=== PATIENT | female | born 1990 | race Caucasian/White ===

== ENCOUNTER 2018-02-07 20:50 | Emergency (ER) | payer OTHER, SELFPAY ==
--- NOTE | 2018-02-07 12:18 | EKG12_ITS ---
Test Reason : CP Blood Pressure : / mmHG Vent. Rate : 099 BPM Atrial Rate : 099 BPM P-R Int : 146 ms QRS Dur : 072 ms QT Int : 346 ms P-R-T Axes : 065 064 052 degrees QTc Int : 444 ms Normal sinus rhythm Normal ECG Reconfirmed by JEN BRASHER, CARL ([id number]), copy editor FAHAD HORNER ([id number]) on 03/07/2018 2:42:48 PM Referred By: John Olivas Confirmed By:CARL LI MD
--- NOTE | 2018-02-07 20:50 | DT_ITS ---
This patient was seen during an EMR downtime February 04, 2018 - February 11, 2018. This patient may have a combination of paper and electronic documentation or all paper documentation. All documentation is viewable within the e-chart portion of [facility] for each patient visit.
--- NOTE | 2018-02-07 22:25 | RAD_ITS ---
STUDY: X-RAY CHEST REASON FOR EXAM: Female, 27 years old. Chest pain TECHNIQUE: Frontal and lateral views of the chest were obtained. COMPARISON: None. FINDINGS: The lungs are adequately aerated. There are no focal airspace opacities. There is no demonstrated pleural abnormality. The cardiac silhouette is normal in size. The mediastinum and hilar regions are unremarkable. Normal visualized pulmonary arteries. Normal visualized aortic arch and descending thoracic aorta. The thoracic spine is unremarkable. The visualized ribs, clavicles, and shoulders are unremarkable. There is no demonstrated abnormality of the visualized upper abdomen. RAD/Chest PA and Lateral IMPRESSION: No acute cardiopulmonary abnormalities. Electronically Signed: Kathy Conde MD at 23:18 EDT Tel Direct: [phone], Service support ,
== END 2018-02-08 00:17 | disposition home or self-care (01) ==
LOC: ED 02-08 08:42
PROVIDERS: Emergency Provider Emergency Medicine
DX: R07.89 Other chest pain (principal); R23.2 Flushing; R06.00 Dyspnea, unspecified; J45.909 Unspecified asthma, uncomplicated; Z87.891 Personal history of nicotine dependence
CPT/HCPCS: 36415; 71046; 84484; 93005; 99283

== ENCOUNTER 2018-09-30 00:19 | Emergency (ER) | payer OTHER, SELFPAY ==
[2018-09-30 00:20] VITALS: BP 143/91; PULSE 103; RESP 99; TEMP 35.7; O2SAT 99; BMI 29.6
--- NOTE | 2018-09-30 00:44 | ED.DCSUM_ITS ---
- ER Visit Summary Date of Service: 09/30/18 Chief Complaint: [] Abdominal cramping, nausea vomiting and diarrhea History of Present Illness: The patient is a 27 F with the above symptoms for the last 2 hours. She is been having episodes of emesis with 5 loose bowel movements. She has cramping and aching upper abdominal discomfort. She tried Tylenol, Pepto, Tums with minimal relief. She has had 4 liquor beverages earlier today over 4 hours and does not think that is the cause. No sick contacts. She drinks only occasionally. Physical Examination: [] Vital signs reviewed General: Well-nourished well-developed Head: Normocephalic atraumatic Eyes: Pupils equal round and reactive to light extraocular movements intact ENT: TMs clear no hemotympanum no trauma Neck: Nontender full range of motion Cardiovascular: Regular rate rhythm no murmurs normal S1-S2 Respiratory: No distress clear to auscultation bilaterally chest nontender Abdomen: Soft mild upper abdominal soreness diffuse nondistended normal bowel sounds no masses Back: Nontender no CVA tenderness Extremities: Nontender active range of motion ?4 extremities no trauma Skin: Normal color no trauma Neuro alert oriented cranial nerves II through XII intact normal strength sensation reflexes Test Results: [] Emergency Department Course and Treatment: [] Patient given IV fluids, Zofran, morphine, Imodium. Electrolytes unremarkable. Patient felt much better after treatment. No longer having any nausea. She did have a few episodes of diarrhea but none since Imodium. Patient will be discharged with Zofran and use Imodium [id number]. At this time I think she has viral diarrhea and vomiting Treatment Plan: [] Disposition: [] Impression: [] Nausea vomiting and diarrhea This note was generated with [employer] dictation software. It may contain incorrect words, spelling, and punctuation that were not noted in review of the chart prior to signing ED Disposition - Plan for ED Patient: Chief Complaint: Nausea/Vomiting/Diarrhea Referrals: [facility] Doctor,Out of [Primary Care Provider] -
[2018-09-30] MEDS: Ondansetron 4 MG/2 ML Vial IV (01:06)
[2018-09-30] MEDS: 0.9% Normal Saline 1,000 ML 1000 ML IV (01:06)
[2018-09-30] MEDS: Morphine 4 MG/ML Syringe IV (01:06)
[2018-09-30] MEDS: Loperamide 2 MG Capsule 4 MG PO (01:21)
[2018-09-30 01:23] VITALS: BP 133/69; PULSE 78; RESP 18; TEMP 36.7; O2SAT 100
[2018-09-30 01:47] LABS: Anion Gap 12 (5-15); BUN 6 mg/dL (7-18); BUN/Creat Ratio 7.4 RATIO (10-20); Calcium,Total 9.6 mg/dL (8.5-10.1); Chloride 104 mmol/L (98-107); Creatinine, Serum 0.81 mg/dL (0.55-1.02); EST Glomerular Filtration Rate 89 mL/min (>60); Est Glom Filt Rate - Afr Amer 107 mL/min (>60); Estimated Creatinine Clearance 88.49 ml/min; Glucose 108 mg/dL (74-106); Potassium 3.6 mmol/L (3.5-5.1); Sodium Level 139 mmol/L (136-145)
--- NOTE | 2018-09-30 02:00 | ED.DEP ---
ED Disposition - Plan for ED Patient: Disposition: Home or Assisted Living Chief Complaint: Nausea/Vomiting/Diarrhea Instructions: ED Food Poison Or Gastroenteritis Prescriptions: Ondansetron [Zofran Odt] 4 mg PO Q8H PRN PRN #10 tab PRN Reason: Nausea Referrals: [facility],Out of [Primary Care Provider] -
[2018-09-30 02:05] VITALS: BP 135/74; PULSE 89; RESP 15; O2SAT 99
[2018-09-30] MEDS: Ondansetron ODT 4 MG Tablet PO (02:21)
== END 2018-09-30 02:22 | disposition home or self-care (01) ==
PROVIDERS: Emergency Provider Emergency Medicine
DX: K52.9 Noninfective gastroenteritis and colitis, unspecified (principal); Z79.899 Other long term (current) drug therapy; Z87.11 Personal history of peptic ulcer disease
CPT/HCPCS: 80048; 96361; 96374; 96375; 99283; A4216; J2405

== ENCOUNTER → 2020-06-15 17:10 | Outpatient (CLI) | payer OTHER, SELFPAY | PROVIDERS: Referring Provider Nurse Practitioner Family; Visit Provider Nurse Practitioner Family | DX: Z20.828 Contact with and (suspected) exposure to other viral communicable diseases (principal) | CPT/HCPCS: 87635; C9803; U0003 ==

== ENCOUNTER → 2020-08-05 | Outpatient (CLI) | payer OTHER, SELFPAY ==
[2020-08-05 11:42] VITALS: BMI 29.5
[2020-08-11 21:36] LABS: HPV APTIMA, High Risk Negative (Negative)
== END | disposition home or self-care (01) ==
LOC: LABSPEC 16:14
PROVIDERS: Referring Provider Obstetrics & Gynecology; Visit Provider Obstetrics & Gynecology
DX: Z87.42 Personal history of other diseases of the female genital tract (principal)
CPT/HCPCS: 87624; 88175; G0145

== ENCOUNTER → 2020-08-09 16:03 | Outpatient (CLI) | payer OTHER, SELFPAY ==
[2020-08-05 11:42] VITALS: BMI 29.5
[2020-08-09 17:08] LABS: Thyroid Stim Hormone (TSH) 1.16 uIU/mL (0.358-3.74)
[2020-08-15 20:42] LABS: Anti-Mullerian Hormone,Serum 0.794 ng/mL (.)
== END ==
PROVIDERS: PCP Family Medicine; Referring Provider Obstetrics & Gynecology; Visit Provider Obstetrics & Gynecology
DX: R23.2 Flushing (principal)
CPT/HCPCS: 36415; 83516; 84443

== ENCOUNTER → 2020-08-13 12:26 | Outpatient (CLI) | payer OTHER, SELFPAY ==
[2020-08-05 11:42] VITALS: BMI 29.5
--- NOTE | 2020-08-13 12:30 | US_ITS ---
STUDY: ULTRASOUND OF THE FEMALE PELVIS - COMPLETE REASON FOR EXAM: Female, 29 years old. PELVIC PAIN LMP: 07/08/2020 TECHNIQUE: Transabdominal and Transvaginal TECHNICAL QUALITY: Adequate. COMPARISON: None. FINDINGS: The uterus is anteverted and is in a midline position. The uterus measures 7.7 x 4.7 x 3.4 cm. Normal uterine cervix. The endometrium measures 2.9 mm in thickness, and is hyperechoic. There is no demonstrated endometrial mass. Hypoechoic mass of the myometrium measures 3.2 x 2.2 x 2.4 cm compatible with a fibroid. I.U.D. - The patient does not have an I.U.D. The right ovary is visualized. The right ovary measures 2.4 x 2.2 x 1.0 cm. There is no right ovarian cyst or ovarian mass. There is no visualized right adnexal mass or complex lesion. There is normal arterial and normal venous vascularity. The left ovary is visualized. The left ovary measures 2.3 x 2.2 x 1.2 cm. There is no left ovarian cyst or ovarian mass. There is no visualized left adnexal mass or complex lesion. There is normal arterial and normal venous vascularity. There is no fluid in the cul-de-sac. Visualized urinary bladder is unremarkable. US/Pelvic (Non ) IMPRESSION: 3.2 cm uterine fibroid. Electronically Signed: Abel Castillo MD (Brooks) at 15:09 EST , Service support ,
--- NOTE | 2020-08-13 12:30 | US_ITS ---
STUDY: ULTRASOUND OF THE FEMALE PELVIS - COMPLETE REASON FOR EXAM: Female, 29 years old. PELVIC PAIN LMP: 07/08/2020 TECHNIQUE: Transabdominal and Transvaginal TECHNICAL QUALITY: Adequate. COMPARISON: None. FINDINGS: The uterus is anteverted and is in a midline position. The uterus measures 7.7 x 4.7 x 3.4 cm. Normal uterine cervix. The endometrium measures 2.9 mm in thickness, and is hyperechoic. There is no demonstrated endometrial mass. Hypoechoic mass of the myometrium measures 3.2 x 2.2 x 2.4 cm compatible with a fibroid. I.U.D. - The patient does not have an I.U.D. The right ovary is visualized. The right ovary measures 2.4 x 2.2 x 1.0 cm. There is no right ovarian cyst or ovarian mass. There is no visualized right adnexal mass or complex lesion. There is normal arterial and normal venous vascularity. The left ovary is visualized. The left ovary measures 2.3 x 2.2 x 1.2 cm. There is no left ovarian cyst or ovarian mass. There is no visualized left adnexal mass or complex lesion. There is normal arterial and normal venous vascularity. There is no fluid in the cul-de-sac. Visualized urinary bladder is unremarkable. US/Transvaginal Non- IMPRESSION: 3.2 cm uterine fibroid. Electronically Signed: Abel Castillo MD (Brooks) at 15:09 EST , Service support ,
== END ==
PROVIDERS: PCP Family Medicine; Referring Provider Obstetrics & Gynecology; Visit Provider Obstetrics & Gynecology
DX: R10.2 Pelvic and perineal pain (principal)
CPT/HCPCS: 76830; 76856

== ENCOUNTER 2020-09-28 09:57 | Observation (INO) | payer OTHER, SELFPAY ==
[2020-08-05 11:42] VITALS: BMI 29.5
[2020-09-28] VITALS (13 sets, daily range): BP systolic 114–161; BP diastolic 64–110; PULSE 110–127; RESP 16–20; TEMP 36.6–37; O2SAT 95–100; BMI 30.4; BMI 29.8
--- NOTE | 2020-09-28 10:08 | EKG12_ITS ---
Test Reason : CP Blood Pressure : / mmHG Vent. Rate : 130 BPM Atrial Rate : 130 BPM P-R Int : 132 ms QRS Dur : 074 ms QT Int : 318 ms P-R-T Axes : 065 081 038 degrees QTc Int : 467 ms Sinus tachycardia Otherwise normal ECG Confirmed by ZAFAR BRASHER, YOLANDE ([id number]), editor department TANYA MANDUJANO ([id number]) on 09/29/2020 11:16:46 AM Referred By: RAYAS/ALIE Confirmed By:YOLANDE STEPHEN MD
--- NOTE | 2020-09-28 10:09 | CT_ITS ---
STUDY: CTA CHEST REASON FOR EXAM: Female, 29 years old. SOB,COUGH,CHEST PAIN, ASTHMA, ELEV WBC, TOBACCO USE RADIATION DOSAGE (If Supplied By Facility): CTDIvol = ( 12.7 ) mGy, DLP = ( 413.24 ) mGycm TECHNIQUE: The examination was performed with the intravenous administration of IV 100mL Isovue-300. Post-processing of the angiographic images was performed, with multiplanar reformation and 3D reconstruction. Individualized dose optimization techniques were used for this CT. COMPARISON: None. FINDINGS: Small benign-appearing bilateral axillary lymph nodes. There are multiple nonocclusive intraluminal filling defects in branches of the upper lobe pulmonary arteries in keeping with the pulmonary emboli. There is also evidence of a multiple small bilateral pulmonary emboli in the lower lobe pulmonary arteries. Normal thoracic aorta and visualized great vessels. There is no demonstrated aortic dissection. Normal heart and pericardium. There are calcified mediastinal lymph nodes. There are calcified right hilar lymph nodes. Normal visualized trachea and bronchi. The lungs are well expanded. Calcified granuloma in the right lower lobe. Calcified right hilar lymph nodes and subcarinal lymph nodes. Normal pleura. Normal chest wall structures. Normal osseous structures. Normal visualized upper abdomen. CT/CTA Chest W/WO Contrast IMPRESSION: Bilateral pulmonary emboli. Electronically Signed: Tung Zhao MD at 11:26 EST , Service support ,
--- NOTE | 2020-09-28 10:15 | ED.DCSUM_ITS ---
- ER Visit Summary Date of Service: 09/28/20 Chief Complaint: Cough, chest pain History of Present Illness: The patient is a 29 F presenting with cough, chest pain with inspiration. She states 2 weeks ago she was having headache, chills, cough, fatigue. She was tested for Covid at that time and was negative. She has been improved for the past week. She states since yesterday she has now developed a cough again. She has pain with deep inspiration. She went to urgent care and was advised to come to the ED for further evaluation. Physical Examination: Vitals are stable. Patient is afebrile. Alert no acute distress. HEENT exam is unremarkable. Neck is supple. Lungs are clear and equal bilaterally. Heart is regular and tachycardic Abdomen is soft nontender nondistended. Extremities are unremarkable. Skin is warm and dry. No focal neurologic deficit. Remainder of exam is unremarkable. Emergency Department Course and Treatment: EKG is sinus tachycardia rate of 130. CBC shows white count 15.6. Chemistries unremarkable. Troponin is negative. hCG negative. Patient was given IV fluids. CTA chest shows bilateral PE. Her heart rate remains 120s to 130s. She was given Eliquis. Discussed with hospitalist for admission. Disposition: Admission Impression: Bilateral PE This note was generated with [employer] dictation software. It may contain incorrect words, spelling, and punctuation that were not noted in review of the chart prior to signing ED Disposition - Plan for ED Patient: Referrals: Lavell Killian MD [Primary Care Provider] -
[2020-09-28 10:25] LABS: Absolute Lymphocyte Count 2.24 X10^3/uL (0.83-4.51); Absolute Neutrophil Count 12.4 X10^3/uL (2.0-7.7); Basophil# 0.07 X10^3/uL; Basophil% 0.4 % (0-1); Eosinophil# 0.18 X10^3/uL; Eosinophils% 1.2 % (0-5); Hematocrit 41.3 % (37-47); Hemoglobin 13.6 g/dL (12.0-15.0); Lymphocyte # 2.24 X10^3/ul (4.0); Lymphocyte % 14.4 % (19-41); Mean Corp Hgb Conc 32.9 g/dL (32-36); Mean Corpuscular Hgb 28.3 pg (27.0-32.0); Mean Platelet Vol. 8.7 fl (6.2-12.0); Monocyte# 0.62 X10^3/uL; NRBC Flagged by Analyzer 0 % (0-5); Neutrophil # 12.38 X10^3/uL (2.7-7.7); Neutrophil % 79.6 % (47-70); Platelet Count 401 K/mm3 (150-450); RBC Distribution Width SD 37.5 fl (35.1-43.9); White Blood Count 15.6 K/mm3 (4.4-11.0)
[2020-09-28] MEDS: 0.9% Normal Saline 1,000 ML 1000 ML IV (10:28)
[2020-09-28 10:41] LABS: Internal QC Validated? YES +Cl - CLEAR BKGD; Pregnancy, Serum, hCG Quali. NEGATIVE Negative
[2020-09-28 10:43] LABS: Anion Gap 6 (5-15); BUN 10 mg/dL (7-18); BUN/Creat Ratio 12.8 RATIO (10-20); Calcium,Total 9.4 mg/dL (8.5-10.1); Chloride 105 mmol/L (98-107); Creatinine, Serum 0.78 mg/dL (0.55-1.02); EST Glomerular Filtration Rate 91 mL/min (>60); Est Glom Filt Rate - Afr Amer 110 mL/min (>60); Estimated Creatinine Clearance 90.24 ml/min; Glucose 95 mg/dL (74-106); Potassium 3.5 mmol/L (3.5-5.1); Sodium Level 139 mmol/L (136-145)
--- NOTE | 2020-09-28 11:43 | NURSING ---
DR TRAY TABARES
--- NOTE | 2020-09-28 11:45 | HP.PCM_ITS ---
History of Present Illness Date of Admission: 09/28/20 Chief Complaint: shortness of breath The patient is a 29 year old F with no significant past medical history who was admitted through the ED on 09/28/2020 with a complaint of cough and shortness of breath which started on the morning of admission. She also had associated chest pain which was mainly with breathing in deeply. Patient has never had such symptoms before so she went to an urgent care facility today. Whilst there, she was noted to be tachycardic, with HR up in the 130s, so she was told to come to the ED. 2 weeks prior to this admission, patient believes she had Covid as she had fever and chills and shortness of breath as well as generalized body pains. She denies any loss of taste or smell and her partner has similar symptoms and has been tested for Covid. She was never tested for Covid though. She has a history of using oral contraceptive pills which she says she stopped about 2 weeks ago after using it for about 16 years. She does not know of any family history of blood clots or spontaneous abortions or any per coagulable state in her mother and does not know much about the rest of her family. Review of systems otherwise negative. In the ED, vitals show temperature of 97.8 Fahrenheit with blood pressure of 161/110, pulse rate of 125 and respiratory rate of 20. She was saturating at 98% on room air. Chemistry was unremarkable initial troponin was negative. CBC showed WBC of 15.6 but was otherwise unremarkable. CT of the chest showed bilateral pulmonary emboli in the upper lobes and multiple small bilateral pulmonary emboli in the lower lobe pulmonary arteries. She has been admitted to be managed for bilateral PE. 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 Gastric ulcer K25.9 Vertigo R42 Allergies No Known Allergies Allergy (Verified 09/28/20 09:57) Home Medications: Ambulatory Orders Medication Instructions Recorded Pantoprazole Sodium [Protonix] 40 mg PO DAILY 09/30/18 albuterol sulfate 90 mcg/actuation 2 puff INHALATION Q6H PRN 08/05/20 aerosol inhaler multivitamin 1 tab PO DAILY 08/05/20 Loratadine/Pseudo 240/10 1 tab PO DAILY 09/28/20 [Claritin-D 24 Hr] Surgical History: Surgical History (Last Updated 08/05/20 @ 11:45 by Ria Mejía) S/P LEEP Z98.890 S/P endoscopy Z98.890 S/P wisdom tooth extraction Z98.818 Status post colposcopy Z98.890 Smoking Status: Former smoker Review of Systems Constitutional: Denies: Chills, Fever, Malaise, Weakness, Weight Change Eyes: Denies: Blurred vision HEENT: Denies: Head Aches, Sinus Congestion, Sinus Drainage Cardiovascular: Reports: Chest Pain, Palpitations. Denies: Chest Pressure, Chest Tightness, Edema, Heaviness, Light Headedness, Orthopnea, Paroxysmal Noc. Dyspnea, Syncope Respiratory: Reports: Pleuritic Pain, Shortness of Breath. Denies: Cough, Shortness of breath at rest, Sputum production Gastrointestinal: Denies: Abdominal Pain, Nausea, Vomiting Genitourinary: Denies: Dysuria Musculoskeletal: Denies: Joint Pain, Joint Tenderness Skin: Denies: Rash, Wounds Neurological: Denies: Numbness, Tingling, Focal weakness Psychiatric: Denies: Anxiety, Depression, Homicidal Ideations, Suicidal Ideations Hematologic/ Lymphatic: Denies: Easy Bruising, Easy Bleeding VTE Information - Inpt Only VTE Present on Admission: Yes VTE Pharm Prophylaxis ordered?: Yes - Physical Exam Vitals/I&O's: Vital Signs Temp Pulse Resp BP Pulse Ox 97.8 F 118 H 16 122/93 H 100 09/28/20 09:58 09/28/20 10:25 09/28/20 10:25 09/28/20 10:25 09/28/20 10:25 Oxygen Delivery Method Room Air Weight: 177 lb Body Mass Index (BMI) 30.4 General: Alert, Oriented x3, Cooperative, - - anxious HEENT: Atraumatic, PERRLA, EOMI, Normocephalic Oral: Dry Mucosa Neck: Supple, No JVD, Negative Carotid Bruits Lungs: Clear to auscultation, Normal air movement, No rhonchi, No wheeze Cardiovascular: Normal S1, Normal S2, No murmurs, Tachycardic Abdomen: Bowel Sounds Present, Soft, Non Tender Extremities: No clubbing, No cyanosis, No edema, Capillary Refill Less than 3 Seconds Skin: No rashes, No breakdown Musculoskeletal: No Tenderness to Palpation of Joints or Extremities Lymphatic: No Cervical, Supraclavicular, or Inguinal Adenopathy Neurological: Cranial nerves II-XII grossly intact, Neuro grossly intact, Motor Exam 5/5 strength throughout Psych/Mental Status: Normal Affect, Appropriate, Alert and oriented to time, place, person, mood and affect Microbiology Past 72 Hours 09/28/20 10:12 Mucosa - Nose SARS-CoV-2 Antigen (Rapid) - Final Laboratory Results 09/28/20 10:13: WBC 15.6 H, RBC 4.80, Hgb 13.6, Hct 41.3, MCV 86.0, MCH 28.3, MCHC 32.9, RDW Std Deviation 37.5, RDW Coeff of Elizabeth 12.0, Plt Count 401, MPV 8.7, Immature Gran % (Auto) 0.400, Neut % (Auto) 79.6 H, Lymph % (Auto) 14.4 L, [place] % (Auto) 4.0, Eos % (Auto) 1.2, Baso % (Auto) 0.4, Absolute Neuts (auto) 12.4 H, Absolute Lymphs (auto) 2.24, Nucleated RBC % 0 09/28/20 10:13: Sodium 139, Potassium 3.5, Chloride 105, Carbon Dioxide 28.0, Anion Gap 6, BUN 10, Creatinine 0.78, Estim Creat Clear Calc 90.24, Est GFR (MDRD) Af Amer 110, Est GFR (MDRD) Non-Af 91, BUN/Creatinine Ratio 12.8, Glucose 95, Calcium 9.4, Troponin I < 0.015 09/28/20 10:13: Serum , Qual NEGATIVE Diagnostic Data Chest CTA 09/28/20 10:09 IMPRESSION: Bilateral pulmonary emboli. Electronically Signed: Tung Zhao MD at 11:26 EST , Service support , Assessment/Plan 29 y/o admitted with a complaint of shortness of breath, palpitations and pleuritic chest pain #Bilateral PE * only provoking factor seems to be use of OCPs * COVID rapid antigen test was negative, PCR test done was also negative. * CT of the chest showed bilateral pulmonary emboli * Admits to PCU with telemetry * Check 2D echo. Patient started on Eliquis in the ED. Will continue. * Patient will need hypercoagulable work-up as well. We will hold off on duplex of the lower extremities as it will not change the management. * Counseled that she should not resume use of OCPs ever again due to them provoking DVT PE. * Counseled that she would need to be anticoagulated for at least 6 months. * #Asthma * Controlled. On albuterol inhaler. * Breathing treatments with bronchodilators as needed. * VT prophylaxis: not indicated as she is being anticoagulated for PE OBSV E&M: [id number] Initial observation care L3
[2020-09-28] MEDS: APIXABAN 5 MG TABLET 10 MG PO ×2 (12:02→20:47)
[2020-09-28] MEDS: Acetaminophen 500 MG Tablet 1000 MG PO (15:15)
--- NOTE | 2020-09-28 15:30 | NURSING ---
124 KORAM BILATERAL PE
[2020-09-28 16:47] LABS: BNP,B-Type NATRIURETIC PEPTIDE 6.3 pg/mL (0-100)
[2020-09-28] MEDS: Acetaminophen 325 MG Tablet 650 MG PO (22:59)
[2020-09-29 02:40] VITALS: BP 112/64; PULSE 99; RESP 18; TEMP 37; O2SAT 97
[2020-09-29 03:02] VITALS: PULSE 92
--- NOTE | 2020-09-29 05:55 | ECHOD_ITS ---
Reason For Study: Bilateral PE Procedure This was a 2D Doppler, Color Flow transthoracic echocardiogram. The exam was of adequate technical quality. Exam performed portable in patient room. Left Ventricle Normal LV size. Left ventricular systolic function is normal. The estimated ejection fraction is 65 %. No evidence for diastolic dysfunction. No regional wall motion abnormalities noted. Right Ventricle Normal RV size. Normal systolic function. Atria Normal left atrium. Normal right atrium. No doppler evidence for ASD. Mitral Valve There is no mitral annular calcification. Normal mitral valve. Trivial mitral valve insufficiency. Tricuspid Valve Normal tricuspid valve. Trivial tricuspid valve insufficiency. Unable to estimate RV systolic pressure due to insufficient tricuspid regurgitant envelope. Aortic Valve Trisinus/trileaflet aortic valve. Normal aortic valve. Pulmonic Valve The pulmonic valve is not well visualized. Great Vessels Normal sized aortic root. Pericardium/Pleural No pericardial effusion. MMode/2D Measurements & Calculations LVIDd: 4.1 cm IVSd: 0.80 cm Ao root diam: 3.0 cm LVIDs: 2.9 cm LVPWd: 1.1 cm LA dimension: 3.0 cm FS: 30.0 % LAV(MOD-bp): 38.8 ml LA A4 area: 14.8 cm2 RA A4 area: 13.2 cm2 LAV(MOD-bp) Indexed: 21.1 ml/m2 LAV(MOD-sp2): 38.0 ml LAV(MOD-sp4): 35.0 ml Time Measurements MV dec time: 0.20 sec Doppler Measurements & Calculations MV E max patric: 84.6 cm/sec Lat Peak E' Patric: 17.2 cm/sec Med Peak E' Patric: 11.6 cm/sec MV A max patric: 57.4 cm/sec E/E' lat: 4.9 E/E' med: 7.3 MV E/A: 1.5 MV V2 max: 91.1 cm/sec MV P1/2t max patric: 92.2 cm/sec Ao V2 max: 137.0 cm/sec MV max P.3 mmHg MV P1/2t: 67.3 msec Ao max P.5 mmHg MV V2 mean: 55.5 cm/sec MV dec slope: 401.4 cm/sec2 MV mean P.4 mmHg MVA(P1/2t): 3.3 cm2 MV V2 VTI: 20.6 cm LV V1 max: 96.6 cm/sec PA V2 max: 98.2 cm/sec LV V1 max P.7 mmHg Interpretation Summary Left ventricular systolic function is normal. The estimated ejection fraction is 65 %. Trivial mitral valve insufficiency. Trivial tricuspid valve insufficiency. Unable to estimate RV systolic pressure due to insufficient tricuspid regurgitant envelope. No evidence for diastolic dysfunction. Ordering Physician: Helen St Referring Physician: Jose Killian Performed By: Berry Potter RCS
[2020-09-29 06:35] LABS: Absolute Lymphocyte Count 2.67 X10^3/uL (0.83-4.51); Absolute Neutrophil Count 8.1 X10^3/uL (2.0-7.7); Basophil# 0.07 X10^3/uL; Basophil% 0.6 % (0-1); Eosinophil# 0.49 X10^3/uL; Eosinophils% 4.1 % (0-5); Hematocrit 38.3 % (37-47); Hemoglobin 12.2 g/dL (12.0-15.0); Lymphocyte # 2.67 X10^3/ul (4.0); Lymphocyte % 22.4 % (19-41); Mean Corp Hgb Conc 31.9 g/dL (32-36); Mean Corpuscular Hgb 28.4 pg (27.0-32.0); Mean Corpuscular Volume 89.1 fL (81-99); Mean Platelet Vol. 8.9 fl (6.2-12.0); Monocyte# 0.57 X10^3/uL; Monocyte% 4.8 % (0-10); NRBC Flagged by Analyzer 0 % (0-5); Neutrophil # 8.07 X10^3/uL (2.7-7.7); Neutrophil % 67.8 % (47-70); Platelet Count 309 K/mm3 (150-450); RBC Distribution Width CV 12.4 % (11.6-14.6); RBC Distribution Width SD 40.2 fl (35.1-43.9); White Blood Count 11.9 K/mm3 (4.4-11.0)
[2020-09-29 07:12] LABS: Anion Gap 5 (5-15); BUN 7 mg/dL (7-18); BUN/Creat Ratio 10.8 RATIO (10-20); Calcium,Total 8.4 mg/dL (8.5-10.1); Chloride 109 mmol/L (98-107); Creatinine, Serum 0.65 mg/dL (0.55-1.02); EST Glomerular Filtration Rate 113 mL/min (>60); Est Glom Filt Rate - Afr Amer 136 mL/min (>60); Estimated Creatinine Clearance 108.29 ml/min; Glucose 87 mg/dL (74-106); Potassium 3.8 mmol/L (3.5-5.1); Sodium Level 139 mmol/L (136-145)
[2020-09-29 07:48] VITALS: PULSE 105
--- NOTE | 2020-09-29 08:04 | PCM.CONS.PUL ---
Reason for Consult Date of Consultation: 09/29/20 Reason for Consultation: Bilateral pulmonary emboli History of Present Illness: The patient is a 29-year-old female, with a history as outlined below, who presented to the emergency department on September 28 with complaints of a cough and pleuritic type chest pain. The patient did report some vague Covid-like symptoms 2 weeks ago but was apparently tested for coronavirus and found to be negative. The patient denies a personal history of venous thromboembolic disease. The patient does not know much about her family history. She is a lifelong non-smoker. Up until September 12, the patient had been on an oral contraceptive. This was discontinued and the patient is currently seeing a fertility specialist in hopes of becoming . On presentation to the emergency department, the patient was noted to be afebrile hemodynamically stable. She was, nevertheless, tachycardic and tachypneic. She was still able to maintain appropriate oxygen saturations on room air. Laboratory evaluation revealed an elevated white blood cell count to 15,000. Chemistry profile was unremarkable. Troponin and BNP were negative. Both rapid antigen and PCR testing for coronavirus were negative. CTA chest was obtained and revealed multiple bilateral pulmonary emboli. The patient was subsequently started on Eliquis and admitted to the progressive care unit for further management. 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 Gastric ulcer K25.9 Vertigo R42 Allergies No Known Allergies Allergy (Verified 09/28/20 09:57) Home Medications: Ambulatory Orders Medication Instructions Recorded Pantoprazole Sodium [Protonix] 40 mg PO DAILY 09/30/18 albuterol sulfate 90 mcg/actuation 2 puff INHALATION Q6H PRN 08/05/20 aerosol inhaler multivitamin 1 tab PO DAILY 08/05/20 Loratadine/Pseudo 240/10 1 tab PO DAILY 09/28/20 [Claritin-D 24 Hr] Surgical History: Surgical History (Last Updated 08/05/20 @ 11:45 by Ria Mejía) S/P LEEP Z98.890 S/P endoscopy Z98.890 S/P wisdom tooth extraction Z98.818 Status post colposcopy Z98.890 Smoking Status: Former smoker Review of Systems Constitutional: Denies: Chills, Fever, Malaise, Fatigue Eyes: Denies: Blurred vision, Double vision HEENT: Denies: Head Aches, Sinus Congestion, Sinus Drainage Cardiovascular: Denies: Chest Pain, Palpitations Respiratory: Reports: Cough, Shortness of Breath Gastrointestinal: Denies: Abdominal Pain, Nausea, Vomiting Genitourinary: Denies: Dysuria Musculoskeletal: Denies: Joint Pain, Joint Tenderness Skin: Denies: Rash, Wounds Neurological: Denies: Numbness, Tingling, Focal weakness Psychiatric: Denies: Anxiety, Depression, Homicidal Ideations, Suicidal Ideations Hematologic/ Lymphatic: Denies: Easy Bruising, Easy Bleeding, Hx of blood clot Objective: The patient's most recent lab work, culture data and imaging studies have all been personally reviewed. - Physical Exam Vitals/I&O's: Vital Signs Temp Pulse Resp BP Pulse Ox 98.6 F 105 H 18 112/64 97 09/29/20 02:40 09/29/20 07:48 09/29/20 02:40 09/29/20 02:40 09/29/20 02:40 Oxygen Delivery Method Room Air Weight: 173 lb 11.588 oz Body Mass Index (BMI) 29.8 Intake and Output for Last 24 Hours 09/27/20 09/28/20 09/29/20 23:59 23:59 23:59 Intake Total 1720 / 1720 240 / 240 Balance 1720 / 1720 240 / 240 General: Alert, Cooperative, No apparent distress HEENT: Atraumatic, PERRLA, Normocephalic Oral: No Gingival or Mucosal Lesions/ Ulcerations Neck: Supple, No Nodes, Trachea Midline Lungs: Normal air movement, No rhonchi, No wheeze, No rales Cardiovascular: Regular rate, Regular Rhythm Abdomen: Bowel Sounds Present, Soft, Non Tender Extremities: No clubbing, No cyanosis, No edema Skin: No breakdown Musculoskeletal: No Tenderness to Palpation of Joints or Extremities Lymphatic: No Cervical, Supraclavicular, or Inguinal Adenopathy Neurological: Cranial nerves II-XII grossly intact, Neuro grossly intact Psych/Mental Status: Alert and oriented to time, place, person, mood and affect Labs (Last 48 Hours) 09/28/20 09/28/20 09/28/20 10:13 10:13 10:13 WBC 15.6 H RBC 4.80 Hgb 13.6 Hct 41.3 MCV 86.0 MCH 28.3 MCHC 32.9 RDW Std Deviation 37.5 RDW Coeff of Elizabeth 12.0 Plt Count 401 MPV 8.7 Immature Gran % (Auto) 0.400 Neut % (Auto) 79.6 H Lymph % (Auto) 14.[address] [place] % (Auto) 4.0 Eos % (Auto) 1.2 Baso % (Auto) 0.4 Absolute Neuts (auto) 12.4 H Absolute Lymphs (auto) 2.24 Nucleated RBC % 0 Sodium 139 Potassium 3.5 Chloride 105 Carbon Dioxide 28.0 Anion Gap 6 BUN 10 Creatinine 0.78 Estim Creat Clear Calc 90.24 Est GFR (MDRD) Af Amer 110 Est GFR (MDRD) Non-Af 91 BUN/Creatinine Ratio 12.8 Glucose 95 Calcium 9.4 Troponin I < 0.015 B-Natriuretic Peptide Serum , Qual NEGATIVE COVID-19 ([place]) 09/28/20 09/28/20 09/28/20 10:13 12:00 16:20 WBC RBC Hgb Hct MCV MCH MCHC RDW Std Deviation RDW Coeff of Elizabeth Plt Count MPV Immature Gran % (Auto) Neut % (Auto) Lymph % (Auto) [place] % (Auto) Eos % (Auto) Baso % (Auto) Absolute Neuts (auto) Absolute Lymphs (auto) Nucleated RBC % Sodium Potassium Chloride Carbon Dioxide Anion Gap BUN Creatinine Estim Creat Clear Calc Est GFR (MDRD) Af Amer Est GFR (MDRD) Non-Af BUN/Creatinine Ratio Glucose Calcium Troponin I < 0.015 B-Natriuretic Peptide 6.3 Serum , Qual COVID-19 ([place]) Not Detected 09/28/20 09/28/20 09/29/20 19:14 22:27 06:24 WBC 11.9 H RBC 4.30 Hgb 12.2 Hct 38.3 MCV 89.1 MCH 28.4 MCHC 31.9 L RDW Std Deviation 40.2 RDW Coeff of Elizabeth 12.4 Plt Count 309 MPV 8.9 Immature Gran % (Auto) 0.300 Neut % (Auto) 67.8 Lymph % (Auto) 22.4 [place] % (Auto) 4.8 Eos % (Auto) 4.1 Baso % (Auto) 0.6 Absolute Neuts (auto) 8.1 H Absolute Lymphs (auto) 2.67 Nucleated RBC % 0 Sodium Potassium Chloride Carbon Dioxide Anion Gap BUN Creatinine Estim Creat Clear Calc Est GFR (MDRD) Af Amer Est GFR (MDRD) Non-Af BUN/Creatinine Ratio Glucose Calcium Troponin I < 0.015 < 0.015 B-Natriuretic Peptide Serum , Qual COVID-19 ([place]) 09/29/20 06:24 WBC RBC Hgb Hct MCV MCH MCHC RDW Std Deviation RDW Coeff of Elizabeth Plt Count MPV Immature Gran % (Auto) Neut % (Auto) Lymph % (Auto) [place] % (Auto) Eos % (Auto) Baso % (Auto) Absolute Neuts (auto) Absolute Lymphs (auto) Nucleated RBC % Sodium 139 Potassium 3.8 Chloride 109 H Carbon Dioxide 25.0 Anion Gap 5 BUN 7 Creatinine 0.65 Estim Creat Clear Calc 108.29 Est GFR (MDRD) Af Amer 136 Est GFR (MDRD) Non-Af 113 BUN/Creatinine Ratio 10.8 Glucose 87 Calcium 8.4 L Troponin I B-Natriuretic Peptide Serum , Qual COVID-19 ([place]) Microbiology 09/28/20 10:12 Mucosa - Nose SARS-CoV-2 Antigen (Rapid) - Final Clinical Impression(s) from Imaging Studies Chest CTA 09/28/20 10:09 IMPRESSION: Bilateral pulmonary emboli. Electronically Signed: Tung Zhao MD at 11:26 EST , Service support , Current Medications Acetaminophen (Acetaminophen 325 Mg Tablet) 650 mg PO Q6H PRN PRN PRN Reason: Pain Score 1-10/Temp > 100.7 F Last Admin: 09/28/20 22:59 Dose: 650 mg Documented by: Albuterol Sulfate (Albuterol 2.5 Mg/3 Ml Vial.Neb.) 2.5 mg INHALATION Q4H PRN PRN Reason: SOB &/OR WHEEZING Apixaban (Apixaban 5 Mg Tablet) 10 mg PO BID [facility] Last Admin: 09/28/20 20:47 Dose: 10 mg Documented by: Loratadine (Loratadine 10 Mg Tablet) 10 mg PO DAILY [facility] Multivitamins (Multivitamins,Therapeutic Tablet) 1 tablet PO DAILYCM [facility] Ondansetron HCl (Ondansetron 4 Mg/2 Ml Vial) 4 mg IV Q8H PRN PRN PRN Reason: NAUSEA/VOMITING Pantoprazole Sodium (Pantoprazole Sodium 40 Mg Tablet) 40 mg PO DAILY [facility] Pseudoephedrine HCl (Pseudoephedrine 60 Mg Tablet) 60 mg PO 4X/DAY [facility] Assessment/Plan RECOMMENDATIONS: 1. Continue systemic anticoagulation with Eliquis. 2. Consider referral to hematology on outpatient basis. 3. Close coronation with SOCIAL AND HUMAN SERVICES ASSISTANT, given future plans for . 4. Will check SARS serology. 5. Follow-up in the pulmonary medicine clinic within 2 weeks of discharge. IMPRESSIONS: 1. Unprovoked bilateral PE The patient presented to the hospital with shortness of breath and cough and was subsequently found to have bilateral pulmonary emboli, the etiology of which is unclear. While the patient was previously on an oral contraceptive, it was discontinued on September 12. She has no personal history of venous thromboembolic disease. She did report some vague symptoms concerning for coronavirus several weeks ago but apparently tested negative for the infection. Given the correlation between pulmonary emboli and coronavirus, will check SARS serology. In the interim, I would agree with continuing Eliquis for now. Surface echocardiogram was unremarkable. The patient's care will need to be coordinated closely with her SOCIAL AND HUMAN SERVICES ASSISTANT, as the patient is currently seeing a fertility specialist in hopes of becoming in the near future. Given the unprovoked nature of the patient's PEs, she may need to be referred to a chemical equipment controller prior to discontinuing systemic anticoagulation completely. She is maintaining appropriate oxygen saturations on room air and is stable for discharge from my perspective, with plans to follow-up in the pulmonary medicine clinic. This note was generated with [employer] dictation software. It may contain incorrect words, spelling, and punctuation that were not noted in checking the note before signing. Inpatient E&M: 14322 Init Hosp L3
[2020-09-29 08:39] VITALS: BP 118/72; PULSE 88; RESP 16; TEMP 36.8; O2SAT 98
--- NOTE | 2020-09-29 10:45 | DCINST_ITS ---
You will use the following diet at home:: Regular Your food should be the consistency of: Regular Your liquids should be the consistency of: Regular/Thin Discharge Activity: Return to Normal Activity Weight Bearing Status: Weight bearing as tolerated Call your doctor if you observe: Fever of 101 or Higher, Shortness of breath, Dizziness, Chest pain, Increased palpitations (irregular heartbeat) Instructions: Pulmonary Embolism Allergies/Adverse Reactions: Allergies No Known Allergies Allergy (Verified 09/28/20 09:57) Medications to take at Discharge Pantoprazole Sodium [Protonix] 40 mg PO DAILY 09/30/18 albuterol sulfate 90 mcg/actuation aerosol inhaler 2 puff INHALATION Q6H PRN 08/05/20 multivitamin 1 tab PO DAILY 08/05/20 Loratadine/Pseudo 240/10 [Claritin-D 24 Hr] 1 tab PO DAILY 09/28/20 Apixaban [Eliquis] 10 mg PO BID #60 tab 09/29/20 The following prescriptions were given: Apixaban [Eliquis] 10 mg PO BID #60 tab Transmission Status: Pending to [facility]/pharmacy #[id number] Primary Care Physician: Lavell Killian MD [Primary Care Provider] - Please follow up with your Primary Care Physician in: 1-2 weeks Test Results: Test results from this visit will be discussed in further detail at your follow- up appointment, if applicable. Please Follow Up With: Johnathon Nguyen DO When: 2 weeks Proposed Discharge Date: 09/29/20
--- NOTE | 2020-09-29 10:47 | DS.PCM_ITS ---
Discharge Date and Diagnosis Date of Admission: 09/28/20 Date of Discharge: 09/29/20 - Primary Discharge Diagnosis Acute Problems: bilateral pulmonary emboli Hospital Course and Treatment Imaging Results: 09/29/20 05:55 Echo Complete [ECHO] AM (NON MEDS) Diagnostic Data Chest CTA 09/28/20 10:09 IMPRESSION: Bilateral pulmonary emboli. Electronically Signed: Tung Zhao MD at 11:26 EST , Service support , pulmonology- Dr Nguyen Operations: None Procedures: 2-D Echocardiogram Summary of Care Provided: The patient is a 29 year old F with no significant past medical history who was admitted through the ED on 09/28/2020 with a complaint of cough and shortness of breath which started on the morning of admission. She also had associated chest pain which was mainly with breathing in deeply. Patient has never had such symptoms before so she went to an urgent care facility today. Whilst there, she was noted to be tachycardic, with HR up in the 130s, so she was told to come to the ED. 2 weeks prior to this admission, patient believes she had Covid as she had fever and chills and shortness of breath as well as generalized body pains. She denies any loss of taste or smell and her partner has similar symptoms and has been tested for Covid. She was never tested for Covid though. She has a history of using oral contraceptive pills which she says she stopped about 2 weeks ago after using it for about 16 years. She does not know of any family history of blood clots or spontaneous abortions or any per coagulable state in her mother and does not know much about the rest of her family. Review of systems otherwise negative. In the ED, vitals show temperature of 97.8 Fahrenheit with blood pressure of 161/110, pulse rate of 125 and respiratory rate of 20. She was saturating at 98% on room air. Chemistry was unremarkable initial troponin was negative. CBC showed WBC of 15.6 but was otherwise unremarkable. CT of the chest showed bilateral pulmonary emboli in the upper lobes and multiple small bilateral pulmonary emboli in the lower lobe pulmonary arteries. She was admitted to be managed for bilateral PE. PE was thought to be provoked by oral contraceptive pills use. She was started on p.o. Eliquis. BNP was not elevated, and troponins x 3 were negative. 2D echo showed EF of 65%, with no evidence of diastolic dysfunction, and no regional wall motion abnormalities; unable to estimate diastolic function. Pulmonology was consulted. Patient's tachycardia resolved, and her shortness of breath and pleuritic chest pain resolved. She remained stable and she was discharged home on 09/29/2020. She is to follow up with her PCP and pulmonology. She was counseled that she would need to be anticoagulated for at least 3 to 6 months. Decision about hypercoagulable workup to be made after she has completed the treatment for PE. Patient seen and examined. She has no complaints and feels well. Review of systems otherwise negative. Labs and vitals reviewed. Home meds reviewed and reconciled. O/E: Vital Signs Temp Pulse Resp BP Pulse Ox 98.2 F 88 16 118/72 98 09/29/20 08:39 09/29/20 08:39 09/29/20 08:39 09/29/20 08:39 09/29/20 08:39 General: Alert, Oriented x3, Cooperative, HEENT: Atraumatic, PERRLA, EOMI, Normocephalic Oral: Dry Mucosa Neck: Supple, No JVD, Negative Carotid Bruits Lungs: Clear to auscultation, Normal air movement, No rhonchi, No wheeze Cardiovascular: Normal S1, Normal S2, No murmurs, Tachycardic Abdomen: Bowel Sounds Present, Soft, Non Tender Extremities: No clubbing, No cyanosis, No edema, Capillary Refill Less than 3 Seconds Skin: No rashes, No breakdown Musculoskeletal: No Tenderness to Palpation of Joints or Extremities Lymphatic: No Cervical, Supraclavicular, or Inguinal Adenopathy Neurological: Cranial nerves II-XII grossly intact, Neuro grossly intact, Motor Exam 5/5 strength throughout Psych/Mental Status: Normal Affect, Appropriate, Alert and oriented to time, place, person, mood and affect Plan is for discharge home today. - Physical Exam Vitals/I&O's: Vital Signs Temp Pulse Resp BP Pulse Ox 98.2 F 88 16 118/72 98 09/29/20 08:39 09/29/20 08:39 09/29/20 08:39 09/29/20 08:39 09/29/20 08:39 Oxygen Delivery Method Room Air Weight: 173 lb 11.588 oz Body Mass Index (BMI) 29.8 Intake and Output for Last 24 Hours 09/27/20 09/28/20 09/29/20 23:59 23:59 23:59 Intake Total 1720 / 1720 240 / 240 Balance 1720 / 1720 240 / 240 Microbiology Past 72 Hours 09/28/20 10:12 Mucosa - Nose SARS-CoV-2 Antigen (Rapid) - Final Laboratory Results 09/28/20 10:13: B-Natriuretic Peptide 6.3 09/28/20 10:13: SARS Serology Pending 09/28/20 12:00: COVID-19 ([place]) Not Detected 09/28/20 16:20: Troponin I < 0.015 09/28/20 19:14: Troponin I < 0.015 09/28/20 22:27: Troponin I < 0.015 09/29/20 06:24: WBC 11.9 H, RBC 4.30, Hgb 12.2, Hct 38.3, MCV 89.1, MCH 28.4, MCHC 31.9 L, RDW Std Deviation 40.2, RDW Coeff of Elizabeth 12.4, Plt Count 309, MPV 8.9, Immature Gran % (Auto) 0.300, Neut % (Auto) 67.8, Lymph % (Auto) 22.4, [place] % (Auto) 4.8, Eos % (Auto) 4.1, Baso % (Auto) 0.6, Absolute Neuts (auto) 8.1 H, Absolute Lymphs (auto) 2.67, Nucleated RBC % 0 09/29/20 06:24: Sodium 139, Potassium 3.8, Chloride 109 H, Carbon Dioxide 25.0, Anion Gap 5, BUN 7, Creatinine 0.65, Estim Creat Clear Calc 108.29, Est GFR (MDRD) Af Amer 136, Est GFR (MDRD) Non-Af 113, BUN/Creatinine Ratio 10.8, Glucose 87, Calcium 8.4 L Current Medications Acetaminophen (Acetaminophen 325 Mg Tablet) 650 mg PO Q6H PRN PRN PRN Reason: Pain Score 1-10/Temp > 100.7 F Last Admin: 09/28/20 22:59 Dose: 650 mg Documented by: Albuterol Sulfate (Albuterol 2.5 Mg/3 Ml Vial.Neb.) 2.5 mg INHALATION Q4H PRN PRN Reason: SOB &/OR WHEEZING Apixaban (Apixaban 5 Mg Tablet) 10 mg PO BID [facility] Last Admin: 09/28/20 20:47 Dose: 10 mg Documented by: Loratadine (Loratadine 10 Mg Tablet) 10 mg PO DAILY [facility] Multivitamins (Multivitamins,Therapeutic Tablet) [facility] Ondansetron HCl (Ondansetron 4 Mg/2 Ml Vial) 4 mg IV Q8H PRN PRN PRN Reason: NAUSEA/VOMITING Pantoprazole Sodium (Pantoprazole Sodium 40 Mg Tablet) 40 mg PO DAILY [facility] Pseudoephedrine HCl (Pseudoephedrine 60 Mg Tablet) 60 mg PO 4X/DAY [facility] Discharge Diet: No Restrictions Discharge Activity: Return to Normal Activity Weight Bearing Status: Weight bearing as tolerated Call your doctor if you observe: Fever of 101 or Higher, Shortness of breath, Dizziness, Chest pain, Increased palpitations (irregular heartbeat) Home Medications: Medications to take at Discharge Pantoprazole Sodium [Protonix] 40 mg PO DAILY 09/30/18 albuterol sulfate 90 mcg/actuation aerosol inhaler 2 puff INHALATION Q6H PRN 08/05/20 multivitamin 1 tab PO DAILY 08/05/20 Loratadine/Pseudo 240/10 [Claritin-D 24 Hr] 1 tab PO DAILY 09/28/20 Apixaban [Eliquis] 10 mg PO BID #60 tab 09/29/20 Following Prescriptions Were Given to Patient: Apixaban [Eliquis] 10 mg PO BID #60 tab Transmission Status: Received by [facility]/pharmacy #[id number] Primary Care Physician: Lavell Killian MD [Primary Care Provider] - Please follow up with your Primary Care Physician in: 1-2 weeks Please Follow Up With: Johnathon Nguyen DO When: 2 weeks Patient Instructions: Pulmonary Embolism Disposition: Home Minutes spent on discharge:: 35 Patient Condition:: Stable Medical Necessity - Tobacco Use Smoking Status: Former smoker Meaningful Use Info Meaningful Use Diagnoses (Choose all that apply): VTE - VTE Anticoag overlap given w/in hospital stay or rx'd at wi?: Yes Pt receive overlap for 5 days?: Yes Inpatient E&M: 96352 Disch Hosp
[2020-09-29 11:00] LABS: SARS-COV-2 TOTAL ABS Reactive (Nonreactive)
[2020-09-29] MEDS: Loratadine 10 MG Tablet PO (11:15)
[2020-09-29] MEDS: Pantoprazole Sodium 40 MG Tablet PO (11:15)
[2020-09-29] MEDS: APIXABAN 5 MG TABLET 10 MG PO (11:15)
[2020-09-29] MEDS: Multivitamins,Therapeutic Tablet 1 TABLET PO (11:16)
--- NOTE | 2020-09-29 11:24 | PHA.DC.MC ---
Pharmacy Service has performed discharge medication reconciliation and counseling for this patient. 1. APIXABAN 10MG PO BID THRU 2/, THEN 5MG BID THEREAFTER The patient's discharge medication list was reviewed for discrepancies and discrepancies were resolved. Home Medications Pantoprazole Sodium [Protonix] 40 mg PO DAILY 09/30/18 albuterol sulfate 90 mcg/actuation aerosol inhaler 2 puff INHALATION Q6H PRN 08/05/20 multivitamin 1 tab PO DAILY 08/05/20 Loratadine/Pseudo 240/10 [Claritin-D 24 Hr] 1 tab PO DAILY 09/28/20 Apixaban [Eliquis] 10 mg PO BID #60 tab 09/29/20 The patient was counseled on the following discharge medications and changes in medications for homegoing were reviewed. The Reason for Use, instructions for use, and potential side effects were reviewed for all new medications. The patient's questions regarding all of their medications were answered. The patient was able to verbally demonstrate an understanding of their discharge medications. Patient was counseled by pharmacy buyer
--- NOTE | 2020-09-29 11:45 | CASEMGMT ---
Addendum entered by Amber Barger 09/29/20 12:04: Call back from pt and she states she will come roller picker coupons at main entrance. Eliquis PE coupon card booklet left at front entrance for pt at this time. Pt voices no further questions/concerns/needs at this time. Seth PARNELL CM Original Note: Pt to be sent home on Eliquis at discharge and med e-scribed to [facility] previously. Call to [facility] and per tech, pt's co-pay is $96.22 at this time. This RN CM to room to update pt and pt was already discharged at this time. Call to pt's cell and message left to call this RN CM back to see if she wants coupon cards left at front entrance with her name on to roller picker. Seth PARNELL CM
== END 2020-09-29 10:46 | disposition home health service (06) ==
LOC: ED 10:27 → PCU 15:53
PROVIDERS: Internal Medicine Critical Care Medicine; Admitting Provider Student in an Organized Health Care Education/Training Program; Emergency Provider Emergency Medicine; PCP Family Medicine; Visit Provider Student in an Organized Health Care Education/Training Program
DX: I26.99 Other pulmonary embolism without acute cor pulmonale (principal); R00.0 Tachycardia, unspecified; J45.909 Unspecified asthma, uncomplicated; Z87.891 Personal history of nicotine dependence
CPT/HCPCS: 36415; 71275; 80048; 83880; 84484; 84703; 85025; 86769; 87426; 87635; 93005; 93306; 96360; 96361; 99218; 99285; J7030; Q9957; Q9967; A4216; G0378; U0002

== ENCOUNTER 2020-10-08 08:20 | Emergency (ER) | payer OTHER, SELFPAY ==
[2020-09-28 15:55] VITALS: BMI 29.8
[2020-10-08 08:20] VITALS: BP 130/88; PULSE 118; RESP 16; TEMP 36.4; O2SAT 97
--- NOTE | 2020-10-08 08:56 | EKG12_ITS ---
Test Reason : Blood Pressure : / mmHG Vent. Rate : 101 BPM Atrial Rate : 101 BPM P-R Int : 144 ms QRS Dur : 074 ms QT Int : 340 ms P-R-T Axes : 035 072 048 degrees QTc Int : 440 ms Sinus tachycardia Otherwise normal ECG Confirmed by ZAFAR BRASHER, YOLANDE ([id number]), loan expeditor MARIA GUADALUPE MEDINA ([id number]) on 10/11/2020 2:12:07 PM Referred By: RADHA Confirmed By:YOLANDE STEPHEN MD
--- NOTE | 2020-10-08 08:58 | ED.DCSUM_ITS ---
History of Present Illness Chief Complaint: Cough Informant: Patient Narrative: 29-year-old female presenting with shortness of breath. She states that she was recently diagnosed with bilateral pulmonary emboli. She was tested for Covid?19 however both of her tests were negative. She was admitted to the hospital with her pulmonary emboli and she was tested for Covid?19 antibodies and discharged home before the test results were given to her. She states that overnight she has had some shortness of breath. She used a new humidifier and thought that maybe that was the reason why she was coughing and having some shortness of breath. She states that her chest is a little bit tight but she also has pulmonary emboli. She is on Eliquis. She is previously been on control but states that she was off of this for 3 weeks prior to getting her pulmonary emboli. Patient also states that she has not been a smoker for 3 years. She states at this point her pulmonary emboli are unexplained since she has not received her test results. Patient states that she supposed to follow-up with the credit risk management director this week and given her symptoms she called the office and she was told to come to the ER she felt she needed an evaluation. Patient states that her cough and shortness of breath has improved since she woke up. Past Medical History - Allergies and Home Meds Allergies/Adverse Reactions: Allergies No Known Allergies Allergy (Verified 10/08/20 08:22) Primary Care Physician: Lavell Killian MD [Primary Care Provider] - Past Medical History: - - Asthma, gastric ulcers Surgical History: noncontributory Lives: Spouse/ Significant Other Smoking Status: Former smoker Alcohol: None Drugs: None Review of Systems General: Denies: Chills, Fever, Malaise Eyes: Denies: Visual changes - bilaterally, Diplopia ENT: Denies: Rhinorrhea, Sore throat Cardiovascular: Denies: Palpitations, Heart racing Respiratory: Reports: Dyspnea, Cough. Denies: Dyspnea on exertion Gastrointestinal: Denies: Abdominal pain, Nausea, Vomiting, Diarrhea, Melena, Hematochezia Genitourinary: Denies: Dysuria, Hematuria, Frequency Musculoskeletal: Denies: Back pain, Extremity Pain Skin: Denies: Rash, Wounds Neurological: Denies: Headache, Weakness, Numbness Psych: Denies: Depression, Anxiety Physical Exam Vital Signs/Narrative: Vital Signs Temp Pulse Resp BP Pulse Ox 10/08/20 08:20 97.5 F L 118 H 16 130/88 H 97 Inital Vital Signs reviewed: Yes General: Well nourished, No Acute Distress Head: Normocephalic, Atraumatic Eyes: Perrl, EOMI ENT: Moist mucous membranes, No rhinorrhea Cardiovascular: Regular rate, Regular rhythm Abdomen: Soft, Nontender Back: Nontender, Normal Inspection Extremities: Nontender, No edema Skin: Normal color, No rash. Negative for: Cyanosis, Diaphoresis Neurological: Alert, Oriented x3, Cranial nerves II-XII grossly intact Psychological: Normal affect, Normal Mood Diagnostic/Tx/Re-eval Clinical Impression(s) from Imaging Studies Chest X-Ray 10/08/20 09:05 IMPRESSION: Normal x-ray examination of the chest. Electronically Signed: Tung Zhao MD at 10:01 EST , Service support , Laboratory Data 10/08/20 10/08/20 09:15 09:15 WBC 15.9 H RBC 4.71 Hgb 14.0 Hct 40.3 MCV 85.6 MCH 29.7 MCHC 34.7 RDW Std Deviation 36.8 RDW Coeff of Elizabeth 11.9 Plt Count 339 MPV 8.8 Immature Gran % (Auto) 0.300 Neut % (Auto) 79.0 H Lymph % (Auto) 14.6 L [place] % (Auto) 3.7 Eos % (Auto) 1.9 Baso % (Auto) 0.5 Absolute Neuts (auto) 12.6 H Absolute Lymphs (auto) 2.32 Nucleated RBC % 0 Sodium 139 Potassium 3.5 Chloride 107 Carbon Dioxide 28.0 Anion Gap 4 L BUN 10 Creatinine 0.83 Estim Creat Clear Calc 84.81 Est GFR (MDRD) Af Amer 103 Est GFR (MDRD) Non-Af 85 BUN/Creatinine Ratio 12.0 Glucose 82 Calcium 9.4 Troponin I < 0.015 - Rhythm Strip Rhythm Strip: Sinus Rhythm Rate: 101 - EKG Initial EKG Interpretation: No Acute Injury Pattern, Sinus Tachycardia - Medical Decision Making 29-year-old female presenting with shortness of breath and cough. She states that it started last night. Has not had a fever, myalgias. I did look in the medical history and it does state that she has the Covid antibodies. This was discussed with her. Patient's chest x-ray is interpreted by myself shows no acute cardiopulmonary process. Radiology does agree. EKG performed on arrival shows a sinus rhythm without signs of ischemic change as interpreted by myself lab work is unremarkable with exception of a leukocytosis of 15.9. This is near the same level as she had when she was diagnosed with PE. She is not been on any steroids. Patient does have pulmonary emboli and is anticoagulated I do not believe she needs a repeat CTA. After discussion with the patient that her white blood cell count is near the same level as it was previously and she had negative work-up for pneumonia then she is comfortable being discharged home with a [id number] prescription if she starts feeling unwell. She will follow up with pulmonology next week. She is given return precautions. Impression: 1. Shortness of breath 2. Leukocytosis ED Disposition - Plan for ED Patient: Disposition: Home or Assisted Living Instructions: ED Upper Resp Infec Abx Tx Referrals: Lavell Killian MD [Primary Care Provider] -
[2020-10-08 09:03] VITALS: O2SAT 97
--- NOTE | 2020-10-08 09:05 | RAD_ITS ---
STUDY: X-RAY CHEST REASON FOR EXAM: Female, 29 years old. Pt c/o SOB, cough, chest pain pt states dx with BL PE last week TECHNIQUE: Single AP portable view of the chest. COMPARISON: Comparison is made with prior study dated 02/07/2018. FINDINGS: EKG lead projects are seen. The lungs are clear and expanded. Scattered calcified granulomas. There is no demonstrated pleural abnormality. Normal size heart. Normal mediastinum and nick. Normal visualized pulmonary arteries. Normal visualized aortic arch and descending thoracic aorta. Normal visualized thoracic spine. Normal visualized ribs, clavicles, and shoulders. There is no demonstrated abnormality of the visualized soft tissue structures of the upper abdomen. RAD/Chest 1 View (Portable) IMPRESSION: Normal x-ray examination of the chest. Electronically Signed: Tung Zhao MD at 10:01 EST , Service support ,
[2020-10-08 09:24] LABS: Absolute Lymphocyte Count 2.32 X10^3/uL (0.83-4.51); Absolute Neutrophil Count 12.6 X10^3/uL (2.0-7.7); Basophil# 0.08 X10^3/uL; Basophil% 0.5 % (0-1); Eosinophils% 1.9 % (0-5); Hematocrit 40.3 % (37-47); Lymphocyte # 2.32 X10^3/ul (4.0); Lymphocyte % 14.6 % (19-41); Mean Corp Hgb Conc 34.7 g/dL (32-36); Mean Corpuscular Hgb 29.7 pg (27.0-32.0); Mean Corpuscular Volume 85.6 fL (81-99); Mean Platelet Vol. 8.8 fl (6.2-12.0); Monocyte# 0.58 X10^3/uL; Monocyte% 3.7 % (0-10); NRBC Flagged by Analyzer 0 % (0-5); Neutrophil # 12.55 X10^3/uL (2.7-7.7); Platelet Count 339 K/mm3 (150-450); RBC Distribution Width CV 11.9 % (11.6-14.6); RBC Distribution Width SD 36.8 fl (35.1-43.9); Red Blood Count 4.71 M/mm3 (4.2-5.4); White Blood Count 15.9 K/mm3 (4.4-11.0)
[2020-10-08 09:43] LABS: Anion Gap 4 (5-15); BUN 10 mg/dL (7-18); Calcium,Total 9.4 mg/dL (8.5-10.1); Chloride 107 mmol/L (98-107); Creatinine, Serum 0.83 mg/dL (0.55-1.02); EST Glomerular Filtration Rate 85 mL/min (>60); Est Glom Filt Rate - Afr Amer 103 mL/min (>60); Estimated Creatinine Clearance 84.81 ml/min; Glucose 82 mg/dL (74-106); Potassium 3.5 mmol/L (3.5-5.1); Sodium Level 139 mmol/L (136-145)
[2020-10-08 10:33] VITALS: PULSE 99; RESP 18; O2SAT 99
[2020-10-08 11:09] VITALS: BP 120/87; PULSE 105; RESP 16; O2SAT 98
== END 2020-10-08 11:10 | disposition home or self-care (01) ==
PROVIDERS: Emergency Provider Student in an Organized Health Care Education/Training Program; PCP Family Medicine
DX: R06.02 Shortness of breath (principal); D72.829 Elevated white blood cell count, unspecified; I26.99 Other pulmonary embolism without acute cor pulmonale; J45.909 Unspecified asthma, uncomplicated; Z79.01 Long term (current) use of anticoagulants; Z79.899 Other long term (current) drug therapy; Z87.891 Personal history of nicotine dependence; Z87.11 Personal history of peptic ulcer disease
CPT/HCPCS: 71045; 80048; 84484; 85025; 93005; 99284; A4216

== ENCOUNTER 2020-11-07 10:08 | Emergency (ER) | payer OTHER, SELFPAY ==
[2020-11-07 10:09] VITALS: BP 125/78; PULSE 112; RESP 16; TEMP 36.9; O2SAT 96
--- NOTE | 2020-11-07 10:17 | ED.VIS.GEN ---
History of Present Illness Chief Complaint: Head Injury Narrative: 30-year-old female presenting with head injury. Patient is on Eliquis currently because she developed pulmonary emboli secondary to COVID-19. She states she is feeling otherwise well. She did not get knocked out or lose consciousness. Patient states she stood up and hit her head on the fridge. She is not feeling dizzy, lightheaded, nauseous. - Past Medical History (1) Pulmonary emboli Status: Chronic (2) COVID-19 Status: Resolved Past Medical History - Allergies and Home Meds Allergies/Adverse Reactions: Allergies No Known Allergies Allergy (Verified 11/07/20 10:09) Primary Care Physician: Lavell Killian MD [Primary Care Provider] - Prior records reviewed: Yes Surgical History: noncontributory Lives: Spouse/ Significant Other Smoking Status: Former smoker Alcohol: None Drugs: None Review of Systems General: Denies: Chills, Fever, Sweats Eyes: Denies: Visual changes - bilaterally, Diplopia ENT: Denies: Rhinorrhea, Sore throat Cardiovascular: Denies: Chest pain, Palpitations Respiratory: Denies: Dyspnea, Cough, Dyspnea on exertion Gastrointestinal: Denies: Abdominal pain, Nausea, Vomiting, Diarrhea, Melena, Hematochezia Genitourinary: Denies: Dysuria, Hematuria, Frequency Musculoskeletal: Denies: Back pain, Extremity Pain Skin: Denies: Rash, Wounds Neurological: Denies: Headache, Weakness, Numbness Psych: Denies: Depression, Anxiety Physical Exam Vital Signs/Narrative: Vital Signs Temp Pulse Resp BP Pulse Ox 11/07/20 10:09 98.4 F 112 H 16 125/78 H 96 Inital Vital Signs reviewed: Yes General: Well nourished, No Acute Distress Head: Normocephalic, Atraumatic Eyes: Perrl, EOMI ENT: Moist mucous membranes, Sinus tenderness Cardiovascular: Regular rate, Regular rhythm Respiratory: No distress, CTA bilaterally Extremities: Nontender, No edema Skin: Normal color, No rash Neurological: Alert, Oriented x3, Cranial nerves II-XII grossly intact Psychological: Normal affect, Normal Mood Diagnostic/Tx/Re-eval Clinical Impression(s) from Imaging Studies Brain CT 11/07/20 10:19 IMPRESSION: Essentially unremarkable examination. Electronically Signed: Crescencio Garcia MD at 11:00 EST Tel , Service support , - Medical Decision Making 30-year-old female presenting with head injury. She states she is on Eliquis and hit her head on the fridge. She denies dizziness, lightheadedness, nausea, vomiting, unstable gait. Patient had CT of the brain without contrast which showed no acute intracranial abnormalities. Patient was counseled on red flag signs or symptoms which warrant return to the ED. Patient stable for discharge at this time. Impression: 1. Closed head injury ED Disposition - Plan for ED Patient: Disposition: Home or Assisted Living Instructions: ED Head Injury (Adult) Referrals: Lavell Killian MD [Primary Care Provider] -
--- NOTE | 2020-11-07 10:19 | CT_ITS ---
STUDY: CT BRAIN WITHOUT CONTRAST REASON FOR EXAM: Female, 30 years old. Headache RADIATION DOSAGE (If Supplied By Facility): CTDIvol = ( 44.99 ) mGy, DLP = ( 796.11 ) mGycm TECHNIQUE: Transaxial CT imaging of the brain was performed without administration of intravenous contrast material. Individualized dose optimization techniques were used for this CT. COMPARISON: No relevant priors. FINDINGS: Normal soft tissue structures. Normal calvarium. Normal size ventricles and extra-axial spaces for the patient''s age. Normal white matter tracts of the cerebral hemispheres. Normal basal ganglia and thalami. Normal brainstem. Normal cerebellum. There is no intracranial hemorrhage. There are no findings of an acute ischemic infarction. Minimal thickening of the maxillary sinuses CT/Brain/Head without Contrast IMPRESSION: Essentially unremarkable examination. Electronically Signed: Crescencio Garcia MD at 11:00 EST Tel , Service support ,
== END 2020-11-07 11:21 | disposition home or self-care (01) ==
PROVIDERS: Emergency Provider Student in an Organized Health Care Education/Training Program; PCP Family Medicine
DX: S09.90XA Unspecified injury of head, initial encounter (principal); W22.09XA Striking against other stationary object, initial encounter; Y93.9 Activity, unspecified; Y92.9 Unspecified place or not applicable; Y99.9 Unspecified external cause status; Z79.01 Long term (current) use of anticoagulants; Z79.899 Other long term (current) drug therapy; Z86.16 Personal history of COVID-19; Z86.711 Personal history of pulmonary embolism; Z87.891 Personal history of nicotine dependence
CPT/HCPCS: 70450; 99282

== ENCOUNTER → 2020-11-12 13:08 | Outpatient (CLI) | payer OTHER, SELFPAY ==
[2020-11-10 08:41] VITALS: BMI 29.8
== END ==
PROVIDERS: PCP Family Medicine; Referring Provider Internal Medicine Cardiovascular Disease; Visit Provider Internal Medicine Cardiovascular Disease
DX: R00.0 Tachycardia, unspecified (principal)
CPT/HCPCS: 93225; 93226

== ENCOUNTER 2020-12-08 19:56 | Emergency (ER) | payer OTHER, SELFPAY ==
[2020-11-10 08:41] VITALS: BMI 29.8
[2020-12-08 19:57] VITALS: BP 128/79; PULSE 107; RESP 18; TEMP 36.1; O2SAT 97; BMI 30.4
--- NOTE | 2020-12-08 20:23 | CT_ITS ---
EXAMINATION : Head CT w/out contrast HISTORY : Injury COMPARISON : None. TECHNIQUE : Multiple contiguous axial images were obtained from the skull base to the vertex without intravenous contrast. A radiation dose optimization technique was used for this scan. FINDINGS : The ventricles and sulci are normal in size. There is no evidence for acute intracranial hemorrhage, mass effect, or midline shift. There is no extra-axial fluid collection. There is normal shah-white differentiation, without CT evidence of acute ischemia or infarct. The skull base and calvarium are unremarkable. The orbits are unremarkable. The paranasal sinuses are clear. The mastoid air cells are well-aerated. The soft tissues are unremarkable. CT/Brain/Head without Contrast IMPRESSION: No acute intracranial abnormality. Electronically Signed: Jose Merrill MD at 21:27 EDT Tel , Service support ,
--- NOTE | 2020-12-08 21:31 | ED.DEP ---
ED Disposition - Plan for ED Patient: Instructions: ED Head Injury (Adult) Referrals: Lavell Killian MD [Primary Care Provider] -
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
== END 2020-12-08 21:42 | disposition home or self-care (01) ==
LOC: ED 20:33
PROVIDERS: Emergency Provider Emergency Medicine; PCP Family Medicine
DX: S09.90XA Unspecified injury of head, initial encounter (principal); W22.8XXA Striking against or struck by other objects, initial encounter; Y93.9 Activity, unspecified; Y92.810 Car as the place of occurrence of the external cause; Y99.9 Unspecified external cause status; R42 Dizziness and giddiness; K21.9 Gastro-esophageal reflux disease without esophagitis; Z79.01 Long term (current) use of anticoagulants; Z86.711 Personal history of pulmonary embolism
CPT/HCPCS: 70450; 99282

== ENCOUNTER 2020-12-16 14:11 | Outpatient (RCR) | payer OTHER, SELFPAY | END 2021-02-08 23:59 | LOC: IMMUN 14:11 | PROVIDERS: PCP Family Medicine; Visit Provider Family Medicine | DX: Z23 Encounter for immunization (principal) | CPT/HCPCS: 0001A; 0002A; 91300 ==

== ENCOUNTER 2020-12-20 11:38 | Emergency (ER) | payer OTHER, SELFPAY ==
[2020-12-20 11:39] VITALS: BP 143/93; PULSE 143; RESP 16; TEMP 35.9; O2SAT 100; BMI 30.2
--- NOTE | 2020-12-20 11:50 | EKG12_ITS ---
Test Reason : CP Blood Pressure : / mmHG Vent. Rate : 145 BPM Atrial Rate : 145 BPM P-R Int : 122 ms QRS Dur : 074 ms QT Int : 278 ms P-R-T Axes : 064 081 016 degrees QTc Int : 431 ms Sinus tachycardia Nonspecific ST abnormality Abnormal ECG Confirmed by ZAFAR BRASEHR, YOLANDE ([id number]), content editor TANYA MANDUJANO ([id number]) on 12/22/2020 1:07:52 PM Referred By: GERMÁN/CHERYL Confirmed By:YOLANDE STEPHEN MD
--- NOTE | 2020-12-20 11:50 | RAD_ITS ---
STUDY: X-RAY CHEST REASON FOR EXAM: Female, 30 years old. Chest discomfort and shortness of breath TECHNIQUE: PA and lateral views of the chest. COMPARISON: Comparison is made with prior study dated 10/08/2020. FINDINGS: EKG electrodes are seen. The lungs are clear and expanded. There is no demonstrated pleural abnormality. Normal size heart. Normal mediastinum and nick. Normal visualized pulmonary arteries. Normal visualized aortic arch and descending thoracic aorta. Normal visualized thoracic spine. Normal visualized ribs, clavicles, and shoulders. There is no demonstrated abnormality of the visualized soft tissue structures of the upper abdomen. RAD/Chest PA and Lateral IMPRESSION: Normal x-ray examination of the chest. Electronically Signed: Tung Zhao MD at 12:17 EDT , Service support ,
--- NOTE | 2020-12-20 11:50 | ED.VIS.GEN ---
History of Present Illness Chief Complaint: Chest Pain Detail of Chief Complaint: Pain and shortness of breath Informant: Patient Onset: Hours - 1 hour prior to arrival Context: Sudden Onset Timing: Continuous Quality: Chest tightness Location: Central Current Severity: Mild Maximum Severity: Moderate Worsened by: Nothing specific Relieved by: Nothing Associated Symptoms: Shortness of breath Narrative: Patient is a 30-year-old woman who was diagnosed with Covid and pulmonary embolus. She is present Eliquis. She states she has been compliant with her medication. Today while working from home sitting at her desk she developed chest discomfort located the center of her chest described as a tight sensation with shortness of breath. There is a slight pleuritic component. She denies leg pain, swelling discoloration. She does report intermittent nasal congestion over the past 2 weeks. She denies earache. Denies headache. She denies visual, ocular symptoms. She denies sore throat. She denies cough. She denies nausea, vomiting diarrhea. She denies hematemesis, melena medic easier. She denies urologic symptoms. Prior similar symptoms: No Recent Illness/Hospitalization: No - Past Medical History (1) Tachycardia Status: Acute (2) Multiple subsegmental pulmonary emboli without acute cor pulmonale Status: Chronic (3) COVID-19 virus detected Status: Resolved Past Medical History - Allergies and Home Meds Allergies/Adverse Reactions: Allergies No Known Allergies Allergy (Verified 12/20/20 11:46) Primary Care Physician: Lavell Killian MD [Primary Care Provider] - Prior records reviewed: Yes Surgical History: noncontributory Lives: Alone Smoking Status: Never smoker Alcohol: Rare Drugs: None Review of Systems General: Denies: Chills, Fever, Malaise, Subjective, Sweats Eyes: Denies: Visual changes - bilaterally, Blurred Vision - bilaterally ENT: Reports: Rhinorrhea. Denies: Bilateral ear pain, Sore throat Cardiovascular: Reports: Chest pain, Palpitations, Heart racing Respiratory: Reports: Dyspnea. Denies: Cough, Sputum, Dyspnea on exertion, Orthopnea, Paroxysmal nocturnal dyspnea Gastrointestinal: Denies: Abdominal pain, Nausea, Vomiting, Diarrhea, Melena, Hematochezia Genitourinary: Denies: Dysuria, Hematuria, Frequency Musculoskeletal: Denies: Myalgias, Arthralgias, Neck pain, Back pain, Swelling, Extremity Pain, -, - Skin: Denies: Rash, Wounds Neurological: Denies: Headache, Weakness, Numbness Hematologic: Denies: Easy bruising, Easy bleeding, Lymphadenopathy, -, - Allergy: Denies: Uticaria Physical Exam Vital Signs/Narrative: Vital Signs Temp Pulse Resp BP Pulse Ox 12/20/20 11:39 96.7 F L 143 H 16 143/93 H 100 Inital Vital Signs reviewed: Yes General: Well nourished, Well developed, Obese, No Acute Distress Head: Normocephalic, Atraumatic Eyes: Perrl, EOMI. Negative for: Pale conjunctiva, Scleral icterus ENT: Moist mucous membranes, Nasal congestion Neck: Supple, Nontender, No lymphadenopathy, No JVD Cardiovascular: Regular rhythm, No murmurs, Normal S1, Normal S2, Tachycardia Respiratory: No distress, CTA bilaterally, Chest nontender Abdomen: Soft, Nontender, Nondistended, Normal bowel sounds Rectal: Deferred Back: Nontender, Normal Inspection Extremities: Nontender, No edema, - - There is no asymmetry, swelling, discoloration, leg vein distention, palpable cords or tenderness along the distribution of the deep venous system. Skin: Normal color, No rash, No Trauma. Negative for: Cyanosis, Diaphoresis, Jaundice Neurological: Alert, Oriented x3, Cranial nerves II-XII grossly intact, Normal Strength, Normal Sensation, Normal Gait Psychological: - - Little eye contact during history and physical. Patient had her eyes shut. Diagnostic/Tx/Re-eval Chest X-Ray - ED: 2 View, Normal, Heart, Lungs, Mediastinum, Bony Structures, No Acute Disease, - - The chest x-ray interpreted by me at 1210 and is unchanged from October 2020. Impressions Chest X-Ray 12/20/20 11:50 IMPRESSION: Normal x-ray examination of the chest. Electronically Signed: Tung Zhao MD at 12:17 EDT , Service support , 12/20/20 11:50 Chest PA and Lateral [RAD] Stat Laboratory Results 12/20/20 12/20/20 12/20/20 11:55 12:14 12:14 WBC 7.4 RBC 5.06 Hgb 14.0 Hct 42.8 MCV 84.6 MCH 27.7 MCHC 32.7 RDW Std Deviation 37.0 RDW Coeff of [place] 12.1 Plt Count 366 MPV 9.1 Immature Gran % (Auto) 0.300 Neut % (Auto) 51.6 Lymph % (Auto) 37.2 [place] % (Auto) 7.4 Eos % (Auto) 2.7 Baso % (Auto) 0.8 Absolute Neuts (auto) 3.8 Absolute Lymphs (auto) 2.75 Nucleated RBC % 0 D-Dimer Quant (PE/DVT) <= 0.27 Sodium 136 Potassium 3.8 Chloride 104 Carbon Dioxide 26.0 Anion Gap 6 BUN 8 Creatinine 0.86 Estim Creat Clear Calc 81.10 Est GFR (MDRD) Af Amer 98 Est GFR (MDRD) Non-Af 81 BUN/Creatinine Ratio 9.3 L Glucose 91 Calcium 9.5 Heart score is 0 patient with atypical chest pain. She has history of sinus tachycardia after reviewing prior records. With a normal D-dimer will not pursue for PE. Chest x-ray reveals no abnormality. Furthermore, patient has history of chest tightness and work-up has been negative in the past. - EKG Initial EKG Interpretation: Sinus Tachycardia - Sinus tachycardia with a ventricular to 145. VT interval 222 ms. Cures duration 74 ms. QT duration 278 ms. [place] is normal. There is an ossific changes which may be due to her rapid breathing. - Medical Decision Making Patient presents with atypical chest pain. The fact that she is tachycardic with a rate of 145 and complaint of shortness of breath prior history of PE need to rule out pulmonary embolus. Also need to rule out simple pulmonary causes. Will obtain chest x-ray, EKG and appropriate blood work. D-dimer was ordered since she is not PERC negative. When I entered the room to inform her of results and that she would be going home her heart rate went from 91-111. She was asked if she has white coat syndrome or anxiety. She wonders if this could be anxiety. Since her work-up is negative will discharge to home. ED Disposition - Plan for ED Patient: Disposition: Home or Assisted Living Diagnosis: Sinus tachycardia, Central chest pain, Dyspnea Instructions: ED About Arrhythmias, ED Chest Pain, Noncardiac, ED Dyspnea Referrals: Lavell Killian MD [Primary Care Provider] - 5-7 Days
[2020-12-20 12:20] LABS: Anion Gap 6 (5-15); BUN 8 mg/dL (7-18); BUN/Creat Ratio 9.3 RATIO (10-20); Calcium,Total 9.5 mg/dL (8.5-10.1); Chloride 104 mmol/L (98-107); Creatinine, Serum 0.86 mg/dL (0.55-1.02); EST Glomerular Filtration Rate 81 mL/min (>60); Est Glom Filt Rate - Afr Amer 98 mL/min (>60); Glucose 91 mg/dL (74-106); Potassium 3.8 mmol/L (3.5-5.1); Sodium Level 136 mmol/L (136-145)
[2020-12-20 12:35] LABS: Absolute Lymphocyte Count 2.75 X10^3/uL (0.83-4.51); Absolute Neutrophil Count 3.8 X10^3/uL (2.0-7.7); Basophil# 0.06 X10^3/uL; Basophil% 0.8 % (0-1); D-Dimer Quantitative (DVT/PE) <= 0.27 FEU/ug/m (0.27-0.49); Eosinophils% 2.7 % (0-5); Hematocrit 42.8 % (37-47); Lymphocyte # 2.75 X10^3/ul (0.83-4.51); Lymphocyte % 37.2 % (19-41); Mean Corp Hgb Conc 32.7 g/dL (32-36); Mean Corpuscular Hgb 27.7 pg (27.0-32.0); Mean Corpuscular Volume 84.6 fL (81-99); Mean Platelet Vol. 9.1 fl (6.2-12.0); Monocyte# 0.55 X10^3/uL; Monocyte% 7.4 % (0-10); NRBC Flagged by Analyzer 0 % (0-5); Neutrophil # 3.82 X10^3/uL (2.7-7.7); Neutrophil % 51.6 % (47-70); Platelet Count 366 K/mm3 (150-450); RBC Distribution Width CV 12.1 % (11.6-14.6); Red Blood Count 5.06 M/mm3 (4.2-5.4); White Blood Count 7.4 K/mm3 (4.4-11.0)
[2020-12-20 12:56] VITALS: BP 135/89; PULSE 101; RESP 16; O2SAT 100
== END 2020-12-20 12:56 | disposition home or self-care (01) ==
PROVIDERS: Emergency Provider Emergency Medicine; PCP Family Medicine
DX: R00.0 Tachycardia, unspecified (principal); R07.89 Other chest pain; R06.00 Dyspnea, unspecified; E66.9 Obesity, unspecified; Z79.01 Long term (current) use of anticoagulants; Z79.899 Other long term (current) drug therapy; Z86.711 Personal history of pulmonary embolism; Z86.16 Personal history of COVID-19
CPT/HCPCS: 71046; 80048; 85025; 85379; 93005; 99284; A4216

== ENCOUNTER → 2021-02-17 10:23 | Outpatient (CLI) | payer OTHER, SELFPAY ==
[2021-02-10 09:37] VITALS: BMI 29.3
== END ==
PROVIDERS: PCP Family Medicine; Referring Provider Internal Medicine Cardiovascular Disease; Visit Provider Internal Medicine Cardiovascular Disease
DX: R00.0 Tachycardia, unspecified (principal)
CPT/HCPCS: 93225; 93226

== ENCOUNTER 2021-03-01 20:49 | Emergency (ER) | payer OTHER, SELFPAY ==
[2021-02-10 09:37] VITALS: BMI 29.3
[2021-03-01 20:50] VITALS: BP 124/85; PULSE 124; RESP 16; TEMP 36.4; O2SAT 97; BMI 29.7
--- NOTE | 2021-03-01 21:51 | EKG12_ITS ---
Test Reason : DYSRHYTHMIA Blood Pressure : / mmHG Vent. Rate : 085 BPM Atrial Rate : 085 BPM P-R Int : 162 ms QRS Dur : 080 ms QT Int : 374 ms P-R-T Axes : 057 068 055 degrees QTc Int : 445 ms Normal sinus rhythm with sinus arrhythmia Normal ECG Confirmed by ZAFAR BRASHER, YOLANDE ([id number]), communications editor MARIA GUADALUPE MEDINA ([id number]) on 03/03/2021 10:51:41 AM Referred By: DANA Confirmed By:YOLANDE STEPHEN MD
[2021-03-01 22:05] LABS: Absolute Lymphocyte Count 3.44 X10^3/uL (0.83-4.51); Basophil# 0.07 X10^3/uL; Basophil% 0.7 % (0-1); Eosinophil# 0.27 X10^3/uL; Eosinophils% 2.9 % (0-5); Hematocrit 37.8 % (37-47); Hemoglobin 12.5 g/dL (12.0-15.0); Lymphocyte # 3.44 X10^3/ul (0.83-4.51); Lymphocyte % 36.8 % (19-41); Mean Corp Hgb Conc 33.1 g/dL (32-36); Mean Corpuscular Volume 84.8 fL (81-99); Mean Platelet Vol. 9.2 fl (6.2-12.0); Monocyte# 0.59 X10^3/uL; Monocyte% 6.3 % (0-10); NRBC Flagged by Analyzer 0 % (0-5); Neutrophil # 4.97 X10^3/uL (2.7-7.7); Neutrophil % 53.1 % (47-70); Platelet Count 366 K/mm3 (150-450); RBC Distribution Width CV 12.2 % (11.6-14.6); RBC Distribution Width SD 37.2 fl (35.1-43.9); Red Blood Count 4.46 M/mm3 (4.2-5.4); White Blood Count 9.4 K/mm3 (4.4-11.0)
[2021-03-01 22:14] LABS: Bacteria 0 SEEN /hpf (None Seen); Mucous, Urine 0 SEEN /hpf (<or=2+); White Blood Cells 0 SEEN /hpf (0-5)
[2021-03-01 22:15] LABS: Color, Urine Straw (Yellow); Glucose, Dipstick Normal (Normal); Ketone-Dipstick Negative (Negative); Leukocyte Esterase-Dipstick Negative /ul (Negative); Nitrite-Dipstick Negative (Negative); Occult Blood-Urine 250 /ul (Negative); Protein-Dipstick Negative (Negative); Urine Bilirubin Dipstick Negative (Negative); Urine Clarity Clear (Clear); Urine Urobilinogen Normal (Normal)
[2021-03-01 22:20] LABS: ALB/GLOB Ratio 0.9 RATIO (0.9-2.4); AST(SGOT) 27 U/L (15-37); Alanine Aminotransfer ALT/SGPT 34 U/L (13-56); Albumin, Serum 3.7 g/dL (3.2-5.0); Alkaline Phosphatase 84 U/L (45-117); Anion Gap 6 (5-15); BUN 10 mg/dL (7-18); BUN/Creat Ratio 11.6 RATIO (10-20); Calcium,Total 9.3 mg/dL (8.5-10.1); Chloride 106 mmol/L (98-107); Creatinine, Serum 0.86 mg/dL (0.55-1.02); EST Glomerular Filtration Rate 81 mL/min (>60); Est Glom Filt Rate - Afr Amer 98 mL/min (>60); Globulin 3.9 g/dL (2.2-4.2); Glucose 84 mg/dL (74-106); Lipase 143 U/L (73-393); Potassium 3.4 mmol/L (3.5-5.1); Protein, Total 7.6 g/dL (6.4-8.2); Sodium Level 139 mmol/L (136-145); Troponin-I HS 3.3 pg/mL (3.0-53.7)
[2021-03-01 22:57] LABS: Lactic Acid 0.5 mmol/L (0.4-1.9)
[2021-03-01 22:58] LABS: Red Blood Cells-Urine 0-5 SEEN /hpf (0-5); Squamous Epithelial Cells - UA 0-5 SEEN /hpf (5-10)
[2021-03-01 22:59] LABS: Internal QC Validated? YES +Cl - CLEAR BKGD; Pregnancy, Urine Negative Negative
[2021-03-01] MEDS: Mag Hydrox/Al Hydrox/Simeth 30 ML UDC PO (23:10)
[2021-03-01] MEDS: APIXABAN 5 MG TABLET PO (23:22)
--- NOTE | 2021-03-02 00:18 | RAD_ITS ---
STUDY: X-RAY CHEST REASON FOR EXAM: Female, 30 years old. chest pain TECHNIQUE: PA and lateral views of the chest. COMPARISON: 12/21/2020. FINDINGS: There is minimal right basilar atelectasis, remainder of the lungs are clear and expanded. There is no demonstrated pleural abnormality. Normal size heart. Normal mediastinum and nick. Normal visualized pulmonary arteries. Normal visualized aortic arch and descending thoracic aorta. Normal visualized thoracic spine. Normal visualized ribs, clavicles, and shoulders. There is no demonstrated abnormality of the visualized soft tissue structures of the upper abdomen. RAD/Chest PA and Lateral IMPRESSION: Minimal right basilar atelectasis. Otherwise normal x-ray examination of the chest. Electronically Signed: Roopa Wright MD at 0:43 EDT , Service support ,
--- NOTE | 2021-03-02 01:12 | ED.VIS.CHEST ---
HPI History of Present Illness Chief Complaint: Chest Other Informant: patient Narrative Narrative: Patient is a 30-year-old female presenting with chest discomfort. Patient she had an EGD yesterday performed by Dr. Bland. This was done because she is a history of ulcers and GERD. She was told she had biopsies taken and she had a lot of inflammation on her EGD. She still that last night after her procedure she started to have some discomfort in her chest. She describes it more as a burning discomfort and feeling like food is stuck. It is worse when eating. This afternoon she called Dr. Bland's office and spoke to the nurse who said that she should go to the ER if her symptoms worsen. Patient is also concerned because she is on Eliquis for PEs. She is worried that her chest pain could be associate with PEs. She has not missed any doses of her Eliquis. She denies any shortness of breath or difficulty breathing. She notes she does have a lot of anxiety associated with healthcare this very anxious about being in the emergency room. [facility] Medical History Abnormal Pap smear of cervix Anxiety Asthma COVID-19 COVID-19 virus detected (09/28/20) Gastric ulcer GERD (gastroesophageal reflux disease) Multiple subsegmental pulmonary emboli without acute cor pulmonale (09/28/20) Obesity Pulmonary embolism Vertigo Home Medications pantoprazole 40 mg PO DAILY 09/30/18 [History Last Taken 09/28/20] albuterol sulfate 90 mcg/actuation aerosol inhaler 2 puff INHALATION Q6H PRN 08/05/20 [History Last Taken 3 Weeks Ago ~09/07/20] multivitamin 1 tab PO DAILY 08/05/20 [History Last Taken 09/28/20] apixaban 5 mg tablet 5 mg PO BID #90 tab 12/08/20 [Rx Last Taken Unknown] metoprolol succinate 25 mg tablet,extended release 24 hr 25 mg PO DAILY 12/30/20 [History Last Taken Unknown] sucralfate 1 gram tablet 1 g PO Q6H tab 02/09/21 [History Last Taken Unknown] Allergy/AdvReac Type Severity Reaction Status Date / Time No Known Allergies Allergy Verified 03/01/21 20:50 Family History Other No pertinent family history Surgical History H/O esophagogastroduodenoscopy H/O LEEP History of wisdom tooth extraction Status post colposcopy Social History Smoking Status: Never smoker alcohol intake: current alcohol intake frequency: a few times a month substance use type: does not use caffeine: Yes what type of physical activity do you participate in: aerobics frequency: 5-6 times per week seatbelt use: always do you feel safe at home: Yes additional social history: Boyfriend-Farzad CATHERINE ROS ED Constitutional Constitutional ED: Denies chills or fever(s) Eyes Eyes: Denies change in vision ENT ENT ED: Denies rhinorrhea or sore throat Cardiovascular Cardiovascular: Reports chest pain; Denies palpitations or racing heartbeat Respiratory/Chest Respiratory/Chest: Denies cough, dyspnea or dyspnea on exertion Gastrointestinal Gastrointestinal: Denies abdominal pain, nausea or vomiting Genitourinary Genitourinary ED: Denies dysuria Musculoskeletal Musculoskeletal: Denies arthralgias or myalgias Integumentary Denies rash Neurologic Neurologic: Denies headache(s) or weakness Psychiatric Psychiatric: Reports anxiety; Denies depression EXAM Physical Exam Const Vital Signs: 03/01/21 20:50 Temperature 97.6 F L Temperature Source Temporal Pulse Rate 124 H Respiratory Rate 16 Blood Pressure 124/85 H Blood Pressure Mean 98 Pulse Ox 97 Oxygen Delivery Method Room Air Positive well nourished and well developed General Appearance ED: well developed HEENT normocephalic and atraumatic Eyes PERRL and EOMs intact bilaterally Neck supple and no JVD Chest Wall inspection of chest normal and palpation of chest normal Resp normal respiratory effort and clear to auscultation bilaterally Cardio regular rate, regular rhythm and no murmurs GI normal to inspection, nondistended, normoactive bowel sounds Extremity normal to inspection General Extremety ED: Negative for edema or tenderness General Extremity: Negative for edema Neuro oriented x3 and no sensory deficits noted Sensorium / Orientation: awake and alert Psych mental status grossly normal Skin no rashes or lesions noted Heart Score History: Slightly/Non-Suspicious ECG: Normal Age: </= 45 years Risk Factors: 1 or 2 Risk Factors Troponin: </= Normal Limit Score: 1 MDM MDM MDM Narrative Medical decision making narrative: Patient evaluated for chest discomfort that started yesterday. It was after her EGD. She appears nontoxic no acute distress. Is made worse by eating and feels like there something stuck in her esophagus. I suspect she has some irritation associated with her EGD performed yesterday. No chest wall crepitus on exam. She is well-appearing. She is initially tachycardic but resolved significantly ER without any intervention. She is given GI cocktail with improvement of her symptoms. She is given her home dose of Eliquis because she is due for it while she is in the ER. She has not missed any doses of her Eliquis I do not think she has a PE. No signs of acute infection. Chest x-rays not show any widening of the mediastinum or free air. I do not suspect a mediastinitis at this time. Her lactate is normal. Patient will follow up with her surgeon. At this time I do not think she requires bridge to the hospital I think she is stable for outpatient follow-up. I do not suspect ACS at this time. Lab Data Attestation: I reviewed the patient's lab results. Labs: Laboratory Results - last 24 hr 03/01/21 03/01/21 03/01/21 21:25 21:25 22:05 WBC 9.4 RBC 4.46 Hgb 12.5 Hct 37.8 MCV 84.8 MCH 28.0 MCHC 33.1 RDW Std Deviation 37.2 RDW Coeff of Elizabeth 12.2 Plt Count 366 MPV 9.2 Immature Gran % (Auto) 0.200 Neut % (Auto) 53.1 Lymph % (Auto) 36.8 [place] % (Auto) 6.3 Eos % (Auto) 2.9 Baso % (Auto) 0.7 Absolute Neuts (auto) 5.0 Absolute Lymphs (auto) 3.44 Nucleated RBC % 0 Sodium 139 Potassium 3.4 L Chloride 106 Carbon Dioxide 27.0 Anion Gap 6 BUN 10 Creatinine 0.86 Estim Creat Clear Calc 81.10 Est GFR (MDRD) Af Amer 98 Est GFR (MDRD) Non-Af 81 BUN/Creatinine Ratio 11.6 Glucose 84 Lactic Acid Calcium 9.3 Total Bilirubin 0.40 AST 27 ALT 34 Alkaline Phosphatase 84 Troponin I High Sens 3.3 Total Protein 7.6 Albumin 3.7 Globulin 3.9 Albumin/Globulin Ratio 0.9 Lipase 143 Urine Color Straw Urine Clarity Clear Urine pH 7.0 Ur Specific [place] 1.010 Urine Protein Negative Urine Glucose (UA) Normal Urine Ketones Negative Urine Occult Blood 250 H Urine Nitrite Negative Urine Bilirubin Negative Urine Urobilinogen Normal Ur Leukocyte Esterase Negative Urine RBC 0-5 SEEN Urine WBC 0 SEEN Ur Squamous Epith Cells 0-5 SEEN Urine Bacteria 0 SEEN Urine Mucus 0 SEEN Urine Test Negative 03/01/21 22:13 WBC RBC Hgb Hct MCV MCH MCHC RDW Std Deviation RDW Coeff of [place] Plt Count MPV Immature Gran % (Auto) Neut % (Auto) Lymph % (Auto) [place] % (Auto) Eos % (Auto) Baso % (Auto) Absolute Neuts (auto) Absolute Lymphs (auto) Nucleated RBC % Sodium Potassium Chloride Carbon Dioxide Anion Gap BUN Creatinine Estim Creat Clear Calc Est GFR (MDRD) Af Amer Est GFR (MDRD) Non-Af BUN/Creatinine Ratio Glucose Lactic Acid 0.5 Calcium Total Bilirubin AST ALT Alkaline Phosphatase Troponin I High Sens Total Protein Albumin Globulin Albumin/Globulin Ratio Lipase Urine Color Urine Clarity Urine pH Ur Specific [place] Urine Protein Urine Glucose (UA) Urine Ketones Urine Occult Blood Urine Nitrite Urine Bilirubin Urine Urobilinogen Ur Leukocyte Esterase Urine RBC Urine WBC Ur Squamous Epith Cells Urine Bacteria Urine Mucus Urine Test Radiography Chest X-Ray - ED: 2 View, Read by ED Physician, Read by Radiologist and No Acute Disease Diagnostic Testing: Radiology Impression Chest X-Ray 03/02/21 00:18 IMPRESSION: Minimal right basilar atelectasis. Otherwise normal x-ray examination of the chest. Electronically Signed: Roopa Wright MD at 0:43 EDT , Service support , Rhythm Strip Rhythm Strip: Sinus Rhythm Rate: 85 Ectopy: None EKG Initial EKG: Attestation: I personally reviewed and interpreted this EKG as follows: Interpretation: Sinus Rhythm Comments: Normal sinus rhythm at a rate of 85 with sinus arrhythmia Normal intervals Normal axis Normal ST segments Compared to prior EKG on 12/20/2020 now normal sinus rhythm and no longer tachycardic Discharge Plan Triage Chief Complaint: Chest Other ED Provider: Yessica Brewer Dx/Rx/DC Orders Clinical Impression: Atypical chest pain Instructions: ED Chest Pain, Uncertain Cause Prescriptions: No Action multivitamin Tablet 1 tab PO DAILY RF: 0 albuterol sulfate 90 mcg/actuation HFA aerosol inhaler 2 puff INHALATION Q6H PRN (Reason: Sob &/Or Wheezing) RF: 0 sucralfate 1 gram tablet 1 g PO Q6H RF: 0 pantoprazole 40 MG tablet 40 mg PO DAILY RF: 0 apixaban 5 mg tablet 5 mg PO BID Qty: 90 RF: 0 metoprolol succinate 25 mg tablet extended release 24 hr 25 mg PO DAILY RF: 0 Primary Care Provider: Lavell Killian Referrals: Lavell Killian MD [Primary Care Provider] - Andrey Bland MD [STAFF PHYSICIAN] - Disposition Disposition: Home, Self Care
== END 2021-03-02 01:26 | disposition home or self-care (01) ==
PROVIDERS: Emergency Provider Emergency Medicine; PCP Family Medicine
DX: R07.89 Other chest pain (principal); K21.9 Gastro-esophageal reflux disease without esophagitis; J45.909 Unspecified asthma, uncomplicated; E66.9 Obesity, unspecified; Z79.01 Long term (current) use of anticoagulants; Z79.899 Other long term (current) drug therapy; Z87.11 Personal history of peptic ulcer disease; Z86.16 Personal history of COVID-19
CPT/HCPCS: 71046; 80053; 81001; 81025; 83605; 83690; 84484; 85025; 93005; 99284; A4216

== ENCOUNTER 2021-05-03 13:28 | Emergency (ER) | payer OTHER, SELFPAY ==
[2021-05-03 13:28] VITALS: BP 150/88; PULSE 115; RESP 16; TEMP 36.6; O2SAT 98; BMI 29.9
--- NOTE | 2021-05-03 14:03 | EKG12_ITS ---
Test Reason : CP Blood Pressure : / mmHG Vent. Rate : 100 BPM Atrial Rate : 100 BPM P-R Int : 148 ms QRS Dur : 078 ms QT Int : 340 ms P-R-T Axes : 069 072 050 degrees QTc Int : 438 ms Normal sinus rhythm Normal ECG Confirmed by ZAFAR BRASHER, YOLANDE ([id number]), movie editor MARIA GUADALUPE MEDINA ([id number]) on 05/04/2021 9:59:22 AM Referred By: NICOLA Confirmed By:YOLANDE STEPHEN MD
--- NOTE | 2021-05-03 14:13 | ED.VIS.CHEST ---
HPI History of Present Illness Chief Complaint: Chest Pain Narrative Narrative: 30-year-old female presenting with mild chest discomfort which she points to her upper retrosternal area. She states this is been present since Sunday which is 4 days now. Is not changed. She states she might have mild shortness of breath. She has no cough, fever, body aches, change in taste or smell. She has history of COVID-19 in September and subsequently had pulmonary emboli. She is anticoagulated on Eliquis. She states she has an abnormal protein which causes her to be susceptible to blood clots but she cannot tell me what that is currently. Patient states he subsequently been vaccinated with the Pfizer vaccine. Patient states that her child was exposed to Covid last week and her whole family was tested and negative for COVID-19. These were all negative. Patient states that she went to urgent care where they urged her to come to the emergency room given her symptoms. Patient denies any cardiac history. Patient states that she did have some diarrhea the last couple of days however she states that she ate ice cream all weekend and she realizes that this is a side effect of her eating ice cream. [facility] Medical History Abnormal Pap smear of cervix Anxiety Asthma COVID-19 COVID-19 virus detected (09/28/20) Gastric ulcer GERD (gastroesophageal reflux disease) Multiple subsegmental pulmonary emboli without acute cor pulmonale (09/28/20) Obesity Pulmonary embolism Vertigo Home Medications pantoprazole 40 mg PO DAILY 09/30/18 [History Last Taken 09/28/20] albuterol sulfate 90 mcg/actuation aerosol inhaler 2 puff INHALATION Q6H PRN 08/05/20 [History Last Taken 3 Weeks Ago ~09/07/20] multivitamin 1 tab PO DAILY 08/05/20 [History Last Taken 09/28/20] apixaban 5 mg tablet 5 mg PO BID #90 tab 12/08/20 [Rx Last Taken Unknown] metoprolol succinate 25 mg tablet,extended release 24 hr 25 mg PO DAILY 12/30/20 [History Last Taken Unknown] sucralfate 1 gram tablet 1 g PO Q6H tab 02/09/21 [History Last Taken Unknown] Allergy/AdvReac Type Severity Reaction Status Date / Time sulfacetamide [From Plexion] Allergy Rash Verified 05/03/21 13:31 sulfur [From Plexion] Allergy Rash Verified 05/03/21 13:31 Family History Other No pertinent family history Surgical History H/O esophagogastroduodenoscopy H/O LEEP History of wisdom tooth extraction Status post colposcopy Social History Smoking Status: Never smoker alcohol intake: current alcohol intake frequency: a few times a month substance use type: does not use caffeine: Yes what type of physical activity do you participate in: aerobics frequency: 5-6 times per week seatbelt use: always do you feel safe at home: Yes additional social history: Boyfriend-Farzad CATHERINE ROS ED Constitutional Constitutional ED: Denies chills, fever(s) or sweats Eyes Eyes: Denies blurry vision or change in vision ENT ENT ED: Denies rhinorrhea or sore throat Cardiovascular Cardiovascular: Reports chest pain; Denies orthopnea, palpitations or racing heartbeat Respiratory/Chest Respiratory/Chest: Reports dyspnea; Denies cough, orthopnea or sputum Gastrointestinal Gastrointestinal: Reports diarrhea; Denies abdominal pain, nausea or vomiting Genitourinary Genitourinary ED: Denies dysuria or hematuria Musculoskeletal Musculoskeletal: Denies arthralgias, back pain, myalgias or neck pain Integumentary Denies Abrasions or rash Neurologic Neurologic: Denies headache(s) or paresthesias EXAM Physical Exam Const Vital Signs: 05/03/21 13:28 05/03/21 14:17 05/03/21 14:29 Temperature 97.8 F Temperature Source Temporal Pulse Rate 115 H Respiratory Rate 16 Respiratory Effort Non-Labored Short of Breath Blood Pressure 150/88 H Blood Pressure Mean 108 Pulse Ox 98 98 Oxygen Delivery Method Room Air Room Air Positive well nourished General Appearance ED: NAD; Negative for pallor HEENT Reports moist mucous membranes normocephalic and atraumatic Eyes PERRL and EOMs intact bilaterally Resp normal respiratory effort and clear to auscultation bilaterally Cardio regular rate and regular rhythm GI normal to inspection, nondistended, normoactive bowel sounds Neuro oriented x3 and CN's II-XII intact bilaterally Sensorium / Orientation: awake and alert Motor Exam: strength 5/5 throughout Psych mental status grossly normal Skin no rashes or lesions noted and no wounds General Skin Exam: Negative for jaundice or pallor Heart Score History: Slightly/Non-Suspicious ECG: Normal Age: </= 45 years Risk Factors: No Risk Factors Troponin: </= Normal Limit Score: 0 MDM MDM MDM Narrative Medical decision making narrative: Patient presenting with chest pain which has been constantly present since Sunday. She describes it as a mild discomfort and not like pressure or sharp. She is already been vaccinated for COVID-19 and had COVID-19 in September. She has pulmonary emboli and is anticoagulated. 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 She states they are going to recheck her in 3 months and determine if she needs to be anticoagulated further. Patient has not missed any doses of her Eliquis. EKG on my interpretation shows shows a normal sinus rhythm with a ventricular rate of 100 bpm, ME interval 140 ms, QRS duration 70 ms, QTC 438 ms. There [address] elevations, depressions, dysrhythmias. Chest x-ray on my interpretation shows no acute cardiopulmonary process and the radiologist does agree. We will obtained chest pain work-up. Given that she is already anticoagulated I have low suspicion for PE causing her discomfort. I will test her for RSV as her child was recently exposed to something that they thought was Covid however the whole family tested negative for COVID-19. I would not retest for COVID-19 since the patient is already been vaccinated and had COVID-19. Patient's blood work is all within normal limits. Troponin is 5. After a few days of constant pain with a negative troponin I do not believe he needs a delta troponin. RSV is also negative. Is unclear the source of her symptoms however it could still likely be viral. There is no evidence of a bacterial infection. Patient counseled to use alternating dose of Tylenol and ibuprofen and hydrate well. If she has worsening chest pain or symptoms she should return to the ED. Impression: 1. Chest pain 2. Cough Lab Data Attestation: I reviewed the patient's lab results. Labs: Laboratory Results - last 24 hr 05/03/21 05/03/21 14:15 14:15 WBC 5.8 RBC 4.55 Hgb 12.7 Hct 39.7 MCV 87.3 MCH 27.9 MCHC 32.0 RDW Std Deviation 39.1 RDW Coeff of [place] 12.1 Plt Count 324 MPV 8.9 Immature Gran % (Auto) 0.500 Neut % (Auto) 55.0 Lymph % (Auto) 35.3 [place] % (Auto) 5.5 Eos % (Auto) 2.8 Baso % (Auto) 0.9 Absolute Neuts (auto) 3.2 Absolute Lymphs (auto) 2.05 Nucleated RBC % 0 Sodium 140 Potassium 3.5 Chloride 108 H Carbon Dioxide 27.0 Anion Gap 5 BUN 9 Creatinine 0.78 Estim Creat Clear Calc 89.41 Est GFR (MDRD) Af Amer 110 Est GFR (MDRD) Non-Af 91 BUN/Creatinine Ratio 11.6 Glucose 139 H Calcium 9.0 Troponin I High Sens 5 Radiography Diagnostic Testing: Radiology Impression Chest X-Ray 05/03/21 14:40 IMPRESSION: No radiographic evidence of acute cardiopulmonary disease. at 1514 Reported and signed by: Samuel Perez MD Electronically Signed: Samuel Perez MD at 15:13 EDT Tel , Service support , Discharge Plan Triage Chief Complaint: Chest Pain ED Provider: Phu Ralph Dx/Rx/DC Orders Instructions: ED Chest Pain, Noncardiac Prescriptions: No Action multivitamin Tablet 1 tab PO DAILY RF: 0 albuterol sulfate 90 mcg/actuation HFA aerosol inhaler 2 puff INHALATION Q6H PRN (Reason: Sob &/Or Wheezing) RF: 0 sucralfate 1 gram tablet 1 g PO Q6H RF: 0 pantoprazole 40 MG tablet 40 mg PO DAILY RF: 0 apixaban 5 mg tablet 5 mg PO BID Qty: 90 RF: 0 metoprolol succinate 25 mg tablet extended release 24 hr 25 mg PO DAILY RF: 0 Primary Care Provider: Amanda Oliveira Referrals: Amanda Oliveira MD [Primary Care Provider] - Disposition Disposition: Home, Self Care
[2021-05-03 14:17] VITALS: O2SAT 98
[2021-05-03 14:24] LABS: Absolute Lymphocyte Count 2.05 X10^3/uL (0.83-4.51); Absolute Neutrophil Count 3.2 X10^3/uL (2.0-7.7); Basophil# 0.05 X10^3/uL; Basophil% 0.9 % (0-1); Eosinophil# 0.16 X10^3/uL; Eosinophils% 2.8 % (0-5); Hematocrit 39.7 % (37-47); Hemoglobin 12.7 g/dL (12.0-15.0); Lymphocyte # 2.05 X10^3/ul (0.83-4.51); Lymphocyte % 35.3 % (19-41); Mean Corpuscular Hgb 27.9 pg (27.0-32.0); Mean Corpuscular Volume 87.3 fL (81-99); Mean Platelet Vol. 8.9 fl (6.2-12.0); Monocyte# 0.32 X10^3/uL; Monocyte% 5.5 % (0-10); NRBC Flagged by Analyzer 0 % (0-5); Neutrophil # 3.19 X10^3/uL (2.7-7.7); Platelet Count 324 K/mm3 (150-450); RBC Distribution Width CV 12.1 % (11.6-14.6); RBC Distribution Width SD 39.1 fl (35.1-43.9); Red Blood Count 4.55 M/mm3 (4.2-5.4); White Blood Count 5.8 K/mm3 (4.4-11.0)
--- NOTE | 2021-05-03 14:40 | RAD_ITS ---
EXAM: XR CHEST, 1 VIEW : 1990 CLINICAL INDICATION: chest pain TECHNIQUE: Frontal view of the chest. This report was created using [employer] report generation technology. COMPARISON: 03/02/2021 FINDINGS: LUNGS AND PLEURAL SPACES: Unremarkable. No consolidation or edema. No pneumothorax. No effusion. HEART: Unremarkable. Cardiac silhouette not enlarged. MEDIASTINUM: Central airways and mediastinal contour are unremarkable. BONES/JOINTS: Unremarkable. SOFT TISSUES: Unremarkable. RAD/Chest 1 View (Portable) IMPRESSION: No radiographic evidence of acute cardiopulmonary disease. at 1514 Reported and signed by: Saumel Perez MD Electronically Signed: Samuel Perez MD at 15:13 EDT Tel , Service support ,
[2021-05-03 14:41] LABS: Anion Gap 5 (5-15); BUN 9 mg/dL (7-18); BUN/Creat Ratio 11.6 RATIO (10-20); Chloride 108 mmol/L (98-107); Creatinine, Serum 0.78 mg/dL (0.55-1.02); EST Glomerular Filtration Rate 91 mL/min (>60); Est Glom Filt Rate - Afr Amer 110 mL/min (>60); Estimated Creatinine Clearance 89.41 ml/min; Glucose 139 mg/dL (74-106); Potassium 3.5 mmol/L (3.5-5.1); Sodium Level 140 mmol/L (136-145); Troponin-I HS 5 pg/mL (3.0-54.0)
[2021-05-03 15:41] VITALS: BP 131/79; PULSE 90; RESP 20; O2SAT 99
== END 2021-05-03 15:41 | disposition home or self-care (01) ==
PROVIDERS: Emergency Provider Student in an Organized Health Care Education/Training Program; PCP Internal Medicine
DX: R07.9 Chest pain, unspecified (principal); R05 Cough; Z86.16 Personal history of COVID-19
CPT/HCPCS: 71045; 80048; 84484; 85025; 87807; 93005; 99284; A4216

== ENCOUNTER → 2021-08-03 12:57 | Outpatient (CLI) | payer OTHER, SELFPAY | PROVIDERS: PCP Internal Medicine; Visit Provider Family Medicine | DX: Z23 Encounter for immunization (principal) | CPT/HCPCS: 0004A; 91300 ==

== ENCOUNTER 2021-10-18 16:03 | Emergency (ER) | payer OTHER, SELFPAY ==
[2021-10-18 16:04] VITALS: BP 117/87; PULSE 136; RESP 15; TEMP 36.6; O2SAT 98; BMI 31.2
--- NOTE | 2021-10-18 17:20 | EDS_ITS ---
HPI History of Present Illness Chief Complaint: Head Injury Informant: patient Narrative Narrative: 25-week gestation sent in here after discussing with her OB from [place] after head injury. She reports 230 taken the trash out hit her head on the cabinet pretty hard. No loss of conscious. No neck or back pain. No nausea or vomiting. Mild headache. She is on Lovenox reported had previous Covid, PE, had evaluation to be taken off anticoagulants however became therefore risk was higher and continued on anticoagulants at this time. No other complaints at this time. [facility] Medical History Abnormal Pap smear of cervix Anxiety Asthma COVID-19 COVID-19 virus detected (09/28/20) Gastric ulcer GERD (gastroesophageal reflux disease) Multiple subsegmental pulmonary emboli without acute cor pulmonale (09/28/20) Obesity Pulmonary embolism Vertigo Home Medications pantoprazole 40 mg PO DAILY 09/30/18 [History Last Taken 09/28/20] albuterol sulfate 90 mcg/actuation aerosol inhaler 2 puff INHALATION Q6H PRN 08/05/20 [History Last Taken 3 Weeks Ago ~09/07/20] buspirone 10 mg tablet 10 mg PO DAILY tab 07/04/21 [History Last Taken Unknown] diphenhydramine HCl 25 mg capsule 25 mg PO QHS 07/04/21 [History Last Taken Unknown] enoxaparin 80 mg/0.8 mL subcutaneous syringe mg SUBCUT 07/04/21 [History Last Taken Unknown] fexofenadine 180 mg tablet 180 mg PO DAILY 07/04/21 [History Last Taken Unknown] prenat.vits,jessica,emi-pdzg-puhjd 1 tab PO DAILY 07/04/21 [History Last Taken Unknown] Allergy/AdvReac Type Severity Reaction Status Date / Time sulfacetamide [From Plexion] Allergy Rash Verified 07/04/21 14:46 sulfur [From Plexion] Allergy Rash Verified 07/04/21 14:46 Family History Other No pertinent family history Surgical History H/O esophagogastroduodenoscopy H/O LEEP History of wisdom tooth extraction Status post colposcopy Social History Smoking Status: Never smoker alcohol intake: current alcohol intake frequency: a few times a month substance use type: does not use caffeine: Yes what type of physical activity do you participate in: aerobics frequency: 5-6 times per week seatbelt use: always do you feel safe at home: Yes additional social history: Boyfriend-Farzad ROS ROS ED Constitutional Constitutional ED: Denies chills, fever(s) or sweats Eyes Eyes: Denies change in vision ENT ENT ED: Denies dysphagia or sore throat Cardiovascular Cardiovascular: Denies chest pain, leg edema, palpitations or racing heartbeat Respiratory/Chest Respiratory/Chest: Denies cough, dyspnea or dyspnea on exertion Gastrointestinal Gastrointestinal: Denies abdominal pain, diarrhea, nausea or vomiting Genitourinary Genitourinary ED: Denies dysuria, hematuria or urinary frequency Musculoskeletal Musculoskeletal: Denies back pain, extremity pain or neck pain Integumentary Denies rash or wounds Neurologic Neurologic: Reports headache(s); Denies paresthesias or weakness EXAM Physical Exam Const Vital Signs: 10/18/21 16:04 Temperature 97.9 F Temperature Source Temporal Pulse Rate 136 H Respiratory Rate 15 Blood Pressure 117/87 H Blood Pressure Mean 97 Pulse Ox 98 Oxygen Delivery Method Room Air Positive well nourished and well developed Constitutional Narrative: GCS 15. General Appearance ED: well developed and NAD HEENT Reports TM's clear and moist mucous membranes HEENT Narrative: No hemotympanums. normocephalic and atraumatic Tympanic Membrane ED: Yes TM's clear Eyes PERRL, EOMs intact bilaterally and conjunctivae normal General Eye ED: Yes normal appearance of both eyes Neck no lymphadenopathy and supple Neck Narrative: No midline tenderness or step-offs. General: Negative for tenderness Chest Wall Chest: Negative for tenderness Resp normal respiratory effort and normal air movement Effort and Inspection: symmetric chest movement; Negative for respiratory distress Cardio regular rate, regular rhythm and no murmurs Peripheral Pulses: pulses 2+ throughout GI normal to inspection, nondistended, normoactive bowel sounds and non-tender GI Narrative: Gravid abdomen, nontender. Palpation: Negative for guarding or rebound tenderness present Back/Spine no CVA tenderness and no thoracic nor lumbar tenderness Extremity normal to inspection General Extremety ED: Negative for edema or tenderness General Extremity: Negative for edema Neuro oriented x3 and no sensory deficits noted Sensorium / Orientation: awake and alert Skin no rashes or lesions noted and no wounds MDM MDM MDM Narrative Medical decision making narrative: Patient is a tachycardia on arrival in my evaluation heart rate in the high 90s. She was anxious on arrival. She has no focal deficit she is on Lovenox. Risk and benefits discussed with patient for CT radiation for exposure to fetus. Discussed more exposure would not affect any developmental effects for her baby. She understands this. Shared decision discussed. She elects not to get the CT at this time. She can otherwise present. They will closely evaluate for any worsening symptoms to return. A bedside ultrasound performed by myself noted motion along with a heart tones of 122. Use Tylenol as needed. Strict return precautions discussed. Patient is being discharged under pandemic conditions under declared global, national and state disaster activation, with limited medical resources. Patient and community understands this. Results discussed in layman's terms to the patient satisfaction. All questions answered in layman's terms. Patient understands importance of follow-up care as directed. Patient has been instructed to return to the ED immediately if new symptoms, problems, or questions occur. We mutually agree with the plan of disposition. The patient understand that they may call or return with any questions or concerns at any time. Discharge Plan Triage Chief Complaint: Head Injury Other Complaint: Fall ED Provider: Billy Hughes Dx/Rx/DC Orders Clinical Impression: CHI (closed head injury), Second trimester Instructions: Preg 2nd Trimester, ED Head Injury (Adult) Prescriptions: No Action albuterol sulfate 90 mcg/actuation HFA aerosol inhaler 2 puff INHALATION Q6H PRN (Reason: Sob &/Or Wheezing) RF: 0 enoxaparin 80 mg/0.8 mL syringe subcut RF: 0 prenat.vits,jessica,buh-ajop-[id number] Tablet 1 tab PO DAILY RF: 0 buspirone 10 mg tablet 10 mg PO DAILY RF: 0 fexofenadine [Riana Allergy] 180 mg tablet 180 mg PO DAILY RF: 0 diphenhydramine HCl [Benadryl] 25 mg capsule 25 mg PO QHS RF: 0 pantoprazole 40 MG tablet 40 mg PO DAILY RF: 0 Primary Care Provider: Amanda Oliveira Referrals: Amanda Oliveira MD [Primary Care Provider] - 3-5 Days Activity Restrictions/Additional Instructions: Normal heart tones. Risks and benefits discussed with radiation and head injury on blood thinners. Monitor for worsening symptoms to return otherwise use Tylenol as needed and follow-up with your doctor. Disposition Disposition: Home, Self Care Discharge Date/Time: 10/18/21 17:33
== END 2021-10-18 17:33 | disposition home or self-care (01) ==
PROVIDERS: Emergency Provider Emergency Medicine; PCP Internal Medicine; Visit Provider Emergency Medicine
DX: O9A.212 Injury, poisoning and certain other consequences of external causes complicating pregnancy, second trimester (principal); S09.90XA Unspecified injury of head, initial encounter; W22.09XA Striking against other stationary object, initial encounter; O99.512 Diseases of the respiratory system complicating pregnancy, second trimester; J45.909 Unspecified asthma, uncomplicated; K21.9 Gastro-esophageal reflux disease without esophagitis; O99.212 Obesity complicating pregnancy, second trimester; Z79.01 Long term (current) use of anticoagulants; Z79.899 Other long term (current) drug therapy; Z86.16 Personal history of COVID-19; Z86.711 Personal history of pulmonary embolism; Z3A.25 25 weeks gestation of pregnancy
CPT/HCPCS: 99282

== ENCOUNTER 2021-12-16 11:15 | Outpatient (CLI) | payer OTHER, SELFPAY ==
[2021-12-16] VITALS (34 sets, daily range): BP systolic 120–163; BP diastolic 67–107; PULSE 80–105; RESP 16–18; TEMP 36.1–37.3; O2SAT 97–100; BMI 31.7; BMI 32.3
--- NOTE | 2021-12-16 11:41 | EDS_ITS ---
HPI History of Present Illness Chief Complaint: Chest Pain Informant: patient Onset/Context/Timing Onset: Weeks (3) Activity at onset: gradual Timing: Intermittent Quality: Positive for Aching Location: Substernal Worsened By: - (In the morning and in the evening) Relieved By: - (Tylenol, bowel movement) Associated Symptoms: Positive for Cough and Acid Reflux; Negative for Nausea, Vomiting, Diaphoresis, Dyspnea, Fever, Lightheadedness and Palpitations Narrative Narrative: Patient presents with chest pain that has been intermittent over the past 3 weeks. Patient states she has a history of pulmonary embolism in the past and is currently on Lovenox. Patient states that her pain is over the substernal area and epigastric area. Patient describes it as pressure and ac lizabeth. Patient states it is worse in the morning and worse at night. Patient states she had a bowel movement prior to arrival and her pain has resolved. Patient states she has also taken Tylenol in the past which has helped her pain. Patient states that she developed some pain in her right lower thoracic area and flank area over the last few days. Patient states this pain is worse with coughing. Patient is approximately 33 weeks . CVD Risk Factors: Negative for Hypertension, Diabetes, Hypercholesterolemia, Family History 1' </=55 and Smoking PE Risk Factors: Positive for Prior DVT or PE; Negative for Recent Travel/Surgery, Recent Immobilization, Cancer and OCP + Smoking + >/=35 PFSH PFSH Medical History Abnormal Pap smear of cervix Anxiety Asthma COVID-19 COVID-19 virus detected (09/28/20) Gastric ulcer GERD (gastroesophageal reflux disease) Multiple subsegmental pulmonary emboli without acute cor pulmonale (09/28/20) Obesity Pulmonary embolism Vertigo Home Medications pantoprazole 40 mg PO DAILY 09/30/18 [History Last Taken 09/28/20] albuterol sulfate 90 mcg/actuation aerosol inhaler 2 puff INHALATION Q6H PRN 08/05/20 [History Last Taken 3 Weeks Ago ~09/07/20] buspirone 10 mg tablet 10 mg PO DAILY tab 07/04/21 [History Last Taken Unknown] diphenhydramine HCl 25 mg capsule 25 mg PO QHS 07/04/21 [History Last Taken Unknown] enoxaparin 80 mg/0.8 mL subcutaneous syringe mg SUBCUT 07/04/21 [History Last Taken Unknown] fexofenadine 180 mg tablet 180 mg PO DAILY 07/04/21 [History Last Taken Unknown] prenat.vits,jessica,yec-uuov-tmznv 1 tab PO DAILY 07/04/21 [History Last Taken Unknown] Allergy/AdvReac Type Severity Reaction Status Date / Time sulfacetamide [From Plexion] Allergy Rash Verified 12/16/21 11:16 sulfur [From Plexion] Allergy Rash Verified 12/16/21 11:16 Family History Other No pertinent family history Surgical History H/O esophagogastroduodenoscopy H/O LEEP History of wisdom tooth extraction Status post colposcopy Social History Smoking Status: Never smoker alcohol intake: current alcohol intake frequency: a few times a month substance use type: does not use caffeine: Yes what type of physical activity do you participate in: aerobics frequency: 5-6 times per week seatbelt use: always do you feel safe at home: Yes additional social history: Boyfriend-Farzad CATHERINE ALEXANDER ED Constitutional Constitutional ED: Denies chills or fever(s) Eyes Eyes: Denies blurry vision or change in vision ENT ENT ED: Denies rhinorrhea or sore throat Cardiovascular Cardiovascular: Reports chest pain; Denies palpitations Respiratory/Chest Respiratory/Chest: Reports cough; Denies dyspnea Gastrointestinal Gastrointestinal: Reports diarrhea; Denies abdominal pain, nausea or vomiting Genitourinary Genitourinary ED: Denies dysuria or hematuria Musculoskeletal Musculoskeletal: Reports back pain; Denies neck pain Integumentary Denies abscess or rash Neurologic Neurologic: Denies headache(s) or weakness Allergic/Immunologic Allergic/Immunologic ED: Denies mouth swelling or urticaria EXAM Physical Exam Const Vital Signs: 12/16/21 11:16 12/16/21 13:01 Temperature 97 F L Temperature Source Temporal Pulse Rate 98 81 Respiratory Rate 16 18 Blood Pressure 126/67 H 120/90 H Blood Pressure Mean 86 100 Pulse Ox 97 99 Oxygen Delivery Method Room Air Room Air Positive well nourished and well developed General Appearance ED: well developed and NAD HEENT normocephalic and atraumatic Eyes PERRL and EOMs intact bilaterally Neck supple and no JVD Resp normal respiratory effort and clear to auscultation bilaterally Effort and Inspection: Negative for respiratory distress Cardio regular rate, regular rhythm and no murmurs GI normal to inspection, nondistended, normoactive bowel sounds, soft to palpation, non-tender and non-distended Extremity normal to inspection General Extremety ED: Negative for edema or tenderness General Extremity: Negative for edema Neuro oriented x3, CN's II-XII intact bilaterally and no sensory deficits noted Sensorium / Orientation: awake and alert Motor Exam: strength 5/5 throughout Psych mental status grossly normal Heart Score History: Slightly/Non-Suspicious ECG: Normal Age: </= 45 years Risk Factors: No Risk Factors Score: 0 MDM MDM MDM Narrative Medical decision making narrative: EKG was obtained. On my interpretation, it showed a normal sinus rhythm with a rate of 83. AR interval, QRS interval, and QTc intervals were all normal. Baird was normal. There are no acute ST or T wave changes. CBC was within normal limits. PT was INR and PTT were normal. Urinalysis does not show any evidence of urinary tract infection or hematuria. Comprehensive metabolic profile was essentially within normal limits. High- sensitivity troponin was normal. Lipase was normal. CTA of the chest was obtained. There is no evidence of pulmonary embolism or aortic dissection. There is no infiltrate noted. This was interpreted by the radiologist and reviewed by myself. Patient was advised of her findings. Patient was instructed to use Tylenol as needed for pain. 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 Patient understood and was agreeable with the plan. All questions were answered. Lab Data Labs: Laboratory Results - last 24 hr 12/16/21 12/16/21 12/16/21 11:55 12:00 12:00 WBC 10.4 RBC 4.06 L Hgb 12.5 Hct 36.4 L MCV 89.7 MCH 30.8 MCHC 34.3 RDW Std Deviation 41.7 RDW Coeff of Elizabeth 12.8 Plt Count 156 MPV 10.6 Immature Gran % (Auto) 0.600 Neut % (Auto) 70.3 H Lymph % (Auto) 19.4 [place] % (Auto) 7.8 Eos % (Auto) 1.5 Baso % (Auto) 0.4 Absolute Neuts (auto) 7.3 Absolute Lymphs (auto) 2.02 Nucleated RBC % 0 PT 12.2 INR 0.9 APTT 34.3 Sodium Potassium Chloride Carbon Dioxide Anion Gap BUN Creatinine Estim Creat Clear Calc Est GFR (MDRD) Af Amer Est GFR (MDRD) Non-Af BUN/Creatinine Ratio Glucose Calcium Total Bilirubin AST ALT Alkaline Phosphatase Troponin I High Sens Total Protein Albumin Globulin Albumin/Globulin Ratio Lipase Urine Color Yellow Urine Clarity Clear Urine pH 7.0 Ur Specific [place] 1.005 Urine Protein Negative Urine Glucose (UA) Normal Urine Ketones Negative Urine Occult Blood Negative Urine Nitrite Negative Urine Bilirubin Negative Urine Urobilinogen Normal Ur Leukocyte Esterase 25 H Urine RBC 0 SEEN Urine WBC 0-5 SEEN Ur Squamous Epith Cells 0-5 SEEN Urine Bacteria 0 SEEN Urine Mucus 0 SEEN 12/16/21 12:00 WBC RBC Hgb Hct MCV MCH MCHC RDW Std Deviation RDW Coeff of Elizabeth Plt Count MPV Immature Gran % (Auto) Neut % (Auto) Lymph % (Auto) [place] % (Auto) Eos % (Auto) Baso % (Auto) Absolute Neuts (auto) Absolute Lymphs (auto) Nucleated RBC % PT INR APTT Sodium 138 Potassium 4.4 Chloride 108 H Carbon Dioxide 24.0 Anion Gap 6 BUN 8 Creatinine 0.62 Estim Creat Clear Calc 111.45 Est GFR (MDRD) Af Amer 143 Est GFR (MDRD) Non-Af 118 BUN/Creatinine Ratio 12.9 Glucose 75 Calcium 8.8 Total Bilirubin 0.20 AST 46 H ALT 59 H Alkaline Phosphatase 97 Troponin I High Sens < 3 L Total Protein 6.7 Albumin 2.6 L Globulin 4.1 Albumin/Globulin Ratio 0.6 L Lipase 100 Urine Color Urine Clarity Urine pH Ur Specific [place] Urine Protein Urine Glucose (UA) Urine Ketones Urine Occult Blood Urine Nitrite Urine Bilirubin Urine Urobilinogen Ur Leukocyte Esterase Urine RBC Urine WBC Ur Squamous Epith Cells Urine Bacteria Urine Mucus Radiography Diagnostic Testing: Clinical Impression(s) from Imaging Studies Chest CTA 12/16/21 11:47 IMPRESSION: Normal CTA chest examination, without a demonstrated pulmonary embolism or arterial dissection. Electronically Signed: Tung Zhao MD at 12:57 EDT , EKG Initial EKG: Attestation: I personally reviewed and interpreted this EKG as follows: Interpretation: Sinus Rhythm (83) and No Acute Injury Pattern Discharge Plan Triage Chief Complaint: Chest Pain ED Provider: Brady Swenson Dx/Rx/DC Orders Clinical Impression: Chest pain, Instructions: ED Chest Pain, Uncertain Cause Prescriptions: No Action albuterol sulfate 90 mcg/actuation HFA aerosol inhaler 2 puff INHALATION Q6H PRN (Reason: Sob &/Or Wheezing) RF: 0 enoxaparin 80 mg/0.8 mL syringe subcut RF: 0 prenat.vits,jessica,[id number] Tablet 1 tab PO DAILY RF: 0 buspirone 10 mg tablet 10 mg PO DAILY RF: 0 fexofenadine [Riana Allergy] 180 mg tablet 180 mg PO DAILY RF: 0 diphenhydramine HCl [Benadryl] 25 mg capsule 25 mg PO QHS RF: 0 pantoprazole 40 MG tablet 40 mg PO DAILY RF: 0 Primary Care Provider: Amanad Oliveira Referrals: Amanda Oliveira MD [Primary Care Provider] - 5-7 Days Disposition Disposition: Home, Self Care
--- NOTE | 2021-12-16 11:47 | CT_ITS ---
STUDY: CTA CHEST REASON FOR EXAM: Female, 31 years old. Intermittent substernal/epigastric pain -- Shield abdomen. Patient is 33 weeks . RADIATION DOSAGE (If Supplied By Facility): CTDIvol = ( 7.62 ) mGy, DLP = ( 311.48 ) mGycm TECHNIQUE: The examination was performed with the intravenous administration of IV 100mL Isovue-370. Post-processing of the angiographic images was performed, with multiplanar reformation and 3D reconstruction. Individualized dose optimization techniques were used for this CT. COMPARISON: Comparison is made with prior examination dated 09/28/2020. FINDINGS: Normal enhancement of the main pulmonary artery and right and left pulmonary arteries. Normal enhancement of the bilateral peripheral pulmonary arteries. There is no demonstrated pulmonary embolism. Normal thoracic aorta and visualized great vessels. There is no demonstrated aortic dissection. Normal heart and pericardium. Calcified right hilar and mediastinal lymph nodes. Normal visualized trachea and bronchi. The lungs are well expanded. Normal pulmonary parenchyma. 4 mm calcified granuloma in the peripheral aspect of the right lower lobe. Normal pleura. Normal chest wall structures. Normal osseous structures. Normal visualized upper abdomen. CT/CTA Chest W/WO Contrast IMPRESSION: Normal CTA chest examination, without a demonstrated pulmonary embolism or arterial dissection. Electronically Signed: Tung Zhao MD at 12:57 EDT ,
--- NOTE | 2021-12-16 11:48 | EKG12_ITS ---
Test Reason : CP Blood Pressure : / mmHG Vent. Rate : 083 BPM Atrial Rate : 083 BPM P-R Int : 148 ms QRS Dur : 076 ms QT Int : 352 ms P-R-T Axes : 053 060 044 degrees QTc Int : 413 ms Normal sinus rhythm Normal ECG Confirmed by ZAFAR BRASHER, YOLANDE ([id number]), restaurant expeditor MARIA GUADALUPE MEDINA ([id number]) on 12/20/2021 8:47:24 AM Referred By: SHELDON/ALIE Confirmed By:YOLANDE STEPHEN MD
[2021-12-16 11:59] LABS: Bacteria 0 SEEN /hpf (None Seen); Mucous, Urine 0 SEEN /hpf (<or=2+); Red Blood Cells-Urine 0 SEEN /hpf (0-5)
[2021-12-16 12:00] LABS: Color, Urine Yellow (Yellow); Glucose, Dipstick Normal (Normal); Ketone-Dipstick Negative (Negative); Leukocyte Esterase-Dipstick 25 /ul (Negative); Nitrite-Dipstick Negative (Negative); Occult Blood-Urine Negative /ul (Negative); Protein-Dipstick Negative (Negative); Specific Gravity, Urine 1.005 (1.002-1.030); Urine Bilirubin Dipstick Negative (Negative); Urine Clarity Clear (Clear); Urine Urobilinogen Normal (Normal)
[2021-12-16 12:11] LABS: Absolute Lymphocyte Count 2.02 X10^3/uL (0.83-4.51); Absolute Neutrophil Count 7.3 X10^3/uL (2.0-7.7); Basophil# 0.04 X10^3/uL; Basophil% 0.4 % (0-1); Eosinophil# 0.16 X10^3/uL; Eosinophils% 1.5 % (0-5); Hematocrit 36.4 % (37-47); Hemoglobin 12.5 g/dL (12.0-15.0); Lymphocyte # 2.02 X10^3/ul (0.83-4.51); Lymphocyte % 19.4 % (19-41); Mean Corp Hgb Conc 34.3 g/dL (32-36); Mean Corpuscular Hgb 30.8 pg (27.0-32.0); Mean Corpuscular Volume 89.7 fL (81-99); Mean Platelet Vol. 10.6 fl (6.2-12.0); Monocyte# 0.81 X10^3/uL; Monocyte% 7.8 % (0-10); NRBC Flagged by Analyzer 0 % (0-5); Neutrophil # 7.34 X10^3/uL (2.7-7.7); Neutrophil % 70.3 % (47-70); Platelet Count 156 K/mm3 (150-450); RBC Distribution Width CV 12.8 % (11.6-14.6); RBC Distribution Width SD 41.7 fl (35.1-43.9); Red Blood Count 4.06 M/mm3 (4.2-5.4); White Blood Count 10.4 K/mm3 (4.4-11.0)
[2021-12-16 12:27] LABS: Squamous Epithelial Cells - UA 0-5 SEEN /hpf (5-10); White Blood Cells 0-5 SEEN /hpf (0-5)
[2021-12-16 12:27] LABS: ALB/GLOB Ratio 0.6 RATIO (0.9-2.4); AST(SGOT) 46 U/L (15-37); Alanine Aminotransfer ALT/SGPT 59 U/L (13-56); Albumin, Serum 2.6 g/dL (3.2-5.0); Alkaline Phosphatase 97 U/L (45-117); Anion Gap 6 (5-15); BUN 8 mg/dL (7-18); BUN/Creat Ratio 12.9 RATIO (10-20); Calcium,Total 8.8 mg/dL (8.5-10.1); Chloride 108 mmol/L (98-107); Creatinine, Serum 0.62 mg/dL (0.55-1.02); EST Glomerular Filtration Rate 118 mL/min (>60); Est Glom Filt Rate - Afr Amer 143 mL/min (>60); Estimated Creatinine Clearance 111.45 ml/min; Globulin 4.1 g/dL (2.2-4.2); Glucose 75 mg/dL (74-106); Lipase 100 U/L (73-393); Potassium 4.4 mmol/L (3.5-5.1); Protein, Total 6.7 g/dL (6.4-8.2); Sodium Level 138 mmol/L (136-145); Troponin-I HS < 3 pg/mL (3.0-54.0)
[2021-12-16 12:31] LABS: International Normalized Ratio 0.9; Prothrombin Time (Protime)PT. 12.2 SECONDS (11.7-14.9)
[2021-12-16 12:32] LABS: Partial Thromboplast Time 34.3 Seconds (24.1-36.2)
[2021-12-16] MEDS: 0.9% Saline Lock 10 ML Syringe IV ×2 (21:20→21:30)
[2021-12-16] MEDS: Ondansetron 4 MG/2 ML Vial IV (21:26)
[2021-12-16] MEDS: fentaNYL 100 MCG/2 ML Ampul IV ×3 (21:27→23:42)
[2021-12-16] MEDS: Betamethasone/Betamethasone 30 MG/5 ML Vial 12 MG IM (21:30)
[2021-12-16 22:00] LABS: Hematocrit 38.4 % (37-47); Hemoglobin 13.3 g/dL (12.0-15.0); Mean Corp Hgb Conc 34.6 g/dL (32-36); Mean Corpuscular Hgb 30.6 pg (27.0-32.0); Mean Corpuscular Volume 88.5 fL (81-99); Mean Platelet Vol. 10.8 fl (6.2-12.0); Platelet Count 154 K/mm3 (150-450); Protein, Urine (Random) 18.5 mg/dL (<11.9); Protein:Creat Ratio 419 mg/g CRE (0-200); RBC Distribution Width CV 12.9 % (11.6-14.6); RBC Distribution Width SD 41.5 fl (35.1-43.9); Red Blood Count 4.34 M/mm3 (4.2-5.4); White Blood Count 11.6 K/mm3 (4.4-11.0)
[2021-12-16 22:03] LABS: Uric Acid 5.2 mg/dL (2.6-6.0)
[2021-12-16 22:09] LABS: ALB/GLOB Ratio 0.7 RATIO (0.9-2.4); AST(SGOT) 96 U/L (15-37); Alanine Aminotransfer ALT/SGPT 105 U/L (13-56); Albumin, Serum 2.9 g/dL (3.2-5.0); Alkaline Phosphatase 107 U/L (45-117); Anion Gap 8 (5-15); BUN 8 mg/dL (7-18); BUN/Creat Ratio 11.2 RATIO (10-20); Calcium,Total 9.6 mg/dL (8.5-10.1); Chloride 109 mmol/L (98-107); Creatinine, Serum 0.71 mg/dL (0.55-1.02); EST Glomerular Filtration Rate 100 mL/min (>60); Est Glom Filt Rate - Afr Amer 121 mL/min (>60); Estimated Creatinine Clearance 97.32 ml/min; Globulin 4.3 g/dL (2.2-4.2); Glucose 82 mg/dL (74-106); Lipase 100 U/L (73-393); Potassium 3.8 mmol/L (3.5-5.1); Protein, Total 7.2 g/dL (6.4-8.2); Sodium Level 139 mmol/L (136-145)
[2021-12-16] MEDS: Magnesium Sulfate 4gm/100mL 4 GM/100 ML IV.SOLN. IV (22:32)
--- NOTE | 2021-12-16 22:38 | OB.TRI.HP_ITS ---
HPI - General HPI Narrative MARIA GUADALUPE ROSARIO, is a 31 at 33 weeks 1 day presents with acute onset severe epigastric pain. Patient started with epigastric and right CVA pain radiating to the front in her chest. She has a history of a PE 1 year ago and has been on Lovenox 85 mg twice daily throughout the . Initial evaluation in the ER showed a negative CT of the chest and borderline liver enzymes. Upon evaluation this evening on labor and delivery blood pressures are elevated in the mild with occasional severe range and serial lab evaluation shows a doubling of liver enzymes and proteinuria suggestive of severe preeclampsia. Patient has had intermittent headaches but no visual changes. Fentanyl was given with only minimal decrease in discomfort. Last Lovenox dose was 85 mg this morning at 9 AM. [facility] Medical History (Updated 12/16/21 @ 23:[address] Daija Melgoza MD) Abnormal Pap smear of cervix Anxiety Asthma COVID-19 COVID-19 virus detected (09/28/20) Gastric ulcer GERD (gastroesophageal reflux disease) Multiple subsegmental pulmonary emboli without acute cor pulmonale (09/28/20) Obesity Pulmonary embolism Vertigo Home Medications pantoprazole 40 mg PO DAILY 09/30/18 [History Last Taken 12/16/21 18:00] diphenhydramine HCl 25 mg capsule 25 mg PO QHS 07/04/21 [History Last Taken 12/15/21 22:00] prenat.vits,jessica,vzg-quji-[id number] 1 tab PO DAILY 07/04/21 [History Last Taken 12/16/21 10:00] enoxaparin [Lovenox] 85 mg SUBCUT Q12H 12/16/21 [History Last Taken 12/16/21 09:00] Allergy/AdvReac Type Severity Reaction Status Date / Time sulfacetamide [From Plexion] Allergy Rash Verified 12/16/21 11:16 sulfur [From Plexion] Allergy Rash Verified 12/16/21 11:16 Family History Other No pertinent family history Surgical History H/O esophagogastroduodenoscopy H/O LEEP History of wisdom tooth extraction Status post colposcopy Social History Smoking Status: Never smoker alcohol intake: current alcohol intake frequency: a few times a month substance use type: does not use caffeine: Yes what type of physical activity do you participate in: aerobics frequency: 5-6 times per week seatbelt use: always do you feel safe at home: Yes additional social history: Boyfriend-Farzad History 0 Elective abortions Hx Para Spontaneous abortions Hx # Term Pregnancies Ectopic pregnancies Hx # Pregnancies Multiple births # of living children ROS Constitutional Constitutional: Reports as per HPI ENT HEENT: Reports as per HPI Gastrointestinal Gastrointestinal: Reports as per HPI Genitourinary Genitourinary: Reports systems reviewed and no addt'l complaints, except as documented Physical Exam Const alert, oriented x3 and no apparent distress HEENT Head and Scalp: normocephalic and atraumatic Eyes EOMs intact bilaterally Neck full ROM and no lymphadenopathy Chest inspection of chest normal Resp normal respiratory effort GI GI Narrative: gravid, abdomen nontender, AGA Neuro no focal motor deficits Motor Exam: clonus absent NST FHR Rate Baby A Baseline: 140 Variability:: Moderate Accelerations:: 15 x 15 Decelerations:: None NST Reactive:: Yes FHR Category:: Category I Uterine Activity:: no regular Assessment & Plan (1) Multiple subsegmental pulmonary emboli without acute cor pulmonale: COMMENT: last dose lovenox 12/16 at 9 am (2) Preeclampsia, severe: COMMENT: elevated liver enzymes, severe epigastric pain, proteinuria, normal platelets, plan transport to [facility] general per patient request and due to severity of disease PLAN: celestone x 1 given 9 pm magnesium sulfate 6 g then 2 g an hour, fluid restrictions started vertex. fentanyl and zofran given for epigastric pain. transport to [facility] for management and delivery. Charges/Coding Procedures Urinary/Genital [id number]: 28530-15 non-stress test Interp Multi Select Codes Visit Charges Office Visit/Consults: 03599 OV L3 New
[2021-12-16 22:48] LABS: Partial Thromboplast Time 30.8 Seconds (24.1-36.2); Prothrombin Time (Protime)PT. 12.4 SECONDS (11.7-14.9)
[2021-12-16] MEDS: Magnesium Sulfate 4gm/100mL 2 GM/50 ML IV.SOLN. IV (22:59)
[2021-12-16] MEDS: Magnesium Sulfate 20 GM/500 ML BAG IV (23:13)
[2021-12-17] VITALS (61 sets, daily range): BP systolic 48–142; BP diastolic 23–88; PULSE 94–125; RESP 16; TEMP 36.7–36.8; O2SAT 84–100
[2021-12-17 02:49] LABS: Probe Check PASS
[2021-12-17 02:52] LABS: Group B Strep DNA By PCR POSITIVE (Negative)
--- NOTE | 2021-12-17 02:59 | NURSING ---
[facility] labor and delivery unit called by this RN. spoke with PARMJIT Harp updated pt is GBS +
== END 2021-12-16 23:59 | disposition short-term general hospital (02) ==
LOC: ED 13:47 → WPOUT 20:05 → WP 20:06
PROVIDERS: Emergency Provider Emergency Medicine; PCP Internal Medicine; Visit Provider Obstetrics & Gynecology
DX: O14.13 Severe pre-eclampsia, third trimester (principal); O99.613 Diseases of the digestive system complicating pregnancy, third trimester; K21.9 Gastro-esophageal reflux disease without esophagitis; R10.13 Epigastric pain; Z3A.33 33 weeks gestation of pregnancy; Z79.01 Long term (current) use of anticoagulants; Z86.711 Personal history of pulmonary embolism
CPT/HCPCS: 96365; 96375 ×2; 96376; 59025; 59050; 71275; 76815; 80053; 81001; 82570; 83690; 84156; 84484; 84550; 85025; 85027; 85610; 85730; 87653; 93005; 96372; 99218; 99284; Q9967; A4216; G0378; J0702; J2405

== ENCOUNTER → 2022-01-27 | Outpatient (CLI) | payer OTHER, SELFPAY ==
[2022-01-27 11:56] LABS: Thyroid Stim Hormone (TSH) 0.61 uIU/mL (0.358-3.74)
== END | disposition home or self-care (01) ==
LOC: PAVLAB 10:59
PROVIDERS: PCP Internal Medicine; Referring Provider Obstetrics & Gynecology; Visit Provider Obstetrics & Gynecology
DX: E01.0 Iodine-deficiency related diffuse (endemic) goiter (principal)
CPT/HCPCS: 36415; 84439; 84443

== ENCOUNTER → 2022-02-07 | Outpatient (CLI) | payer OTHER, SELFPAY ==
--- NOTE | 2022-02-07 12:56 | US_ITS ---
STUDY: THYROID ULTRASOUND REASON FOR EXAM: Female, 31 years old. thyromegaly TECHNIQUE: Ultrasound evaluation of the thyroid was performed with real-time and static [place]-scale imaging. COMPARISON: None. FINDINGS: RIGHT LOBE: The right lobe of the thyroid gland measures 6.1 x 2.1 x 1.5 cm. There is a homogeneous echotexture. Nodule 1:13 x 5 x 8 mm mixed cystic and solid isoechoic wider than tall smoothly marginated nodule with no echogenic foci (TR 2) in the anterior right lobe consistent with an adenoma. LEFT LOBE: The left lobe of the thyroid gland measures 5.8 x 1.9 x 1.1 cm. There is a homogeneous echotexture. Nodule 1:6 x 4 x 7 mm mixed cystic and solid isoechoic wider than tall smoothly marginated nodule with no echogenic foci (TR/TE) in the medial left lobe consistent with an adenoma. ISTHMUS: The isthmus measures 2 mm thick. . The regional lymph nodes are normal. US/Thyroid IMPRESSION: Multinodular thyroid gland. Electronically Signed: Andrey Stone MD at 10:55 EDT ,
== END | disposition home or self-care (01) ==
LOC: US 12:55
PROVIDERS: PCP Internal Medicine; Visit Provider Obstetrics & Gynecology
DX: E01.0 Iodine-deficiency related diffuse (endemic) goiter (principal)
CPT/HCPCS: 76536

== ENCOUNTER → 2023-02-16 | Outpatient (CLI) | payer OTHER, SELFPAY ==
--- NOTE | 2023-02-16 12:00 | US_ITS ---
INDICATION: thyroid nodule EXAMINATION: Ultrasound US Thyroid (eg thyroid, parathyroid, parotid) TECHNIQUE: Barrera scale and color doppler imaging was performed of the thyroid gland. TI-RADS criteria was utilized. COMPARISON: 02/07/2022 ultrasound. FINDINGS: RIGHT THYROID LOBE: 5.7 x 1.5 x 2.2 cm. Homogeneous echotexture. Normal vascularity. 1.1 cm nodule which is mixed solid and cystic, hypoechoic, wider than tall with smooth margins and no echogenic foci and stable to the prior exam. Stable 3 mm homogeneous cyst. LEFT THYROID LOBE: 5.1 x 1.3 x 1.8 cm. Homogeneous echotexture. Normal vascularity. 7 mm nodule which is mixed solid and cystic, hypoechoic, wider than tall with smooth margins and no echogenic foci and stable to the prior exam. Stable predominantly cystic 2 mm nodule. ISTHMUS: 2 mm in AP diameter. Homogeneous echotexture. Normal vascularity. No thyroid nodules. US/Thyroid IMPRESSION: Stable 1.1 cm right lobe and 7 mm left lobe TI-RADS 3 nodules with no follow-up recommended. Electronically Signed: Deon John DO at 7:32 EDT ,
== END | disposition home or self-care (01) ==
LOC: US 11:59
PROVIDERS: PCP Internal Medicine; Referring Provider Surgery; Visit Provider Surgery
DX: E01.0 Iodine-deficiency related diffuse (endemic) goiter (principal)
CPT/HCPCS: 76536

== ENCOUNTER → 2023-10-17 | Outpatient (CLI) | payer OTHER, SELFPAY ==
--- NOTE | 2023-10-17 12:29 | US_ITS ---
STUDY: ULTRASOUND OF THE FEMALE PELVIS - COMPLETE REASON FOR EXAM: Female, 33 years old. Abnormal uterine bleeding LMP: October 01, 2023. TECHNIQUE: Transabdominal and Transvaginal TECHNICAL QUALITY: Adequate. COMPARISON: Comparison is made with prior study dated August 13, 2020. FINDINGS: The uterus is anteverted and is in a midline position. The uterus measures 8.5 cm x 5.7 cm x 3.8 cm. Normal uterine cervix. The endometrium measures 9 mm in thickness, and is heterogeneous (striated). There is no demonstrated endometrial mass. There is a 2.7 cm x 2.6 cm x 1.9 cm uterine fibroid. I.U.D. - The patient does not have an I.U.D. The right ovary is visualized. The right ovary measures 3.2 cm x 3.1 cm x 2.5 cm. There is a 2.1 cm x 1.7 cm x 1.6 cm right ovarian cyst. There is no visualized right adnexal mass or complex lesion. There is normal arterial and normal venous vascularity. The left ovary is visualized. The left ovary measures 3.1 cm x 2.4 cm x 2 cm. There is no left ovarian cyst or ovarian mass. There is no visualized left adnexal mass or complex lesion. There is normal arterial and normal venous vascularity. There is minimal fluid in the cul-de-sac. The pre void volume of the bladder was to 39 ml. The post void volume of the bladder was ml. US/Pelvic w/ Transvaginal IMPRESSION: 2.7 cm x 2.6 cm x 1.9 cm uterine fibroid. 2.1 cm x 1.7 cm x 1.6 cm right ovarian cyst. Trace amount of free fluid in the pelvis. Electronically Signed: Tung Zhao MD at 14:15 EST ,
--- OUTSIDE RECORDS SUMMARY | 2023-10-17 12:44 | XMS RPT_ITS | CCD ---
Author Name Unknown Address [address] [place] [address] Organization [facility] Care Team Providers Care [employer] Name Role Phone Lee Oliveira MD Primary Care Provider KARL LEE Anil Primary Care Unavailable MICHAEL-NISREENELIZA Referring Unavailabl e TALAMPAS, LEE D Primary Care Unavailable MICHAEL-ELIZA NIELSON Referring Unavailabl e MICHAEL-NISREENELIZA BLANDON Attending Unavailabl e TALAMPAS, LEE D Primary Care Unavailable MICHAEL-NISREENELIZA Pichardo Attending Unavailabl e MICHAEL-NISREENELIZA Attending Unavailabl e TALAMPAS, LEE D Primary Care Unavailable MICHAEL-ELIZA NIELSON Referring Unavailabl e Lee Oliveira MD Primary Care Provider KARL LEE Anil Primary Care Unavailable MICHAEL-NISREENELIZA Pichardo Referring Unavailabl e TALAMPAS, LEE D Primary Care Unavailable [place] FLYNN Attending Unavailable TALAMPAS, LEE D Referring Unavailable TALAMPAS, LEE D Primary Care Unavailable TAIWOGROVERKEITH Attending Unavailable TALAMPAS, LEE D Primary Care Unavailable TALAMPAS, LEE D Primary Care Unavailable TALAMPAS, LEE D Primary Care Unavailable LOWE, DOMINIC Referring Unavailable TALAMPAS, LEE D Primary Care Unavailable LOWETIERAI Attending Unavailable TALAMPAS, LEE D Primary Care Unavailable TAIWO, KEITH Referring Unavailable TALAMPAS, LEE D Primary Care Unavailable TAIWO KEITH Referring Unavailable TALAMPAS, LEE D Primary Care Unavailable TALAMPAS, LEE D Primary Care Unavailable TALAMPAS, LEE D Primary Care Unavailable MICHAEL-NISREENELIZA Referring Unavailabl e TALAMPAS, LEE D Primary Care Unavailable LEE OLIVEIRA Primary Care Unavailable Allergies Allergy Classification Reported Allergen(s) Allergy Type Date of Onset Reaction(s) Facility (20 sources) Sulfacetamide / Sulfur; Translations: [SULFACETAMIDE SODIUM-SULFUR] Drug Allergy 11-23-2005 Rash [facility] Medications Current Medications Medication Drug Class(es) Dates Sig (Normalized) Sig (Original) amoxicillin 875 mg / clavulanate 125 mg oral tablet (3 sources) Penicillin-class Antibacterial Start: 09-23-2023 End: 09-30-2023 take 1 tablet by mouth twice daily amoxicillin-clav ulanate potassium (AUGMENTIN) 875-125 mg per tablet Take 1 tablet by mouth two times a day for 7 days. 14 tablet 0 09/23/2023 09/30/2023 Active Completed/Discontinued Medications Medication Drug Class(es) Dates Sig (Normalized) Sig (Original) acetylcholine 10% solution - [facility] (17 sources) Start: 05-23-2021 End: 02-01-2023 acetylcholine 10% solution - [facility] Problems Active Problems Problem Classification Problem Date Documented Date Episodic/Chronic Allergic reactions (1 source) H/O: non-drug allergy; Translations: [Allergy status to unspecified drugs, medicaments and biological substances status] Episodic Asthma (20 sources) Asthma; Translations: [Unspecified asthma, uncomplicated] Onset: 02-23-2021 02-23-2021 Chronic Coagulation and hemorrhagic disorders (7 sources) Antithrombin III deficiency; Translations: [Other primary thrombophilia] Onset: 12-28-2022 Chronic Deficiency and other anemia (5 sources) Iron deficiency anemia; Translations: [Iron deficiency anemia, unspecified] Episodic Deficiency and other anemia (2 sources) Iron deficiency anemia, unspecified; Translations: [Iron deficiency anemia, unspecified iron deficiency anemia type] Onset: 12-28-2022 Episodic Esophageal disorders (4 sources) Gastroesophageal reflux disease without esophagitis; Translations: [Gastro-esophageal reflux disease without esophagitis] Onset: 04-20-2023 04-10-2023 Chronic Open wounds of extremities (1 source) Laceration of finger; Translations: [Laceration without foreign body of unspecified finger with damage to nail, initial encounter] 03-20-2023 Episodic Other complications of (1 source) Maternal obesity complicating , childbirth and the puerperium, antepartum; Translations: [Obesity complicating , unspecified trimester] Chronic Other female genital disorders (20 sources) Cervical intraepithelial neoplasia grade 2; Translations: [Moderate cervical dysplasia] 12-22-2021 Episodic Other injuries and conditions due to external causes (1 source) Injury of finger of left hand; Translations: [Unspecified injury of left wrist, hand and finger(s), subsequent encounter] 04-15-2023 Episodic Other lower respiratory disease (1 source) Cough; Translations: [Cough] Episodic Other nervous system disorders (1 source) Other chronic pain; Translations: [Chronic midline low back pain without sciatica] Onset: 04-30-2023 Chronic Other upper respiratory infections (1 source) Chronic sinusitis; Translations: [Chronic sinusitis, unspecified] 09-23-2023 Chronic Otitis media and related conditions (1 source) Acute transudative otitis media; Translations: [Other acute nonsuppurative otitis media, right ear] 06-20-2023 Episodic Residual codes; unclassified (1 source) Gestation period, 31 weeks; Translations: [31 weeks gestation of ] Episodic Spondylosis; intervertebral disc disorders; other back problems (20 sources) Prolapsed lumbar intervertebral disc; Translations: [Other intervertebral disc displacement, lumbar region] Onset: 11-01-2020 02-23-2021 Chronic Thyroid disorders (20 sources) Multinodular goiter; Translations: [Nontoxic multinodular goiter] Onset: 08-10-2020 08-10-2020 Chronic Unclassified (1 source) Established Patient Onset: 12-28-2022 Unclassified (1 source) Chronic midline low back pain without sciatica; Translations: [Chronic midline low back pain without sciatica] Onset: 04-30-2023 Viral infection (1 source) Viral disease; Translations: [Viral infection, unspecified] 06-10-2023 Episodic Past or Other Problems Problem Classification Problem Date Documented Date Episodic/Chronic Diabetes or abnormal glucose tolerance complicating ; childbirth; or the puerperium (20 sources) with abnormal glucose tolerance test; Translations: [Abnormal glucose complicating ] Onset: 11-22-2021 11-22-2021 Episodic Hypertension complicating ; childbirth and the puerperium (20 sources) HELLP syndrome; Translations: [HELLP syndrome, complicating the puerperium] Onset: 12-22-2021 12-22-2021 Episodic Immunizations and screening for infectious disease (4 sources) Patient encounter status; Translations: [Encounter for immunization] Onset: 04-20-2023 04-20-2023 Episodic Other complications of ; puerperium affecting management of mother (11 sources) delivery - delivered; Translations: [Encounter for delivery without indication] Onset: 12-22-2021 12-22-2021 Episodic Other complications of ; puerperium affecting management of mother (13 sources) Deliveries by ; Translations: [Encounter for delivery without indication] Onset: 12-22-2021 12-22-2021 Episodic Other complications of (20 sources) High risk ; Translations: [Supervision of high risk , unspecified, unspecified trimester] Onset: 07-03-2021 07-03-2021 Episodic Other complications of (20 sources) Previous operation to cervix affecting ; Translations: [Maternal care for other abnormalities of cervix, unspecified trimester] Onset: 07-03-2021 11-22-2021 Episodic Other complications of (6 sources) Gastroesophageal reflux disease in ; Translations: [Diseases of the digestive system complicating , unspecified trimester] Onset: 07-03-2021 11-22-2021 Episodic Other connective tissue disease (20 sources) Pain of left upper arm; Translations: [Pain in left upper arm] Onset: 08-23-2020 08-23-2020 Episodic Other connective tissue disease (20 sources) Tendinitis of long head of biceps brachii of right shoulder; Translations: [Bicipital tendinitis, right shoulder] Onset: 07-13-2021 07-13-2021 Episodic Other infections; including parasitic (20 sources) Personal history of other infectious and parasitic diseases; Translations: [History of 2019 novel coronavirus disease (COVID-19)] Onset: 02-23-2021 02-23-2021 Episodic Other infections; including parasitic (20 sources) History of chlamydial infection; Translations: [Personal history of other infectious and parasitic diseases] Onset: 08-31-2021 11-22-2021 Episodic Other lower respiratory disease (20 sources) H/O: asthma; Translations: [Personal history of other diseases of the respiratory system] Onset: 07-03-2021 11-22-2021 Episodic Other and delivery including normal (20 sources) ; Translations: [Encounter for supervision of normal , unspecified, unspecified trimester] Onset: 07-03-2021 09-27-2021 Episodic Other screening for suspected conditions (not mental disorders or infectious disease) (2 sources) Encounter for screening for lipoid disorders; Translations: [Encounter for screening for diabetes mellitus] Onset: 04-20-2023 Episodic Pulmonary heart disease (20 sources) H/O: pulmonary embolus; Translations: [Personal history of pulmonary embolism] Onset: 09-28-2020 02-23-2021 Episodic Screening and history of mental health and substance abuse codes (20 sources) H/O: anxiety state; Translations: [Personal history of other mental and behavioral disorders] Onset: 08-31-2021 11-22-2021 Episodic Spondylosis; intervertebral disc disorders; other back problems (20 sources) Cervical radiculopathy; Translations: [Radiculopathy, cervical region] Onset: 12-23-2020 12-23-2020 Episodic Results Test Name Value Interpretation Reference Range Facil ity Vital Signs Date Time Vital Sign Value Performing Clinician Jeronimo dexter 09-23-2023 10:39-0500 Body temperature 97.9 [degF] Deon Armstrong APRN.EXECUTIVE CASINO HOST Work Phone: [facility] 09-23-2023 10:39-0500 Body weight 85.73 kg Deon Armstrong APRN.EXECUTIVE CASINO HOST Work Phone: [facility] 09-23-2023 10:39-0500 Diastolic blood pressure 82 mm[Hg] Deon Armstrong LOG GRADER.EXECUTIVE CASINO HOST Work Phone: [facility] 09-23-2023 10:39-0500 Heart rate 96 /min Deon Armstrong LOG GRADER.EXECUTIVE CASINO HOST Work Phone: [facility] 09-23-2023 10:39-0500 Respiratory rate 18 /min Deon Armstrong LOG GRADER.EXECUTIVE CASINO HOST Work Phone: [facility] 09-23-2023 10:39-0500 SaO2% (BldA) [Mass fraction] 98 % Deon Pendlebury LOG GRADER.EXECUTIVE CASINO HOST Work Phone: [facility] 09-23-2023 10:39-0500 Systolic blood pressure 112 mm[Hg] Deon Pendlebury LOG GRADER.EXECUTIVE CASINO HOST Work Phone: [facility] 06-20-2023 16:26-0400 Body temperature 97.39 [degF] Vero Praisler-Wood LOG GRADER.EXECUTIVE CASINO HOST Work Phone: [facility] 06-20-2023 16:26-0400 Body weight 81.74 kg Vero Praisler-Wood LOG GRADER.EXECUTIVE CASINO HOST Work Phone: [facility] 06-20-2023 16:26-0400 Diastolic blood pressure 78 mm[Hg] Vero Praisler-Wood LOG GRADER.EXECUTIVE CASINO HOST Work Phone: [facility] 06-20-2023 16:26-0400 Heart rate 90 /min Vero Praisler-Wood LOG GRADER.EXECUTIVE CASINO HOST Work Phone: [facility] 06-20-2023 16:26-0400 Respiratory rate 16 /min Vero Praisler-Wood LOG GRADER.EXECUTIVE CASINO HOST Work Phone: [facility] 06-20-2023 16:26-0400 SaO2% (BldA) [Mass fraction] 99 % Vero Praisler-Wood LOG GRADER.EXECUTIVE CASINO HOST Work Phone: [facility] 06-20-2023 16:26-0400 Systolic blood pressure 110 mm[Hg] Vero Praisler-Wood LOG GRADER.EXECUTIVE CASINO HOST Work Phone: [facility] 06-10-2023 09:01-0400 Body temperature 98.01 [degF] Deon Pendlebury LOG GRADER.EXECUTIVE CASINO HOST Work Phone: [facility] 06-10-2023 09:01-0400 Body weight 80.29 kg Deon Pendlebury LOG GRADER.EXECUTIVE CASINO HOST Work Phone: [facility] 06-10-2023 09:01-0400 Diastolic blood pressure 72 mm[Hg] Deon Pendlebury LOG GRADER.EXECUTIVE CASINO HOST Work Phone: [facility] 06-10-2023 09:01-0400 Heart rate 108 /min Deon Pendlebury LOG GRADER.EXECUTIVE CASINO HOST Work Phone: [facility] 06-10-2023 09:01-0400 Respiratory rate 16 /min Deon Pendlebury LOG GRADER.EXECUTIVE CASINO HOST Work Phone: [facility] 06-10-2023 09:01-0400 SaO2% (BldA) [Mass fraction] 96 % Deon Pendlebury LOG GRADER.EXECUTIVE CASINO HOST Work Phone: [facility] 06-10-2023 09:01-0400 Systolic blood pressure 122 mm[Hg] Deon Pendlebury LOG GRADER.EXECUTIVE CASINO HOST Work Phone: [facility] 04-20-2023 10:33-0400 Body height 163.8 cm Dominic Lowe LOG GRADER.MECHANIC MARINE ENGINE Work Phone: [facility] 04-20-2023 10:33-0400 Body weight 79.38 kg Dominic Lwoe LOG GRADER.MECHANIC MARINE ENGINE Work Phone: [facility] 04-20-2023 10:33-0400 Diastolic blood pressure 80 mm[Hg] Dominic Lowe LOG GRADER.MECHANIC MARINE ENGINE Work Phone: [facility] 04-20-2023 10:33-0400 Heart rate 101 /min Dominic Lowe LOG GRADER.MECHANIC MARINE ENGINE Work Phone: [facility] 04-20-2023 10:33-0400 Respiratory rate 16 /min Dominic Lowe LOG GRADER.MECHANIC MARINE ENGINE Work Phone: [facility] 04-20-2023 10:33-0400 SaO2% (BldA) [Mass fraction] 96 % Dominic Lowe LOG GRADER.MECHANIC MARINE ENGINE Work Phone: [facility] 04-20-2023 10:33-0400 Systolic blood pressure 118 mm[Hg] Dominic Lowe LOG GRADER.MECHANIC MARINE ENGINE Work Phone: [facility] 04-15-2023 15:06-0400 Body temperature 97.81 [degF] Bryan Nii LOG GRADER.EXECUTIVE CASINO HOST Work Phone: [facility] 04-15-2023 15:06-0400 Body weight 79.38 kg Bryan Nii LOG GRADER.EXECUTIVE CASINO HOST Work Phone: [facility] 04-15-2023 15:06-0400 Diastolic blood pressure 74 mm[Hg] Bryan Nii LOG GRADER.EXECUTIVE CASINO HOST Work Phone: [facility] 04-15-2023 15:06-0400 Heart rate 112 /min Bryan Nii LOG GRADER.EXECUTIVE CASINO HOST Work Phone: [facility] 04-15-2023 15:06-0400 Respiratory rate 16 /min Bryan Nii LOG GRADER.EXECUTIVE CASINO HOST Work Phone: [facility] 04-15-2023 15:06-0400 SaO2% (BldA) [Mass fraction] 99 % Bryan Nii LOG GRADER.EXECUTIVE CASINO HOST Work Phone: [facility] 04-15-2023 15:06-0400 Systolic blood pressure 122 mm[Hg] Bryan Nii LOG GRADER.EXECUTIVE CASINO HOST Work Phone: [facility] 03-20-2023 09:58-0400 Body temperature 97.2 [degF] Bryan Nii LOG GRADER.EXECUTIVE CASINO HOST Work Phone: [facility] 03-20-2023 09:58-0400 Body weight 80.02 kg Bryan Nii LOG GRADER.EXECUTIVE CASINO HOST Work Phone: [facility] 03-20-2023 09:58-0400 Diastolic blood pressure 82 mm[Hg] Bryan Nii LOG GRADER.EXECUTIVE CASINO HOST Work Phone: [facility] 03-20-2023 09:58-0400 Heart rate 95 /min Bryan Nii LOG GRADER.EXECUTIVE CASINO HOST Work Phone: [facility] 03-20-2023 09:58-0400 Respiratory rate 18 /min Bryan Nii LOG GRADER.EXECUTIVE CASINO HOST Work Phone: [facility] 03-20-2023 09:58-0400 SaO2% (BldA) [Mass fraction] 97 % Bryan King CAROL.EXECUTIVE CASINO HOST Work Phone: [facility] 03-20-2023 09:58-0400 Systolic blood pressure 108 mm[Hg] Bryan King CAROL.EXECUTIVE CASINO HOST Work Phone: [facility] 02-27-2022 11:13-0400 Body height 162.6 cm Eliza Katz MD Work Phone: [facility] 02-27-2022 11:13-0400 Body temperature 96.8 [degF] Eliza Katz MD Work Phone: [facility] 02-27-2022 11:13-0400 Body weight 77.29 kg Eliza Katz MD Work Phone: [facility] 02-27-2022 11:13-0400 Diastolic blood pressure 88 mm[Hg] Eliza Katz MD Work Phone: [facility] 02-27-2022 11:13-0400 Heart rate 90 /min Eliza Katz MD Work Phone: [facility] 02-27-2022 11:13-0400 SaO2% (BldA) [Mass fraction] 97 % Eliza Katz MD Work Phone: [facility] 02-27-2022 11:13-0400 Systolic blood pressure 133 mm[Hg] Eliza Katz MD Work Phone: [facility] 01-16-2022 10:29-0400 Body height 162.6 cm Eliza Katz MD Work Phone: [facility] 01-16-2022 10:29-0400 Body temperature 96.8 [degF] Eliza Katz MD Work Phone: [facility] 01-16-2022 10:29-0400 Body weight 77.11 kg Eliza Katz MD Work Phone: [facility] 01-16-2022 10:29-0400 Diastolic blood pressure 87 mm[Hg] Eliza Katz MD Work Phone: [facility] 01-16-2022 10:29-0400 Heart rate 103 /min Eliza Katz MD Work Phone: [facility] 01-16-2022 10:29-0400 SaO2% (BldA) [Mass fraction] 97 % Eliza Katz MD Work Phone: [facility] 01-16-2022 10:29-0400 Systolic blood pressure 120 mm[Hg] Eliza Katz MD Work Phone: [facility] 12-26-2021 10:46-0400 Body height 162.6 cm Nurse Norton Work Phone: [facility] 12-26-2021 10:46-0400 Body weight 78.02 kg Nurse Norton Work Phone: [facility] 12-26-2021 10:46-0400 Diastolic blood pressure 72 mm[Hg] Nurse Norton Work Phone: [facility] 12-26-2021 10:46-0400 Systolic blood pressure 111 mm[Hg] Nurse Norton Work Phone: [facility] 12-12-2021 19:41-0400 Body temperature 97 [degF] John Merritt MD Work Phone: [facility] 12-12-2021 19:41-0400 Body weight 85.73 kg John Merritt MD Work Phone: [facility] 12-12-2021 19:41-0400 Diastolic blood pressure 78 mm[Hg] John Merritt MD Work Phone: [facility] 12-12-2021 19:41-0400 Heart rate 112 /min John Merritt MD Work Phone: [facility] 12-12-2021 19:41-0400 Respiratory rate 16 /min John Merritt MD Work Phone: [facility] 12-12-2021 19:41-0400 Systolic blood pressure 124 mm[Hg] John Merritt MD Work Phone: [facility] 12-06-2021 13:16-0400 Body weight 83.92 kg Jo Leo MD Work Phone: [facility] 12-06-2021 13:16-0400 Diastolic blood pressure 72 mm[Hg] Jo Leo MD Work Phone: [facility] 12-06-2021 13:16-0400 Heart rate 115 /min Jo Leo MD Work Phone: [facility] 12-06-2021 13:16-0400 SaO2% (BldA) [Mass fraction] 98 % Jo Leo MD Work Phone: [facility] 12-06-2021 13:16-0400 Systolic blood pressure 120 mm[Hg] Jo Leo MD Work Phone: [facility] Encounters Encounter Date Encounter Type Care Provider Facility Start: 10-03-2023 End: 10-03-2023 ambulatory LEE D [facility] Facility:[facility] Start: 09-23-2023 End: 09-23-2023 ambulatory LEE D [facility] Facility:[facility] Start: 09-23-2023 End: 09-23-2023 Office outpatient visit 25 minutes Deon Armstrong APRN.CNP Work Phone: [facility] Care Procedures Date Procedure Procedure Detail Performing Clinician Start: 04-30-2023 Radex spine lumbosac ral minimum 4 views Keith Michelle PA-C Work Phone: Start: 04-30-2023 Mri spinal canal lum bar w/o contrast material Keith Michelle PA-C Work Phone: Start: 05-29-2022 Adult depression scr eening assessment Eliza Katz MD Work Phone: Start: 07-31-2021 Adult depression scr eening assessment Vinod Rodgers DO Work Phone: Start: 12-06-2020 URINE OB DIP B/O Jo Leo MD Work Phone: Plan of Treatment Date Care Activity Detail Author Start: 11-23-2031 Urine microalbumin profile [facility] Start: 06-30-2026 HPV TESTING HPV TESTING [facility] Start: 06-30-2026 PAP TESTING PAP TESTING [facility] Start: 06-30-2026 Screening for malignant neoplasm of cervix [facility] Start: 04-20-2024 ANNUAL PCP TEAM CHRONIC DISEASE VISIT ANNUAL PCP TEAM CHRONIC DISEASE VISIT [facility] Start: 09-03-2023 Depression Assessment Depression Assessment [facility] Start: 07-21-2023 End: 09-20-2023 Antithrombin actual/normal in Platelet poor plasma by Chromogenic method ANTITHROMBIN ACTIVITY Lab Routine Antithrombin III deficiency (HCC) Expected: 07/21/2023, Expires: 09/20/2023 [facility] Work Phone: Immunizations Immunization Date Immunization Notes Care Provider Fa eric 11-22-2021 tetanus toxoid, reduced diphtheria toxoid, and acellular pertussis vaccine, adsorbed Vinod Rodgers DO Work Phone: [facility] 08-03-2021 COVID-19 vaccine, ag e 12+ yr (PFIZER-BIONTECH - PURPLE TOP) Vinod Rodgers DO Work Phone: [facility] 07-26-2021 influenza, injectabl e, quadrivalent, contains preservative Vinod Rodgers DO Work Phone: [facility] 07-26-2021 influenza virus vaccine, unspecified formulation Deon Armstrong LOG GRADER.EXECUTIVE CASINO HOST Work Phone: [facility] 01-06-2021 COVID-19 vaccine, ag e 12+ yr (PFIZER-BIONTECH - PURPLE TOP) Vinod Rodgers DO Work Phone: [facility] Work Phone: 12-16-2020 COVID-19 vaccine, ag e 12+ yr (PFIZER-BIONTECH - PURPLE TOP) Vinod Rodgers DO Work Phone: [facility] Work Phone: 08-10-2020 influenza, injectabl e, quadrivalent, contains preservative Vinod Rodgers DO Work Phone: [facility] 08-10-2020 tetanus toxoid, reduced diphtheria toxoid, and acellular pertussis vaccine, adsorbed Vinod Rodgers DO Work Phone: [facility] 06-17-2019 Seasonal, quadrivalent, recombinant, injectable influenza vaccine, preservative free Vinod Rodgers DO Work Phone: [facility] 03-25-2007 Meningococcal, MCV4, unspecified conjugate formulation(groups A, C, Y and W-135) Vinod Rodgers DO Work Phone: [facility] Work Phone: 04-27-2003 tetanus and diphther ia toxoids, adsorbed, preservative free, for adult use (2 Lf of tetanus toxoid and 2 Lf of diphtheria toxoid) Vinod Rodgers DO Work Phone: [facility] Work Phone: 03-08-2001 measles, mumps and rubella virus vaccine Vinod Rodgers DO Work Phone: [facility] Work Phone: 11-06-2000 hepatitis B vaccine, pediatric or pediatric/adolescent dosage Vinod Rodgers DO Work Phone: [facility] Work Phone: 04-25-2000 hepatitis B vaccine, pediatric or pediatric/adolescent dosage Vinod Rodgers DO Work Phone: [facility] Work Phone: 02-10-2000 hepatitis B vaccine, pediatric or pediatric/adolescent dosage Vinod Rodgers DO Work Phone: [facility] Work Phone: 02-14-1994 diphtheria, tetanus toxoids and acellular pertussis vaccine Vinod Rodgers DO Work Phone: [facility] Work Phone: 02-14-1994 trivalent poliovirus vaccine, live, oral Vinod Rodgers DO Work Phone: [facility] Work Phone: 09-03-1990 Chicken Pox (disease) Vinod lewis DO Work Phone: [facility] Work Phone: 05-17-1990 diphtheria, tetanus toxoids and pertussis vaccine Vinod Rodgers DO Work Phone: [facility] Work Phone: 05-17-1990 haemophilus influenz ae type b vaccine, PRP-D conjugate Vinod Rodgers DO Work Phone: [facility] Work Phone: 05-17-1990 trivalent poliovirus vaccine, live, oral Vinod Rodgers DO Work Phone: [facility] Work Phone: 01-18-1990 measles, mumps and rubella virus vaccine Vinod Rodgers DO Work Phone: [facility] Work Phone: 05-22-1989 diphtheria, tetanus toxoids and pertussis vaccine Vinod Rodgers DO Work Phone: [facility] Work Phone: 03-08-1989 diphtheria, tetanus toxoids and pertussis vaccine Vinod Rodgers DO Work Phone: [facility] Work Phone: 03-08-1989 trivalent poliovirus vaccine, live, oral Vinod Rodgers DO Work Phone: [facility] Work Phone: 01-05-1989 diphtheria, tetanus toxoids and pertussis vaccine Vinod Rodgers DO Work Phone: [facility] Work Phone: 01-05-1989 trivalent poliovirus vaccine, live, oral Vinod Rodgers DO Work Phone: [facility] Work Phone: Payers Date Payer Category Payer Unknown [id number] 2020 Unknown [facility] [id number] 2020-Present [phone] [address] [place] [address] O [id number] 2020 Unknown [id number] 2020 Unknown [id number] Social History Date Type Detail Facility Start: 08-29-2018 End: 01-22-2023 Tobacco smoking status [facility] Ex-smoker [facility] [facility] End: 08-10-2018 History of tobacco use Current smoker [facility] End: 08-10-2018 History of tobacco use Cigarette Smoker [facility] Start: 08-29-2018 End: 01-18-2023 Cigarettes smoked current (pack per day) - Reported 1 [facility] Start: 08-29-2018 End: 01-22-2023 Tobacco use and exposure Smokeless tobacco non-user [facility] Start: 10-31-2021 End: 09-23-2023 Alcohol intake Ex-drinker (finding) [facility] Start: 08-08-2020 End: 12-12-2021 History SDOH Alcohol Frequency 3 [facility] Start: 08-08-2020 End: 12-12-2021 History SDOH Alcohol Std Drinks 1 [facility] Start: 08-08-2020 End: 12-12-2021 History SDOH Social Connections Get Together 2 [facility] Start: 08-08-2020 End: 12-12-2021 History SDOH Social Connections Living 8 [facility] Start: 08-08-2020 End: 12-12-2021 History SDOH Physical Activity DPW 5 [facility] Start: 08-08-2020 Education 20 [facility] Start: 05-12-2021 [facility] Start: 1990 Sex Assigned At Female C [facility] Start: 11-19-2021 End: 05-18-2022 Exposure to SARS-CoV-2 (event) Not sure [facility] Start: 12-12-2021 End: 01-18-2023 Social connection and isolation panel [facility] Do you belong to any clubs or organizations such as zoroastrianism groups, unions, fraternal or athletic groups, or school groups? No [facility] Are you now , , , , never or living with a partner? Living with partner [facility] How often to you hav e a drink containing alcohol? Never [facility] How many standard dr inks containing alcohol do you have on a typical day? 1 or 2 [facility] How hard is it for y ou to pay for the very basics like food, housing, medical care, and heating Not hard at all [facility] Do you feel stress - tense, restless, nervous, or anxious, or unable to sleep at night because your mind is troubled all the time - these days [OSQ] Only a little [facility] (I/We) worried wheth er (my/our) food would run out before (I/we) got money to buy more. Never true [facility] Start: 09-08-2020 Gender identity Identifies as female gender (finding) [facility] Goals Date Patient Goal Desired Activity /State Clinical Notes 02-23-2021 to 10-03-2023 Deon Armstrong APRN.[facility] - 09/23/2023 10:42 AM ESTPatient InstructionsPraarmando-Vero Napoles APRN.[employer] - 06/20/2023 4:30 PM EDTPDeon bey APRN.[facility] - 06/10/2023 9:07 AM EDT Note Date & Type Note Facility 10-03-2023 Note HNO ID: [id number] Author: MARIO MONTEZ MD Service: ? Author Type: Physician Type: Progress Notes Filed: 10/03/2023 09:18 Note Text: Patient presents with: Sinus Problem: Congestion, TORRES, sore throat x 3 days HPI: Feeling sick for 3 days. Treated here for sinobronchitis 09/23/23. Infant was sick yesterday. Positive symptoms: Sore throat, right headache/Sinus pressure, Headache, right>Left Earache, Nasal Congestion, Rhinorrhea, Chills, Malaise, Negative symptoms: Fever, Vomiting, Diarrhea, OTC: Sudafed, Ibuprofen, Tylenol. Prescribed augmentin x 7 days 10 days ago. Currently breast feeding. PAST MEDICAL HISTORY Diagnosis Date Abnormal Pap smear of cervix Asthma Rios's esophagus 03/2021 COVID-19 virus antibody detected 09/2020 Dysplasia of cervix, high grade EDIE 2 s/p LEEP. repeat pap normal x2 Herpes zoster without mention of complication 1987 History of gastric ulcer History of pre-eclampsia in prior , currently Hypertension Infertility, female Multiple thyroid nodules Other pulmonary embolism without acute cor pulmonale (HCC) 09/28/2020 PMH - PAST MEDICAL HISTORY OF Color Vision - Normal PMH - PAST MEDICAL HISTORY OF Asthma PMH - PAST MEDICAL HISTORY OF Capillary Hemangioma Left buttocks PMH - PAST MEDICAL HISTORY OF 08/03/1989 Lead Level 5mgm Vertigo MEDICATIONS: Current Outpatient Medications Medication Sig pantoprazole DR (PROTONIX) 40 mg tablet Take 1 tablet by mouth once daily. 21/iron fu/folic acid ( COMPLETE ORAL) Take 2 tablets by mouth twice daily. No current facility-administered medications for this visit. ALLERGIES: ALLERGIES Allergen Reactions Plexion [Sulfacetam* Rash VITALS: BP 102/80 Pulse 108 Temp 36.5 ?C (97.7 ?F) Resp 21 Wt 84.8 kg (187 lb) LMP 09/02/2023 (Exact Date) SpO2 98% BMI 31.60 kg/m? PHYSICAL EXAM: GEN: mildly ill appearing HEENT: PERRL, EOMI, conjunctiva clear Ears: canals clear. TMs without erythema, bulge, or effusion Sinuses: non-tender frontal sinus, tender right maxillary sinus Throat: moist mucous membranes, mild erythema, no exudate Neck: supple, no thyromegaly, no lymphadenopathy HEART: regular rate and rhythm, no murmurs LUNGS: clear to auscultation, no wheezes or crackles, no increased WOB ASSESSMENT/PLAN: 1. URI, acute - ICD9: 465.9, ICD10: J06.9 - suspect viral URI, differential includes COVID-19. - Discussed supportive care treatment with home isolation, rest, cold medicine, and analgesia. - Red flags to seek further treatment include chest pain, shortness of breath, and lethargy; in the ER if severe. - COVID NAAT, UPPER RESPIRATORY, ROUTINE Mario Montez MD [facility] 09-23-2023 Note HNO ID: [id number] Author: DEON ARMSTRONG APRN.[employer] Service: ? Author Type: Nurse Practitioner Type: Progress Notes Filed: 09/23/2023 10:59 Note Text: Subjective HPI Nontoxic-appearing female presents urgent care chief complaint cough right ear pain sinus pressure. Duration of symptoms 10 days. Associated symptoms sinus pressure drainage right ear pain cough. Most prominent symptom today is right ear pain. States earlier in the week she thought she was getting better symptoms were improving and then worsened again. Increased sinus pressure and ear pain. Has not used any OTC medications today. Denies any fever body aches chills productive cough chest pain shortness of breath pleuritic pain hemoptysis nausea vomiting abdominal pain change in bowel or bladder habits. Past medical history prescription medication use and allergies reviewed. .Patient presents with: Cough: R ear pain, sinus pressure sore throat on and off at HS x 10 days bilat eyes matting shut this am PAST MEDICAL HISTORY Diagnosis Date Abnormal Pap smear of cervix Asthma Rios's esophagus 03/2021 COVID-19 virus antibody detected 09/2020 Dysplasia of cervix, high grade EDIE 2 s/p LEEP. repeat pap normal x2 Herpes zoster without mention of complication 1987 History of gastric ulcer History of pre-eclampsia in prior , currently Hypertension Infertility, female Multiple thyroid nodules Other pulmonary embolism without acute cor pulmonale (HCC) 09/28/2020 PMH - PAST MEDICAL HISTORY OF Color Vision - Normal PMH - PAST MEDICAL HISTORY OF Asthma PMH - PAST MEDICAL HISTORY OF Capillary Hemangioma Left buttocks PMH - PAST MEDICAL HISTORY OF 08/03/1989 Lead Level 5mgm Vertigo PAST SURGICAL HISTORY Procedure Laterality Date ANESTH, SECTION CERVIX UTERI CONIZA LP ELCTRO EXCI 07/2019 EGD 02/28/2021 gastritis, Rios's esophagus ESOPHAGOGASTRODUODENOSCOPY TRANSORAL DIAGNOSTIC 02/28/2021 wisdom teeth extraction 08/03/2009 ALLERGIES Plexion [Sulfacetamide Sodium-Sulfur] MEDICATIONS pantoprazole DR (PROTONIX) 40 mg tablet Take 1 tablet by mouth once daily. 21/iron fu/folic acid ( COMPLETE ORAL) Take 2 tablets by mouth twice daily. FAMILY HISTORY Problem Relation Age of Onset Lung Cancer Mother None Father Alcohol abuse Maternal Grandmother Schizophrenia Maternal Uncle Alcohol abuse Maternal Uncle Social History Tobacco Use Smoking status: Former Packs/day: 1.00 Years: 13.00 Additional pack years: 0.00 Total pack years: 13.00 Types: Cigarettes Quit date: 08/10/2018 Years since quittin.1 Smokeless tobacco: Never Vaping Use Vaping Use: Never used Substance Use Topics Alcohol use: Not Currently Drug use: No BP 112/82 Pulse 96 Temp 36.6 ?C (97.9 ?F) Resp 18 Wt 85.7 kg (189 lb) LMP 09/02/2023 (Exact Date) SpO2 98% Yes BMI 31.94 kg/m? Review of Systems Constitutional: Positive for malaise/fatigue. Negative for chills and fever. HENT: Positive for congestion, sinus pain and sore throat. Negative for ear discharge and ear pain. Eyes: Positive for discharge and redness. Negative for blurred vision, double vision, photophobia and pain. Respiratory: Positive for cough. Negative for hemoptysis, sputum production, shortness of breath, wheezing and stridor. Cardiovascular: Negative for chest pain. Gastrointestinal: Negative for abdominal pain, diarrhea, nausea and vomiting. Musculoskeletal: Positive for myalgias. Skin: Negative for itching and rash. Neurological: Negative for dizziness and headaches. Objective Physical Exam Constitutional: General: She is not in acute distress. Appearance: She is not diaphoretic. HENT: Head: Normocephalic. Jaw: No trismus, tenderness, swelling or pain on movement. Right Ear: Ear canal and external ear normal. Tympanic membrane is erythematous and bulging. Left Ear: Tympanic membrane, ear canal and external ear normal. Nose: Congestion present. Right Sinus: Maxillary sinus tenderness present. Left Sinus: Maxillary sinus tenderness present. Mouth/Throat: Mouth: Mucous membranes are moist. Pharynx: Oropharynx is clear. Uvula midline. No pharyngeal swelling, oropharyngeal exudate, posterior oropharyngeal erythema or uvula swelling. Eyes: General: Lids are normal. Vision grossly intact. Right eye: No discharge. Left eye: No discharge. Conjunctiva/sclera: Conjunctivae normal. Right eye: Right conjunctiva is not injected. Left eye: Left conjunctiva is not injected. Pupils: Pupils are equal, round, and reactive to light. Cardiovascular: Rate and Rhythm: Normal rate and regular rhythm. Heart sounds: Normal heart sounds. Pulmonary: Effort: Pulmonary effort is normal. No tachypnea, accessory muscle usage or respiratory distress. Breath sounds: Normal breath sounds. No stridor. No wheezing, rhonchi or rales. Abdomina (more content not included)... [place] [id number] History of Presen t illness Narrative Subjective HPI Nontoxic-appearing female presents urgent care chief complaint cough right ear pain sinus pressure. Duration of symptoms 10 days. Associated symptoms sinus pressure drainage right ear pain cough. Most prominent symptom today is right ear pain. States earlier in the week she thought she was getting better symptoms were improving and then worsened again. Increased sinus pressure and ear pain. Has not used any OTC medications today. Denies any fever body aches chills productive cough chest pain shortness of breath pleuritic pain hemoptysis nausea vomiting abdominal pain change in bowel or bladder habits. Past medical history prescription medication use and allergies reviewed. .Patient presents with: Cough: R ear pain, sinus pressure sore throat on and off at HS x 10 days bilat eyes matting shut this am PAST MEDICAL HISTORY Diagnosis Date Abnormal Pap smear of cervix Asthma Rios's esophagus 03/2021 COVID-19 virus antibody detected 09/2020 Dysplasia of cervix, high grade EDIE 2 s/p LEEP. repeat pap normal x2 Herpes zoster without mention of complication 1987 History of gastric ulcer History of pre-eclampsia in prior , currently Hypertension Infertility, female Multiple thyroid nodules Other pulmonary embolism without acute cor pulmonale (HCC) 09/28/2020 PMH - PAST MEDICAL HISTORY OF Color Vision - Normal PMH - PAST MEDICAL HISTORY OF Asthma PMH - PAST MEDICAL HISTORY OF Capillary Hemangioma Left buttocks PMH - PAST MEDICAL HISTORY OF 08/03/1989 Lead Level 5mgm Vertigo PAST SURGICAL HISTORY Procedure Laterality Date ANESTH, SECTION CERVIX UTERI CONIZA LP ELCTRO EXCI 07/2019 EGD 02/28/2021 gastritis, Rios's esophagus ESOPHAGOGASTRODUODENOSCOPY TRANSORAL DIAGNOSTIC 02/28/2021 wisdom teeth extraction 08/03/2009 ALLERGIES Plexion [Sulfacetamide Sodium-Sulfur] MEDICATIONS pantoprazole DR (PROTONIX) 40 mg tablet Take 1 tablet by mouth once daily. 21/iron fu/folic acid ( COMPLETE ORAL) Take 2 tablets by mouth twice daily. FAMILY HISTORY Problem Relation Age of Onset Lung Cancer Mother None Father Alcohol abuse Maternal Grandmother Schizophrenia Maternal Uncle Alcohol abuse Maternal Uncle Social History Tobacco Use Smoking status: Former Packs/day: 1.00 Years: 13.00 Additional pack years: 0.00 Total pack years: 13.00 Types: Cigarettes Quit date: 08/10/2018 Years since quittin.1 Smokeless tobacco: Never Vaping Use Vaping Use: Never used Substance Use Topics Alcohol use: Not Currently Drug use: No BP 112/82 Pulse 96 Temp 36.6 C (97.9 F) Resp 18 Wt 85.7 kg (189 lb) LMP 09/02/2023 (Exact Date) SpO2 98% Yes BMI 31.94 kg/m Review of Systems Constitutional: Positive for malaise/fatigue. Negative for chills and fever. HENT: Positive for congestion, sinus pain and sore throat. Negative for ear discharge and ear pain. Eyes: Positive for discharge and redness. Negative for blurred vision, double vision, photophobia and pain. Respiratory: Positive for cough. Negative for hemoptysis, sputum production, shortness of breath, wheezing and stridor. Cardiovascular: Negative for chest pain. Gastrointestinal: Negative for abdominal pain, diarrhea, nausea and vomiting. Musculoskeletal: Positive for myalgias. Skin: Negative for itching and rash. Neurological: Negative for dizziness and headaches. Objective Physical Exam Constitutional: General: She is not in acute distress. Appearance: She is not diaphoretic. HENT: Head: Normocephalic. Jaw: No trismus, tenderness, swelling or pain on movement. Right Ear: Ear canal and external ear normal. Tympanic membrane is erythematous and bulging. Left Ear: Tympanic membrane, ear canal and external ear normal. Nose: Congestion present. Right Sinus: Maxillary sinus tenderness present. Left Sinus: Maxillary sinus tenderness present. Mouth/Throat: Mouth: Mucous membranes are moist. Pharynx: Oropharynx is clear. Uvula midline. No pharyngeal swelling, oropharyngeal exudate, posterior oropharyngeal erythema or uvula swelling. Eyes: General: Lids are normal. Vision grossly intact. Right eye: No discharge. Left eye: No discharge. Conjunctiva/sclera: Conjunctivae normal. Right eye: Right conjunctiva is not injected. Left eye: Left conjunctiva is not injected. Pupils: Pupils are equal, round, and reactive to light. Cardiovascular: Rate and Rhythm: Normal rate and regular rhythm. Heart sounds: Normal heart sounds. Pulmonary: Effort: Pulmonary effort is normal. No tachypnea, accessory muscle usage or respiratory distress. Breath sounds: Normal breath sounds. No stridor. No wheezing, rhonchi or rales. Abdominal: General: There is no distension. Palpations: Abdomen is soft. Tenderness: There is no abdominal tenderness. There is no guarding or rebound. Musculoskeletal: Cervical back: Normal range of motion and neck supple. No edema, erythema, rigidity or tenderness. No pain with movement. Normal range of motion. Lymphadenopathy: Cervical: No cervical adenopathy. Skin: General: Skin is warm and dry. Neurological: Mental Status: She is alert and oriented to person, place, and time. ASSESSMENT/PLAN: 1. Sinobronchitis - ICD9: 473.9, 490, ICD10: J32.9, J40 Suspicious secondary bacterial infection versus viral illness. Evidence of double sickening. Diagnosis sinobronchitis. Placed on Augmentin. Patient was educated on supportive therapies. Patient will follow up with primary care provider as needed. Patient was instructed to immediately proceed to emergency room for any new, worsening, or symptoms lasting longer than anticipated. The patient's clinical presentation is otherwise unremarkable at this time. Based on exam and clinical finding, the patient is stable for discharge. Plan of care was discussed with patient. Patient verbalizes understanding and agrees to plan of care. This note was generated using [employer] software. It may contain errors in wording, punctuation, or spelling. Deon Armstrong APRN.[employer] documented in this encounter [facility] 08-31-2023 Note HNO ID: [id number] Author: ELIZA KATZ MD Service: ? Author Type: Physician Type: Progress Notes Filed: 09/21/2023 07:09 Note Text: AMBULATORY TELEPHONE VISIT Valerie Sánchez 1990 August 31, 2023 HPI: Valerie Sánchez is a 32 year old female who presents as a second opinion for hx of PE and HELLP syndrome. Per notes, s/p C section with Dr. Aldrich. Previously saw Dr. Rodgers in [place]. Per notes: Hematologic problem(s): 1) Pulmonary emboli. 2) Mild decrease in functional Antithrombin. HPI: The patient is a 31-year-old female with no significant past medical history who presented to the emergency department at [facility] on 09/28/2020 with complaint of cough and shortness of breath which started the morning of admission. There was associated pleuritic chest pain with deep inspiration. She initially presented to the urgent care facility and was noted to be tachycardic with a heart rate in the 130s so she was advised to go to the ED. CT Chest 09/28/2020: FINDINGS: Small benign-appearing bilateral axillary lymph nodes. There are multiple nonocclusive intraluminal filling defects in branches of the upper lobe pulmonary arteries in keeping with the pulmonary emboli. There is also evidence of a multiple small bilateral pulmonary emboli in the lower lobe pulmonary arteries. Normal thoracic aorta and visualized great vessels. There is no demonstrated aortic dissection. Normal heart and pericardium. There are calcified mediastinal lymph nodes. There are calcified right hilar lymph nodes. Normal visualized trachea and bronchi. The lungs are well expanded. Calcified granuloma in the right lower lobe. Calcified right hilar lymph nodes and subcarinal lymph nodes. Normal pleura. Normal chest wall structures. Normal osseous structures. Normal visualized upper abdomen. IMPRESSION: Bilateral pulmonary emboli. Was admitted and started on apixaban. PCR test for Covid was negative. However her serology for SARS was positive. Echocardiogram was performed which demonstrated normal left ventricular systolic function with an estimated ejection fraction of 65%. There was trivial mitral and tricuspid valve insufficiency. The RV systolic pressure was not able to be determined secondary to insufficient tricuspid regurgitant envelope. There was no evidence of diastolic dysfunction. Per initial consultation here: Around the end of August 2020 had cough, sore throat, severe fatigue, mild chills without fever or loss of taste/smell. The symptoms persisted for about a week. Covid testing was negative. Menses while on apixaban. Was first off OCPs. Was heavy for about 4-5 days. Small clots. Shortness of breath had improved however she still had tachycardia and on Sunday began experiencing similar symptoms she had in August including sore throat and fatigue. This was also associated with a dry cough but occasionally she had some clear sputum production. No hemoptysis. No fever. Sex: Female. Smoker: Quit smoking 08/2018. BMI: Not calculated. Family h/o VTE: Only knows mother--she age 45 from lung cancer. Family h/o atherosclerotic disease: Unknown. Family h/o cancer: Mother as above. Hypercoagulation labs: None. Provoking factors: OCPs discontinued mid September 2020 after ~16 year of use. Had not received any fertility medications. Presumed recent Covid infection 08/2020. Presents for ongoing oncologic management. On Lovenox. Tolerating well with no unusual bleeding or unexplained bruising. No complications with . No lower extremity swelling or edema. No leg pain. 26w and 4d. -In summary the patient is a 30-year-old female who developed bilateral pulmonary emboli following a presumptive Covid infection 08/2020. Infection was evidenced by her prior symptoms and presence of antibodies on testing done when admitted to [facility] 09/28/2020 for the pulmonary emboli. Duplex exam of the legs was not performed. She had discontinued oral contraceptives about 1 to 2 weeks prior to admission after ~16 years of use. She quit smoking in August 2018 following her mother's passing from lung cancer. -Initial hypercoagulation testing 02/01/2021 revealed an isolated decrease in functional Antithrombin level with normal levels of antigenic Antithrombin, fibrinogen, protein C, protein S and plasminogen. This suggested the possibility of an acquired Antithrombin deficiency. D-dimer was negative at the time. -Most recent labs 04/2021 reveal continued decrease in functional Antithrombin with normal antigenic level. -Currently 26 weeks and 4 days. Tolerating Lovenox well. 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 Evidently she will be changed to subcutaneous heparin about a month before delivery. We will continue to monitor her weight and adjust Lovenox dose according (more content not included)... [facility] 06-20-2023 Note HNO ID: [id number] Author: Vero Morton APRN.[employer] Service: ? Author Type: Nurse Practitioner Type: Progress Notes Filed: 06/20/2023 4:39 PM Note Text: Subjective Ear Pain Associated symptoms include congestion and coughing. Pertinent negatives include no chills, fever or sore throat. Valerie Sánchez is a 32 year old female who presents with right ear pain x 2 weeks. She states everyone in her house has an ear infection. She has had intermittent ear pain, notices it mostly in AM and PM, states it is a 4/10. She was seen a week ago and advised she has an ear effusion and to use flonase. She did not use this because she was afraid it would dry up her milk supply. She is still nursing a toddler. She denies fever. Review of Systems Constitutional: Negative for chills and fever. HENT: Positive for congestion and ear pain. Negative for sore throat. Respiratory: Positive for cough. Cardiovascular: Negative. BP 110/78 Pulse 90 Temp 36.3 ?C (97.4 ?F) (Tympanic) Resp 16 Wt 81.7 kg (180 lb 3.2 oz) LMP 12/24/2022 SpO2 99% BMI 30.45 kg/m? PAST MEDICAL HISTORY Diagnosis Date Abnormal Pap smear of cervix Asthma Rios's esophagus 03/2021 COVID-19 virus antibody detected 09/2020 Dysplasia of cervix, high grade EDIE 2 s/p LEEP. repeat pap normal x2 Herpes zoster without mention of complication 1987 History of gastric ulcer History of pre-eclampsia in prior , currently Hypertension Infertility, female Multiple thyroid nodules Other pulmonary embolism without acute cor pulmonale (HCC) 09/28/2020 PMH - PAST MEDICAL HISTORY OF Color Vision - Normal PMH - PAST MEDICAL HISTORY OF Asthma PMH - PAST MEDICAL HISTORY OF Capillary Hemangioma Left buttocks PMH - PAST MEDICAL HISTORY OF 08/03/1989 Lead Level 5mgm Vertigo PAST SURGICAL HISTORY Procedure Laterality Date ANESTH, SECTION CERVIX UTERI CONIZA LP ELCTRO EXCI 07/2019 EGD 02/28/2021 gastritis, Rios's esophagus ESOPHAGOGASTRODUODENOSCOPY TRANSORAL DIAGNOSTIC 02/28/2021 wisdom teeth extraction 08/03/2009 ALLERGIES Plexion [Sulfacetamide Sodium-Sulfur] MEDICATIONS pantoprazole DR (PROTONIX) 40 mg tablet Take 1 tablet by mouth once daily. 21/iron fu/folic acid ( COMPLETE ORAL) Take 2 tablets by mouth twice daily. FAMILY HISTORY Problem Relation Age of Onset Lung Cancer Mother None Father Alcohol abuse Maternal Grandmother Schizophrenia Maternal Uncle Alcohol abuse Maternal Uncle Social History Tobacco Use Smoking status: Former Packs/day: 1.00 Years: 13.00 Additional pack years: 0.00 Total pack years: 13.00 Types: Cigarettes Quit date: 08/10/2018 Years since quittin.8 Smokeless tobacco: Never Vaping Use Vaping Use: Never used Substance Use Topics Alcohol use: Not Currently Drug use: No Objective Physical Exam Vitals and nursing note reviewed. Constitutional: General: She is not in acute distress. Appearance: Normal appearance. She is not ill-appearing. HENT: Right Ear: Ear canal and external ear normal. A middle ear effusion is present. Tympanic membrane is not injected, erythematous, retracted or bulging. Left Ear: Tympanic membrane, ear canal and external ear normal. Nose: Nose normal. Mouth/Throat: Pharynx: Uvula midline. No oropharyngeal exudate or posterior oropharyngeal erythema. Cardiovascular: Rate and Rhythm: Normal rate. Pulmonary: Effort: Pulmonary effort is normal. Lymphadenopathy: Cervical: No cervical adenopathy. Skin: General: Skin is warm and dry. Findings: No erythema or rash. Neurological: Mental Status: She is alert. ASSESSMENT/PLAN: 1. Acute NORMAN (middle ear effusion), right - ICD9: 381.00, ICD10: H65.191 - The patient should also use flonase nasal spray for the first 5-7 days of treatment. - Follow-up with your PCP in 3-5 days if symptoms have not improved or sooner if symptoms worsen - Discussed red flags and need for immediate medical evaluation if any occur. - Discussed supportive care treatment - Discussed expected course of illness Vero Morton APRN.CNP [facility] 06-20-2023 Instructions Vero Morton APRN.CNP - 06/20/2023 4:39 PM EDT ASSESSMENT/PLAN: 1. Acute NORMAN (middle ear effusion), right - ICD9: 381.00, ICD10: H65.191 - The patient should also use flonase nasal spray for the first 5-7 days of treatment. - Follow-up with your PCP in 3-5 days if symptoms have not improved or sooner if symptoms worsen - Discussed red flags and need for immediate medical evaluation if any occur. - Discussed supportive care treatment - Discussed expected course of illness Vero Morton APRN.EXECUTIVE CASINO HOST documented in this encounter [facility] 06-20-2023 History of Presen t illness Narrative Subjective Ear Pain Associated symptoms include congestion and coughing. Pertinent negatives include no chills, fever or sore throat. Valerie Sánchez is a 32 year old female who presents with right ear pain x 2 weeks. She states everyone in her house has an ear infection. She has had intermittent ear pain, notices it mostly in AM and PM, states it is a 4/10. She was seen a week ago and advised she has an ear effusion and to use flonase. She did not use this because she was afraid it would dry up her milk supply. She is still nursing a toddler. She denies fever. Review of Systems Constitutional: Negative for chills and fever. HENT: Positive for congestion and ear pain. Negative for sore throat. Respiratory: Positive for cough. Cardiovascular: Negative. BP 110/78 Pulse 90 Temp 36.3 C (97.4 F) (Tympanic) Resp 16 Wt 81.7 kg (180 lb 3.2 oz) LMP 12/24/2022 SpO2 99% BMI 30.45 kg/m PAST MEDICAL HISTORY Diagnosis Date Abnormal Pap smear of cervix Asthma Rios's esophagus 03/2021 COVID-19 virus antibody detected 09/2020 Dysplasia of cervix, high grade EDIE 2 s/p LEEP. repeat pap normal x2 Herpes zoster without mention of complication 1987 History of gastric ulcer History of pre-eclampsia in prior , currently Hypertension Infertility, female Multiple thyroid nodules Other pulmonary embolism without acute cor pulmonale (HCC) 09/28/2020 PMH - PAST MEDICAL HISTORY OF Color Vision - Normal PMH - PAST MEDICAL HISTORY OF Asthma PMH - PAST MEDICAL HISTORY OF Capillary Hemangioma Left buttocks PMH - PAST MEDICAL HISTORY OF 08/03/1989 Lead Level 5mgm Vertigo PAST SURGICAL HISTORY Procedure Laterality Date ANESTH, SECTION CERVIX UTERI CONIZA LP ELCTRO EXCI 07/2019 EGD 02/28/2021 gastritis, Rios's esophagus ESOPHAGOGASTRODUODENOSCOPY TRANSORAL DIAGNOSTIC 02/28/2021 wisdom teeth extraction 08/03/2009 ALLERGIES Plexion [Sulfacetamide Sodium-Sulfur] MEDICATIONS pantoprazole DR (PROTONIX) 40 mg tablet Take 1 tablet by mouth once daily. 21/iron fu/folic acid ( COMPLETE ORAL) Take 2 tablets by mouth twice daily. FAMILY HISTORY Problem Relation Age of Onset Lung Cancer Mother None Father Alcohol abuse Maternal Grandmother Schizophrenia Maternal Uncle Alcohol abuse Maternal Uncle Social History Tobacco Use Smoking status: Former Packs/day: 1.00 Years: 13.00 Additional pack years: 0.00 Total pack years: 13.00 Types: Cigarettes Quit date: 08/10/2018 Years since quittin.8 Smokeless tobacco: Never Vaping Use Vaping Use: Never used Substance Use Topics Alcohol use: Not Currently Drug use: No Objective Physical Exam Vitals and nursing note reviewed. Constitutional: General: She is not in acute distress. Appearance: Normal appearance. She is not ill-appearing. HENT: Right Ear: Ear canal and external ear normal. A middle ear effusion is present. Tympanic membrane is not injected, erythematous, retracted or bulging. Left Ear: Tympanic membrane, ear canal and external ear normal. Nose: Nose normal. Mouth/Throat: Pharynx: Uvula midline. No oropharyngeal exudate or posterior oropharyngeal erythema. Cardiovascular: Rate and Rhythm: Normal rate. Pulmonary: Effort: Pulmonary effort is normal. Lymphadenopathy: Cervical: No cervical adenopathy. Skin: General: Skin is warm and dry. Findings: No erythema or rash. Neurological: Mental Status: She is alert. ASSESSMENT/PLAN: 1. Acute NORMAN (middle ear effusion), right - ICD9: 381.00, ICD10: H65.191 - The patient should also use flonase nasal spray for the first 5-7 days of treatment. - Follow-up with your PCP in 3-5 days if symptoms have not improved or sooner if symptoms worsen - Discussed red flags and need for immediate medical evaluation if any occur. - Discussed supportive care treatment - Discussed expected course of illness Vero Morton APRN.EXECUTIVE CASINO HOST documented in this encounter [facility] 06-10-2023 Note HNO ID: [id number] Author: Deon Armstrong APRN.NISREEN Service: ? Author Type: Nurse Practitioner Type: Progress Notes Filed: 06/10/2023 9:40 AM Note Text: Subjective HPI Nontoxic-appearing female presents to urgent care with chief complaint of upper respiratory tract like infection. Duration of symptoms 3 days. Associated symptoms sore throat, ear pain, nasal congestion, nasal discharge and nonproductive cough. Patient states was sick 3 weeks ago sick for a few days of symptoms have improved. New onset illness for the last 4 days. Patient denies the use of any yibu-orz-tfemcut medications or home remedies for symptom management. Patient states recent sick contacts with similar signs and symptoms. None is sick with similar signs and symptoms. Patient denies any productive cough, fever, chest pain, shortness of breath, pleuritic pain, rash, abdominal pain, nausea, vomiting or change in bowel or bladder habit. Denies chance of . Currently is breast-feeding. Past medical history prescription medication use allergies reviewed. .Patient presents with: Ear Pain: right, cough x 3 weeks PAST MEDICAL HISTORY Diagnosis Date Abnormal Pap smear of cervix Asthma Rios's esophagus 03/2021 COVID-19 virus antibody detected 09/2020 Dysplasia of cervix, high grade EDIE 2 s/p LEEP. repeat pap normal x2 Herpes zoster without mention of complication 1987 History of gastric ulcer History of pre-eclampsia in prior , currently Hypertension Infertility, female Multiple thyroid nodules Other pulmonary embolism without acute cor pulmonale (HCC) 09/28/2020 PMH - PAST MEDICAL HISTORY OF Color Vision - Normal PMH - PAST MEDICAL HISTORY OF Asthma PMH - PAST MEDICAL HISTORY OF Capillary Hemangioma Left buttocks PMH - PAST MEDICAL HISTORY OF 08/03/1989 Lead Level 5mgm Vertigo PAST SURGICAL HISTORY Procedure Laterality Date ANESTH, SECTION CERVIX UTERI CONIZA LP ELCTRO EXCI 07/2019 EGD 02/28/2021 gastritis, Rios's esophagus ESOPHAGOGASTRODUODENOSCOPY TRANSORAL DIAGNOSTIC 02/28/2021 wisdom teeth extraction 08/03/2009 ALLERGIES Plexion [Sulfacetamide Sodium-Sulfur] MEDICATIONS pantoprazole DR (PROTONIX) 40 mg tablet Take 1 tablet by mouth once daily. 21/iron fu/folic acid ( COMPLETE ORAL) Take 2 tablets by mouth twice daily. FAMILY HISTORY Problem Relation Age of Onset Lung Cancer Mother None Father Alcohol abuse Maternal Grandmother Schizophrenia Maternal Uncle Alcohol abuse Maternal Uncle Social History Tobacco Use Smoking status: Former Packs/day: 1.00 Years: 13.00 Additional pack years: 0.00 Total pack years: 13.00 Types: Cigarettes Quit date: 08/10/2018 Years since quittin.8 Smokeless tobacco: Never Vaping Use Vaping Use: Never used Substance Use Topics Alcohol use: Not Currently Drug use: No BP 122/72 Pulse 108 Temp 36.7 ?C (98 ?F) Resp 16 Wt 80.3 kg (177 lb) LMP 12/24/2022 SpO2 96% BMI 29.91 kg/m? Hr 90 Review of Systems Constitutional: Negative for chills, fever and malaise/fatigue. HENT: Positive for congestion and ear pain. Negative for ear discharge, sinus pain and sore throat. Eyes: Negative for blurred vision, pain, discharge and redness. Respiratory: Positive for cough. Negative for hemoptysis, sputum production, shortness of breath, wheezing and stridor. Cardiovascular: Negative for chest pain. Gastrointestinal: Negative for abdominal pain, diarrhea, nausea and vomiting. Musculoskeletal: Negative for myalgias. Skin: Negative for itching and rash. Neurological: Negative for dizziness and headaches. Objective Physical Exam Constitutional: General: She is not in acute distress. Appearance: She is not diaphoretic. HENT: Head: Normocephalic. Jaw: No trismus, tenderness, swelling or pain on movement. Right Ear: Tympanic membrane, ear canal and external ear normal. Left Ear: Tympanic membrane, ear canal and external ear normal. Nose: Congestion present. Mouth/Throat: Mouth: Mucous membranes are moist. Pharynx: Oropharynx is clear. Uvula midline. No pharyngeal swelling, oropharyngeal exudate, posterior oropharyngeal erythema or uvula swelling. Eyes: Conjunctiva/sclera: Conjunctivae normal. Pupils: Pupils are equal, round, and reactive to light. Cardiovascular: Rate and Rhythm: Normal rate and regular rhythm. Heart sounds: Normal heart sounds. Pulmonary: Effort: Pulmonary effort is normal. No tachypnea, accessory muscle usage or respiratory distress. Breath sounds: Normal breath sounds. No stridor. No wheezing, rhonchi or rales. Abdominal: General: There is no distension. Palpations: Abdomen is soft. Tenderness: There is no abdominal tenderness. There is no guarding or rebound. Musculoskeletal: Cervical back: Normal range of motion and neck supple. No edema, erythema, rigidity or tenderness. No pain (more content not included)... [facility] 06-10-2023 History of Presen t illness Narrative Subjective HPI Nontoxic-appearing female presents to urgent care with chief complaint of upper respiratory tract like infection. Duration of symptoms 3 days. Associated symptoms sore throat, ear pain, nasal congestion, nasal discharge and nonproductive cough. Patient states was sick 3 weeks ago sick for a few days of symptoms have improved. New onset illness for the last 4 days. Patient denies the use of any gjeh-tfa-cfimufj medications or home remedies for symptom management. Patient states recent sick contacts with similar signs and symptoms. None is sick with similar signs and symptoms. Patient denies any productive cough, fever, chest pain, shortness of breath, pleuritic pain, rash, abdominal pain, nausea, vomiting or change in bowel or bladder habit. Denies chance of . Currently is breast-feeding. Past medical history prescription medication use allergies reviewed. .Patient presents with: Ear Pain: right, cough x 3 weeks PAST MEDICAL HISTORY Diagnosis Date Abnormal Pap smear of cervix Asthma Rios's esophagus 03/2021 COVID-19 virus antibody detected 09/2020 Dysplasia of cervix, high grade EDIE 2 s/p LEEP. repeat pap normal x2 Herpes zoster without mention of complication 1987 History of gastric ulcer History of pre-eclampsia in prior , currently Hypertension Infertility, female Multiple thyroid nodules Other pulmonary embolism without acute cor pulmonale (HCC) 09/28/2020 PMH - PAST MEDICAL HISTORY OF Color Vision - Normal PMH - PAST MEDICAL HISTORY OF Asthma PMH - PAST MEDICAL HISTORY OF Capillary Hemangioma Left buttocks PMH - PAST MEDICAL HISTORY OF 08/03/1989 Lead Level 5mgm Vertigo PAST SURGICAL HISTORY Procedure Laterality Date ANESTH, SECTION CERVIX UTERI CONIZA LP ELCTRO EXCI 07/2019 EGD 02/28/2021 gastritis, Rios's esophagus ESOPHAGOGASTRODUODENOSCOPY TRANSORAL DIAGNOSTIC 02/28/2021 wisdom teeth extraction 08/03/2009 ALLERGIES Plexion [Sulfacetamide Sodium-Sulfur] MEDICATIONS pantoprazole DR (PROTONIX) 40 mg tablet Take 1 tablet by mouth once daily. 21/iron fu/folic acid ( COMPLETE ORAL) Take 2 tablets by mouth twice daily. FAMILY HISTORY Problem Relation Age of Onset Lung Cancer Mother None Father Alcohol abuse Maternal Grandmother Schizophrenia Maternal Uncle Alcohol abuse Maternal Uncle Social History Tobacco Use Smoking status: Former Packs/day: 1.00 Years: 13.00 Additional pack years: 0.00 Total pack years: 13.00 Types: Cigarettes Quit date: 08/10/2018 Years since quittin.8 Smokeless tobacco: Never Vaping Use Vaping Use: Never used Substance Use Topics Alcohol use: Not Currently Drug use: No BP 122/72 Pulse 108 Temp 36.7 C (98 F) Resp 16 Wt 80.3 kg (177 lb) LMP 12/24/2022 SpO2 96% BMI 29.91 kg/m Hr 90 Review of Systems Constitutional: Negative for chills, fever and malaise/fatigue. HENT: Positive for congestion and ear pain. Negative for ear discharge, sinus pain and sore throat. Eyes: Negative for blurred vision, pain, discharge and redness. Respiratory: Positive for cough. Negative for hemoptysis, sputum production, shortness of breath, wheezing and stridor. Cardiovascular: Negative for chest pain. Gastrointestinal: Negative for abdominal pain, diarrhea, nausea and vomiting. Musculoskeletal: Negative for myalgias. Skin: Negative for itching and rash. Neurological: Negative for dizziness and headaches. Objective Physical Exam Constitutional: General: She is not in acute distress. Appearance: She is not diaphoretic. HENT: Head: Normocephalic. Jaw: No trismus, tenderness, swelling or pain on movement. Right Ear: Tympanic membrane, ear canal and external ear normal. Left Ear: Tympanic membrane, ear canal and external ear normal. Nose: Congestion present. Mouth/Throat: Mouth: Mucous membranes are moist. Pharynx: Oropharynx is clear. Uvula midline. No pharyngeal swelling, oropharyngeal exudate, posterior oropharyngeal erythema or uvula swelling. Eyes: Conjunctiva/sclera: Conjunctivae normal. Pupils: Pupils are equal, round, and reactive to light. Cardiovascular: Rate and Rhythm: Normal rate and regular rhythm. Heart sounds: Normal heart sounds. Pulmonary: Effort: Pulmonary effort is normal. No tachypnea, accessory muscle usage or respiratory distress. Breath sounds: Normal breath sounds. No stridor. No wheezing, rhonchi or rales. Abdominal: General: There is no distension. Palpations: Abdomen is soft. Tenderness: There is no abdominal tenderness. There is no guarding or rebound. Musculoskeletal: Cervical back: Normal range of motion and neck supple. No edema, erythema, rigidity or tenderness. No pain with movement. Normal range of motion. Lymphadenopathy: Cervical: No cervical adenopathy. Skin: General: Skin is warm and dry. Neurological: Mental Status: She is alert and oriented to person, place, and time. ASSESSMENT/PLAN: 1. Viral illness - ICD9: 079.99, ICD10: B34.9 Patient nontoxic-appearing. No evidence of bacterial infection. Suspicious of concomitant viral URIs. Patient did have about a week and a half of symptom free before new illness develop. Patient was educated on supportive therapies. Patient will follow up with primary care provider as needed. Patient was instructed to immediately proceed to emergency room for any new, worsening, or symptoms lasting longer than anticipated. The patient's clinical presentation is otherwise unremarkable at this time. Based on exam and clinical finding, the patient is stable for discharge. Plan of care was discussed with patient. Patient verbalizes understanding and agrees to plan of care. This note was generated using [employer] software. It may contain errors in wording, punctuation, or spelling. Deon Armstrong APRN.NISREEN documented in this encounter [facility] 04-30-2023 Note HNO ID: [id number] Author: Esmer Hobson RT(R) Service: ? Author Type: Drywall Mechanic Type: Progress Notes Filed: 04/30/2023 9:12 AM Note Text: Radiology Service Progress Note PATIENT NAME: Valerie Sánchez DATE OF SERVICE: April 30, 2023 TIME: 8:58 AM PATIENT IDENTITY VERIFICATION COMPLETED USING TWO (2) IDENTIFIERS: Name and Date of confirmed by patient verbally. FALL SCREENING: Has the patient had 2 falls in the last year or 1 fall with injury or currently using an Ambulatory Assistive Device (Walker, Cane, Wheelchair, Crutches, etc.)? No PATIENT GENDER DATA: Female. status: : No status: NO. PATIENT RELEVANT IMPLANT DATA REVIEWED: Yes RADIOLOGY DEPARTMENT: General X-ray: Exam(s) Completed: Spine X-Ray(s): Lumbar AP / LAT / L5-S1 / FLEX-EXT No L5-S1 ordered PERIPHERAL IV DATA: Not applicable SIGNED BY: LUI CheneyR) April 30, 2023 8:58 AM [facility] 04-30-2023 Note HNO ID: [id number] Author: Letty Carlos RT(R) Service: ? Author Type: Technologist Type: Progress Notes Filed: 04/30/2023 8:23 AM Note Text: Radiology Service Progress Note PATIENT NAME: Valerie Sánchez DATE OF SERVICE: April 30, 2023 TIME: 8:22 AM PATIENT IDENTITY VERIFICATION COMPLETED USING TWO (2) IDENTIFIERS: Name and Date of confirmed by patient verbally. FALL SCREENING: Has the patient had 2 falls in the last year or 1 fall with injury or currently using an Ambulatory Assistive Device (Walker, Cane, Wheelchair, Crutches, etc.)? No PATIENT GENDER DATA: Female. status: : No status: NO. PATIENT RELEVANT IMPLANT DATA REVIEWED: Yes RADIOLOGY DEPARTMENT: MR; Exam(s) Completed: Spine: Lumbar spine PERIPHERAL IV DATA: Not applicable SIGNED BY: RT Josh(Bessie) April 30, 2023 8:22 AM [facility] 04-30-2023 History of Presen t illness Narrative Radiology Service Progress Note PATIENT NAME: Valerie Sánchez DATE OF SERVICE: April 30, 2023 TIME: 8:22 AM PATIENT IDENTITY VERIFICATION COMPLETED USING TWO (2) IDENTIFIERS: Name and Date of confirmed by patient verbally. FALL SCREENING: Has the patient had 2 falls in the last year or 1 fall with injury or currently using an Ambulatory Assistive Device (Walker, Cane, Wheelchair, Crutches, etc.)? No PATIENT GENDER DATA: Female. status: : No status: NO. PATIENT RELEVANT IMPLANT DATA REVIEWED: Yes RADIOLOGY DEPARTMENT: MR; Exam(s) Completed: Spine: Lumbar spine PERIPHERAL IV DATA: Not applicable SIGNED BY: RT Josh(Bessie) April 30, 2023 8:22 AM documented in this encounter [facility] 04-20-2023 Note HNO ID: [id number] Author: Dominic Lowe APRN.MECHANIC MARINE ENGINE Service: ? Author Type: Nurse Specialist Type: Progress Notes Filed: 04/20/2023 11:25 AM Note Text: SUBJECTIVE: PNEUMOCOCCAL(1 - PCV) Never done DEPRESSION ASSESSMENT Never done HPI Valerie Sánchez is a 32 year old female. Her past medical history significant for multiple thyroid nodules, cervical radiculopathy pain of left upper arm GERD, lumbar disc herniation COVID-19, asthma, history of pulmonary embolus. She notes wedding is scheduled for tomorrow at her home. Seen by Lee Oliveira MD September 14, 2021. Recent . Admitted to [facility] December 17 through December 22, 2021. Discharge summary excerpted: transported from [facility] for further evaluation and management of HELLP syndrome and suspected liver hematima. She underwent an uncomplicated section. During her course, her LFTs and platelets recovered. She did receive 2 units of platelets at delivery. Valerie's history is also complicated by PE in the setting of COVID. 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 During her evaluation. She will referred to [facility] for second opinion postnatally. Infant remained in [facility]. She was discharged home in stable condition on POD#5 Liver MRI for liver lesions noted on CT liver/pelvis: states in hospital for weeks all necessary testing completed at that time. Last seen in internal medicine by Dr. Merritt for acute illness December 2021. Last seen in hematology January 18, 2023 for history of PE and HELLP syndrome. Anticoagulation planned and additional labs ordered. Seen by Dr Flynn gastroenterkhushi for follow-up of Rios's January 22, 2023.. She is due for EGD. 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 Harjeet Salas, last seen with US 02/2023 [facility] Last seen and spine surgery by Keith LANGFORD 03/16/2023 for chronic midline low back pain without sciatic. MRI of lumbar spine and x-ray lumbar motion ordered. Premedication for MRI provided. Recommended trial of core strengthening, HEP, to discuss different NSAID option with SPLICER APPRENTICE. Consideration for lumbar facet versus MALENA pending results of updated imaging. She was seen in urgent care for injury of finger of left hand April 15, 2023. Noted keloid formation versus normal healing. appears healed, no keloid. She has a form for biometric screening for [facility], needs lab testing and biometric data completed. Review of Systems Constitutional: Negative. Objective BP 118/80 Pulse 101 Resp 16 Ht 163.8 cm (5' 4.5 ) Wt 79.4 kg (175 lb) LMP 12/24/2022 SpO2 96% BMI 29.57 kg/m? Physical Exam Vitals and nursing note reviewed. Constitutional: Appearance: Normal appearance. HENT: Head: Normocephalic and atraumatic. Eyes: Conjunctiva/sclera: Conjunctivae normal. Cardiovascular: Rate and Rhythm: Normal rate. Pulmonary: Effort: Pulmonary effort is normal. Neurological: General: No focal deficit present. Mental Status: She is alert and oriented to person, place, and time. Psychiatric: Mood and Affect: Mood normal. ALLERGIES Allergen Reactions Plexion [Sulfacetam* Rash Medication LORazepam (ATIVAN) 0.5 mg Take 1 tablet 45 min prior to MRI, repeat dose if necessary pantoprazole DR (PROTONIX) 40 mg tablet Take 1 tablet by mouth once daily. 21/iron fu/folic acid ( COMPLETE ORAL) Take 2 tablets by mouth twice daily. PAST MEDICAL HISTORY Diagnosis Date Abnormal Pap smear of cervix Asthma Rios's esophagus 03/2021 COVID-19 virus antibody detected 09/2020 Dysplasia of cervix, high grade EDIE 2 s/p LEEP. repeat pap normal x2 Herpes zoster without mention of complication 1987 History of gastric ulcer History of pre-eclampsia in prior , currently Hypertension Infertility, female Multiple thyroid nodules Other pulmonary embolism without acute cor pulmonale (HCC) 09/28/2020 PMH - PAST MEDICAL HISTORY OF Color Vision - Normal PMH - PAST MEDICAL HISTORY OF Asthma PMH - PAST MEDICAL HISTORY OF Capillary Hemangioma Left buttocks PMH - PAST MEDICAL HISTORY OF 08/03/1989 Lead Level 5mgm Vertigo Social History Tobacco Use Smoking status: Former Packs/day: 1.00 Years: 13.00 Additional pack years: 0.00 Total pack years: 13.00 Types: Cigarettes Quit date: 08/10/2018 Years since quittin.6 Smokeless tobacco: Never Vaping Use Vaping Use: Never used Substance Use Topics Alcohol use: Not Currently Drug use: No ASSESSMENT/PLAN: ASSESSMENT/PLAN: 1. Routine medical exam - ICD9: V70.0, ICD10: Z00.00 (primary diagnosis) - Endorse healthy diet and regular exercise - Calcium intake with supplements or by diet of 1000 mg/day [facility], HPV Pap 2020. 2. Screening for lipid disorders - ICD9: V77.91, ICD10: Z13.220 - LIPID PANEL, NONFASTING - LIPID PANEL BASIC 3. (more content not included)... [facility] 04-20-2023 Instructions Dominic Lowe APRN.CNS - 04/20/2023 10:57 AM EDT Complete lipid panel at your convenience. Consider pneumococcal vaccine either at your local pharmacy or here at the clinic. documented in this encounter [facility] 04-20-2023 History of Presen t illness Narrative SUBJECTIVE: PNEUMOCOCCAL(1 - PCV) Never done DEPRESSION ASSESSMENT Never done HPI Valerie Sánchez is a 32 year old female. Her past medical history significant for multiple thyroid nodules, cervical radiculopathy pain of left upper arm GERD, lumbar disc herniation COVID-19, asthma, history of pulmonary embolus. She notes wedding is scheduled for tomorrow at her home. Seen by Lee Oliveira MD September 14, 2021. Recent . Admitted to [facility] December 17 through December 22, 2021. Discharge summary excerpted: transported from [facility] for further evaluation and management of HELLP syndrome and suspected liver hematima. She underwent an uncomplicated section. During her course, her LFTs and platelets recovered. She did receive 2 units of platelets at delivery. Valerie's history is also complicated by PE in the setting of COVID. 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 During her evaluation. She will referred to HemOnc for second opinion postnatally. remained in SCN. She was discharged home in stable condition on POD#5 Liver MRI for liver lesions noted on CT liver/pelvis: states in hospital for weeks all necessary testing completed at that time. Last seen in internal medicine by Dr. Merritt for acute illness December 2021. Last seen in hematology January 18, 2023 for history of PE and HELLP syndrome. Anticoagulation planned and additional labs ordered. Seen by Dr Flynn gastroenterology for follow-up of Rios's January 22, 2023.. She is due for EGD. 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 Harjeet Salas, last seen with US 02/2023 [facility] Last seen and spine surgery by Keith Michelle PAC 03/16/2023 for chronic midline low back pain without sciatic. MRI of lumbar spine and x-ray lumbar motion ordered. Premedication for MRI provided. Recommended trial of core strengthening, HEP, to discuss different NSAID option with SPLICER APPRENTICE. Consideration for lumbar facet versus MALENA pending results of updated imaging. She was seen in urgent care for injury of finger of left hand April 15, 2023. Noted keloid formation versus normal healing. appears healed, no keloid. She has a form for biometric screening for [facility], needs lab testing and biometric data completed. Review of Systems Constitutional: Negative. Objective BP 118/80 Pulse 101 Resp 16 Ht 163.8 cm (5' 4.5 ) Wt 79.4 kg (175 lb) LMP 12/24/2022 SpO2 96% BMI 29.57 kg/m Physical Exam Vitals and nursing note reviewed. Constitutional: Appearance: Normal appearance. HENT: Head: Normocephalic and atraumatic. Eyes: Conjunctiva/sclera: Conjunctivae normal. Cardiovascular: Rate and Rhythm: Normal rate. Pulmonary: Effort: Pulmonary effort is normal. Neurological: General: No focal deficit present. Mental Status: She is alert and oriented to person, place, and time. Psychiatric: Mood and Affect: Mood normal. ALLERGIES Allergen Reactions Plexion [Sulfacetam* Rash Medication LORazepam (ATIVAN) 0.5 mg Take 1 tablet 45 min prior to MRI, repeat dose if necessary pantoprazole DR (PROTONIX) 40 mg tablet Take 1 tablet by mouth once daily. 21/iron fu/folic acid ( COMPLETE ORAL) Take 2 tablets by mouth twice daily. PAST MEDICAL HISTORY Diagnosis Date Abnormal Pap smear of cervix Asthma Rios's esophagus 03/2021 COVID-19 virus antibody detected 09/2020 Dysplasia of cervix, high grade EDIE 2 s/p LEEP. repeat pap normal x2 Herpes zoster without mention of complication 1987 History of gastric ulcer History of pre-eclampsia in prior , currently Hypertension Infertility, female Multiple thyroid nodules Other pulmonary embolism without acute cor pulmonale (HCC) 09/28/2020 PMH - PAST MEDICAL HISTORY OF Color Vision - Normal PMH - PAST MEDICAL HISTORY OF Asthma PMH - PAST MEDICAL HISTORY OF Capillary Hemangioma Left buttocks PMH - PAST MEDICAL HISTORY OF 08/03/1989 Lead Level 5mgm Vertigo Social History Tobacco Use Smoking status: Former Packs/day: 1.00 Years: 13.00 Additional pack years: 0.00 Total pack years: 13.00 Types: Cigarettes Quit date: 08/10/2018 Years since quittin.6 Smokeless tobacco: Never Vaping Use Vaping Use: Never used Substance Use Topics Alcohol use: Not Currently Drug use: No ASSESSMENT/PLAN: ASSESSMENT/PLAN: 1. Routine medical exam - ICD9: V70.0, ICD10: Z00.00 (primary diagnosis) - Endorse healthy diet and regular exercise - Calcium intake with supplements or by diet of 1000 mg/day [facility], HPV Pap 2020. 2. Screening for lipid disorders - ICD9: V77.91, ICD10: Z13.220 - LIPID PANEL, NONFASTING - LIPID PANEL BASIC 3. Encounter for screening for diabetes mellitus - ICD9: V77.1, ICD10: Z13.1 4. Encounter for immunization - ICD9: V03.89, ICD10: Z23 - PNEUMOCOCCAL VACCINE (PREVNAR 20) 5. Multiple thyroid nodules - ICD9: 241.1, ICD10: E04.2 Seen at [facility] by general surgeon 6. Mild intermittent asthma without complication - ICD9: 493.90, ICD10: J45.20 stable - Avoidance of triggers recommended 7. Hemolysis, elevated liver enzymes, and low platelet (HELLP) syndrome during , - ICD9: 642.54, ICD10: O14.25 8. History of pulmonary embolism - ICD9: V12.55, ICD10: Z86.711 Has been followed by hematology 9. Rios's esophagus without dysplasia - ICD9: 530.85, ICD10: K22.70 Followed by gastroenterology State no EGD now, at future date. States all testing needed for liver done with inpatient at /CC. Have form, will send once labs completed. OK fax to [facility] and to mail original to her. [address] Oliveira to establish care. Dominic Lowe APRN.CNS Medical Decision Making: Problems: Moderate: 2+ stable chronic illnesses Data: Unique test(s) ordered: 1 Risk: Moderate: Drug management Medical Decision Making Level: 4 - Moderate documented in this encounter [facility] 04-15-2023 Note HNO ID: [id number] Author: Bryan Bales APRN.[employer] Service: ? Author Type: Nurse Practitioner Type: Progress Notes Filed: 04/15/2023 3:26 PM Note Text: Subjective HPI HPI Valerie Sánchez is a 32 year old female who presents today for CC of left ring finger laceration, 3 weeks ago, steri stripped for 2 weeks. Denies pain just looks swollen. .Patient presents with: Finger Injury: left ring finger laceration x 3 weeks ago, seen given antibiotic and glued now raised area PAST MEDICAL HISTORY Diagnosis Date Abnormal Pap smear of cervix Asthma Rios's esophagus 03/2021 COVID-19 virus antibody detected 09/2020 Dysplasia of cervix, high grade EDIE 2 s/p LEEP. repeat pap normal x2 Herpes zoster without mention of complication 1987 History of gastric ulcer History of pre-eclampsia in prior , currently Hypertension Infertility, female Multiple thyroid nodules Other pulmonary embolism without acute cor pulmonale (HCC) 09/28/2020 PMH - PAST MEDICAL HISTORY OF Color Vision - Normal PMH - PAST MEDICAL HISTORY OF Asthma PMH - PAST MEDICAL HISTORY OF Capillary Hemangioma Left buttocks PMH - PAST MEDICAL HISTORY OF 08/03/1989 Lead Level 5mgm Vertigo PAST SURGICAL HISTORY Procedure Laterality Date ANESTH, SECTION CERVIX UTERI CONIZA LP ELCTRO EXCI 07/2019 EGD 02/28/2021 gastritis, Rios's esophagus ESOPHAGOGASTRODUODENOSCOPY TRANSORAL DIAGNOSTIC 02/28/2021 wisdom teeth extraction 08/03/2009 ALLERGIES Plexion [Sulfacetamide Sodium-Sulfur] MEDICATIONS LORazepam (ATIVAN) 0.5 mg Take 1 tablet 45 min prior to MRI, repeat dose if necessary pantoprazole (PROTONIX) 40 mg tablet Take 1 tablet by mouth once daily. 21/iron fu/folic acid ( COMPLETE ORAL) Take 2 tablets by mouth twice daily. FAMILY HISTORY Problem Relation Age of Onset Lung Cancer Mother None Father Alcohol abuse Maternal Grandmother Schizophrenia Maternal Uncle Alcohol abuse Maternal Uncle Social History Tobacco Use Smoking status: Former Packs/day: 1.00 Years: 13.00 Additional pack years: 0.00 Total pack years: 13.00 Types: Cigarettes Quit date: 08/10/2018 Years since quittin.6 Smokeless tobacco: Never Vaping Use Vaping Use: Never used Substance Use Topics Alcohol use: Not Currently Drug use: No ROS Objective Blood pressure 122/74, pulse 112, temperature 36.6 ?C (97.8 ?F), resp. rate 16, weight 79.4 kg (175 lb), last menstrual period 12/24/2022, SpO2 99 %, currently . Physical Exam Constitutional: General: She is not in acute distress. Appearance: She is not toxic-appearing or diaphoretic. HENT: Head: Normocephalic and atraumatic. Pulmonary: Effort: Pulmonary effort is normal. No accessory muscle usage or respiratory distress. Musculoskeletal: Hands: Neurological: Mental Status: She is alert and oriented to person, place, and time. ASSESSMENT/PLAN: 1. Injury of finger of left hand, subsequent encounter - ICD9: V58.89, 959.5, ICD10: S69.92XD Possible keloid formation vs normal healing. Reassurance provided. F/u for new/continued s/s. Bryan Balse APRN.[facility] 04-15-2023 History of Presen t illness Narrative Images from the original note were not included. Subjective HPI HPI Valerie Sánchez is a 32 year old female who presents today for CC of left ring finger laceration, 3 weeks ago, steri stripped for 2 weeks. Denies pain just looks swollen. .Patient presents with: Finger Injury: left ring finger laceration x 3 weeks ago, seen given antibiotic and glued now raised area PAST MEDICAL HISTORY Diagnosis Date Abnormal Pap smear of cervix Asthma Rios's esophagus 03/2021 COVID-19 virus antibody detected 09/2020 Dysplasia of cervix, high grade EDIE 2 s/p LEEP. repeat pap normal x2 Herpes zoster without mention of complication 1987 History of gastric ulcer History of pre-eclampsia in prior , currently Hypertension Infertility, female Multiple thyroid nodules Other pulmonary embolism without acute cor pulmonale (HCC) 09/28/2020 PMH - PAST MEDICAL HISTORY OF Color Vision - Normal PMH - PAST MEDICAL HISTORY OF Asthma PMH - PAST MEDICAL HISTORY OF Capillary Hemangioma Left buttocks PMH - PAST MEDICAL HISTORY OF 08/03/1989 Lead Level 5mgm Vertigo PAST SURGICAL HISTORY Procedure Laterality Date ANESTH, SECTION CERVIX UTERI CONIZA LP ELCTRO EXCI 07/2019 EGD 02/28/2021 gastritis, Rios's esophagus ESOPHAGOGASTRODUODENOSCOPY TRANSORAL DIAGNOSTIC 02/28/2021 wisdom teeth extraction 08/03/2009 ALLERGIES Plexion [Sulfacetamide Sodium-Sulfur] MEDICATIONS LORazepam (ATIVAN) 0.5 mg Take 1 tablet 45 min prior to MRI, repeat dose if necessary pantoprazole DR (PROTONIX) 40 mg tablet Take 1 tablet by mouth once daily. 21/iron fu/folic acid ( COMPLETE ORAL) Take 2 tablets by mouth twice daily. FAMILY HISTORY Problem Relation Age of Onset Lung Cancer Mother None Father Alcohol abuse Maternal Grandmother Schizophrenia Maternal Uncle Alcohol abuse Maternal Uncle Social History Tobacco Use Smoking status: Former Packs/day: 1.00 Years: 13.00 Additional pack years: 0.00 Total pack years: 13.00 Types: Cigarettes Quit date: 08/10/2018 Years since quittin.6 Smokeless tobacco: Never Vaping Use Vaping Use: Never used Substance Use Topics Alcohol use: Not Currently Drug use: No ROS Objective Blood pressure 122/74, pulse 112, temperature 36.6 C (97.8 F), resp. rate 16, weight 79.4 kg (175 lb), last menstrual period 12/24/2022, SpO2 99 %, currently . Physical Exam Constitutional: General: She is not in acute distress. Appearance: She is not toxic-appearing or diaphoretic. HENT: Head: Normocephalic and atraumatic. Pulmonary: Effort: Pulmonary effort is normal. No accessory muscle usage or respiratory distress. Musculoskeletal: Hands: Neurological: Mental Status: She is alert and oriented to person, place, and time. ASSESSMENT/PLAN: 1. Injury of finger of left hand, subsequent encounter - ICD9: V58.89, 959.5, ICD10: S69.92XD Possible keloid formation vs normal healing. Reassurance provided. F/u for new/continued s/s. Bryan Bales APRN.CNP documented in this encounter [facility] 04-10-2023 Miscellaneous Notes No answer. Left message that labs have been placed to had done prior to 04/20 appointment. CBC, iron studies completed 12/2022. Follow up labs ordered for July per hematology. Thyroid nodules 02/2023 on [facility]. TSH, CMP and magnesium labs ordered. Patient is scheduled with Dominic for a physical next Friday 04/20 and requesting lab orders be placed including Thyroid labs. documented in this encounter [facility] 03-30-2023 Miscellaneous Notes Schedule appt with me next week if she does not do so- 40 min physical. documented in this encounter [facility] 03-20-2023 Note HNO ID: [id number] Author: Bryan Bales APRN.CNP Service: ? Author Type: Nurse Practitioner Type: Progress Notes Filed: 03/20/2023 10:44 AM Note Text: Subjective HPI HPI Valerie Sánchez is a 32 year old female who presents today for CC of left hand ring finger laceration. This started 1 hour ago, broke ceramic dog bowl.. Symptoms are worsened by nothing. Last tetanus vaccine 2019. .Patient presents with: Laceration: Laceration to left ring finger x 1 hour PAST MEDICAL HISTORY Diagnosis Date Abnormal Pap smear of cervix Asthma Rios's esophagus 03/2021 COVID-19 virus antibody detected 09/2020 Dysplasia of cervix, high grade EDIE 2 s/p LEEP. repeat pap normal x2 Herpes zoster without mention of complication 1987 History of gastric ulcer History of pre-eclampsia in prior , currently Hypertension Infertility, female Multiple thyroid nodules Other pulmonary embolism without acute cor pulmonale (HCC) 09/28/2020 PMH - PAST MEDICAL HISTORY OF Color Vision - Normal PMH - PAST MEDICAL HISTORY OF Asthma PMH - PAST MEDICAL HISTORY OF Capillary Hemangioma Left buttocks PMH - PAST MEDICAL HISTORY OF 08/03/1989 Lead Level 5mgm Vertigo PAST SURGICAL HISTORY Procedure Laterality Date ANESTH, SECTION CERVIX UTERI CONIZA LP ELCTRO EXCI 07/2019 EGD 02/28/2021 gastritis, Rios's esophagus ESOPHAGOGASTRODUODENOSCOPY TRANSORAL DIAGNOSTIC 02/28/2021 wisdom teeth extraction 08/03/2009 ALLERGIES Plexion [Sulfacetamide Sodium-Sulfur] MEDICATIONS pantoprazole DR (PROTONIX) 40 mg tablet Take 1 tablet by mouth once daily. 21/iron fu/folic acid ( COMPLETE ORAL) Take 2 tablets by mouth twice daily. cephALEXin (KEFLEX) 500 mg capsule Take 1 capsule by mouth twice daily for 5 days. diazePAM (VALIUM) 5 mg tablet Take 1 tablet 45 min prior to MRI, repeat dose if necessary FAMILY HISTORY Problem Relation Age of Onset Lung Cancer Mother None Father Alcohol abuse Maternal Grandmother Schizophrenia Maternal Uncle Alcohol abuse Maternal Uncle Social History Tobacco Use Smoking status: Former Packs/day: 1.00 Years: 13.00 Total pack years: 13.00 Types: Cigarettes Quit date: 08/10/2018 Years since quittin.6 Smokeless tobacco: Never Vaping Use Vaping Use: Never used Substance Use Topics Alcohol use: Not Currently Drug use: No ROS Objective Blood pressure 108/82, pulse 95, temperature 36.2 ?C (97.2 ?F), temperature source Tympanic, resp. rate 18, weight 80 kg (176 lb 6.4 oz), last menstrual period 12/24/2022, SpO2 97 %, currently . Physical Exam Musculoskeletal: Hands: ASSESSMENT/PLAN: 1. Laceration of finger of left hand with damage to nail, foreign body presence unspecified, unspecified finger, initial encounter - ICD9: 883.0, ICD10: S61.319A Let steri strip fall off Wear splint for 7 days with gentle rom F/u for s/s infection Cover with cephalexin/prophylactic atb. - CEPHALEXIN 500 MG CAPSULE Bryan Bales APRN.[employer] [facility] 03-20-2023 History of Presen t illness Narrative Images from the original note were not included. Subjective HPI HPI Valerie Sánchez is a 32 year old female who presents today for CC of left hand ring finger laceration. This started 1 hour ago, broke ceramic dog bowl.. Symptoms are worsened by nothing. Last tetanus vaccine 2019. .Patient presents with: Laceration: Laceration to left ring finger x 1 hour PAST MEDICAL HISTORY Diagnosis Date Abnormal Pap smear of cervix Asthma Rios's esophagus 03/2021 COVID-19 virus antibody detected 09/2020 Dysplasia of cervix, high grade EDIE 2 s/p LEEP. repeat pap normal x2 Herpes zoster without mention of complication 1987 History of gastric ulcer History of pre-eclampsia in prior , currently Hypertension Infertility, female Multiple thyroid nodules Other pulmonary embolism without acute cor pulmonale (HCC) 09/28/2020 PMH - PAST MEDICAL HISTORY OF Color Vision - Normal PMH - PAST MEDICAL HISTORY OF Asthma PMH - PAST MEDICAL HISTORY OF Capillary Hemangioma Left buttocks PMH - PAST MEDICAL HISTORY OF 08/03/1989 Lead Level 5mgm Vertigo PAST SURGICAL HISTORY Procedure Laterality Date ANESTH, SECTION CERVIX UTERI CONIZA LP ELCTRO EXCI 07/2019 EGD 02/28/2021 gastritis, Rios's esophagus ESOPHAGOGASTRODUODENOSCOPY TRANSORAL DIAGNOSTIC 02/28/2021 wisdom teeth extraction 08/03/2009 ALLERGIES Plexion [Sulfacetamide Sodium-Sulfur] MEDICATIONS pantoprazole DR (PROTONIX) 40 mg tablet Take 1 tablet by mouth once daily. 21/iron fu/folic acid ( COMPLETE ORAL) Take 2 tablets by mouth twice daily. cephALEXin (KEFLEX) 500 mg capsule Take 1 capsule by mouth twice daily for 5 days. diazePAM (VALIUM) 5 mg tablet Take 1 tablet 45 min prior to MRI, repeat dose if necessary FAMILY HISTORY Problem Relation Age of Onset Lung Cancer Mother None Father Alcohol abuse Maternal Grandmother Schizophrenia Maternal Uncle Alcohol abuse Maternal Uncle Social History Tobacco Use Smoking status: Former Packs/day: 1.00 Years: 13.00 Total pack years: 13.00 Types: Cigarettes Quit date: 08/10/2018 Years since quittin.6 Smokeless tobacco: Never Vaping Use Vaping Use: Never used Substance Use Topics Alcohol use: Not Currently Drug use: No ROS Objective Blood pressure 108/82, pulse 95, temperature 36.2 C (97.2 F), temperature source Tympanic, resp. rate 18, weight 80 kg (176 lb 6.4 oz), last menstrual period 12/24/2022, SpO2 97 %, currently . Physical Exam Musculoskeletal: Hands: ASSESSMENT/PLAN: 1. Laceration of finger of left hand with damage to nail, foreign body presence unspecified, unspecified finger, initial encounter - ICD9: 883.0, ICD10: S61.319A Let steri strip fall off Wear splint for 7 days with gentle rom F/u for s/s infection Cover with cephalexin/prophylactic atb. - CEPHALEXIN 500 MG CAPSULE Bryan Bales APRN.[employer] documented in this encounter [facility] 03-16-2023 Note HNO ID: [id number] Author: Keith Michelle PA-C Service: ? Author Type: Physician Anesthesia Resident Type: Progress Notes Filed: 03/16/2023 2:39 PM Note Text: VIRTUAL VISIT PROGRESS NOTE This is a virtual visit using [employer] video visit. It required patient-provider interaction for the medical decision making as documented below. I have communicated my name and active licensure. The patient's identity and physical location were verified at the time of this visit. Either the patient or their legal licensing representative has been informed of the risks and benefits of -- and alternatives to -- treatment through a remote evaluation and consents to proceed with the evaluation remotely. Valerie Sánchez is a 32 year old female seen for follow-up Last office visit: 01/19/21 (NAVJOT Michelle) Symptoms had been managed until several months ago, developed progressive lower back pain with intermittent R leg pain with standing, walking and with activities Bending, lifting, twisting will also exacerbate her symptoms She is currently her 15 m old child so limited on medications she can take, she has primarily been using OTC tylenol Conservative management has also included: PT exercises at home, heat, and light stretching HISTORY REVIEWED (electronic chart updated): PAST MEDICAL HISTORY Diagnosis Date Abnormal Pap smear of cervix Asthma Rios's esophagus 03/2021 COVID-19 virus antibody detected 09/2020 Dysplasia of cervix, high grade EDIE 2 s/p LEEP. repeat pap normal x2 Herpes zoster without mention of complication 1987 History of gastric ulcer History of pre-eclampsia in prior , currently Hypertension Infertility, female Multiple thyroid nodules Other pulmonary embolism without acute cor pulmonale (HCC) 09/28/2020 PMH - PAST MEDICAL HISTORY OF Color Vision - Normal PMH - PAST MEDICAL HISTORY OF Asthma PMH - PAST MEDICAL HISTORY OF Capillary Hemangioma Left buttocks PMH - PAST MEDICAL HISTORY OF 08/03/1989 Lead Level 5mgm Vertigo PAST SURGICAL HISTORY Procedure Laterality Date ANESTH, SECTION CERVIX UTERI CONIZA LP ELCTRO EXCI 07/2019 EGD 02/28/2021 gastritis, Rios's esophagus ESOPHAGOGASTRODUODENOSCOPY TRANSORAL DIAGNOSTIC 02/28/2021 wisdom teeth extraction 08/03/2009 FAMILY HISTORY Problem Relation Age of Onset Lung Cancer Mother None Father Alcohol abuse Maternal Grandmother Schizophrenia Maternal Uncle Alcohol abuse Maternal Uncle Social History Tobacco Use Smoking status: Former Packs/day: 1.00 Years: 13.00 Total pack years: 13.00 Types: Cigarettes Quit date: 08/10/2018 Years since quittin.6 Smokeless tobacco: Never Vaping Use Vaping Use: Never used Substance Use Topics Alcohol use: Not Currently Drug use: No Current Outpatient Medications Medication Sig amoxicillin-clavulanic acid (AUGMENTIN) 500-125 mg per tablet TAKE 1 PILL BY MOUTH TWICE PER DAY FOR 7 DAYS. TAKE WITH FOOD pantoprazole DR (PROTONIX) 40 mg tablet Take 1 tablet by mouth once daily. 21/iron fu/folic acid ( COMPLETE ORAL) Take 2 tablets by mouth twice daily. No current facility-administered medications for this visit. ALLERGIES Allergen Reactions Plexion [Sulfacetam* Rash Data Review: MRI lumbar spine (01/04/21): Lower lumbar degenerative disc changes as described. Notably, a disc herniation at L5-S1 causes mass effect on the right S1 nerve root. XR cervical spine (12/20/20): Straightening of the normal lordosis. Disc spaces are maintained. No fracture or prevertebral swelling. Neural foramina are widely patent. Normal mineralization and alignment. ASSESSMENT/PLAN: Chronic, low back pain, intermittent R S1 leg pain; lumbar DDD, spondylosis with facet arthropathy; R S1 HNP (mild) Discussed trial of core strengthening Continue with lumbar home exercise program She will discuss different NSAID options with her SPLICER APPRENTICE Plan for updated XR and MRI lumbar spine Consideration for lumbar facet vs MALENA pending results of updated imaging I spent a total of 30 minutes on the date of the service which included counseling and educating the patient/family/caregiver Keith Michelle PA-C Spine Surgery [facility] 01-22-2023 Note HNO ID: [id number] Author: Az Flynn MD Service: ? Author Type: Physician Type: Progress Notes Filed: 01/22/2023 2:56 PM Note Text: Rios's esophagus (Due for EGD) HPI:Valerie Sánchez is a 32 year old female who presents for Rios's esophagus (Due for EGD). She is known c/o- GERD with short-segment Rios's esophagus without dysplasia. She had last EGD in February 2021. She is on Protonix 40 mg daily which she takes in the evening. No h/o- nausea, vomiting, loss of appetite, hematemesis, bleeding OR, unexplained weight loss, diarrhea, tenesmus, nocturnal diarrhea. PAST MEDICAL HISTORY Diagnosis Date Abnormal Pap smear of cervix Asthma Rios's esophagus 03/2021 COVID-19 virus antibody detected 09/2020 Dysplasia of cervix, high grade EDIE 2 s/p LEEP. repeat pap normal x2 Herpes zoster without mention of complication 1987 History of gastric ulcer History of pre-eclampsia in prior , currently Hypertension Infertility, female Multiple thyroid nodules Other pulmonary embolism without acute cor pulmonale (HCC) 09/28/2020 PMH - PAST MEDICAL HISTORY OF Color Vision - Normal PMH - PAST MEDICAL HISTORY OF Asthma PMH - PAST MEDICAL HISTORY OF Capillary Hemangioma Left buttocks PMH - PAST MEDICAL HISTORY OF 08/03/1989 Lead Level 5mgm Vertigo PAST SURGICAL HISTORY Procedure Laterality Date ANESTH, SECTION CERVIX UTERI CONIZA LP ELCTRO EXCI 07/2019 EGD 02/28/2021 gastritis, Rios's esophagus ESOPHAGOGASTRODUODENOSCOPY TRANSORAL DIAGNOSTIC 02/28/2021 wisdom teeth extraction 08/03/2009 Allergies: ALLERGIES Allergen Reactions Plexion [Sulfacetam* Rash Medications: amoxicillin-clavulanic acid (AUGMENTIN) 500-125 mg per tabletTAKE 1 PILL BY MOUTH TWICE PER DAY FOR 7 DAYS. TAKE WITH FOODDisp: Rfl: pantoprazole DR (PROTONIX) 40 mg tabletTake 1 tablet by mouth once daily.Disp: 30 tabletRfl: 5 21/iron fu/folic acid ( COMPLETE ORAL)Take 2 tablets by mouth twice daily. Disp: Rfl: FAMILY HISTORY Problem Relation Age of Onset Lung Cancer Mother None Father Alcohol abuse Maternal Grandmother Schizophrenia Maternal Uncle Alcohol abuse Maternal Uncle Employer And Job Title: No employer specified (student) Years Of Education Completed: Not specified Marital Status: Social History Tobacco Use Smoking status: Former Packs/day: 1.00 Years: 13.00 Pack years: 13.00 Types: Cigarettes Quit date: 08/10/2018 Years since quittin.4 Smokeless tobacco: Never Vaping Use Vaping Use: Never used Substance Use Topics Alcohol use: Not Currently Drug use: No Review of Systems: Review of Systems Gastrointestinal: Change in bowel habits All other systems reviewed and are negative. I have confirmed and edited as necessary, the PFSH and ROS obtained by others. Hemoglobin (g/dL) Date Value 12/28/2022 13.3 07/26/2021 12.2 Hematocrit (%) Date Value 12/28/2022 41.2 07/26/2021 35.5 WBC (k/uL) Date Value 12/28/2022 6.64 07/26/2021 9.36 Platelet Count (k/uL) Date Value 12/28/2022 346 07/26/2021 283 CMP: Glucose 78 12/22/2021 BUN 11 12/22/2021 Creatinine 0.56 12/22/2021 Sodium 134 12/22/2021 Potassium 4.1 12/22/2021 Chloride 101 12/22/2021 CO2 21 12/22/2021 Protein, Total 6.6 12/22/2021 Albumin 3.4 12/22/2021 Calcium 9.8 12/22/2021 Alkaline Phosphatase 110 12/22/2021 Bilirubin, Total 0.4 12/22/2021 AST 41 12/22/2021 ALT 143 12/22/2021 Physical Examination: BP 122/78 Pulse 88 Wt 176 lb 4.8 oz (80.0kg) LMP 12/24/2022 General appearance: Well appearing, alert, in no acute distress, well-hydrated, well nourished. Skin: Skin color, texture, turgor normal Head: Normocephalic, no masses, lesions, tenderness or abnormalities Eyes: Anicteric sclera. Pupils are equally round. Oropharynx: Lips, mucosa, and tongue normal, teeth and gums normal, oropharynx normal Neck: Supple, no adenopathy; thyroid symmetric, normal size, no bruits Lungs: Lungs clear to auscultation. No wheezing, rhonchi, rales. Heart: RRR without murmur, gallop, or rubs. No ectopy Abdomen: Normal abdominal exam, Abdomen soft, non-tender. Bowel sounds normal. No masses, organomegaly Extremities: No deformities, edema, skin discoloration, clubbing or cyanosis. Good capillary refill. ASSESSMENT: 32 year old female patient who is in our clinic with GERD with short segment Rios's esophagus. Her reflux symptoms are well controlled.. PLAN: Continue on PPI and reflux precautions. She can have Rios's surveillance upper endoscopy in 1 year. Discussed the etiology of GERD with patient. Encouraged lifestyle changes and the need for a lifelong regimen of medications to help reduce symptoms. Discussed the potential for serious complications if symptoms are not resolved. Discussed raising the head of the bed 4 to 6 inches; avoiding chocolate, coffee, peppermint, fruit juices, farshad (more content not included)... [facility] 01-18-2023 Note HNO ID: [id number] Author: Eliza Katz MD Service: ? Author Type: Physician Type: Progress Notes Filed: 02/05/2023 9:40 PM Note Text: AMBULATORY TELEPHONE VISIT Valerie Sánchez 1990 January 18, 2023 HPI: Valerie Sánchez is a 32 year old female who presents as a second opinion for hx of PE and HELLP syndrome. Per notes, s/p C section with Dr. Aldrich. Previously saw Dr. Rodgers in [place]. Per notes: Hematologic problem(s): 1) Pulmonary emboli. 2) Mild decrease in functional Antithrombin. HPI: The patient is a 31-year-old female with no significant past medical history who presented to the emergency department at [facility] on 09/28/2020 with complaint of cough and shortness of breath which started the morning of admission. There was associated pleuritic chest pain with deep inspiration. She initially presented to the urgent care facility and was noted to be tachycardic with a heart rate in the 130s so she was advised to go to the ED. CT Chest 09/28/2020: FINDINGS: Small benign-appearing bilateral axillary lymph nodes. There are multiple nonocclusive intraluminal filling defects in branches of the upper lobe pulmonary arteries in keeping with the pulmonary emboli. There is also evidence of a multiple small bilateral pulmonary emboli in the lower lobe pulmonary arteries. Normal thoracic aorta and visualized great vessels. There is no demonstrated aortic dissection. Normal heart and pericardium. There are calcified mediastinal lymph nodes. There are calcified right hilar lymph nodes. Normal visualized trachea and bronchi. The lungs are well expanded. Calcified granuloma in the right lower lobe. Calcified right hilar lymph nodes and subcarinal lymph nodes. Normal pleura. Normal chest wall structures. Normal osseous structures. Normal visualized upper abdomen. IMPRESSION: Bilateral pulmonary emboli. Was admitted and started on apixaban. PCR test for Covid was negative. However her serology for SARS was positive. Echocardiogram was performed which demonstrated normal left ventricular systolic function with an estimated ejection fraction of 65%. There was trivial mitral and tricuspid valve insufficiency. The RV systolic pressure was not able to be determined secondary to insufficient tricuspid regurgitant envelope. There was no evidence of diastolic dysfunction. Per initial consultation here: Around the end of August 2020 had cough, sore throat, severe fatigue, mild chills without fever or loss of taste/smell. The symptoms persisted for about a week. Covid testing was negative. Menses while on apixaban. Was first off OCPs. Was heavy for about 4-5 days. Small clots. Shortness of breath had improved however she still had tachycardia and on Sunday began experiencing similar symptoms she had in August including sore throat and fatigue. This was also associated with a dry cough but occasionally she had some clear sputum production. No hemoptysis. No fever. Sex: Female. Smoker: Quit smoking 08/2018. BMI: Not calculated. Family h/o VTE: Only knows mother--she age 45 from lung cancer. Family h/o atherosclerotic disease: Unknown. Family h/o cancer: Mother as above. Hypercoagulation labs: None. Provoking factors: OCPs discontinued mid September 2020 after ~16 year of use. Had not received any fertility medications. Presumed recent Covid infection 08/2020. Presents for ongoing oncologic management. On Lovenox. Tolerating well with no unusual bleeding or unexplained bruising. No complications with . No lower extremity swelling or edema. No leg pain. 26w and 4d. -In summary the patient is a 30-year-old female who developed bilateral pulmonary emboli following a presumptive Covid infection 08/2020. Infection was evidenced by her prior symptoms and presence of antibodies on testing done when admitted to [facility] 09/28/2020 for the pulmonary emboli. Duplex exam of the legs was not performed. She had discontinued oral contraceptives about 1 to 2 weeks prior to admission after ~16 years of use. She quit smoking in August 2018 following her mother's passing from lung cancer. -Initial hypercoagulation testing 02/01/2021 revealed an isolated decrease in functional Antithrombin level with normal levels of antigenic Antithrombin, fibrinogen, protein C, protein S and plasminogen. This suggested the possibility of an acquired Antithrombin deficiency. D-dimer was negative at the time. -Most recent labs 04/2021 reveal continued decrease in functional Antithrombin with normal antigenic level. -Currently 26 weeks and 4 days. Tolerating Lovenox well. 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 Evidently she will be changed to subcutaneous heparin about a month before delivery. We will continue to monitor her weight and adjust Lovenox dose acc (more content not included)... [facility] 01-18-2023 History of Presen t illness Narrative AMBULATORY TELEPHONE VISIT Valerie Sánchez 1990 January 18, 2023 HPI: Valerie Sánchez is a 32 year old female who presents as a second opinion for hx of PE and HELLP syndrome. Per notes, s/p C section with Dr. Aldrich. Previously saw Dr. Rodgers in [place]. Per notes: Hematologic problem(s): 1) Pulmonary emboli. 2) Mild decrease in functional Antithrombin. HPI: The patient is a 31-year-old female with no significant past medical history who presented to the emergency department at [facility] on 09/28/2020 with complaint of cough and shortness of breath which started the morning of admission. There was associated pleuritic chest pain with deep inspiration. She initially presented to the urgent care facility and was noted to be tachycardic with a heart rate in the 130s so she was advised to go to the ED. CT Chest 09/28/2020: FINDINGS: Small benign-appearing bilateral axillary lymph nodes. There are multiple nonocclusive intraluminal filling defects in branches of the upper lobe pulmonary arteries in keeping with the pulmonary emboli. There is also evidence of a multiple small bilateral pulmonary emboli in the lower lobe pulmonary arteries. Normal thoracic aorta and visualized great vessels. There is no demonstrated aortic dissection. Normal heart and pericardium. There are calcified mediastinal lymph nodes. There are calcified right hilar lymph nodes. Normal visualized trachea and bronchi. The lungs are well expanded. Calcified granuloma in the right lower lobe. Calcified right hilar lymph nodes and subcarinal lymph nodes. Normal pleura. Normal chest wall structures. Normal osseous structures. Normal visualized upper abdomen. IMPRESSION: Bilateral pulmonary emboli. Was admitted and started on apixaban. PCR test for Covid was negative. However her serology for SARS was positive. Echocardiogram was performed which demonstrated normal left ventricular systolic function with an estimated ejection fraction of 65%. There was trivial mitral and tricuspid valve insufficiency. The RV systolic pressure was not able to be determined secondary to insufficient tricuspid regurgitant envelope. There was no evidence of diastolic dysfunction. Per initial consultation here: Around the end of August 2020 had cough, sore throat, severe fatigue, mild chills without fever or loss of taste/smell. The symptoms persisted for about a week. Covid testing was negative. Menses while on apixaban. Was first off OCPs. Was heavy for about 4-5 days. Small clots. Shortness of breath had improved however she still had tachycardia and on Sunday began experiencing similar symptoms she had in August including sore throat and fatigue. This was also associated with a dry cough but occasionally she had some clear sputum production. No hemoptysis. No fever. Sex: Female. Smoker: Quit smoking 08/2018. BMI: Not calculated. Family h/o VTE: Only knows mother--she age 45 from lung cancer. Family h/o atherosclerotic disease: Unknown. Family h/o cancer: Mother as above. Hypercoagulation labs: None. Provoking factors: OCPs discontinued mid September 2020 after ~16 year of use. Had not received any fertility medications. Presumed recent Covid infection 08/2020. Presents for ongoing oncologic management. On Lovenox. Tolerating well with no unusual bleeding or unexplained bruising. No complications with . No lower extremity swelling or edema. No leg pain. 26w and 4d. -In summary the patient is a 30-year-old female who developed bilateral pulmonary emboli following a presumptive Covid infection 08/2020. Infection was evidenced by her prior symptoms and presence of antibodies on testing done when admitted to [facility] 09/28/2020 for the pulmonary emboli. Duplex exam of the legs was not performed. She had discontinued oral contraceptives about 1 to 2 weeks prior to admission after ~16 years of use. She quit smoking in August 2018 following her mother's passing from lung cancer. -Initial hypercoagulation testing 02/01/2021 revealed an isolated decrease in functional Antithrombin level with normal levels of antigenic Antithrombin, fibrinogen, protein C, protein S and plasminogen. This suggested the possibility of an acquired Antithrombin deficiency. D-dimer was negative at the time. -Most recent labs 04/2021 reveal continued decrease in functional Antithrombin with normal antigenic level. -Currently 26 weeks and 4 days. Tolerating Lovenox well. 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 Evidently she will be changed to subcutaneous heparin about a month before delivery. We will continue to monitor her weight and adjust Lovenox dose accordingly until then. Plan: -Increase Lovenox to 85 mg every 12 hours. -Check weight in about a month. -I instructed her to increase Lovenox to 90 mg every 12 hours if her weight goes up to 198 prior to her weight check here in a month. (D50.9) Iron deficiency anemia, unspecified iron deficiency anemia type Assessment: -Previously secondary to heavier menses. -She is on [id number] vitamin with some iron supplementation not clear how much. Plan: -Check CBC today. Per Dr. Aldrich's notes: 31 year old s/p pLTCS at 33w2d in the setting of HELLP syndrome. She did receive 2 units of platelets . Platelets and LFTs improved. 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 Home BPs reported as normal. Denies any signs/symptoms of preeclampsia. /pumping. Complains of bilateral breast nodules. Denies erythema, fevers, and chills. Reports productive cough, denies CP or SOB. 31 year old s/p LTCS at 33w2d in the setting of HELLP -. -PPBC- considering permanent sterilization including vasectomy. -Hx of HELLP: Discussed recurrence risk in future pregnancies. 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 Advised second opinion consult with Dr. Katz for further evaluation of thrombophilia. She was counseled that while APLS has been associated with preeclampsia, inherited thrombophilia's such as ATIII deficiency have not been shown to be associated with preeclampsia or other obstetric outcomes. Says she woke up SOB. No warning signs in her legs. COVID Ab +. Had stopped OCPs 1 mo prior. Had long COVID symptoms. Was only going to stay on OAC for 6 mo but then had a bunch of issues. 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 Was on Eliquis before . Now on Lovenox. Is on 0.4 once a day. Was on 0.85 twice day when . Had a boy - just came home from NICU last week. He is a month old now. No hx of clotting d/o. Mother with lung cancer. Very healthy. Exercises 5x/week. Non smoker. Never going back on OCPs. No further pregnancies. having vasectomy. Will use condoms. . Interval History: Today she is here for follow up virtually. Still waiting to have EGD. Was supposed to be seen yesterday and was moved yesterday out a month. No gastro person in [place] anymore. Not having any symptoms. Seeing GI later this week. Menses may be a little bit better. Still feel heavy to her. Needs to have Rios's esophagus follow up EGD. Wants no further pregnancies. She is doing well. PAST MEDICAL HISTORY Diagnosis Date Abnormal Pap smear of cervix Asthma Rios's esophagus 03/2021 COVID-19 virus antibody detected 09/2020 Dysplasia of cervix, high grade EDIE 2 s/p LEEP. repeat pap normal x2 Herpes zoster without mention of complication 1987 History of gastric ulcer History of pre-eclampsia in prior , currently Hypertension Infertility, female Multiple thyroid nodules Other pulmonary embolism without acute cor pulmonale (HCC) 09/28/2020 PMH - PAST MEDICAL HISTORY OF Color Vision - Normal PMH - PAST MEDICAL HISTORY OF Asthma PMH - PAST MEDICAL HISTORY OF Capillary Hemangioma Left buttocks PMH - PAST MEDICAL HISTORY OF 08/03/1989 Lead Level 5mgm Vertigo PAST SURGICAL HISTORY Procedure Laterality Date ANESTH, SECTION CERVIX UTERI CONIZA LP ELCTRO EXCI 07/2019 EGD gastric ulcer x3 ESOPHAGOGASTRODUODENOSCOPY TRANSORAL DIAGNOSTIC 02/28/2021 wisdom teeth extraction 08/03/2009 Current Outpatient Medications Medication Sig Dispense Refill pantoprazole DR (PROTONIX) 40 mg tablet Take 1 tablet by mouth once daily. 30 tablet 5 ibuprofen (MOTRIN) 800 mg tablet Take 1 tablet by mouth every 8 hours as needed for pain. 30 tablet 0 21/iron fu/folic acid ( COMPLETE ORAL) Take 2 tablets by mouth twice daily. Current Facility-Administered Medications Medication Dose Route Frequency Provider Last Rate Last Admin acetylcholine 10% solution - cchs compounding 20 mL IRRIGATION ONE TIME Gayathri Saul APRN.[employer] Allergen Reactions Plexion [Sulfacetam* Rash FAMILY HISTORY Problem Relation Age of Onset Lung Cancer Mother None Father Alcohol abuse Maternal Grandmother Schizophrenia Maternal Uncle Alcohol abuse Maternal Uncle Social History Tobacco Use Smoking status: Former Packs/day: 1.00 Years: 13.00 Pack years: 13.00 Types: Cigarettes Quit date: 08/10/2018 Years since quittin.4 Smokeless tobacco: Never Vaping Use Vaping Use: Never used Substance Use Topics Alcohol use: Not Currently Drug use: No I have reviewed the PMHx, PSHx, social history and ROS on January 18, 2023 - all new information noted. Review of Systems: Constitutional: No fevers, chills, drenching night sweats or unintentional weight loss. HEENT: No yellowing of the eyes, no vision changes, no hearing loss or ear pain, no nosebleeds or drainage, no sore throat. Neck: No complaints. Chest: No SOB or cough, no GARCIA, no hemoptysis, no wheezing. Breast: No complaints. Heart: No chest pain, pressure or tightness. No racing heartbeat. Abdominal: No pain or difficulty with swallowing, no N/V, no early satiety, no abdominal pain or bloating, no diarrhea or constipation, no change in bowel habits, no blood in the urine. S/p C section. Genitourinary: No pain or burning with urination, no incontinence, no blood in the urine. Extremities: no pain or swelling. Neurological: No headaches, no numbness or tingling in the extremities, no double vision. Skin: No rashes or ulcerations, no change in pigmentation. Nodes: no enlargement per patient. Heme: No easy bruising or bleeding, no yellowing of the eyes or darkening of urine. Psychiatric: no anxiety or depression. Immunologic: No recurrent or persistent infections of the sinuses, lungs or urinary tract. Endocrine: No hair or nail changes, no polyuria, polydipsia, or polyphagia. Appetite normal. I have performed the physical exam on January 18, 2023 - all new findings noted below. Physical Exam: (previous exam) [facility] 12/24/2022 ECOG PS: 0 Pain Intensity: 0/10 General: Age-appropriate well developed. Appears well. HEENT: Normocephalic, no sclera icterus, external ears normal, oral cavity clear. /Rectal: deferred Extremities: No cyanosis, clubbing, gross deformities. Neurological: Cranial nerves II through XII are intact bilaterally, no focal deficits. Hematologic: no bruising or petechiae. Psychiatric: Alert and oriented x3. Emotional well-being assessment was performed. Pt denies depression, distress, and or problems with coping or adjustment. Labs CBC: No results for input(s): WBC, HB, HCT, PLT, MCV, RDWCV, NEUTP, ABSNEUT, LYMPHP, MONOP, EODINP in the last 168 hours. COAG: No results for input(s): APTT, INR in the last 168 hours. BMP: No results for input(s): GLUC, NA, K, CHLOR, CO2, ANION, BUN, CREAT in the last 168 hours. CHEM: No results for input(s): ALB, TPROT, CA, MG in the last 168 hours. Appointment on 01/05/2023 Component Date Value Antithrombin Assay 01/05/2023 73 (A) Appointment on 12/28/2022 Component Date Value WBC 12/28/2022 6.64 RBC 12/28/2022 4.74 Hemoglobin 12/28/2022 13.3 Hematocrit 12/28/2022 41.2 MCV 12/28/2022 86.9 MCH 12/28/2022 28.1 MCHC 12/28/2022 32.3 RDW-CV 12/28/2022 11.9 Platelet Count 12/28/2022 346 MPV 12/28/2022 9.3 Neutrophils % 12/28/2022 47.2 Abs Neut 12/28/2022 3.14 Lymphocytes % 12/28/2022 42.6 Abs Lymph 12/28/2022 2.83 Monocytes % 12/28/2022 5.3 Abs Henry 12/28/2022 0.35 Eosinophils % 12/28/2022 3.5 Abs Eosin 12/28/2022 0.23 Basophils % 12/28/2022 1.2 Abs Baso 12/28/2022 0.08 Immature Granulocytes % 12/28/2022 0.2 Abs Immature Gran 12/28/2022 <0.03 NRBC 12/28/2022 0.0 Absolute nRBC 12/28/2022 <0.01 Diff Type 12/28/2022 Auto Iron 12/28/2022 81 TIBC 12/28/2022 390 (A) Transferrin Saturation 12/28/2022 20.8 Ferritin 12/28/2022 18.2 Pro C Fun 12/28/2022 123 Protein S Clottable 12/28/2022 58 (A) FERRITIN BLD Lab Results Component Value Date LENO 18.2 12/28/2022 LENO 19.8 05/18/2022 LENO 19.6 02/17/2022 IRON Lab Results Component Value Date FE 81 12/28/2022 FE 105 05/18/2022 FE 80 02/17/2022 TIBC Lab Results Component Value Date TIBC 390 (H) 12/28/2022 TIBC 420 (H) 05/18/2022 TIBC 404 (H) 02/17/2022 FOLATE No results found for: FOLATE AT III 02/2021 (Ag): 93 04/2021 (Activity): 69 10/31/21 (Activity): 159 10/31/21 (Ag): 83 05/18/22: 78% 09/14/22: 76% ATIII Ag normal x 3 There is an isolated decrease in the functional antithrombin level, with normal levels of antigenic antithrombin, fibrinogen, protein C, protein S and plasminogen. This suggests the possibility of acquired antithrombin deficiency. Acquired causes of decreased functional antithrombin include consumptive coagulopathy, liver disease, nephrotic syndrome, L-asparaginase therapy, heparin therapy and acute thrombosis. Suggest correlation with clinical findings. Alternatively, a type II defect (functionally defective AT) as a hereditary finding is another possibility. Hypercoag panel 02/2021 otherwise normal. Radiology: US RUQ 12/17/21: Gallbladder sludge with no shadowing stones or findings to suggest acute cholecystitis. 5.8 cm hypoechoic area in the liver may represent regional area of fatty infiltration versus solid mass such as hemangioma and can be best assessed with MRI as an outpatient after delivery. Mild hydronephrosis which can be physiologic during later stage of . CT liver 12/17/21: Multiple liver lesions. Favor benign etiology such as focal nodular hyperplasia or transient hepatic attenuation differences. Follow up liver MRI. No active extravasation. Trace free fluid. Multiple subcutaneous nodules in the anterior abdominal wall and in etiology. US vascular abd 12/18/21: PATENT HEPATIC VASCULATURE WITH APPROPRIATELY DIRECTED FLOW. Previous liver lesions are not well delineated. Liver appears overall heterogeneous. 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 This is achieved in the first instance by identifying high-risk episodes such as surgery, immobility and for which prophylactic anticoagulation can be used in the short term. Prophylaxis for such periods is best provided by the use of low molecular weight heparin (LMWH) with substitution by or addition of antithrombin concentrate in particularly high-risk circumstances. In the case of , antithrombin concentrate is often used around the time of when LMWH may increase the risk of post- haemorrhage. Acquired deficiency -- A variety of conditions lower the concentration of AT in the blood. Many of these are also associated with other alterations in procoagulant and anticoagulant factors, making it challenging to determine what role (if any) the reductions in AT levels play in the associated thrombotic complications. ?Disseminated intravascular coagulation (DIC) is characterized by ongoing coagulation and fibrinolysis that consumes procoagulant and anticoagulant factors [24]. Reports have suggested that more severe AT deficiency in the setting of DIC or sepsis is predictive of worse outcomes [25]. However, this association should not be interpreted to imply causation; for these conditions, the principle treatment involves addressing the underlying disease process. (See Evaluation and management of disseminated intravascular coagulation (DIC) in adults , section on 'Intravascular coagulation and fibrinolysis'.) ?Acute thrombosis can reduce AT levels transiently (table 1) [26]. ?Liver disease (primarily cirrhosis) may be characterized by reduced synthesis of procoagulant and anticoagulant factors, including AT [27,28]. (See Hemostatic abnormalities in patients with liver disease , section on 'Physiologic effects of hepatic dysfunction'.) ?Nephrotic syndromes may be associated with urinary losses of AT as well as other anticoagulant factors including protein S and protein C [29,30]. (See Hypercoagulability in nephrotic syndrome .) ?Extracorporeal membrane oxygenation (ECMO) and hemodialysis have also been associated with reductions in plasma AT levels [31]. This may result in ineffective anticoagulation with heparin. Replacement of AT can be accomplished more effectively by administering AT concentrate rather than by giving Fresh Frozen Plasma (FFP); AT replacement has not clearly been shown to be effective in improving clinical outcomes or prolonging circuit life, however. Thrombotic risk in these settings may also be attributed to by the presence of a central catheter for vascular access. ?Surgery and trauma may be accompanied by a variety of prothrombotic and bleeding effects. Major surgery is associated with a modest fall in AT levels, with a canelo around the third postoperative day, followed by an increase to normal around the fifth postoperative day [32]. ?Asparaginase therapy reduces synthesis of proteins that contain the amino acid asparagine, including AT. Asparagine-containing chemotherapy regimens for acute lymphoblastic leukemia (ALL) are associated with an increased thrombotic risk, which may be due to reduced AT in combination with other factors such as glucocorticoid administration, immobilization, and/or the presence of a central venous catheter. ?Heparins can lower AT activity levels by as much as 30 percent, presumably by causing increased clearance of AT [33]. These reductions are not considered to increase thrombotic risk; however, this phenomenon may produce a false positive result in a patient undergoing thrombophilia testing while receiving heparin (ie, it may suggest the patient has hereditary AT deficiency when in fact the reduction is due to heparin therapy) (table 1). ?Modest reductions in plasma AT concentration are found in users of oral contraceptives and in individuals receiving estrogen for other purposes, but the clinical importance of these changes is not established [34,35]. ?AT levels do not change substantially during normal pregnancies, but they may decrease significantly in women with -induced hypertension, preeclampsia, or eclampsia [34,36,37]. (See Maternal adaptations to : Hematologic changes , section on 'Coagulation and fibrinolysis'.) Patients with AT deficiency appear to be at particularly high risk of thrombosis during [63]. In a 2016 systematic review that included four case-control studies involving pregnancies in women with and without AT deficiency, the OR for VTE with AT deficiency was 6.1 (95% CI 1.6-23.4) [64]. In another study, the risk of VTE was evaluated in 78 women with inherited AT deficiency, protein S deficiency, or protein C deficiency [65]. In women with AT deficiency, deep vein thrombosis occurred in 18 percent during and in 33 percent in the period. By comparison, thrombosis during occurred in only 7 percent of patients with protein C deficiency and in none of the patients with protein S deficiency. Thrombosis in the period occurred in 19 percent of protein C and 17 percent of protein S deficient patients. This increased risk provides our rationale for administering AT concentrate to some individuals with hereditary AT deficiency who become , especially around the time of delivery. (See '' below.) Given that she just had recently, I would retest her ATIII in mid February. I would have her finish Lovenox end of January. Has not taken iron since finishing . Recheck iron levels and ATIII assay and Ag - retest 02/17/22. These tests were normal. Would not recommend further Anticoagulation at this time. The patient was able to ask questions and all were answered to her satisfaction. No iron at this time. May develop KILLIAN if she goes back on menses. Recheck ATIII in a few months with iron levels. Not sure why still low. F/up telemed in 6 months. Parts of the HPI, ROS, exam and impression/plan may have been copied from my personal previous clinical note and remain pertinent. Current changes have been made and documented today. Other parts or data were deleted if not relevant for today. The documentation has been reviewed and edited as necessary to support the clinical decision making for today's visit. Data Reviewed: Most recent labs Total Time Spent: 7 minutes This visit is a Telephone encounter which required patient-provider interaction for the medical decision making as documented below. Persons Present: patient I have communicated my name and active licensure. The patient s identity and physical location were verified at the time of this visit. Valerie Sánchez or their legal licensing representative has been informed of the risks and benefits of -- and alternatives to -- treatment through a remote evaluation and consents to proceed with the evaluation remotely. Eliza Katz MD documented in this encounter [facility] 01-17-2023 Miscellaneous Notes Called patient, scheduled phone call with Dr. Pires tomorrow at 12:45 pm. Cindy Spicer RN documented in this encounter [facility] 09-18-2022 History of Presen t illness Narrative AMBULATORY TELEPHONE VISIT Valerie Sánchez 1990 September 18, 2022 HPI: Valerie Sánchez is a 31 year old female who presents as a second opinion for hx of PE and HELLP syndrome. Per notes, s/p C section with Dr. Aldrich. Previously saw Dr. Rodgers in [place]. Per notes: Hematologic problem(s): 1) Pulmonary emboli. 2) Mild decrease in functional Antithrombin. HPI: The patient is a 31-year-old female with no significant past medical history who presented to the emergency department at [facility] on 09/28/2020 with complaint of cough and shortness of breath which started the morning of admission. There was associated pleuritic chest pain with deep inspiration. She initially presented to the urgent care facility and was noted to be tachycardic with a heart rate in the 130s so she was advised to go to the ED. CT Chest 09/28/2020: FINDINGS: Small benign-appearing bilateral axillary lymph nodes. There are multiple nonocclusive intraluminal filling defects in branches of the upper lobe pulmonary arteries in keeping with the pulmonary emboli. There is also evidence of a multiple small bilateral pulmonary emboli in the lower lobe pulmonary arteries. Normal thoracic aorta and visualized great vessels. There is no demonstrated aortic dissection. Normal heart and pericardium. There are calcified mediastinal lymph nodes. There are calcified right hilar lymph nodes. Normal visualized trachea and bronchi. The lungs are well expanded. Calcified granuloma in the right lower lobe. Calcified right hilar lymph nodes and subcarinal lymph nodes. Normal pleura. Normal chest wall structures. Normal osseous structures. Normal visualized upper abdomen. IMPRESSION: Bilateral pulmonary emboli. Was admitted and started on apixaban. PCR test for Covid was negative. However her serology for SARS was positive. Echocardiogram was performed which demonstrated normal left ventricular systolic function with an estimated ejection fraction of 65%. There was trivial mitral and tricuspid valve insufficiency. The RV systolic pressure was not able to be determined secondary to insufficient tricuspid regurgitant envelope. There was no evidence of diastolic dysfunction. Per initial consultation here: Around the end of August 2020 had cough, sore throat, severe fatigue, mild chills without fever or loss of taste/smell. The symptoms persisted for about a week. Covid testing was negative. Menses while on apixaban. Was first off OCPs. Was heavy for about 4-5 days. Small clots. Shortness of breath had improved however she still had tachycardia and on Sunday began experiencing similar symptoms she had in August including sore throat and fatigue. This was also associated with a dry cough but occasionally she had some clear sputum production. No hemoptysis. No fever. Sex: Female. Smoker: Quit smoking 08/2018. BMI: Not calculated. Family h/o VTE: Only knows mother--she age 45 from lung cancer. Family h/o atherosclerotic disease: Unknown. Family h/o cancer: Mother as above. Hypercoagulation labs: None. Provoking factors: OCPs discontinued mid September 2020 after ~16 year of use. Had not received any fertility medications. Presumed recent Covid infection 08/2020. Presents for ongoing oncologic management. On Lovenox. Tolerating well with no unusual bleeding or unexplained bruising. No complications with . No lower extremity swelling or edema. No leg pain. 26w and 4d. -In summary the patient is a 30-year-old female who developed bilateral pulmonary emboli following a presumptive Covid infection 08/2020. Infection was evidenced by her prior symptoms and presence of antibodies on testing done when admitted to [facility] 09/28/2020 for the pulmonary emboli. Duplex exam of the legs was not performed. She had discontinued oral contraceptives about 1 to 2 weeks prior to admission after ~16 years of use. She quit smoking in August 2018 following her mother's passing from lung cancer. -Initial hypercoagulation testing 02/01/2021 revealed an isolated decrease in functional Antithrombin level with normal levels of antigenic Antithrombin, fibrinogen, protein C, protein S and plasminogen. This suggested the possibility of an acquired Antithrombin deficiency. D-dimer was negative at the time. -Most recent labs 04/2021 reveal continued decrease in functional Antithrombin with normal antigenic level. -Currently 26 weeks and 4 days. Tolerating Lovenox well. 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 Evidently she will be changed to subcutaneous heparin about a month before delivery. We will continue to monitor her weight and adjust Lovenox dose accordingly until then. Plan: -Increase Lovenox to 85 mg every 12 hours. -Check weight in about a month. -I instructed her to increase Lovenox to 90 mg every 12 hours if her weight goes up to 198 prior to her weight check here in a month. (D50.9) Iron deficiency anemia, unspecified iron deficiency anemia type Assessment: -Previously secondary to heavier menses. -She is on [id number] vitamin with some iron supplementation not clear how much. Plan: -Check CBC today. Per Dr. Aldrich's notes: 31 year old s/p pLTCS at 33w2d in the setting of HELLP syndrome. She did receive 2 units of platelets . Platelets and LFTs improved. 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 Home BPs reported as normal. Denies any signs/symptoms of preeclampsia. /pumping. Complains of bilateral breast nodules. Denies erythema, fevers, and chills. Reports productive cough, denies CP or SOB. 31 year old s/p LTCS at 33w2d in the setting of HELLP -. -PPBC- considering permanent sterilization including vasectomy. -Hx of HELLP: Discussed recurrence risk in future pregnancies. 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 Advised second opinion consult with Dr. Katz for further evaluation of thrombophilia. She was counseled that while APLS has been associated with preeclampsia, inherited thrombophilia's such as ATIII deficiency have not been shown to be associated with preeclampsia or other obstetric outcomes. Says she woke up SOB. No warning signs in her legs. COVID Ab +. Had stopped OCPs 1 mo prior. Had long COVID symptoms. Was only going to stay on OAC for 6 mo but then had a bunch of issues. 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 Was on Eliquis before . Now on Lovenox. Is on 0.4 once a day. Was on 0.85 twice day when . Had a boy - just came home from NICU last week. He is a month old now. No hx of clotting d/o. Mother with lung cancer. Very healthy. Exercises 5x/week. Non smoker. Never going back on OCPs. No further pregnancies. having vasectomy. Will use condoms. . Interval History: Today she is here for follow up virtually. Needs to have Rios's esophagus follow up EGD. Wants no further pregnancies. She is doing well. PAST MEDICAL HISTORY Diagnosis Date Abnormal Pap smear of cervix Asthma Rios's esophagus 03/2021 COVID-19 virus antibody detected 09/2020 Dysplasia of cervix, high grade EDIE 2 s/p LEEP. repeat pap normal x2 Herpes zoster without mention of complication 1987 History of gastric ulcer History of pre-eclampsia in prior , currently Hypertension Infertility, female Multiple thyroid nodules Other pulmonary embolism without acute cor pulmonale (HCC) 09/28/2020 PMH - PAST MEDICAL HISTORY OF Color Vision - Normal PMH - PAST MEDICAL HISTORY OF Asthma PMH - PAST MEDICAL HISTORY OF Capillary Hemangioma Left buttocks PMH - PAST MEDICAL HISTORY OF 08/03/1989 Lead Level 5mgm Vertigo PAST SURGICAL HISTORY Procedure Laterality Date ANESTH, SECTION CERVIX UTERI CONIZA LP ELCTRO EXCI 07/2019 EGD gastric ulcer x3 ESOPHAGOGASTRODUODENOSCOPY TRANSORAL DIAGNOSTIC 02/28/2021 wisdom teeth extraction 08/03/2009 Current Outpatient Medications Medication Sig Dispense Refill pantoprazole DR (PROTONIX) 40 mg tablet TAKE 1 TABLET BY MOUTH EVERY DAY 30 tablet 5 ibuprofen (MOTRIN) 800 mg tablet Take 1 tablet by mouth every 8 hours as needed for pain. 30 tablet 0 Breast Pump Use as directed 1 Each 0 21/iron fu/folic acid ( COMPLETE ORAL) Take 2 tablets by mouth twice daily. Current Facility-Administered Medications Medication Dose Route Frequency Provider Last Rate Last Admin acetylcholine 10% solution - [facility] compounding 20 mL IRRIGATION ONE TIME Gayathri Saul, LOG GRADER.EXEC[employer]IVE [employer] Allergen Reactions Plexion [Sulfacetam* Rash FAMILY HISTORY Problem Relation Age of Onset Lung Cancer Mother None Father Alcohol abuse Maternal Grandmother Schizophrenia Maternal Uncle Alcohol abuse Maternal Uncle Social History Tobacco Use Smoking status: Former Packs/day: 1.00 Years: 13.00 Pack years: 13.00 Types: Cigarettes Quit date: 08/10/2018 Years since quittin.1 Smokeless tobacco: Never Vaping Use Vaping Use: Never used Substance Use Topics Alcohol use: Not Currently Drug use: No I have reviewed the PMHx, PSHx, social history and ROS on September 18, 2022 - all new information noted. Review of Systems: Constitutional: No fevers, chills, drenching night sweats or unintentional weight loss. HEENT: No yellowing of the eyes, no vision changes, no hearing loss or ear pain, no nosebleeds or drainage, no sore throat. Neck: No complaints. Chest: No SOB or cough, no GARCIA, no hemoptysis, no wheezing. Breast: No complaints. Heart: No chest pain, pressure or tightness. No racing heartbeat. Abdominal: No pain or difficulty with swallowing, no N/V, no early satiety, no abdominal pain or bloating, no diarrhea or constipation, no change in bowel habits, no blood in the urine. S/p C section. Genitourinary: No pain or burning with urination, no incontinence, no blood in the urine. Extremities: no pain or swelling. Neurological: No headaches, no numbness or tingling in the extremities, no double vision. Skin: No rashes or ulcerations, no change in pigmentation. Nodes: no enlargement per patient. Heme: No easy bruising or bleeding, no yellowing of the eyes or darkening of urine. Psychiatric: no anxiety or depression. Immunologic: No recurrent or persistent infections of the sinuses, lungs or urinary tract. Endocrine: No hair or nail changes, no polyuria, polydipsia, or polyphagia. Appetite normal. I have performed the physical exam on September 18, 2022 - all new findings noted below. Physical Exam: [facility] 04/28/2021 ECOG PS: 0 Pain Intensity: 0/10 General: Age-appropriate well developed. Appears well. HEENT: Normocephalic, no sclera icterus, external ears normal, oral cavity clear. /Rectal: deferred Extremities: No cyanosis, clubbing, gross deformities. Neurological: Cranial nerves II through XII are intact bilaterally, no focal deficits. Hematologic: no bruising or petechiae. Psychiatric: Alert and oriented x3. Emotional well-being assessment was performed. Pt denies depression, distress, and or problems with coping or adjustment. Labs CBC:No results for input(s): WBC, HB, HCT, PLT, MCV, RDWCV, NEUTP, ABSNEUT, LYMPHP, MONOP, EODINP in the last 168 hours. COAG: No results for input(s): APTT, INR in the last 168 hours. BMP: No results for input(s): GLUC, NA, K, CHLOR, CO2, ANION, BUN, CREAT in the last 168 hours. CHEM: No results for input(s): ALB, TPROT, CA, MG in the last 168 hours. FERRITIN BLD Lab Results Component Value Date LENO 19.8 05/18/2022 LENO 19.6 02/17/2022 LENO 48.4 07/26/2021 IRON Lab Results Component Value Date FE 105 05/18/2022 FE 80 02/17/2022 FE 91 07/26/2021 TIBC Lab Results Component Value Date TIBC 420 (H) 05/18/2022 TIBC 404 (H) 02/17/2022 TIBC 401 (H) 07/26/2021 FOLATE No results found for: FOLATE AT III 02/2021 (Ag): 93 04/2021 (Activity): 69 10/31/21 (Activity): 159 10/31/21 (Ag): 83 05/18/22: 78% 09/14/22: 76% ATIII Ag normal x 3 There is an isolated decrease in the functional antithrombin level, with normal levels of antigenic antithrombin, fibrinogen, protein C, protein S and plasminogen. This suggests the possibility of acquired antithrombin deficiency. Acquired causes of decreased functional antithrombin include consumptive coagulopathy, liver disease, nephrotic syndrome, L-asparaginase therapy, heparin therapy and acute thrombosis. Suggest correlation with clinical findings. Alternatively, a type II defect (functionally defective AT) as a hereditary finding is another possibility. Hypercoag panel 02/2021 otherwise normal. Radiology: US RUQ 12/17/21: Gallbladder sludge with no shadowing stones or findings to suggest acute cholecystitis. 5.8 cm hypoechoic area in the liver may represent regional area of fatty infiltration versus solid mass such as hemangioma and can be best assessed with MRI as an outpatient after delivery. Mild hydronephrosis which can be physiologic during later stage of . CT liver 12/17/21: Multiple liver lesions. Favor benign etiology such as focal nodular hyperplasia or transient hepatic attenuation differences. Follow up liver MRI. No active extravasation. Trace free fluid. Multiple subcutaneous nodules in the anterior abdominal wall and in etiology. US vascular abd 12/18/21: PATENT HEPATIC VASCULATURE WITH APPROPRIATELY DIRECTED FLOW. Previous liver lesions are not well delineated. Liver appears overall heterogeneous. 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 This is achieved in the first instance by identifying high-risk episodes such as surgery, immobility and for which prophylactic anticoagulation can be used in the short term. Prophylaxis for such periods is best provided by the use of low molecular weight heparin (LMWH) with substitution by or addition of antithrombin concentrate in particularly high-risk circumstances. In the case of , antithrombin concentrate is often used around the time of when LMWH may increase the risk of post- haemorrhage. Acquired deficiency -- A variety of conditions lower the concentration of AT in the blood. Many of these are also associated with other alterations in procoagulant and anticoagulant factors, making it challenging to determine what role (if any) the reductions in AT levels play in the associated thrombotic complications. ?Disseminated intravascular coagulation (DIC) is characterized by ongoing coagulation and fibrinolysis that consumes procoagulant and anticoagulant factors [24]. Reports have suggested that more severe AT deficiency in the setting of DIC or sepsis is predictive of worse outcomes [25]. However, this association should not be interpreted to imply causation; for these conditions, the principle treatment involves addressing the underlying disease process. (See Evaluation and management of disseminated intravascular coagulation (DIC) in adults , section on 'Intravascular coagulation and fibrinolysis'.) ?Acute thrombosis can reduce AT levels transiently (table 1) [26]. ?Liver disease (primarily cirrhosis) may be characterized by reduced synthesis of procoagulant and anticoagulant factors, including AT [27,28]. (See Hemostatic abnormalities in patients with liver disease , section on 'Physiologic effects of hepatic dysfunction'.) ?Nephrotic syndromes may be associated with urinary losses of AT as well as other anticoagulant factors including protein S and protein C [29,30]. (See Hypercoagulability in nephrotic syndrome .) ?Extracorporeal membrane oxygenation (ECMO) and hemodialysis have also been associated with reductions in plasma AT levels [31]. This may result in ineffective anticoagulation with heparin. Replacement of AT can be accomplished more effectively by administering AT concentrate rather than by giving Fresh Frozen Plasma (FFP); AT replacement has not clearly been shown to be effective in improving clinical outcomes or prolonging circuit life, however. Thrombotic risk in these settings may also be attributed to by the presence of a central catheter for vascular access. ?Surgery and trauma may be accompanied by a variety of prothrombotic and bleeding effects. Major surgery is associated with a modest fall in AT levels, with a canelo around the third postoperative day, followed by an increase to normal around the fifth postoperative day [32]. ?Asparaginase therapy reduces synthesis of proteins that contain the amino acid asparagine, including AT. Asparagine-containing chemotherapy regimens for acute lymphoblastic leukemia (ALL) are associated with an increased thrombotic risk, which may be due to reduced AT in combination with other factors such as glucocorticoid administration, immobilization, and/or the presence of a central venous catheter. ?Heparins can lower AT activity levels by as much as 30 percent, presumably by causing increased clearance of AT [33]. These reductions are not considered to increase thrombotic risk; however, this phenomenon may produce a false positive result in a patient undergoing thrombophilia testing while receiving heparin (ie, it may suggest the patient has hereditary AT deficiency when in fact the reduction is due to heparin therapy) (table 1). ?Modest reductions in plasma AT concentration are found in users of oral contraceptives and in individuals receiving estrogen for other purposes, but the clinical importance of these changes is not established [34,35]. ?AT levels do not change substantially during normal pregnancies, but they may decrease significantly in women with -induced hypertension, preeclampsia, or eclampsia [34,36,37]. (See Maternal adaptations to : Hematologic changes , section on 'Coagulation and fibrinolysis'.) Patients with AT deficiency appear to be at particularly high risk of thrombosis during [63]. In a 2016 systematic review that included four case-control studies involving pregnancies in women with and without AT deficiency, the OR for VTE with AT deficiency was 6.1 (95% CI 1.6-23.4) [64]. In another study, the risk of VTE was evaluated in 78 women with inherited AT deficiency, protein S deficiency, or protein C deficiency [65]. In women with AT deficiency, deep vein thrombosis occurred in 18 percent during and in 33 percent in the period. By comparison, thrombosis during occurred in only 7 percent of patients with protein C deficiency and in none of the patients with protein S deficiency. Thrombosis in the period occurred in 19 percent of protein C and 17 percent of protein S deficient patients. This increased risk provides our rationale for administering AT concentrate to some individuals with hereditary AT deficiency who become , especially around the time of delivery. (See '' below.) Given that she just had recently, I would retest her ATIII in mid February. I would have her finish Lovenox end of January. Has not taken iron since finishing . Recheck iron levels and ATIII assay and Ag - retest 02/17/22. These tests were normal. Would not recommend further Anticoagulation at this time. The patient was able to ask questions and all were answered to her satisfaction. No iron at this time. May develop KILLIAN if she goes back on menses. Recheck ATIII in a few months with iron levels. Not sure why still low. F/up telemed in 3 months. Data Reviewed: Most recent labs and imaging results. Total Time Spent: 16 minutes This is a telehealth visit in lieu of in-person visit due to nationwide COVID-19 emergency. Verbal consent was obtained from the patient prior to initiation of this visit. Patient's name and date of were confirmed verbally. Greater than 50% of the time was devoted to counseling and coordinating care including the review of records, pertinent lab data and studies, discussing diagnostic evaluation and workup, planned therapeutic interventions and future disposition of care. Eliza Katz MD documented in this encounter [facility] 05-29-2022 History of Presen t illness Narrative AMBULATORY TELEPHONE VISIT Valerie Sánchez 1990 May 29, 2022 HPI: Valerie Sánchez is a 31 year old female who presents as a second opinion for hx of PE and HELLP syndrome. Per notes, s/p C section with Dr. Aldrich. Previously saw Dr. Rodgers in [place]. Per notes: Hematologic problem(s): 1) Pulmonary emboli. 2) Mild decrease in functional Antithrombin. HPI: The patient is a 31-year-old female with no significant past medical history who presented to the emergency department at [facility] on 09/28/2020 with complaint of cough and shortness of breath which started the morning of admission. There was associated pleuritic chest pain with deep inspiration. She initially presented to the urgent care facility and was noted to be tachycardic with a heart rate in the 130s so she was advised to go to the ED. CT Chest 09/28/2020: FINDINGS: Small benign-appearing bilateral axillary lymph nodes. There are multiple nonocclusive intraluminal filling defects in branches of the upper lobe pulmonary arteries in keeping with the pulmonary emboli. There is also evidence of a multiple small bilateral pulmonary emboli in the lower lobe pulmonary arteries. Normal thoracic aorta and visualized great vessels. There is no demonstrated aortic dissection. Normal heart and pericardium. There are calcified mediastinal lymph nodes. There are calcified right hilar lymph nodes. Normal visualized trachea and bronchi. The lungs are well expanded. Calcified granuloma in the right lower lobe. Calcified right hilar lymph nodes and subcarinal lymph nodes. Normal pleura. Normal chest wall structures. Normal osseous structures. Normal visualized upper abdomen. IMPRESSION: Bilateral pulmonary emboli. Was admitted and started on apixaban. PCR test for Covid was negative. However her serology for SARS was positive. Echocardiogram was performed which demonstrated normal left ventricular systolic function with an estimated ejection fraction of 65%. There was trivial mitral and tricuspid valve insufficiency. The RV systolic pressure was not able to be determined secondary to insufficient tricuspid regurgitant envelope. There was no evidence of diastolic dysfunction. Per initial consultation here: Around the end of August 2020 had cough, sore throat, severe fatigue, mild chills without fever or loss of taste/smell. The symptoms persisted for about a week. Covid testing was negative. Menses while on apixaban. Was first off OCPs. Was heavy for about 4-5 days. Small clots. Shortness of breath had improved however she still had tachycardia and on Sunday began experiencing similar symptoms she had in August including sore throat and fatigue. This was also associated with a dry cough but occasionally she had some clear sputum production. No hemoptysis. No fever. Sex: Female. Smoker: Quit smoking 08/2018. BMI: Not calculated. Family h/o VTE: Only knows mother--she age 45 from lung cancer. Family h/o atherosclerotic disease: Unknown. Family h/o cancer: Mother as above. Hypercoagulation labs: None. Provoking factors: OCPs discontinued mid September 2020 after ~16 year of use. Had not received any fertility medications. Presumed recent Covid infection 08/2020. Presents for ongoing oncologic management. Interim history: On Lovenox. Tolerating well with no unusual bleeding or unexplained bruising. No complications with . No lower extremity swelling or edema. No leg pain. 26w and 4d. -In summary the patient is a 30-year-old female who developed bilateral pulmonary emboli following a presumptive Covid infection 08/2020. Infection was evidenced by her prior symptoms and presence of antibodies on testing done when admitted to [facility] 09/28/2020 for the pulmonary emboli. Duplex exam of the legs was not performed. She had discontinued oral contraceptives about 1 to 2 weeks prior to admission after ~16 years of use. She quit smoking in August 2018 following her mother's passing from lung cancer. -Initial hypercoagulation testing 02/01/2021 revealed an isolated decrease in functional Antithrombin level with normal levels of antigenic Antithrombin, fibrinogen, protein C, protein S and plasminogen. This suggested the possibility of an acquired Antithrombin deficiency. D-dimer was negative at the time. -Most recent labs 04/2021 reveal continued decrease in functional Antithrombin with normal antigenic level. -Currently 26 weeks and 4 days. Tolerating Lovenox well. 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 Evidently she will be changed to subcutaneous heparin about a month before delivery. We will continue to monitor her weight and adjust Lovenox dose accordingly until then. Plan: -Increase Lovenox to 85 mg every 12 hours. -Check weight in about a month. -I instructed her to increase Lovenox to 90 mg every 12 hours if her weight goes up to 198 prior to her weight check here in a month. (D50.9) Iron deficiency anemia, unspecified iron deficiency anemia type Assessment: -Previously secondary to heavier menses. -She is on jwvm-rly-isijrha vitamin with some iron supplementation not clear how much. Plan: -Check CBC today. Per Dr. Aldrich's notes: 31 year old s/p pLTCS at 33w2d in the setting of HELLP syndrome. She did receive 2 units of platelets . Platelets and LFTs improved. 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 Home BPs reported as normal. Denies any signs/symptoms of preeclampsia. /pumping. Complains of bilateral breast nodules. Denies erythema, fevers, and chills. Reports productive cough, denies CP or SOB. 31 year old s/p LTCS at 33w2d in the setting of HELLP -. -PPBC- considering permanent sterilization including vasectomy. -Hx of HELLP: Discussed recurrence risk in future pregnancies. 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 Advised second opinion consult with Dr. Katz for further evaluation of thrombophilia. She was counseled that while APLS has been associated with preeclampsia, inherited thrombophilia's such as ATIII deficiency have not been shown to be associated with preeclampsia or other obstetric outcomes. Says she woke up SOB. No warning signs in her legs. COVID Ab +. Had stopped OCPs 1 mo prior. Had long COVID symptoms. Was only going to stay on OAC for 6 mo but then had a bunch of issues. 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 Was on Eliquis before . Now on Lovenox. Is on 0.4 once a day. Was on 0.85 twice day when . Had a boy - just came home from NICU last week. He is a month old now. No hx of clotting d/o. Mother with lung cancer. Very healthy. Exercises 5x/week. Non smoker. Never going back on OCPs. No further pregnancies. having vasectomy. Will use condoms. . Interval History: Today she is here for follow up virtually. She is doing well. PAST MEDICAL HISTORY Diagnosis Date Abnormal Pap smear of cervix Asthma Rios's esophagus 03/2021 COVID-19 virus antibody detected 09/2020 Dysplasia of cervix, high grade EDIE 2 s/p LEEP. repeat pap normal x2 Herpes zoster without mention of complication 1987 History of gastric ulcer History of pre-eclampsia in prior , currently Hypertension Infertility, female Multiple thyroid nodules Other pulmonary embolism without acute cor pulmonale (HCC) 09/28/2020 PMH - PAST MEDICAL HISTORY OF Color Vision - Normal PMH - PAST MEDICAL HISTORY OF Asthma PMH - PAST MEDICAL HISTORY OF Capillary Hemangioma Left buttocks PMH - PAST MEDICAL HISTORY OF 08/03/1989 Lead Level 5mgm Vertigo PAST SURGICAL HISTORY Procedure Laterality Date ANESTH, SECTION CERVIX UTERI CONIZA LP ELCTRO EXCI 07/2019 EGD gastric ulcer x3 ESOPHAGOGASTRODUODENOSCOPY TRANSORAL DIAGNOSTIC 02/28/2021 wisdom teeth extraction 08/03/2009 Current Outpatient Medications Medication Sig Dispense Refill pantoprazole DR (PROTONIX) 40 mg tablet TAKE 1 TABLET BY MOUTH EVERY DAY 30 tablet 5 ibuprofen (MOTRIN) 800 mg tablet Take 1 tablet by mouth every 8 hours as needed for pain. 30 tablet 0 cyclobenzaprine (FLEXERIL) 5 mg tablet Take 1 tablet by mouth three times daily as needed. 20 tablet 0 Breast Pump Use as directed 1 Each 0 ferrous sulfate 325 mg (65 mg iron) tablet Take 1 tablet by mouth every other day. dtnmgoo-lllgyrsvb-huewgcf D3 (CALCIUM 500+D) 500 mg-5 mcg (200 unit) per tablet Take 2 grams per day in divided doses diphenhydramine HCl (BENADRYL ALLERGY ORAL) Take 1 tablet by mouth at bedtime as needed. 21/iron fu/folic acid ( COMPLETE ORAL) Take 2 tablets by mouth twice daily. Current Facility-Administered Medications Medication Dose Route Frequency Provider Last Rate Last Admin acetylcholine 10% solution - cchs compounding 20 mL IRRIGATION ONE TIME Gayathri Saul APRN.[employer] Allergen Reactions Plexion [Sulfacetam* Rash FAMILY HISTORY Problem Relation Age of Onset Lung Cancer Mother None Father Alcohol abuse Maternal Grandmother Schizophrenia Maternal Uncle Alcohol abuse Maternal Uncle Social History Tobacco Use Smoking status: Former Packs/day: 1.00 Years: 13.00 Pack years: 13.00 Types: Cigarettes Quit date: 08/10/2018 Years since quittin.8 Smokeless tobacco: Never Vaping Use Vaping Use: Never used Substance Use Topics Alcohol use: Not Currently Drug use: No I have reviewed the PMHx, PSHx, social history and ROS on May 29, 2022 - all new information noted. Review of Systems: Constitutional: No fevers, chills, drenching night sweats or unintentional weight loss. HEENT: No yellowing of the eyes, no vision changes, no hearing loss or ear pain, no nosebleeds or drainage, no sore throat. Neck: No complaints. Chest: No SOB or cough, no GARCIA, no hemoptysis, no wheezing. Breast: No complaints. Heart: No chest pain, pressure or tightness. No racing heartbeat. Abdominal: No pain or difficulty with swallowing, no N/V, no early satiety, no abdominal pain or bloating, no diarrhea or constipation, no change in bowel habits, no blood in the urine. S/p C section. Genitourinary: No pain or burning with urination, no incontinence, no blood in the urine. Extremities: no pain or swelling. Neurological: No headaches, no numbness or tingling in the extremities, no double vision. Skin: No rashes or ulcerations, no change in pigmentation. Nodes: no enlargement per patient. Heme: No easy bruising or bleeding, no yellowing of the eyes or darkening of urine. Psychiatric: no anxiety or depression. Immunologic: No recurrent or persistent infections of the sinuses, lungs or urinary tract. Endocrine: No hair or nail changes, no polyuria, polydipsia, or polyphagia. Appetite normal. I have performed the physical exam on May 29, 2022 - all new findings noted below. Physical Exam: (previous exam) [facility] 04/28/2021 ECOG PS: 0 Pain Intensity: 0/10 General: Age-appropriate well developed. Appears well. HEENT: Normocephalic, no sclera icterus, external ears normal, oral cavity clear. Neck: Supple, no thyroid nodules, no JVD. Chest: Clear bilaterally, no wheezes, not labored. Heart: Normal S1 and S2, no abnormal sounds, peripheral pulses synchronized. Abdomen: Soft, nontender, nondistended, bowel sounds present, no organomegaly or mass, no rigidity. C section scar healed well. /Rectal: deferred Extremities: No cyanosis, clubbing, gross deformities, or palpable cords. Neurological: Cranial nerves II through XII are intact bilaterally, strength normal in the upper and lower extremities, no focal deficits. Skin: Warm and dry with no rashes or ulcerations. Nodes: No palpable adenopathy in the cervical, supraclavicular, infraclavicular, or axillary regions. Hematologic: no bruising or petechiae. Psychiatric: Alert and oriented x3. Emotional well-being assessment was performed. Pt denies depression, distress, and or problems with coping or adjustment. Labs CBC:No results for input(s): WBC, HB, HCT, PLT, MCV, RDWCV, NEUTP, ABSNEUT, LYMPHP, MONOP, EODINP in the last 168 hours. COAG: No results for input(s): APTT, INR in the last 168 hours. BMP: No results for input(s): GLUC, NA, K, CHLOR, CO2, ANION, BUN, CREAT in the last 168 hours. CHEM: No results for input(s): ALB, TPROT, CA, MG in the last 168 hours. Results Only on 05/18/2022 Component Date Value Antithrombin Assay 05/18/2022 78 (A) WBC 05/18/2022 6.70 RBC 05/18/2022 4.47 Hemoglobin 05/18/2022 12.9 Hematocrit 05/18/2022 38.9 MCV 05/18/2022 87.0 MCH 05/18/2022 28.9 MCHC 05/18/2022 33.2 RDW-CV 05/18/2022 12.6 Platelet Count 05/18/2022 317 MPV 05/18/2022 8.9 (A) Neut% 05/18/2022 48.5 Abs Neut 05/18/2022 3.25 Lymph% 05/18/2022 39.3 Abs Lymph 05/18/2022 2.63 Henry% 05/18/2022 6.9 Abs Henry 05/18/2022 0.46 Eosin% 05/18/2022 4.2 Abs Eosin 05/18/2022 0.28 Baso% 05/18/2022 1.0 Abs Baso 05/18/2022 0.07 Immature Gran % 05/18/2022 0.1 Abs Immature Gran 05/18/2022 <0.03 NRBC 05/18/2022 0.0 Absolute nRBC 05/18/2022 <0.01 Diff Type 05/18/2022 Auto Iron 05/18/2022 105 TIBC 05/18/2022 420 (A) Transferrin Saturation 05/18/2022 25.0 Ferritin 05/18/2022 19.8 FERRITIN BLD Lab Results Component Value Date LENO 19.8 05/18/2022 LENO 19.6 02/17/2022 LENO 48.4 07/26/2021 IRON Lab Results Component Value Date FE 105 05/18/2022 FE 80 02/17/2022 FE 91 07/26/2021 TIBC Lab Results Component Value Date TIBC 420 (H) 05/18/2022 TIBC 404 (H) 02/17/2022 TIBC 401 (H) 07/26/2021 FOLATE No results found for: FOLATE AT III 02/2021 (Ag): 93 04/2021 (Activity): 69 10/31/21 (Activity): 159 10/31/21 (Ag): 83 05/18/22: 78% ATIII Ag normal x 3 There is an isolated decrease in the functional antithrombin level, with normal levels of antigenic antithrombin, fibrinogen, protein C, protein S and plasminogen. This suggests the possibility of acquired antithrombin deficiency. Acquired causes of decreased functional antithrombin include consumptive coagulopathy, liver disease, nephrotic syndrome, L-asparaginase therapy, heparin therapy and acute thrombosis. Suggest correlation with clinical findings. Alternatively, a type II defect (functionally defective AT) as a hereditary finding is another possibility. Hypercoag panel 02/2021 otherwise normal. Radiology: US RUQ 12/17/21: Gallbladder sludge with no shadowing stones or findings to suggest acute cholecystitis. 5.8 cm hypoechoic area in the liver may represent regional area of fatty infiltration versus solid mass such as hemangioma and can be best assessed with MRI as an outpatient after delivery. Mild hydronephrosis which can be physiologic during later stage of . CT liver 12/17/21: Multiple liver lesions. Favor benign etiology such as focal nodular hyperplasia or transient hepatic attenuation differences. Follow up liver MRI. No active extravasation. Trace free fluid. Multiple subcutaneous nodules in the anterior abdominal wall and in etiology. US vascular abd 12/18/21: PATENT HEPATIC VASCULATURE WITH APPROPRIATELY DIRECTED FLOW. Previous liver lesions are not well delineated. Liver appears overall heterogeneous. 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 This is achieved in the first instance by identifying high-risk episodes such as surgery, immobility and for which prophylactic anticoagulation can be used in the short term. Prophylaxis for such periods is best provided by the use of low molecular weight heparin (LMWH) with substitution by or addition of antithrombin concentrate in particularly high-risk circumstances. In the case of , antithrombin concentrate is often used around the time of when LMWH may increase the risk of post- haemorrhage. Acquired deficiency -- A variety of conditions lower the concentration of AT in the blood. Many of these are also associated with other alterations in procoagulant and anticoagulant factors, making it challenging to determine what role (if any) the reductions in AT levels play in the associated thrombotic complications. ?Disseminated intravascular coagulation (DIC) is characterized by ongoing coagulation and fibrinolysis that consumes procoagulant and anticoagulant factors [24]. Reports have suggested that more severe AT deficiency in the setting of DIC or sepsis is predictive of worse outcomes [25]. However, this association should not be interpreted to imply causation; for these conditions, the principle treatment involves addressing the underlying disease process. (See Evaluation and management of disseminated intravascular coagulation (DIC) in adults , section on 'Intravascular coagulation and fibrinolysis'.) ?Acute thrombosis can reduce AT levels transiently (table 1) [26]. ?Liver disease (primarily cirrhosis) may be characterized by reduced synthesis of procoagulant and anticoagulant factors, including AT [27,28]. (See Hemostatic abnormalities in patients with liver disease , section on 'Physiologic effects of hepatic dysfunction'.) ?Nephrotic syndromes may be associated with urinary losses of AT as well as other anticoagulant factors including protein S and protein C [29,30]. (See Hypercoagulability in nephrotic syndrome .) ?Extracorporeal membrane oxygenation (ECMO) and hemodialysis have also been associated with reductions in plasma AT levels [31]. This may result in ineffective anticoagulation with heparin. Replacement of AT can be accomplished more effectively by administering AT concentrate rather than by giving Fresh Frozen Plasma (FFP); AT replacement has not clearly been shown to be effective in improving clinical outcomes or prolonging circuit life, however. Thrombotic risk in these settings may also be attributed to by the presence of a central catheter for vascular access. ?Surgery and trauma may be accompanied by a variety of prothrombotic and bleeding effects. Major surgery is associated with a modest fall in AT levels, with a canelo around the third postoperative day, followed by an increase to normal around the fifth postoperative day [32]. ?Asparaginase therapy reduces synthesis of proteins that contain the amino acid asparagine, including AT. Asparagine-containing chemotherapy regimens for acute lymphoblastic leukemia (ALL) are associated with an increased thrombotic risk, which may be due to reduced AT in combination with other factors such as glucocorticoid administration, immobilization, and/or the presence of a central venous catheter. ?Heparins can lower AT activity levels by as much as 30 percent, presumably by causing increased clearance of AT [33]. These reductions are not considered to increase thrombotic risk; however, this phenomenon may produce a false positive result in a patient undergoing thrombophilia testing while receiving heparin (ie, it may suggest the patient has hereditary AT deficiency when in fact the reduction is due to heparin therapy) (table 1). ?Modest reductions in plasma AT concentration are found in users of oral contraceptives and in individuals receiving estrogen for other purposes, but the clinical importance of these changes is not established [34,35]. ?AT levels do not change substantially during normal pregnancies, but they may decrease significantly in women with -induced hypertension, preeclampsia, or eclampsia [34,36,37]. (See Maternal adaptations to : Hematologic changes , section on 'Coagulation and fibrinolysis'.) Patients with AT deficiency appear to be at particularly high risk of thrombosis during [63]. In a 2016 systematic review that included four case-control studies involving pregnancies in women with and without AT deficiency, the OR for VTE with AT deficiency was 6.1 (95% CI 1.6-23.4) [64]. In another study, the risk of VTE was evaluated in 78 women with inherited AT deficiency, protein S deficiency, or protein C deficiency [65]. In women with AT deficiency, deep vein thrombosis occurred in 18 percent during and in 33 percent in the period. By comparison, thrombosis during occurred in only 7 percent of patients with protein C deficiency and in none of the patients with protein S deficiency. Thrombosis in the period occurred in 19 percent of protein C and 17 percent of protein S deficient patients. This increased risk provides our rationale for administering AT concentrate to some individuals with hereditary AT deficiency who become , especially around the time of delivery. (See '' below.) Given that she just had recently, I would retest her ATIII in mid February. I would have her finish Lovenox end of January. Has not taken iron since finishing . Recheck iron levels and ATIII assay and Ag - retest 02/17/22. These tests were normal. Would not recommend further Anticoagulation at this time. The patient was able to ask questions and all were answered to her satisfaction. No iron at this time. May develop KILLIAN if she goes back on menses. Recheck ATIII in a few months with iron levels. F/up telemed in 3 months. Data Reviewed: Most recent labs and imaging results. Total Time Spent: 5 minutes This is a telehealth visit in lieu of in-person visit due to nationwide COVID-19 emergency. Verbal consent was obtained from the patient prior to initiation of this visit. A live video connection between my location and the patient's location was used for this visit. Patient's name and date of were confirmed verbally. Greater than 50% of the time was devoted to counseling and coordinating care including the review of records, pertinent lab data and studies, discussing diagnostic evaluation and workup, planned therapeutic interventions and future disposition of care. All questions from patient were answered. Eliza Katz MD documented in this encounter [facility] 05-18-2022 Miscellaneous Notes Signed and completed form found, it had been faxed 04/27. Have you seen this form? [facility] [employer] [facility]. Please assist, thanks documented in this encounter [facility] 03-02-2022 Miscellaneous Notes RX INSTRUCTIONS: Pharmacy initiated this request. No need to notify patient. Last OV: 05/06/21 Last refill: 08/03/21 With 90 and 1 refills Follow up: No F/U angelina scheduled Lia Seth MA documented in this encounter [facility] 02-27-2022 History of Presen t illness Narrative Valerie Sánchez 1990 February 27, 2022 HPI: Valerie Sánchez is a 31 year old female who presents as a second opinion for hx of PE and HELLP syndrome. Per notes, s/p C section with Dr. Aldrich. Previously saw Dr. Rodgers in [place]. Per notes: Hematologic problem(s): 1) Pulmonary emboli. 2) Mild decrease in functional Antithrombin. HPI: The patient is a 31-year-old female with no significant past medical history who presented to the emergency department at [facility] on 09/28/2020 with complaint of cough and shortness of breath which started the morning of admission. There was associated pleuritic chest pain with deep inspiration. She initially presented to the urgent care facility and was noted to be tachycardic with a heart rate in the 130s so she was advised to go to the ED. CT Chest 09/28/2020: FINDINGS: Small benign-appearing bilateral axillary lymph nodes. There are multiple nonocclusive intraluminal filling defects in branches of the upper lobe pulmonary arteries in keeping with the pulmonary emboli. There is also evidence of a multiple small bilateral pulmonary emboli in the lower lobe pulmonary arteries. Normal thoracic aorta and visualized great vessels. There is no demonstrated aortic dissection. Normal heart and pericardium. There are calcified mediastinal lymph nodes. There are calcified right hilar lymph nodes. Normal visualized trachea and bronchi. The lungs are well expanded. Calcified granuloma in the right lower lobe. Calcified right hilar lymph nodes and subcarinal lymph nodes. Normal pleura. Normal chest wall structures. Normal osseous structures. Normal visualized upper abdomen. IMPRESSION: Bilateral pulmonary emboli. Was admitted and started on apixaban. PCR test for Covid was negative. However her serology for SARS was positive. Echocardiogram was performed which demonstrated normal left ventricular systolic function with an estimated ejection fraction of 65%. There was trivial mitral and tricuspid valve insufficiency. The RV systolic pressure was not able to be determined secondary to insufficient tricuspid regurgitant envelope. There was no evidence of diastolic dysfunction. Per initial consultation here: Around the end of August 2020 had cough, sore throat, severe fatigue, mild chills without fever or loss of taste/smell. The symptoms persisted for about a week. Covid testing was negative. Menses while on apixaban. Was first off OCPs. Was heavy for about 4-5 days. Small clots. Shortness of breath had improved however she still had tachycardia and on Sunday began experiencing similar symptoms she had in August including sore throat and fatigue. This was also associated with a dry cough but occasionally she had some clear sputum production. No hemoptysis. No fever. Sex: Female. Smoker: Quit smoking 08/2018. BMI: Not calculated. Family h/o VTE: Only knows mother--she age 45 from lung cancer. Family h/o atherosclerotic disease: Unknown. Family h/o cancer: Mother as above. Hypercoagulation labs: None. Provoking factors: OCPs discontinued mid September 2020 after ~16 year of use. Had not received any fertility medications. Presumed recent Covid infection 08/2020. Presents for ongoing oncologic management. Interim history: On Lovenox. Tolerating well with no unusual bleeding or unexplained bruising. No complications with . No lower extremity swelling or edema. No leg pain. 26w and 4d. -In summary the patient is a 30-year-old female who developed bilateral pulmonary emboli following a presumptive Covid infection 08/2020. Infection was evidenced by her prior symptoms and presence of antibodies on testing done when admitted to [facility] 09/28/2020 for the pulmonary emboli. Duplex exam of the legs was not performed. She had discontinued oral contraceptives about 1 to 2 weeks prior to admission after ~16 years of use. She quit smoking in August 2018 following her mother's passing from lung cancer. -Initial hypercoagulation testing 02/01/2021 revealed an isolated decrease in functional Antithrombin level with normal levels of antigenic Antithrombin, fibrinogen, protein C, protein S and plasminogen. This suggested the possibility of an acquired Antithrombin deficiency. D-dimer was negative at the time. -Most recent labs 04/2021 reveal continued decrease in functional Antithrombin with normal antigenic level. -Currently 26 weeks and 4 days. Tolerating Lovenox well. 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 Evidently she will be changed to subcutaneous heparin about a month before delivery. We will continue to monitor her weight and adjust Lovenox dose accordingly until then. Plan: -Increase Lovenox to 85 mg every 12 hours. -Check weight in about a month. -I instructed her to increase Lovenox to 90 mg every 12 hours if her weight goes up to 198 prior to her weight check here in a month. (D50.9) Iron deficiency anemia, unspecified iron deficiency anemia type Assessment: -Previously secondary to heavier menses. -She is on [id number]-[id number] vitamin with some iron supplementation not clear how much. Plan: -Check CBC today. Per Dr. Aldrich's notes: 31 year old s/p pLTCS at 33w2d in the setting of HELLP syndrome. She did receive 2 units of platelets . Platelets and LFTs improved. 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 Home BPs reported as normal. Denies any signs/symptoms of preeclampsia. /pumping. Complains of bilateral breast nodules. Denies erythema, fevers, and chills. Reports productive cough, denies CP or SOB. 31 year old s/p LTCS at 33w2d in the setting of HELLP -. -PPBC- considering permanent sterilization including vasectomy. -Hx of HELLP: Discussed recurrence risk in future pregnancies. 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 Advised second opinion consult with Dr. Katz for further evaluation of thrombophilia. She was counseled that while APLS has been associated with preeclampsia, inherited thrombophilia's such as ATIII deficiency have not been shown to be associated with preeclampsia or other obstetric outcomes. Says she woke up SOB. No warning signs in her legs. COVID Ab +. Had stopped OCPs 1 mo prior. Had long COVID symptoms. Was only going to stay on OAC for 6 mo but then had a bunch of issues. 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 Was on Eliquis before . Now on Lovenox. Is on 0.4 once a day. Was on 0.85 twice day when . Had a boy - just came home from NICU last week. He is a month old now. No hx of clotting d/o. Mother with lung cancer. Very healthy. Exercises 5x/week. Non smoker. Never going back on OCPs. No further pregnancies. having vasectomy. Will use condoms. . Interval History: Today she is here for follow up. She is doing well. PAST MEDICAL HISTORY Diagnosis Date Abnormal Pap smear of cervix Asthma Rios's esophagus 03/2021 COVID-19 virus antibody detected 09/2020 Dysplasia of cervix, high grade EDIE 2 s/p LEEP. repeat pap normal x2 Herpes zoster without mention of complication 1987 History of gastric ulcer History of pre-eclampsia in prior , currently Hypertension Infertility, female Multiple thyroid nodules Other pulmonary embolism without acute cor pulmonale (HCC) 09/28/2020 PMH - PAST MEDICAL HISTORY OF Color Vision - Normal PMH - PAST MEDICAL HISTORY OF Asthma PMH - PAST MEDICAL HISTORY OF Capillary Hemangioma Left buttocks PMH - PAST MEDICAL HISTORY OF 08/03/1989 Lead Level 5mgm Vertigo PAST SURGICAL HISTORY Procedure Laterality Date ANESTH, SECTION CERVIX UTERI CONIZA LP ELCTRO EXCI 07/2019 EGD gastric ulcer x3 ESOPHAGOGASTRODUODENOSCOPY TRANSORAL DIAGNOSTIC 02/28/2021 wisdom teeth extraction 08/03/2009 Current Outpatient Medications Medication Sig Dispense Refill enoxaparin (LOVENOX) 40 mg/0.4 mL Inject 0.4 mL subcutaneously every 24 hours 30 Syringe 1 ibuprofen (MOTRIN) 800 mg tablet Take 1 tablet by mouth every 8 hours as needed for pain. 30 tablet 0 cyclobenzaprine (FLEXERIL) 5 mg tablet Take 1 tablet by mouth three times daily as needed. 20 tablet 0 Breast Pump Use as directed 1 Each 0 ferrous sulfate 325 mg (65 mg iron) tablet Take 1 tablet by mouth every other day. modvuub-llzlgadgi-ecgbopd D3 (CALCIUM 500+D) 500 mg-5 mcg (200 unit) per tablet Take 2 grams per day in divided doses pantoprazole DR (PROTONIX) 40 mg tablet Take 1 tablet by mouth once daily. 90 tablet 1 diphenhydramine HCl (BENADRYL ALLERGY ORAL) Take 1 tablet by mouth at bedtime as needed. 21/iron fu/folic acid ( COMPLETE ORAL) Take 2 tablets by mouth twice daily. Current Facility-Administered Medications Medication Dose Route Frequency Provider Last Rate Last Admin acetylcholine 10% solution - cchs compounding 20 mL IRRIGATION ONE TIME Gayathri Saul APRN.[employer] Allergen Reactions Plexion [Sulfacetam* Rash FAMILY HISTORY Problem Relation Age of Onset Lung Cancer Mother None Father Alcohol abuse Maternal Grandmother Schizophrenia Maternal Uncle Alcohol abuse Maternal Uncle Social History Tobacco Use Smoking status: Former Smoker Packs/day: 1.00 Years: 13.00 Pack years: 13.00 Types: Cigarettes Quit date: 08/10/2018 Years since quittin.5 Smokeless tobacco: Never Used Vaping Use Vaping Use: Never used Substance Use Topics Alcohol use: Not Currently Drug use: No I have reviewed the PMHx, PSHx, social history and ROS on February 27, 2022 - all new information noted. Review of Systems: Constitutional: No fevers, chills, drenching night sweats or unintentional weight loss. HEENT: No yellowing of the eyes, no vision changes, no hearing loss or ear pain, no nosebleeds or drainage, no sore throat. Neck: No complaints. Chest: No SOB or cough, no GARCIA, no hemoptysis, no wheezing. Breast: No complaints. Heart: No chest pain, pressure or tightness. No racing heartbeat. Abdominal: No pain or difficulty with swallowing, no N/V, no early satiety, no abdominal pain or bloating, no diarrhea or constipation, no change in bowel habits, no blood in the urine. S/p C section. Genitourinary: No pain or burning with urination, no incontinence, no blood in the urine. Extremities: no pain or swelling. Neurological: No headaches, no numbness or tingling in the extremities, no double vision. Skin: No rashes or ulcerations, no change in pigmentation. Nodes: no enlargement per patient. Heme: No easy bruising or bleeding, no yellowing of the eyes or darkening of urine. Psychiatric: no anxiety or depression. Immunologic: No recurrent or persistent infections of the sinuses, lungs or urinary tract. Endocrine: No hair or nail changes, no polyuria, polydipsia, or polyphagia. Appetite normal. I have performed the physical exam on February 27, 2022 - all new findings noted below. Physical Exam: BP 133/88 Pulse 90 Temp (Src) 96.8 (Temporal Artery) Ht 5' 4.016 (1.63m) Wt 170 lb 6.4 oz (77.3kg) SpO2 97% LMP 04/28/2021 BMI 29.23 kg/(m^2). ECOG PS: 0 Pain Intensity: 0/10 General: Age-appropriate well developed. Appears well. HEENT: Normocephalic, no sclera icterus, external ears normal, oral cavity clear. Neck: Supple, no thyroid nodules, no JVD. Chest: Clear bilaterally, no wheezes, not labored. Heart: Normal S1 and S2, no abnormal sounds, peripheral pulses synchronized. Abdomen: Soft, nontender, nondistended, bowel sounds present, no organomegaly or mass, no rigidity. C section scar healed well. /Rectal: deferred Extremities: No cyanosis, clubbing, gross deformities, or palpable cords. Neurological: Cranial nerves II through XII are intact bilaterally, strength normal in the upper and lower extremities, no focal deficits. Skin: Warm and dry with no rashes or ulcerations. Nodes: No palpable adenopathy in the cervical, supraclavicular, infraclavicular, or axillary regions. Hematologic: no bruising or petechiae. Psychiatric: Alert and oriented x3. Emotional well-being assessment was performed. Pt denies depression, distress, and or problems with coping or adjustment. Labs CBC:No results for input(s): WBC, HB, HCT, PLT, MCV, RDWCV, NEUTP, ABSNEUT, LYMPHP, MONOP, EODINP in the last 168 hours. COAG: No results for input(s): APTT, INR in the last 168 hours. BMP: No results for input(s): GLUC, NA, K, CHLOR, CO2, ANION, BUN, CREAT in the last 168 hours. CHEM: No results for input(s): ALB, TPROT, CA, MG in the last 168 hours. Appointment on 02/17/2022 Component Date Value WBC 02/17/2022 6.25 RBC 02/17/2022 4.66 Hemoglobin 02/17/2022 13.4 Hematocrit 02/17/2022 41.0 MCV 02/17/2022 88.0 MCH 02/17/2022 28.8 MCHC 02/17/2022 32.7 RDW-CV 02/17/2022 11.5 Platelet Count 02/17/2022 287 MPV 02/17/2022 9.1 Neut% 02/17/2022 47.0 Abs Neut 02/17/2022 2.94 Lymph% 02/17/2022 39.7 Abs Lymph 02/17/2022 2.48 Henry% 02/17/2022 8.2 Abs Henry 02/17/2022 0.51 Eosin% 02/17/2022 3.8 Abs Eosin 02/17/2022 0.24 Baso% 02/17/2022 1.1 Abs Baso 02/17/2022 0.07 Immature Gran % 02/17/2022 0.2 Abs Immature Gran 02/17/2022 <0.03 NRBC 02/17/2022 0.0 Absolute nRBC 02/17/2022 <0.01 Diff Type 02/17/2022 Auto Iron 02/17/2022 80 TIBC 02/17/2022 404 (A) Transferrin Saturation 02/17/2022 19.8 Ferritin 02/17/2022 19.6 Antithrombin Assay 02/17/2022 85 AT III 02/2021 (Ag): 93 04/2021 (Activity): 69 10/31/21 (Activity): 159 10/31/21 (Ag): 83 ATIII Ag normal x 3 There is an isolated decrease in the functional antithrombin level, with normal levels of antigenic antithrombin, fibrinogen, protein C, protein S and plasminogen. This suggests the possibility of acquired antithrombin deficiency. Acquired causes of decreased functional antithrombin include consumptive coagulopathy, liver disease, nephrotic syndrome, L-asparaginase therapy, heparin therapy and acute thrombosis. Suggest correlation with clinical findings. Alternatively, a type II defect (functionally defective AT) as a hereditary finding is another possibility. Hypercoag panel 02/2021 otherwise normal. Radiology: US RUQ 12/17/21: Gallbladder sludge with no shadowing stones or findings to suggest acute cholecystitis. 5.8 cm hypoechoic area in the liver may represent regional area of fatty infiltration versus solid mass such as hemangioma and can be best assessed with MRI as an outpatient after delivery. Mild hydronephrosis which can be physiologic during later stage of . CT liver 12/17/21: Multiple liver lesions. Favor benign etiology such as focal nodular hyperplasia or transient hepatic attenuation differences. Follow up liver MRI. No active extravasation. Trace free fluid. Multiple subcutaneous nodules in the anterior abdominal wall and in etiology. US vascular abd 12/18/21: PATENT HEPATIC VASCULATURE WITH APPROPRIATELY DIRECTED FLOW. Previous liver lesions are not well delineated. Liver appears overall heterogeneous. 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 This is achieved in the first instance by identifying high-risk episodes such as surgery, immobility and for which prophylactic anticoagulation can be used in the short term. Prophylaxis for such periods is best provided by the use of low molecular weight heparin (LMWH) with substitution by or addition of antithrombin concentrate in particularly high-risk circumstances. In the case of , antithrombin concentrate is often used around the time of when LMWH may increase the risk of post- haemorrhage. Acquired deficiency -- A variety of conditions lower the concentration of AT in the blood. Many of these are also associated with other alterations in procoagulant and anticoagulant factors, making it challenging to determine what role (if any) the reductions in AT levels play in the associated thrombotic complications. ?Disseminated intravascular coagulation (DIC) is characterized by ongoing coagulation and fibrinolysis that consumes procoagulant and anticoagulant factors [24]. Reports have suggested that more severe AT deficiency in the setting of DIC or sepsis is predictive of worse outcomes [25]. However, this association should not be interpreted to imply causation; for these conditions, the principle treatment involves addressing the underlying disease process. (See Evaluation and management of disseminated intravascular coagulation (DIC) in adults , section on 'Intravascular coagulation and fibrinolysis'.) ?Acute thrombosis can reduce AT levels transiently (table 1) [26]. ?Liver disease (primarily cirrhosis) may be characterized by reduced synthesis of procoagulant and anticoagulant factors, including AT [27,28]. (See Hemostatic abnormalities in patients with liver disease , section on 'Physiologic effects of hepatic dysfunction'.) ?Nephrotic syndromes may be associated with urinary losses of AT as well as other anticoagulant factors including protein S and protein C [29,30]. (See Hypercoagulability in nephrotic syndrome .) ?Extracorporeal membrane oxygenation (ECMO) and hemodialysis have also been associated with reductions in plasma AT levels [31]. This may result in ineffective anticoagulation with heparin. Replacement of AT can be accomplished more effectively by administering AT concentrate rather than by giving Fresh Frozen Plasma (FFP); AT replacement has not clearly been shown to be effective in improving clinical outcomes or prolonging circuit life, however. Thrombotic risk in these settings may also be attributed to by the presence of a central catheter for vascular access. ?Surgery and trauma may be accompanied by a variety of prothrombotic and bleeding effects. Major surgery is associated with a modest fall in AT levels, with a canelo around the third postoperative day, followed by an increase to normal around the fifth postoperative day [32]. ?Asparaginase therapy reduces synthesis of proteins that contain the amino acid asparagine, including AT. Asparagine-containing chemotherapy regimens for acute lymphoblastic leukemia (ALL) are associated with an increased thrombotic risk, which may be due to reduced AT in combination with other factors such as glucocorticoid administration, immobilization, and/or the presence of a central venous catheter. ?Heparins can lower AT activity levels by as much as 30 percent, presumably by causing increased clearance of AT [33]. These reductions are not considered to increase thrombotic risk; however, this phenomenon may produce a false positive result in a patient undergoing thrombophilia testing while receiving heparin (ie, it may suggest the patient has hereditary AT deficiency when in fact the reduction is due to heparin therapy) (table 1). ?Modest reductions in plasma AT concentration are found in users of oral contraceptives and in individuals receiving estrogen for other purposes, but the clinical importance of these changes is not established [34,35]. ?AT levels do not change substantially during normal pregnancies, but they may decrease significantly in women with -induced hypertension, preeclampsia, or eclampsia [34,36,37]. (See Maternal adaptations to : Hematologic changes , section on 'Coagulation and fibrinolysis'.) Patients with AT deficiency appear to be at particularly high risk of thrombosis during [63]. In a 2016 systematic review that included four case-control studies involving pregnancies in women with and without AT deficiency, the OR for VTE with AT deficiency was 6.1 (95% CI 1.6-23.4) [64]. In another study, the risk of VTE was evaluated in 78 women with inherited AT deficiency, protein S deficiency, or protein C deficiency [65]. In women with AT deficiency, deep vein thrombosis occurred in 18 percent during and in 33 percent in the period. By comparison, thrombosis during occurred in only 7 percent of patients with protein C deficiency and in none of the patients with protein S deficiency. Thrombosis in the period occurred in 19 percent of protein C and 17 percent of protein S deficient patients. This increased risk provides our rationale for administering AT concentrate to some individuals with hereditary AT deficiency who become , especially around the time of delivery. (See '' below.) Given that she just had recently, I would retest her ATIII in mid February. I would have her finish Lovenox end of January. Has not taken iron since finishing . Recheck iron levels and ATIII assay and Ag - retest 02/17/22. These tests were normal. Would not recommend further Anticoagulation at this time. The patient was able to ask questions and all were answered to her satisfaction. No iron at this time. May develop KILLIAN if she goes back on menses. Recheck ATIII in a few months with iron levels. F/up telemed in 3 mo Medical Decision Making: Problems: Moderate: 2+ stable chronic illnesses Data: Unique test result(s) reviewed: 3+ Unique test(s) ordered: 3+ Risk: Moderate: Moderate risk from testing/treatment Medical Decision Making Level: 4 - Moderate Eliza Katz MD documented in this encounter [facility] 01-16-2022 History of Presen t illness Narrative INITIAL CONSULT Valerie Milesxiao 1990 January 15, 2022 Cancer Staging No matching staging information was found for the patient. HPI: Valerie Sánchez is a 31 year old female who presents as a second opinion for hx of PE and HELLP syndrome. Per notes, s/p C section with Dr. Aldrich. Previously saw Dr. Rodgers in [place]. Per notes: Hematologic problem(s): 1) Pulmonary emboli. 2) Mild decrease in functional Antithrombin. HPI: The patient is a 31-year-old female with no significant past medical history who presented to the emergency department at [facility] on 09/28/2020 with complaint of cough and shortness of breath which started the morning of admission. There was associated pleuritic chest pain with deep inspiration. She initially presented to the urgent care facility and was noted to be tachycardic with a heart rate in the 130s so she was advised to go to the ED. CT Chest 09/28/2020: FINDINGS: Small benign-appearing bilateral axillary lymph nodes. There are multiple nonocclusive intraluminal filling defects in branches of the upper lobe pulmonary arteries in keeping with the pulmonary emboli. There is also evidence of a multiple small bilateral pulmonary emboli in the lower lobe pulmonary arteries. Normal thoracic aorta and visualized great vessels. There is no demonstrated aortic dissection. Normal heart and pericardium. There are calcified mediastinal lymph nodes. There are calcified right hilar lymph nodes. Normal visualized trachea and bronchi. The lungs are well expanded. Calcified granuloma in the right lower lobe. Calcified right hilar lymph nodes and subcarinal lymph nodes. Normal pleura. Normal chest wall structures. Normal osseous structures. Normal visualized upper abdomen. IMPRESSION: Bilateral pulmonary emboli. Was admitted and started on apixaban. PCR test for Covid was negative. However her serology for SARS was positive. Echocardiogram was performed which demonstrated normal left ventricular systolic function with an estimated ejection fraction of 65%. There was trivial mitral and tricuspid valve insufficiency. The RV systolic pressure was not able to be determined secondary to insufficient tricuspid regurgitant envelope. There was no evidence of diastolic dysfunction. Per initial consultation here: Around the end of August 2020 had cough, sore throat, severe fatigue, mild chills without fever or loss of taste/smell. The symptoms persisted for about a week. Covid testing was negative. Menses while on apixaban. Was first off OCPs. Was heavy for about 4-5 days. Small clots. Shortness of breath had improved however she still had tachycardia and on Sunday began experiencing similar symptoms she had in August including sore throat and fatigue. This was also associated with a dry cough but occasionally she had some clear sputum production. No hemoptysis. No fever. Sex: Female. Smoker: Quit smoking 08/2018. BMI: Not calculated. Family h/o VTE: Only knows mother--she age 45 from lung cancer. Family h/o atherosclerotic disease: Unknown. Family h/o cancer: Mother as above. Hypercoagulation labs: None. Provoking factors: OCPs discontinued mid September 2020 after ~16 year of use. Had not received any fertility medications. Presumed recent Covid infection 08/2020. Presents for ongoing oncologic management. Interim history: On Lovenox. Tolerating well with no unusual bleeding or unexplained bruising. No complications with . No lower extremity swelling or edema. No leg pain. 26w and 4d. -In summary the patient is a 30-year-old female who developed bilateral pulmonary emboli following a presumptive Covid infection 08/2020. Infection was evidenced by her prior symptoms and presence of antibodies on testing done when admitted to [facility] 09/28/2020 for the pulmonary emboli. Duplex exam of the legs was not performed. She had discontinued oral contraceptives about 1 to 2 weeks prior to admission after ~16 years of use. She quit smoking in August 2018 following her mother's passing from lung cancer. -Initial hypercoagulation testing 02/01/2021 revealed an isolated decrease in functional Antithrombin level with normal levels of antigenic Antithrombin, fibrinogen, protein C, protein S and plasminogen. This suggested the possibility of an acquired Antithrombin deficiency. D-dimer was negative at the time. -Most recent labs 04/2021 reveal continued decrease in functional Antithrombin with normal antigenic level. -Currently 26 weeks and 4 days. Tolerating Lovenox well. 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 Evidently she will be changed to subcutaneous heparin about a month before delivery. We will continue to monitor her weight and adjust Lovenox dose accordingly until then. Plan: -Increase Lovenox to 85 mg every 12 hours. -Check weight in about a month. -I instructed her to increase Lovenox to 90 mg every 12 hours if her weight goes up to 198 prior to her weight check here in a month. (D50.9) Iron deficiency anemia, unspecified iron deficiency anemia type Assessment: -Previously secondary to heavier menses. -She is on zqxx-axt-nttncbo vitamin with some iron supplementation not clear how much. Plan: -Check CBC today. Per Dr. Aldrich's notes: 31 year old s/p pLTCS at 33w2d in the setting of HELLP syndrome. She did receive 2 units of platelets . Platelets and LFTs improved. 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 Home BPs reported as normal. Denies any signs/symptoms of preeclampsia. /pumping. Complains of bilateral breast nodules. Denies erythema, fevers, and chills. Reports productive cough, denies CP or SOB. 31 year old s/p LTCS at 33w2d in the setting of HELLP -. -PPBC- considering permanent sterilization including vasectomy. -Hx of HELLP: Discussed recurrence risk in future pregnancies. 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 Advised second opinion consult with Dr. Katz for further evaluation of thrombophilia. She was counseled that while APLS has been associated with preeclampsia, inherited thrombophilia's such as ATIII deficiency have not been shown to be associated with preeclampsia or other obstetric outcomes. Today she is here to discuss the above. Says she woke up SOB. No warning signs in her legs. COVID Ab +. Had stopped OCPs 1 mo prior. Had long COVID symptoms. Was only going to stay on OAC for 6 mo but then had a bunch of issues. 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 Was on Eliquis before . Now on Lovenox. Is on 0.4 once a day. Was on 0.85 twice day when . Had a boy - just came home from NICU last week. He is a month old now. No hx of clotting d/o. Mother with lung cancer. Very healthy. Exercises 5x/week. Non smoker. Never going back on OCPs. No further pregnancies. having vasectomy. Will use condoms. . PAST MEDICAL HISTORY Diagnosis Date Abnormal Pap smear of cervix Asthma Rios's esophagus 03/2021 COVID-19 virus antibody detected 09/2020 Dysplasia of cervix, high grade EDIE 2 s/p LEEP. repeat pap normal x2 Herpes zoster without mention of complication 1987 History of gastric ulcer History of pre-eclampsia in prior , currently Hypertension Infertility, female Multiple thyroid nodules Other pulmonary embolism without acute cor pulmonale (HCC) 09/28/2020 PMH - PAST MEDICAL HISTORY OF Color Vision - Normal PMH - PAST MEDICAL HISTORY OF Asthma PMH - PAST MEDICAL HISTORY OF Capillary Hemangioma Left buttocks PMH - PAST MEDICAL HISTORY OF 08/03/1989 Lead Level 5mgm Vertigo PAST SURGICAL HISTORY Procedure Laterality Date ANESTH, SECTION CERVIX UTERI CONIZA LP ELCTRO EXCI 07/2019 EGD gastric ulcer x3 ESOPHAGOGASTRODUODENOSCOPY TRANSORAL DIAGNOSTIC 02/28/2021 wisdom teeth extraction 08/03/2009 Current Outpatient Medications Medication Sig Dispense Refill enoxaparin (LOVENOX) 40 mg/0.4 mL Inject 0.4 mL subcutaneously every 24 hours 30 Syringe 1 ibuprofen (MOTRIN) 800 mg tablet Take 1 tablet by mouth every 8 hours as needed for pain. 30 tablet 0 cyclobenzaprine (FLEXERIL) 5 mg tablet Take 1 tablet by mouth three times daily as needed. (Patient not taking: Reported on 01/02/2022 ) 20 tablet 0 Breast Pump Use as directed 1 Each 0 ferrous sulfate 325 mg (65 mg iron) tablet Take 1 tablet by mouth every other day. (Patient not taking: Reported on 01/02/2022 ) nbwpnwj-kzhhbwtis-xbgfzzc D3 (CALCIUM 500+D) 500 mg-5 mcg (200 unit) per tablet Take 2 grams per day in divided doses (Patient not taking: Reported on 01/02/2022 ) pantoprazole DR (PROTONIX) 40 mg tablet Take 1 tablet by mouth once daily. 90 tablet 1 diphenhydramine HCl (BENADRYL ALLERGY ORAL) Take 1 tablet by mouth at bedtime as needed. (Patient not taking: Reported on 01/02/2022 ) 21/iron fu/folic acid ( COMPLETE ORAL) Take 2 tablets by mouth twice daily. Current Facility-Administered Medications Medication Dose Route Frequency Provider Last Rate Last Admin acetylcholine 10% solution - cchs compounding 20 mL IRRIGATION ONE TIME Gayathri Saul APRN.[employer] Allergen Reactions Plexion [Sulfacetam* Rash FAMILY HISTORY Problem Relation Age of Onset Lung Cancer Mother None Father Alcohol abuse Maternal Grandmother Schizophrenia Maternal Uncle Alcohol abuse Maternal Uncle Social History Tobacco Use Smoking status: Former Smoker Packs/day: 1.00 Years: 13.00 Pack years: 13.00 Types: Cigarettes Quit date: 08/10/2018 Years since quittin.4 Smokeless tobacco: Never Used Vaping Use Vaping Use: Never used Substance Use Topics Alcohol use: Not Currently Drug use: No Review of Systems: Constitutional: No fevers, chills, drenching night sweats or unintentional weight loss. HEENT: No yellowing of the eyes, no vision changes, no hearing loss or ear pain, no nosebleeds or drainage, no sore throat. Neck: No complaints. Chest: No SOB or cough, no GARCIA, no hemoptysis, no wheezing. Breast: No complaints. Heart: No chest pain, pressure or tightness. No racing heartbeat. Abdominal: No pain or difficulty with swallowing, no N/V, no early satiety, no abdominal pain or bloating, no diarrhea or constipation, no change in bowel habits, no blood in the urine. S/p C section. Genitourinary: No pain or burning with urination, no incontinence, no blood in the urine. Extremities: no pain or swelling. Neurological: No headaches, no numbness or tingling in the extremities, no double vision. Skin: No rashes or ulcerations, no change in pigmentation. Nodes: no enlargement per patient. Heme: No easy bruising or bleeding, no yellowing of the eyes or darkening of urine. Psychiatric: no anxiety or depression. Immunologic: No recurrent or persistent infections of the sinuses, lungs or urinary tract. Endocrine: No hair or nail changes, no polyuria, polydipsia, or polyphagia. Appetite normal. Physical Exam: BP 120/87 Pulse 103 Temp (Src) 96.8 (Tympanic) Ht 5' 4 (1.63m) Wt 170 lb (77.1kg) SpO2 97% LMP 04/28/2021 BMI 29.17 kg/(m^2). ECOG PS: 0 Pain Intensity: 0/10 General: Age-appropriate well developed. Appears well. HEENT: Normocephalic, no sclera icterus, external ears normal, oral cavity clear. Neck: Supple, no thyroid nodules, no JVD. Chest: Clear bilaterally, no wheezes, not labored. Heart: Normal S1 and S2, no abnormal sounds, peripheral pulses synchronized. Abdomen: Soft, nontender, nondistended, bowel sounds present, no organomegaly or mass, no rigidity. C section scar healed well. /Rectal: deferred Extremities: No cyanosis, clubbing, gross deformities, or palpable cords. Neurological: Cranial nerves II through XII are intact bilaterally, strength normal in the upper and lower extremities, no focal deficits. Skin: Warm and dry with no rashes or ulcerations. Nodes: No palpable adenopathy in the cervical, supraclavicular, infraclavicular, or axillary regions. Hematologic: no bruising or petechiae. Psychiatric: Alert and oriented x3. Emotional well-being assessment was performed. Pt denies depression, distress, and or problems with coping or adjustment. Labs CBC:No results for input(s): WBC, HB, HCT, PLT, MCV, RDWCV, NEUTP, ABSNEUT, LYMPHP, MONOP, EODINP in the last 168 hours. COAG: No results for input(s): APTT, INR in the last 168 hours. BMP: No results for input(s): GLUC, NA, K, CHLOR, CO2, ANION, BUN, CREAT in the last 168 hours. CHEM: No results for input(s): ALB, TPROT, CA, MG in the last 168 hours. AT III 02/2021 (Ag): 93 04/2021 (Activity): 69 10/31/21 (Activity): 159 10/31/21 (Ag): 83 ATIII Ag normal x 3 There is an isolated decrease in the functional antithrombin level, with normal levels of antigenic antithrombin, fibrinogen, protein C, protein S and plasminogen. This suggests the possibility of acquired antithrombin deficiency. Acquired causes of decreased functional antithrombin include consumptive coagulopathy, liver disease, nephrotic syndrome, L-asparaginase therapy, heparin therapy and acute thrombosis. Suggest correlation with clinical findings. Alternatively, a type II defect (functionally defective AT) as a hereditary finding is another possibility. Hypercoag panel 02/2021 otherwise normal. Radiology: US RUQ 12/17/21: Gallbladder sludge with no shadowing stones or findings to suggest acute cholecystitis. 5.8 cm hypoechoic area in the liver may represent regional area of fatty infiltration versus solid mass such as hemangioma and can be best assessed with MRI as an outpatient after delivery. Mild hydronephrosis which can be physiologic during later stage of . CT liver 12/17/21: Multiple liver lesions. Favor benign etiology such as focal nodular hyperplasia or transient hepatic attenuation differences. Follow up liver MRI. No active extravasation. Trace free fluid. Multiple subcutaneous nodules in the anterior abdominal wall and in etiology. US vascular abd 12/18/21: PATENT HEPATIC VASCULATURE WITH APPROPRIATELY DIRECTED FLOW. Previous liver lesions are not well delineated. Liver appears overall heterogeneous. 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 This is achieved in the first instance by identifying high-risk episodes such as surgery, immobility and for which prophylactic anticoagulation can be used in the short term. Prophylaxis for such periods is best provided by the use of low molecular weight heparin (LMWH) with substitution by or addition of antithrombin concentrate in particularly high-risk circumstances. In the case of , antithrombin concentrate is often used around the time of when LMWH may increase the risk of post- haemorrhage. Acquired deficiency A variety of conditions lower the concentration of AT in the blood. Many of these are also associated with other alterations in procoagulant and anticoagulant factors, making it challenging to determine what role (if any) the reductions in AT levels play in the associated thrombotic complications. ?Disseminated intravascular coagulation (DIC) is characterized by ongoing coagulation and fibrinolysis that consumes procoagulant and anticoagulant factors [24]. Reports have suggested that more severe AT deficiency in the setting of DIC or sepsis is predictive of worse outcomes [25]. However, this association should not be interpreted to imply causation; for these conditions, the principle treatment involves addressing the underlying disease process. (See Evaluation and management of disseminated intravascular coagulation (DIC) in adults , section on 'Intravascular coagulation and fibrinolysis'.) ?Acute thrombosis can reduce AT levels transiently (table 1) [26]. ?Liver disease (primarily cirrhosis) may be characterized by reduced synthesis of procoagulant and anticoagulant factors, including AT [27,28]. (See Hemostatic abnormalities in patients with liver disease , section on 'Physiologic effects of hepatic dysfunction'.) ?Nephrotic syndromes may be associated with urinary losses of AT as well as other anticoagulant factors including protein S and protein C [29,30]. (See Hypercoagulability in nephrotic syndrome .) ?Extracorporeal membrane oxygenation (ECMO) and hemodialysis have also been associated with reductions in plasma AT levels [31]. This may result in ineffective anticoagulation with heparin. Replacement of AT can be accomplished more effectively by administering AT concentrate rather than by giving Fresh Frozen Plasma (FFP); AT replacement has not clearly been shown to be effective in improving clinical outcomes or prolonging circuit life, however. Thrombotic risk in these settings may also be attributed to by the presence of a central catheter for vascular access. ?Surgery and trauma may be accompanied by a variety of prothrombotic and bleeding effects. Major surgery is associated with a modest fall in AT levels, with a canelo around the third postoperative day, followed by an increase to normal around the fifth postoperative day [32]. ?Asparaginase therapy reduces synthesis of proteins that contain the amino acid asparagine, including AT. Asparagine-containing chemotherapy regimens for acute lymphoblastic leukemia (ALL) are associated with an increased thrombotic risk, which may be due to reduced AT in combination with other factors such as glucocorticoid administration, immobilization, and/or the presence of a central venous catheter. ?Heparins can lower AT activity levels by as much as 30 percent, presumably by causing increased clearance of AT [33]. These reductions are not considered to increase thrombotic risk; however, this phenomenon may produce a false positive result in a patient undergoing thrombophilia testing while receiving heparin (ie, it may suggest the patient has hereditary AT deficiency when in fact the reduction is due to heparin therapy) (table 1). ?Modest reductions in plasma AT concentration are found in users of oral contraceptives and in individuals receiving estrogen for other purposes, but the clinical importance of these changes is not established [34,35]. ?AT levels do not change substantially during normal pregnancies, but they may decrease significantly in women with -induced hypertension, preeclampsia, or eclampsia [34,36,37]. (See Maternal adaptations to : Hematologic changes , section on 'Coagulation and fibrinolysis'.) Patients with AT deficiency appear to be at particularly high risk of thrombosis during [63]. In a 2016 systematic review that included four case-control studies involving pregnancies in women with and without AT deficiency, the OR for VTE with AT deficiency was 6.1 (95% CI 1.6-23.4) [64]. In another study, the risk of VTE was evaluated in 78 women with inherited AT deficiency, protein S deficiency, or protein C deficiency [65]. In women with AT deficiency, deep vein thrombosis occurred in 18 percent during and in 33 percent in the period. By comparison, thrombosis during occurred in only 7 percent of patients with protein C deficiency and in none of the patients with protein S deficiency. Thrombosis in the period occurred in 19 percent of protein C and 17 percent of protein S deficient patients. This increased risk provides our rationale for administering AT concentrate to some individuals with hereditary AT deficiency who become , especially around the time of delivery. (See '' below.) Given that she just had recently, I would retest her ATIII in mid February. I would have her finish Lovenox end of January. Has not taken iron since finishing . Recheck iron levels and ATIII assay and Ag - retest 02/17. The patient was able to ask questions and all were answered to her satisfaction. I will see her back in about 2 months for follow up. I spent a total of 65 minutes on the date of the service which included preparing to see the patient, [id number] patient care, completing clinical documentation, obtaining and/or reviewing separately obtained history, performing a medically appropriate examination, counseling and educating the patient/family/caregiver, ordering medications, tests, or procedures, independently interpreting results (not separately reported), communicating results to the patient/family/caregiver and care coordination (not separately reported). Eliza Katz MD documented in this encounter [facility] 01-03-2022 Miscellaneous Notes OB Post Discharge Patient Call Back: Date: 01/03/2022 Patient Name: Valerie Sánchez : 1990 Delivery Summary: Emigdio Sánchez [[id number]] Delivery Information: Delivery Date: 12/17/21 Delivery type: , Low Transverse Delivering Clinician: Fox Gutierres DO Ocate: Gender: Male Weight (grams): 2060 g One Minute : 1 Five Minute : 7 Patient was contacted after her inpatient discharge from [facility]. She reported the following as it relates to her recovery and hospital experience: General Physical: We discussed how she was doing physically. She reported the following: Bleeding: no Pain: no Other Signs or Symptoms: No Overall Mood: Patient was informed that Baby Blues are feelings of sadness that a woman may experience in the first few days after having a baby. Baby Blues can happen 2-3 days after delivery and can last up to two weeks. These feelings usually go away on their own and does not require treatment. Tell your doctor if you have sad feelings that last longer than two weeks. He/she may want to check you for a more serious condition called Post Depression (PPD). This can occur as early as one week and up to one year after giving . PPD warning signs include: Thinking of hurting yourself of your baby Feeling out of control, unable to care for self or baby Feeling depressed or sad most of the day every day Having trouble sleeping or sleeping too much Having trouble bonding with your baby Safe Sleep: I reviewed safe sleep environments for infants and the ABC's (alone back crib) for sleeping with the patient. She reported the following. The (s) sleeps in: still in the NICU here Baby in need of a crib/Fytk-jhp-Samo: No Baby's feeding: Method: Human milk only. Breast Feeding Problems: None Frequency: Within Normal Limits Education: N/A Baby's elimination habits: Average wet diapers: In NICU Average dirty diapers: In NICU Education: N/A Follow-up appointments: Scheduled appointment with a inspector hairspring: No Scheduled a follow up appointment with OB provider: Has seen Suggestions/Concerns: Things that could have been done better during your stay: N/A Current concerns: N/A Referral(s): Patient referred to: N/A Deysi Muller RN documented in this encounter [facility] 12-30-2021 Miscellaneous Notes Pt called to report that her vaginal bleeding had stopped, yet restarted yesterday. She states it is less than a pad a day. I explained that increased activity and the release of a uterine clot can cause bleeding to increase, and this is a normal process. I told her to call if bleeding increases to over a pad an hour, and she voiced understanding. She has an appointment with Dr Aldrich on Sunday. Violetta Young RN documented in this encounter [facility] 12-26-2021 Nurse Note Pt states she is feeling better, and has been monitoring her blood pressures twice daily. She denies needs or concerns at this time. documented in this encounter [facility] documented as of this encounter (statuses as of 12/22/2021) [facility]04-16-2022 History of Past illness Narrative* Problem Noted Date Resolved Date Pre-eclampsia 12/17/2021 12/22/2021 Overview: -Presented to outside hospital with chief complaints of epigastric pain. -During her stay there, she developed a transaminitis and had mild range blood pressures AST/ALT 46/59->96/105 -Additionally had an elevated urine protein creatinine ratio, 4.19 -Given severe epigastric pain, transaminitis, mild range blood pressures and elevated protein creatinine ratio, the patient met criteria for preeclampsia with severe features and was started on magnesium at the outside hospital. There she received a 6 g bolus at 2230 on 12/16 and maintenance of 2 g/h following -Stat right upper quadrant ultrasound -Repeat labs upon admission -Continue magnesium x24 hours -Proceed with induction of labor Prematurity 12/17/2021 12/22/2021 Overview: -BMZ #1 on 12/16, second dose in 24 hours if still -NPO, advance if delivery is not imminent -Continuous electronic monitoring while on magnesium -MFM primary -Cephalic -NICU consult Encounter for induction of labor 12/17/2021 12/22/2021 Overview: GBSunknown PCN Cytotec [address] Balloon when able Pitocin prn Epidural prn Amniotomy prn No growth US Gastroesophageal reflux in 07/03/2021 12/22/2021 Overview: -Controlled with daily PPI -EGDx2, h/o rios esophagus -history of gastric ulcer Gastroesophageal reflux disease 02/23/2021 09/05/2021 Last Assessment & Plan: Assessment: and h/o gastric ulcers, on rx documented as of this encounter (statuses as of 12/27/2021) [facility]04-16-2022 History of Past illness Narrative* Problem Noted Date Resolved Date Pre-eclampsia 12/17/2021 12/22/2021 Overview: -Presented to outside hospital with chief complaints of epigastric pain. -During her stay there, she developed a transaminitis and had mild range blood pressures AST/ALT 46/59->96/105 -Additionally had an elevated urine protein creatinine ratio, 4.19 -Given severe epigastric pain, transaminitis, mild range blood pressures and elevated protein creatinine ratio, the patient met criteria for preeclampsia with severe features and was started on magnesium at the outside hospital. There she received a 6 g bolus at 2230 on 12/16 and maintenance of 2 g/h following -Stat right upper quadrant ultrasound -Repeat labs upon admission -Continue magnesium x24 hours -Proceed with induction of labor Prematurity 12/17/2021 12/22/2021 Overview: -BMZ #1 on 12/16, second dose in 24 hours if still -NPO, advance if delivery is not imminent -Continuous electronic monitoring while on magnesium -MFM primary -Cephalic -NICU consult Encounter for induction of labor 12/17/2021 12/22/2021 Overview: GBSunknown PCN Cytotec [address] Balloon when able Pitocin prn Epidural prn Amniotomy prn No growth US Gastroesophageal reflux in 07/03/2021 12/22/2021 Overview: -Controlled with daily PPI -EGDx2, h/o rios esophagus -history of gastric ulcer Gastroesophageal reflux disease 02/23/2021 09/05/2021 Last Assessment & Plan: Assessment: and h/o gastric ulcers, on rx documented as of this encounter (statuses as of 12/30/2021) [facility]04-16-2022 History of Past illness Narrative* Problem Noted Date Resolved Date Pre-eclampsia 12/17/2021 12/22/2021 Overview: -Presented to outside hospital with chief complaints of epigastric pain. -During her stay there, she developed a transaminitis and had mild range blood pressures AST/ALT 46/59->96/105 -Additionally had an elevated urine protein creatinine ratio, 4.19 -Given severe epigastric pain, transaminitis, mild range blood pressures and elevated protein creatinine ratio, the patient met criteria for preeclampsia with severe features and was started on magnesium at the outside hospital. There she received a 6 g bolus at 2230 on 12/16 and maintenance of 2 g/h following -Stat right upper quadrant ultrasound -Repeat labs upon admission -Continue magnesium x24 hours -Proceed with induction of labor Prematurity 12/17/2021 12/22/2021 Overview: -BMZ #1 on 12/16, second dose in 24 hours if still -NPO, advance if delivery is not imminent -Continuous electronic monitoring while on magnesium -MFM primary -Cephalic -NICU consult Encounter for induction of labor 12/17/2021 12/22/2021 Overview: GBSunknown PCN Cytotec 04[address] Balloon when able Pitocin prn Epidural prn Amniotomy prn No growth US Gastroesophageal reflux in 07/03/2021 12/22/2021 Overview: -Controlled with daily PPI -EGDx2, h/o rios esophagus -history of gastric ulcer Gastroesophageal reflux disease 02/23/2021 09/05/2021 Last Assessment & Plan: Assessment: and h/o gastric ulcers, on rx documented as of this encounter (statuses as of 01/03/2022) [facility]04-16-2022 History of Past illness Narrative* Problem Noted Date Resolved Date Pre-eclampsia 12/17/2021 12/22/2021 Overview: -Presented to outside hospital with chief complaints of epigastric pain. -During her stay there, she developed a transaminitis and had mild range blood pressures AST/ALT 46/59->96/105 -Additionally had an elevated urine protein creatinine ratio, 4.19 -Given severe epigastric pain, transaminitis, mild range blood pressures and elevated protein creatinine ratio, the patient met criteria for preeclampsia with severe features and was started on magnesium at the outside hospital. There she received a 6 g bolus at 2230 on 12/16 and maintenance of 2 g/h following -Stat right upper quadrant ultrasound -Repeat labs upon admission -Continue magnesium x24 hours -Proceed with induction of labor Prematurity 12/17/2021 12/22/2021 Overview: -BMZ #1 on 12/16, second dose in 24 hours if still -NPO, advance if delivery is not imminent -Continuous electronic monitoring while on magnesium -MFM primary -Cephalic -NICU consult Encounter for induction of labor 12/17/2021 12/22/2021 Overview: GBSunknown PCN Cytotec [address]oon when able Pitocin prn Epidural prn Amniotomy prn No growth US Gastroesophageal reflux in 07/03/2021 12/22/2021 Overview: -Controlled with daily PPI -EGDx2, h/o rios esophagus -history of gastric ulcer Gastroesophageal reflux disease 02/23/2021 09/05/2021 Last Assessment & Plan: Assessment: and h/o gastric ulcers, on rx documented as of this encounter (statuses as of 02/26/2022) [facility]04-16-2022 History of Past illness Narrative* Problem Noted Date Resolved Date Pre-eclampsia 12/17/2021 12/22/2021 Overview: -Presented to outside hospital with chief complaints of epigastric pain. -During her stay there, she developed a transaminitis and had mild range blood pressures AST/ALT 46/59->96/105 -Additionally had an elevated urine protein creatinine ratio, 4.19 -Given severe epigastric pain, transaminitis, mild range blood pressures and elevated protein creatinine ratio, the patient met criteria for preeclampsia with severe features and was started on magnesium at the outside hospital. There she received a 6 g bolus at 2230 on 12/16 and maintenance of 2 g/h following -Stat right upper quadrant ultrasound -Repeat labs upon admission -Continue magnesium x24 hours -Proceed with induction of labor Prematurity 12/17/2021 12/22/2021 Overview: -BMZ #1 on 12/16, second dose in 24 hours if still -NPO, advance if delivery is not imminent -Continuous electronic monitoring while on magnesium -MFM primary -Cephalic -NICU consult Encounter for induction of labor 12/17/2021 12/22/2021 Overview: GBSunknown PCN Cytotec [address]oon when able Pitocin prn Epidural prn Amniotomy prn No growth US Gastroesophageal reflux in 07/03/2021 12/22/2021 Overview: -Controlled with daily PPI -EGDx2, h/o rios esophagus -history of gastric ulcer Gastroesophageal reflux disease 02/23/2021 09/05/2021 Last Assessment & Plan: Assessment: and h/o gastric ulcers, on rx documented as of this encounter (statuses as of 03/02/2022) [facility]04-16-2022 History of Past illness Narrative* Problem Noted Date Resolved Date Pre-eclampsia 12/17/2021 12/22/2021 Overview: -Presented to outside hospital with chief complaints of epigastric pain. -During her stay there, she developed a transaminitis and had mild range blood pressures AST/ALT 46/59->96/105 -Additionally had an elevated urine protein creatinine ratio, 4.19 -Given severe epigastric pain, transaminitis, mild range blood pressures and elevated protein creatinine ratio, the patient met criteria for preeclampsia with severe features and was started on magnesium at the outside hospital. There she received a 6 g bolus at 2230 on 12/16 and maintenance of 2 g/h following -Stat right upper quadrant ultrasound -Repeat labs upon admission -Continue magnesium x24 hours -Proceed with induction of labor Prematurity 12/17/2021 12/22/2021 Overview: -BMZ #1 on 12/16, second dose in 24 hours if still -NPO, advance if delivery is not imminent -Continuous electronic monitoring while on magnesium -MFM primary -Cephalic -NICU consult Encounter for induction of labor 12/17/2021 12/22/2021 Overview: GBSunknown PCN Cytotec 04[address]oon when able Pitocin prn Epidural prn Amniotomy prn No growth US Gastroesophageal reflux in 07/03/2021 12/22/2021 Overview: -Controlled with daily PPI -EGDx2, h/o rios esophagus -history of gastric ulcer Gastroesophageal reflux disease 02/23/2021 09/05/2021 Last Assessment & Plan: Assessment: and h/o gastric ulcers, on rx documented as of this encounter (statuses as of 05/18/2022) [facility]04-16-2022 History of Past illness Narrative* Problem Noted Date Resolved Date Pre-eclampsia 12/17/2021 12/22/2021 Overview: -Presented to outside hospital with chief complaints of epigastric pain. -During her stay there, she developed a transaminitis and had mild range blood pressures AST/ALT 46/59->96/105 -Additionally had an elevated urine protein creatinine ratio, 4.19 -Given severe epigastric pain, transaminitis, mild range blood pressures and elevated protein creatinine ratio, the patient met criteria for preeclampsia with severe features and was started on magnesium at the outside hospital. There she received a 6 g bolus at 2230 on 12/16 and maintenance of 2 g/h following -Stat right upper quadrant ultrasound -Repeat labs upon admission -Continue magnesium x24 hours -Proceed with induction of labor Prematurity 12/17/2021 12/22/2021 Overview: -BMZ #1 on 12/16, second dose in 24 hours if still -NPO, advance if delivery is not imminent -Continuous electronic monitoring while on magnesium -MFM primary -Cephalic -NICU consult Encounter for induction of labor 12/17/2021 12/22/2021 Overview: GBSunknown PCN Cytotec [address]oon when able Pitocin prn Epidural prn Amniotomy prn No growth US Gastroesophageal reflux in 07/03/2021 12/22/2021 Overview: -Controlled with daily PPI -EGDx2, h/o rios esophagus -history of gastric ulcer Gastroesophageal reflux disease 02/23/2021 09/05/2021 Last Assessment & Plan: Assessment: and h/o gastric ulcers, on rx documented as of this encounter (statuses as of 05/29/2022) [facility]04-16-2022 History of Past illness Narrative* Problem Noted Date Resolved Date Pre-eclampsia 12/17/2021 12/22/2021 Overview: -Presented to outside hospital with chief complaints of epigastric pain. -During her stay there, she developed a transaminitis and had mild range blood pressures AST/ALT 46/59->96/105 -Additionally had an elevated urine protein creatinine ratio, 4.19 -Given severe epigastric pain, transaminitis, mild range blood pressures and elevated protein creatinine ratio, the patient met criteria for preeclampsia with severe features and was started on magnesium at the outside hospital. There she received a 6 g bolus at 2230 on 12/16 and maintenance of 2 g/h following -Stat right upper quadrant ultrasound -Repeat labs upon admission -Continue magnesium x24 hours -Proceed with induction of labor Prematurity 12/17/2021 12/22/2021 Overview: -BMZ #1 on 12/16, second dose in 24 hours if still -NPO, advance if delivery is not imminent -Continuous electronic monitoring while on magnesium -MFM primary -Cephalic -NICU consult Encounter for induction of labor 12/17/2021 12/22/2021 Overview: GBSunknown PCN Cytotec [address] when able Pitocin prn Epidural prn Amniotomy prn No growth US Gastroesophageal reflux in 07/03/2021 12/22/2021 Overview: -Controlled with daily PPI -EGDx2, h/o rios esophagus -history of gastric ulcer Gastroesophageal reflux disease 02/23/2021 09/05/2021 Last Assessment & Plan: Assessment: and h/o gastric ulcers, on rx documented as of this encounter (statuses as of 05/29/2022) [facility]04-16-2022 History of Past illness Narrative* Problem Noted Date Resolved Date Pre-eclampsia 12/17/2021 12/22/2021 Overview: -Presented to outside hospital with chief complaints of epigastric pain. -During her stay there, she developed a transaminitis and had mild range blood pressures AST/ALT 46/59->96/105 -Additionally had an elevated urine protein creatinine ratio, 4.19 -Given severe epigastric pain, transaminitis, mild range blood pressures and elevated protein creatinine ratio, the patient met criteria for preeclampsia with severe features and was started on magnesium at the outside hospital. There she received a 6 g bolus at 2230 on 12/16 and maintenance of 2 g/h following -Stat right upper quadrant ultrasound -Repeat labs upon admission -Continue magnesium x24 hours -Proceed with induction of labor Prematurity 12/17/2021 12/22/2021 Overview: -BMZ #1 on 12/16, second dose in 24 hours if still -NPO, advance if delivery is not imminent -Continuous electronic monitoring while on magnesium -MFM primary -Cephalic -NICU consult Encounter for induction of labor 12/17/2021 12/22/2021 Overview: GBSunknown PCN Cytotec [address] when able Pitocin prn Epidural prn Amniotomy prn No growth US Gastroesophageal reflux in 07/03/2021 12/22/2021 Overview: -Controlled with daily PPI -EGDx2, h/o rios esophagus -history of gastric ulcer Gastroesophageal reflux disease 02/23/2021 09/05/2021 Last Assessment & Plan: Assessment: and h/o gastric ulcers, on rx documented as of this encounter (statuses as of 10/11/2022) [facility]04-16-2022 History of Past illness Narrative* Problem Noted Date Resolved Date Pre-eclampsia 12/17/2021 12/22/2021 Overview: -Presented to outside hospital with chief complaints of epigastric pain. -During her stay there, she developed a transaminitis and had mild range blood pressures AST/ALT 46/59->96/105 -Additionally had an elevated urine protein creatinine ratio, 4.19 -Given severe epigastric pain, transaminitis, mild range blood pressures and elevated protein creatinine ratio, the patient met criteria for preeclampsia with severe features and was started on magnesium at the outside hospital. There she received a 6 g bolus at 2230 on 12/16 and maintenance of 2 g/h following -Stat right upper quadrant ultrasound -Repeat labs upon admission -Continue magnesium x24 hours -Proceed with induction of labor Prematurity 12/17/2021 12/22/2021 Overview: -BMZ #1 on 12/16, second dose in 24 hours if still -NPO, advance if delivery is not imminent -Continuous electronic monitoring while on magnesium -MFM primary -Cephalic -NICU consult Encounter for induction of labor 12/17/2021 12/22/2021 Overview: GBSunknown PCN Cytotec [address] when able Pitocin prn Epidural prn Amniotomy prn No growth US Gastroesophageal reflux in 07/03/2021 12/22/2021 Overview: -Controlled with daily PPI -EGDx2, h/o rios esophagus -history of gastric ulcer Gastroesophageal reflux disease 02/23/2021 09/05/2021 Last Assessment & Plan: Assessment: and h/o gastric ulcers, on rx documented as of this encounter (statuses as of 10/20/2022) [facility]04-16-2022 History of Past illness Narrative* Problem Noted Date Resolved Date Pre-eclampsia 12/17/2021 12/22/2021 Overview: -Presented to outside hospital with chief complaints of epigastric pain. -During her stay there, she developed a transaminitis and had mild range blood pressures AST/ALT 46/59->96/105 -Additionally had an elevated urine protein creatinine ratio, 4.19 -Given severe epigastric pain, transaminitis, mild range blood pressures and elevated protein creatinine ratio, the patient met criteria for preeclampsia with severe features and was started on magnesium at the outside hospital. There she received a 6 g bolus at 2230 on 12/16 and maintenance of 2 g/h following -Stat right upper quadrant ultrasound -Repeat labs upon admission -Continue magnesium x24 hours -Proceed with induction of labor Prematurity 12/17/2021 12/22/2021 Overview: -BMZ #1 on 12/16, second dose in 24 hours if still -NPO, advance if delivery is not imminent -Continuous electronic monitoring while on magnesium -MFM primary -Cephalic -NICU consult Encounter for induction of labor 12/17/2021 12/22/2021 Overview: GBSunknown PCN Cytotec [address] when able Pitocin prn Epidural prn Amniotomy prn No growth US Gastroesophageal reflux in 07/03/2021 12/22/2021 Overview: -Controlled with daily PPI -EGDx2, h/o rios esophagus -history of gastric ulcer Gastroesophageal reflux disease 02/23/2021 09/05/2021 Last Assessment & Plan: Assessment: and h/o gastric ulcers, on rx documented as of this encounter (statuses as of 01/17/2023) [facility]04-16-2022 History of Past illness Narrative* Problem Noted Date Resolved Date Pre-eclampsia 12/17/2021 12/22/2021 Overview: -Presented to outside hospital with chief complaints of epigastric pain. -During her stay there, she developed a transaminitis and had mild range blood pressures AST/ALT 46/59->96/105 -Additionally had an elevated urine protein creatinine ratio, 4.19 -Given severe epigastric pain, transaminitis, mild range blood pressures and elevated protein creatinine ratio, the patient met criteria for preeclampsia with severe features and was started on magnesium at the outside hospital. There she received a 6 g bolus at 2230 on 12/16 and maintenance of 2 g/h following -Stat right upper quadrant ultrasound -Repeat labs upon admission -Continue magnesium x24 hours -Proceed with induction of labor Prematurity 12/17/2021 12/22/2021 Overview: -BMZ #1 on 12/16, second dose in 24 hours if still -NPO, advance if delivery is not imminent -Continuous electronic monitoring while on magnesium -MFM primary -Cephalic -NICU consult Encounter for induction of labor 12/17/2021 12/22/2021 Overview: GBSunknown PCN Cytotec [address] when able Pitocin prn Epidural prn Amniotomy prn No growth US Gastroesophageal reflux in 07/03/2021 12/22/2021 Overview: -Controlled with daily PPI -EGDx2, h/o rios esophagus -history of gastric ulcer Gastroesophageal reflux disease 02/23/2021 09/05/2021 Last Assessment & Plan: Assessment: and h/o gastric ulcers, on rx documented as of this encounter (statuses as of 02/05/2023) [facility]04-16-2022 History of Past illness Narrative* Problem Noted Date Resolved Date Pre-eclampsia 12/17/2021 12/22/2021 Overview: -Presented to outside hospital with chief complaints of epigastric pain. -During her stay there, she developed a transaminitis and had mild range blood pressures AST/ALT 46/59->96/105 -Additionally had an elevated urine protein creatinine ratio, 4.19 -Given severe epigastric pain, transaminitis, mild range blood pressures and elevated protein creatinine ratio, the patient met criteria for preeclampsia with severe features and was started on magnesium at the outside hospital. There she received a 6 g bolus at 2230 on 12/16 and maintenance of 2 g/h following -Stat right upper quadrant ultrasound -Repeat labs upon admission -Continue magnesium x24 hours -Proceed with induction of labor Prematurity 12/17/2021 12/22/2021 Overview: -BMZ #1 on 12/16, second dose in 24 hours if still -NPO, advance if delivery is not imminent -Continuous electronic monitoring while on magnesium -MFM primary -Cephalic -NICU consult Encounter for induction of labor 12/17/2021 12/22/2021 Overview: GBSunknown PCN Cytotec [address] when able Pitocin prn Epidural prn Amniotomy prn No growth US Gastroesophageal reflux in 07/03/2021 12/22/2021 Overview: -Controlled with daily PPI -EGDx2, h/o rios esophagus -history of gastric ulcer Gastroesophageal reflux disease 02/23/2021 09/05/2021 Last Assessment & Plan: Assessment: and h/o gastric ulcers, on rx documented as of this encounter (statuses as of 02/06/2023) [facility]04-16-2022 History of Past illness Narrative* Problem Noted Date Diagnosed Date Resolved Date Pre-eclampsia 12/17/2021 12/22/2021 Overview: -Presented to outside hospital with chief complaints of epigastric pain. -During her stay there, she developed a transaminitis and had mild range blood pressures AST/ALT 46/59->96/105 -Additionally had an elevated urine protein creatinine ratio, 4.19 -Given severe epigastric pain, transaminitis, mild range blood pressures and elevated protein creatinine ratio, the patient met criteria for preeclampsia with severe features and was started on magnesium at the outside hospital. There she received a 6 g bolus at 2230 on 12/16 and maintenance of 2 g/h following -Stat right upper quadrant ultrasound -Repeat labs upon admission -Continue magnesium x24 hours -Proceed with induction of labor Prematurity 12/17/2021 12/22/2021 Overview: -BMZ #1 on 12/16, second dose in 24 hours if still -NPO, advance if delivery is not imminent -Continuous electronic monitoring while on magnesium -MFM primary -Cephalic -NICU consult Encounter for induction of labor 12/17/2021 12/22/2021 Overview: GBSunknown PCN Cytotec [address] when able Pitocin prn Epidural prn Amniotomy prn No growth US Gastroesophageal reflux in 07/03/2021 12/22/2021 Overview: -Controlled with daily PPI -EGDx2, h/o rios esophagus -history of gastric ulcer Gastroesophageal reflux disease 02/23/2021 09/05/2021 Last Assessment & Plan: Assessment: and h/o gastric ulcers, on rx documented as of this encounter (statuses as of 03/20/2023) [facility]04-16-2022 History of Past illness Narrative* Problem Noted Date Diagnosed Date Resolved Date Pre-eclampsia 12/17/2021 12/22/2021 Overview: -Presented to outside hospital with chief complaints of epigastric pain. -During her stay there, she developed a transaminitis and had mild range blood pressures AST/ALT 46/59->96/105 -Additionally had an elevated urine protein creatinine ratio, 4.19 -Given severe epigastric pain, transaminitis, mild range blood pressures and elevated protein creatinine ratio, the patient met criteria for preeclampsia with severe features and was started on magnesium at the outside hospital. There she received a 6 g bolus at 2230 on 12/16 and maintenance of 2 g/h following -Stat right upper quadrant ultrasound -Repeat labs upon admission -Continue magnesium x24 hours -Proceed with induction of labor Prematurity 12/17/2021 12/22/2021 Overview: -BMZ #1 on 12/16, second dose in 24 hours if still -NPO, advance if delivery is not imminent -Continuous electronic monitoring while on magnesium -MFM primary -Cephalic -NICU consult Encounter for induction of labor 12/17/2021 12/22/2021 Overview: GBSunknown PCN Cytotec [address] when able Pitocin prn Epidural prn Amniotomy prn No growth US Gastroesophageal reflux in 07/03/2021 12/22/2021 Overview: -Controlled with daily PPI -EGDx2, h/o rios esophagus -history of gastric ulcer Gastroesophageal reflux disease 02/23/2021 09/05/2021 Last Assessment & Plan: Assessment: and h/o gastric ulcers, on rx documented as of this encounter (statuses as of 03/31/2023) [facility]04[facility]16[facility]2022 History of Past illness Narrative* Problem Noted Date Diagnosed Date Resolved Date Pre-eclampsia 12/17/2021 12/22/2021 Overview: -Presented to outside hospital with chief complaints of epigastric pain. -During her stay there, she developed a transaminitis and had mild range blood pressures AST/ALT 46/59->96/105 -Additionally had an elevated urine protein creatinine ratio, 4.19 -Given severe epigastric pain, transaminitis, mild range blood pressures and elevated protein creatinine ratio, the patient met criteria for preeclampsia with severe features and was started on magnesium at the outside hospital. There she received a 6 g bolus at 2230 on 12/16 and maintenance of 2 g/h following -Stat right upper quadrant ultrasound -Repeat labs upon admission -Continue magnesium x24 hours -Proceed with induction of labor Prematurity 12/17/2021 12/22/2021 Overview: -BMZ #1 on 12/16, second dose in 24 hours if still -NPO, advance if delivery is not imminent -Continuous electronic monitoring while on magnesium -MFM primary -Cephalic -NICU consult Encounter for induction of labor 12/17/2021 12/22/2021 Overview: GBSunknown PCN Cytotec [address] when able Pitocin prn Epidural prn Amniotomy prn No growth US Gastroesophageal reflux in 07/03/2021 12/22/2021 Overview: -Controlled with daily PPI -EGDx2, h/o rios esophagus -history of gastric ulcer Gastroesophageal reflux disease 02/23/2021 09/05/2021 Last Assessment & Plan: Assessment: and h/o gastric ulcers, on rx documented as of this encounter (statuses as of 04/10/2023) [facility]04[facility]2022 History of Past illness Narrative* Problem Noted Date Diagnosed Date Resolved Date Pre-eclampsia 12/17/2021 12/22/2021 Overview: -Presented to outside hospital with chief complaints of epigastric pain. -During her stay there, she developed a transaminitis and had mild range blood pressures AST/ALT 46/59->96/105 -Additionally had an elevated urine protein creatinine ratio, 4.19 -Given severe epigastric pain, transaminitis, mild range blood pressures and elevated protein creatinine ratio, the patient met criteria for preeclampsia with severe features and was started on magnesium at the outside hospital. There she received a 6 g bolus at 2230 on 12/16 and maintenance of 2 g/h following -Stat right upper quadrant ultrasound -Repeat labs upon admission -Continue magnesium x24 hours -Proceed with induction of labor Prematurity 12/17/2021 12/22/2021 Overview: -BMZ #1 on 12/16, second dose in 24 hours if still -NPO, advance if delivery is not imminent -Continuous electronic monitoring while on magnesium -MFM primary -Cephalic -NICU consult Encounter for induction of labor 12/17/2021 12/22/2021 Overview: GBSunknown PCN Cytotec 04[address] when able Pitocin prn Epidural prn Amniotomy prn No growth US Gastroesophageal reflux in 07/03/2021 12/22/2021 Overview: -Controlled with daily PPI -EGDx2, h/o rios esophagus -history of gastric ulcer Gastroesophageal reflux disease 02/23/2021 09/05/2021 Last Assessment & Plan: Assessment: and h/o gastric ulcers, on rx documented as of this encounter (statuses as of 04/15/2023) [facility]04[facility]16[facility]2022 History of Past illness Narrative* Problem Noted Date Diagnosed Date Resolved Date Pre-eclampsia 12/17/2021 12/22/2021 Overview: -Presented to outside hospital with chief complaints of epigastric pain. -During her stay there, she developed a transaminitis and had mild range blood pressures AST/ALT 46/59->96/105 -Additionally had an elevated urine protein creatinine ratio, 4.19 -Given severe epigastric pain, transaminitis, mild range blood pressures and elevated protein creatinine ratio, the patient met criteria for preeclampsia with severe features and was started on magnesium at the outside hospital. There she received a 6 g bolus at 2230 on 12/16 and maintenance of 2 g/h following -Stat right upper quadrant ultrasound -Repeat labs upon admission -Continue magnesium x24 hours -Proceed with induction of labor Prematurity 12/17/2021 12/22/2021 Overview: -BMZ #1 on 12/16, second dose in 24 hours if still -NPO, advance if delivery is not imminent -Continuous electronic monitoring while on magnesium -MFM primary -Cephalic -NICU consult Encounter for induction of labor 12/17/2021 12/22/2021 Overview: GBSunknown PCN Cytotec 04[address] when able Pitocin prn Epidural prn Amniotomy prn No growth US Gastroesophageal reflux in 07/03/2021 12/22/2021 Overview: -Controlled with daily PPI -EGDx2, h/o rios esophagus -history of gastric ulcer Gastroesophageal reflux disease 02/23/2021 09/05/2021 Last Assessment & Plan: Assessment: and h/o gastric ulcers, on rx documented as of this encounter (statuses as of 04/20/2023) [facility]22 History of Past illness Narrative* Problem Noted Date Diagnosed Date Resolved Date Pre-eclampsia 12/17/2021 12/22/2021 Overview: -Presented to outside hospital with chief complaints of epigastric pain. -During her stay there, she developed a transaminitis and had mild range blood pressures AST/ALT 46/59->96/105 -Additionally had an elevated urine protein creatinine ratio, 4.19 -Given severe epigastric pain, transaminitis, mild range blood pressures and elevated protein creatinine ratio, the patient met criteria for preeclampsia with severe features and was started on magnesium at the outside hospital. There she received a 6 g bolus at 2230 on 12/16 and maintenance of 2 g/h following -Stat right upper quadrant ultrasound -Repeat labs upon admission -Continue magnesium x24 hours -Proceed with induction of labor Prematurity 12/17/2021 12/22/2021 Overview: -BMZ #1 on 12/16, second dose in 24 hours if still -NPO, advance if delivery is not imminent -Continuous electronic monitoring while on magnesium -MFM primary -Cephalic -NICU consult Encounter for induction of labor 12/17/2021 12/22/2021 Overview: GBSunknown PCN Cytotec [address] Balloon when able Pitocin prn Epidural prn Amniotomy prn No growth US Gastroesophageal reflux in 07/03/2021 12/22/2021 Overview: -Controlled with daily PPI -EGDx2, h/o rios esophagus -history of gastric ulcer Gastroesophageal reflux disease 02/23/2021 09/05/2021 Last Assessment & Plan: Assessment: and h/o gastric ulcers, on rx documented as of this encounter (statuses as of 06/10/2023) [facility] History of Past illness Narrative* Problem Noted Date Diagnosed Date Resolved Date Pre-eclampsia 12/17/2021 12/22/2021 Overview: -Presented to outside hospital with chief complaints of epigastric pain. -During her stay there, she developed a transaminitis and had mild range blood pressures AST/ALT 46/59->96/105 -Additionally had an elevated urine protein creatinine ratio, 4.19 -Given severe epigastric pain, transaminitis, mild range blood pressures and elevated protein creatinine ratio, the patient met criteria for preeclampsia with severe features and was started on magnesium at the outside hospital. There she received a 6 g bolus at 2230 on 12/16 and maintenance of 2 g/h following -Stat right upper quadrant ultrasound -Repeat labs upon admission -Continue magnesium x24 hours -Proceed with induction of labor Prematurity 12/17/2021 12/22/2021 Overview: -BMZ #1 on 12/16, second dose in 24 hours if still -NPO, advance if delivery is not imminent -Continuous electronic monitoring while on magnesium -MFM primary -Cephalic -NICU consult Encounter for induction of labor 12/17/2021 12/22/2021 Overview: GBSunknown PCN Cytotec 0420 [address] Balloon when able Pitocin prn Epidural prn Amniotomy prn No growth US Gastroesophageal reflux in 07/03/2021 12/22/2021 Overview: -Controlled with daily PPI -EGDx2, h/o rios esophagus -history of gastric ulcer Gastroesophageal reflux disease 02/23/2021 09/05/2021 Last Assessment & Plan: Assessment: and h/o gastric ulcers, on rx documented as of this encounter (statuses as of 06/21/2023) [facility]04-16-[facility] History of Past illness Narrative* Problem Noted Date Diagnosed Date Resolved Date Pre-eclampsia 12/17/2021 12/22/2021 Overview: -Presented to outside hospital with chief complaints of epigastric pain. -During her stay there, she developed a transaminitis and had mild range blood pressures AST/ALT 46/59->96/105 -Additionally had an elevated urine protein creatinine ratio, 4.19 -Given severe epigastric pain, transaminitis, mild range blood pressures and elevated protein creatinine ratio, the patient met criteria for preeclampsia with severe features and was started on magnesium at the outside hospital. There she received a 6 g bolus at 2230 on 12/16 and maintenance of 2 g/h following -Stat right upper quadrant ultrasound -Repeat labs upon admission -Continue magnesium x24 hours -Proceed with induction of labor Prematurity 12/17/2021 12/22/2021 Overview: -BMZ #1 on 12/16, second dose in 24 hours if still -NPO, advance if delivery is not imminent -Continuous electronic monitoring while on magnesium -MFM primary -Cephalic -NICU consult Encounter for induction of labor 12/17/2021 12/22/2021 Overview: GBSunknown PCN Cytotec 0420 [address] Balloon when able Pitocin prn Epidural prn Amniotomy prn No growth US Gastroesophageal reflux in 07/03/2021 12/22/2021 Overview: -Controlled with daily PPI -EGDx2, h/o rios esophagus -history of gastric ulcer Gastroesophageal reflux disease 02/23/2021 09/05/2021 Last Assessment & Plan: Assessment: and h/o gastric ulcers, on rx documented as of this encounter (statuses as of 07/08/2023) [facility]04-16-[facility] History of Past illness Narrative* Problem Noted Date Diagnosed Date Resolved Date Pre-eclampsia 12/17/2021 12/22/2021 Overview: -Presented to outside hospital with chief complaints of epigastric pain. -During her stay there, she developed a transaminitis and had mild range blood pressures AST/ALT 46/59->96/105 -Additionally had an elevated urine protein creatinine ratio, 4.19 -Given severe epigastric pain, transaminitis, mild range blood pressures and elevated protein creatinine ratio, the patient met criteria for preeclampsia with severe features and was started on magnesium at the outside hospital. There she received a 6 g bolus at 2230 on 12/16 and maintenance of 2 g/h following -Stat right upper quadrant ultrasound -Repeat labs upon admission -Continue magnesium x24 hours -Proceed with induction of labor Prematurity 12/17/2021 12/22/2021 Overview: -BMZ #1 on 12/16, second dose in 24 hours if still -NPO, advance if delivery is not imminent -Continuous electronic monitoring while on magnesium -MFM primary -Cephalic -NICU consult Encounter for induction of labor 12/17/2021 12/22/2021 Overview: GBSunknown PCN Cytotec 0420 [address] Balloon when able Pitocin prn Epidural prn Amniotomy prn No growth US Gastroesophageal reflux in 07/03/2021 12/22/2021 Overview: -Controlled with daily PPI -EGDx2, h/o rios esophagus -history of gastric ulcer Gastroesophageal reflux disease 02/23/2021 09/05/2021 Last Assessment & Plan: Assessment: and h/o gastric ulcers, on rx documented as of this encounter (statuses as of 09/23/2023) [facility]04-14-2022 History of Present illness Narrative* Valentín Jerry, PT - 12/15/2021 10:49 AM EDT Episode Visit Count: 11 Therapist That Will Oversee The Plan Of Care: Valentín Jerry Start of Care Date: 07/13/21 Onset Date: 05/13/21 REHABILITATION AND SPORTS THERAPY PHYSICAL THERAPY PROGRESS REPORT PLAN OF CARE UPDATE: Assessment: Valerie Sánchez demonstrates significant improvement in working, reaching behind back, reaching overhead and use hand with arm at shoulder level . She hasprogressed toward goals. Patient continues to present with impairments in ADL's, overall function and tissue tenderness that interfere with nothing . Current prognosis is Good due to: current objective clinical presentation;good overall health status;positive past response to therapy;within-session changes;good support system/ coping skills . She will benefit from continued skilled therapy services to meet the updated goals for this plan of care as noted below. Goals updated on 12/13/2021. Goals for Episode of Care: created on 10/04/21 through 01/01/22 Alexander in home exercise program. Met Patient will decrease pain rating by 2 points to meet minimal clinical important difference for numeric pain rating scale. Partially met Patient will increase active ROM of right shoulder elevation and functional internal rotation to WNL to allow pt to to improve performance of ADLs. Partially met Patient will demonstrate increase in right shoudler strength to 5/5 during manual muscle testing in order to improve function for basic self-care tasks, home management tasks, leisure / recreation skills, light functional tasks, moderate to heavy functional tasks, prior functional tasks and work tasks. Progressing towards Perform reaching and lifting with decreased report of symptoms/pain in 6-8 Weeks. Partially met Perform sleeping without pain. Not met (likely due to now) Planned Interventions, Frequency, and Duration: (Pt to follow up as needed due to impending of her son), Patient to be seen for Therapeutic exercise (89961);Neuromuscular re-education (73733);Manual therapy (62332);Therapeutic activities (74023);Self-assisted management (21799);Patient/Family/CaregiverEducation;Body Mechanics Training SUBJECTIVE: Patient Reason for Visit: Pt now 33 weeks and back/hips getting uncomfortable.Arms, shoulders, and neck have been feeling pretty good. Overall much better the last few weeks, despite having a cold at the moment. Notes no issues with any ADLs or functional activity at the moment. Her is causing difficulty with sleeping and increasing activity, but nothing out of theordinary. Functional Limitations: nothing Pain: Pain Pain Level: 1 Pain Location: Neck Description: Tightness Frequency: Intermittent PROMIS Scales Higher is Better 03/01/2021 07/31/2021 12/12/2021 Phys Func - Score 40 (mild dysfunction) - - Phys Func - Percentile 16 % - - Social Roles - Score 47 (within normal limits) - - Social Role - Percentile 38 % - - GH Physical - Score - 47.7 (Good) 44.9 (Good) GH Physical - Percentile - 41 % 31 % GH Mental - Score - 45.8 (Good) 56 (Excellent) GH Mental - Percentile - 34 % 73 % Self-Eff Symptom - Score 44 (Average) - - Self-Eff Symptom - Percentile 27 % - - T-scores: mean of general population = 50. 5 points is clinically meaningfully difference Percentiles provide an indication of how the patient's score ranks in relation to the general population. Higher percentile rankings indicate better function/quality of life. 50th percentile is the average of the general population and indicates half of respondents had a worse score. Lower is Better 12/22/2020 01/19/2021 03/01/2021 Fatigue - Score 51 (within normal limits) 49 (within normal limits) 48 (within normal limits) Fatigue - Percentile 46 % 54 % 58 % T-scores: mean of general population = 50. 5 points is clinically meaningfully difference Percentiles provide an indication of how the patient's score ranks in relation to the general population. Higher percentile rankings indicate better function/quality of life. 50th percentile is the average of the general population and indicates half of respondents had a worse score. OBJECTIVE MEASURES WITH LEVEL OF FUNCTION: UE AROM R UE AROM: Min to nil limitations L UE AROM: WNL UE and Cervical Strength R Shoulder Flexion: 4+/5 R Shoulder Internal Rotation: 5/5 R Shoulder External Rotation: 4+/5 L Shoulder Abduction (C5): 5/5 L Shoulder Internal Rotation: 5/5 L Shoulder External Rotation: 5/5 TREATMENT: Manual Therapy: 2: Upper trap stripping on R x8 min 3: Manual cervical traction x 10 min 4: Recheck 7: STM and TrPr to L glute med and min with push to tolerance until symptoms subside Skilled Intervention: Manual skills to improve joint mobility, ROM, and decrease pain. Utilized anatomy knowledge of the therapist, and assessment of patient's response to intervention. Billing Manual TherapyTreatment Minutes: 30 Total Treatment Time Minutes (timed/untimed): 30 Valentín Jerry PT [facility] History of Present illness Narrative* John Merritt MD - 12/12/2021 7:53 PM EDT This note was created using [email or web address]. Subjective Valerie Sánchez is a 31 year old female who presents with complaint of cough- dry and congested for2 weeks. She denies fever, ear pain, sore throat, dyspnea, wheezing, vomiting and diarrhea. Treatments tried include Pseudoephedrine, OTC cough syrup, Guaifenesin/Mucinex, diphenhydramine(Benadryl), Vicks and Riana with minor relief of symptoms. She got most relief from Vicks and Benadryl at night. She is 32 weeks AOG. She was told to have her lungs checked. Review of Systems Per HPI. ACTIVE PROBLEM LIST Multiple Thyroid Nodules Pain of Left Upper Arm Cervical Radiculopathy Lumbar Disc Herniation History of 2019 Novel Coronavirus Disease (Covid-19) Asthma History of Pulmonary Embolus (Pe) Supervision of High Risk , Antepartum Maternal Pulmonary Embolus (Pe), History of History of Leep (Loop Electrosurgical Excision Procedure) of Cervix Complicating , Unspecified Trimester History of Asthma Gastroesophageal Reflux in Tendonitis of Long Head of Biceps Brachii of Right Shoulder History of Anxiety History of Chlamydia Abnormal O'martin Glucose Challenge Test, Antepartum Current Outpatient Medications Medication Sig Breast Pump Use as directed enoxaparin (LOVENOX) 100 mg/mL syrg Inject 0.85 mL subcutaneously every 12 hours. ferrous sulfate 325 mg (65 mg iron) tablet Take 1 tablet by mouth every other day. (Patient taking differently: Take 325 mg by mouth daily with breakfast. ) bacitracin 500 unit/gram ointment Apply to affected area twice daily. omcslfy-yssenpcse-dymhfci D3 (CALCIUM 500+D) 500 mg-5 mcg (200 unit) per tablet Take 2 grams per day in divided doses pantoprazole DR (PROTONIX) 40 mg tablet Take 1 tablet by mouth once daily. diphenhydramine HCl (BENADRYL ALLERGY ORAL) Take 1 tablet by mouth at bedtime as needed. 21/iron fu/folic acid ( COMPLETE ORAL) Take 2 tablets by mouth twice daily. Current Facility-Administered Medications Medication Dose Route Frequency acetylcholine 10% solution - cchs compounding 20 mL IRRIGATION ONE TIME Objective BP 124/78 (BP Site: Left Arm, BP Position: Sitting, BP Cuff Size: Large Adult) Pulse 112 Temp 36.1 C (97 F) (Temporal Artery) Resp 16 Wt 85.7 kg (189 lb) LMP 04/28/2021 BMI 32.44 kg/m Physical Exam Constitutional: General: She is not in acute distress. Appearance: She is not ill-appearing. HENT: Nose: Congestion present. Right Nostril: Epistaxis present. Left Nostril: Epistaxis present. Right Sinus: No maxillary sinus tenderness or frontal sinus tenderness. Left Sinus: No maxillary sinus tenderness or frontal sinus tenderness. Comments: Scant dried epistaxis. Mouth/Throat: Pharynx: Oropharynx is clear. No oropharyngeal exudate or posterior oropharyngeal erythema. Cardiovascular: Rate and Rhythm: Tachycardia present. Heart sounds: No murmur heard. No gallop. Pulmonary: Effort: No respiratory distress. Breath sounds: No wheezing, rhonchi or rales. Lymphadenopathy: Cervical: No cervical adenopathy. Assessment and Plan 1. Cough - ICD9: 786.2, ICD10: R05.9 (primary diagnosis) 2. H/O seasonal allergies - ICD9: V15.09, ICD10: Z88.9 Continue symptom care. Gentle sinus irrigation as needed. John Merritt MD documented in this encounter[facility]04[facility] Miscellaneous Notes* Quick Notes - Jo Leo MD - 12/06/2021 1:24 PM EDT Patient presents with her: Spouse. movement is: active. Denies vaginal bleeding., C/O of occasional contractions., Denies leaking of fluid. Continue Lovenox as per Biomedical Equipment Support Specialist. Reviewed delivery expectations and discussed options for pain management in labor. Patient desires natural childbirth on 4S, cleared by nurse manufacturing maintenance manager today. I have discussed with the patient the option of postpartumplacement of a long acting reversible contraceptive device (IUD or implant) immediately after her delivery. I reviewed the benefits and risks and written information was given to her today. Jo Leo MD documented in this encounterBar[facility]04[facility]22 Instructions* Patient Instructions* Jo Leo MD - 12/06/2021 1:23 PM EDT LONG ACTING REVERSIBLE CONTRACEPTION (LARC) LARC (long acting reversible contraception) methods include the intrauterine devices (IUDs) and control implant (Nexplanon). These are highly effective in preventing and can last several years depending on the method chosen. They are easy to use as nothing needs to be done once they are placed and they are also easy to remove when desired. They can be placed immediately after you have a baby or at your follow up visit. These methods are very effective, with less than 1 in 100 women who use it becoming (less than 1%). This rate is in the same range as permanent sterilization. These methods are 20 times more effective than the pill, patch, shot or ring. Most women can use the IUD or implant. Your physician can discuss if these methods will work for you. IUDS An IUD is a plastic, T shaped device that is placed into the uterus. It works by preventing fertilization of the sperm and egg. The hormonal IUD also thickens the cervical mucus which makes it harderfor sperm to travel and thins out the lining of the uterus to prevent implantation. There are two types: 1. The hormonal IUD releases some progestin hormone into the uterus and are approved for 3-6 years depending on the one chosen 2. The copper IUD does not have any hormone and is approved for 10 years. Possible side effects of the IUD are some cramping and bleeding that will decrease within the first year. The hormonal IUD will lead to decreased bleeding or no period over time, which is safe.Some infrequent side effects of the hormonal IUDs can be headaches, nausea, depression, breast tenderness. Most of these symptoms resolve with time. The benefits of the IUD: Once placed, you do not have to do anything further It can be inserted immediately after a vaginal or delivery or at your visit The hormonal IUD can decrease menstrual pain and bleeding All IUDs are safe with It can be easily removed at any time and there is no delay in attempting future pregnancies. The risks of the IUD: Uterine perforation, which means the IUD can hale through the wall of the uterus. This is rare and occurs in 1 out of 1000 procedures. The uterus may expel the IUD. This can occur in 5% of cases in the first year, but up to 10-20% if placed immediately . PID (pelvic inflammatory disease) is an infection of the uterus and fallopian tubes. It is rare andoccurs in less than 1 in 100 women. Increased risk of an ectopic ( not in the uterus) if occurs, which is low. NEXPLANON (The implant) Nexplanon is a single flexible rode that is inserted under the skin in the upper arm. It releases the hormone progestin to prevent . It is effective for up to 3 years. This hormone prevents ovulation which prevents . Possible side effects are unpredictable bleeding, which generally improves with time. Some individuals may notice mood changes, headaches, and acne. The benefits of the lizzy are: Once it is placed, you do not have to do anything for up to 3 years It can be easily removed if desired It is safe with It can be placed while you are in the hospital or at your visit The potential risks are: Difficulty removing the implant which can occur in less than 2% of women. If a woman becomes with the lizzy in place, which is rare, there is a slightly higher risk of an ectopic Most insurances will cover the implant and the IUD and your women s health provider can help you find that out. REFERENCES 1) Immediate Long-Acting Reversible Contraception. Committee Opinion No. 670, April 2016. [employer] 2) Jose LOPEZ, Ed J, Serg AL, Herbert GARZA, Britt Evans MS. Contraceptive Technology. 20threv. ed. [place]: Kofax; 2010 3) Tosin SE, Mick DK, Brenden G, Charley PA, Jason M, Potter KP. Lactogenesis after early use of the contraceptive implant: a randomized controlled trial. Obstetrics & Gynecolog 2011;117:1114-21 4) Mark CurtisD, Celi ER, Patricia AM, Wero JM, Bebeto T, Maddison EF. Insertion of Levonorgestrel-intrauterine system at three time periods:a prospective randomized commercial airline pilot study. Contraception 2011;84:244-8. 5) Charlotte BA, Edvin M, Eduar JL, Florence HL, Kristine URBINA, Zach BRASHER. Postplacental or delayed insertion of the levonorgestrel intrauterine device after vaginal delivery: a randomized controlled trial. Obstetrics & Gynecology 2010;116:1079-87. 6) Up to Date: Intrauterine Contraception: Devices, Candidates and Selection, updated 03/02/17. 7) Up to Date: Etonorgestrel Contraceptive Implant, updated 07/07/16 documented in this encounterBarber[facility]04-[facility]-2022 Nurse Note* Peyton Taylor - 12/06/2021 1:14 PM EDT Movement? Active baby Vaginal Bleeding: NO Vaginal fluid leakage of fluid: NO Contractions: no contractions documented in this [place]03-29-2022 Miscellaneous Notes* Telephone Encounter - Ranjana Ashley LPN - 11/29/2021 9:24 AM EDT Pt. Notified continue current dose of Lovenox. Ranjana Ashley LPN * Telephone Encounter - Vinod Rodgers DO - 11/29/2021 9:05 AM EDT Continue Lovenox at current dose every 12 hours. Recheck weight in 4 weeks. Vinod Rodgers DO * Telephone Encounter - Ranjana Ashley LPN - 11/29/2021 8:39 AM EDT Pt. In for weight check today . Current 183 lb. Current lovenox 0.85 ML inj. Every 12 hours. Last weight 10/31 was 183 lb. Ranjana Ashley LPN documented in this encounterBar[facility]06-[facility]21 History of Past illness Narrative* Problem Noted Date Resolved Date Gastroesophageal reflux disease 02/23/2021 09/05/2021 Last Assessment & Plan: Assessment: and h/o gastric ulcers, on rx documented as of this encounter (statuses as of 11/29/2021) [facility] History of Past illness Narrative* Problem Noted Date Resolved Date Gastroesophageal reflux disease 02/23/2021 09/05/2021 Last Assessment & Plan: Assessment: and h/o gastric ulcers, on rx documented as of this encounter (statuses as of 12/07/2021) [facility] History of Past illness Narrative* Problem Noted Date Resolved Date Gastroesophageal reflux disease 02/23/2021 09/05/2021 Last Assessment & Plan: Assessment: and h/o gastric ulcers, on rx documented as of this encounter (statuses as of 12/12/2021) [facility] History of Past illness Narrative* Problem Noted Date Resolved Date Gastroesophageal reflux disease 02/23/2021 09/05/2021 Last Assessment & Plan: Assessment: and h/o gastric ulcers, on rx documented as of this encounter (statuses as of 12/13/2021) [address]23-2021 History of Past illness Narrative* Problem Noted Date Resolved Date Gastroesophageal reflux disease 02/23/2021 09/05/2021 Last Assessment & Plan: Assessment: and h/o gastric ulcers, on rx documented as of this encounter (statuses as of 12/15/2021) [facility]* Diagnosis Supervision of high risk , antepartum- Primary Maternal pulmonary embolus (PE), history of Personal history of venous thrombosis and embolism Maternal obesity affecting , antepartum Abnormal glucose complicating Abnormal maternal glucose tolerance, complicating , childbirth, or the puerperium, unspecified as to episode of care Abnormal O'Martin glucose challenge test, antepartum Abnormal maternal glucose tolerance, antepartum History of LEEP (loop electrosurgical excision procedure) of cervix complicating , unspecified trimester History of anxiety Personal history of other mental disorder History of asthma Personal history of other diseases of respiratory system Gastroesophageal reflux in History of chlamydia Personal history of other infectious and parasitic disease 31 weeks gestation of state, incidental documented in this encounter [facility]* Diagnosis Cough- Primary H/O seasonal allergies Other allergy, other than to medicinal agents documented in this encounter [facility]* Diagnosis Tendonitis of long head of biceps brachii of right shoulder- Primary documented in this encounter [facility]* Diagnosis Hypertension in , preeclampsia, severe, delivered/- Primary Severe pre-eclampsia, with delivery, with current complication documented [facility] this encounter [facility]* Diagnosis Antithrombin III deficiency (HCC)- Primary Primary hypercoagulable state Iron deficiency anemia, unspecified iron deficiency anemia type [facility]* Diagnosis Antithrombin III deficiency (HCC)- Primary Primary hypercoagulable state History of pulmonary embolus (PE) Personal history of pulmonary embolism Iron deficiency anemia, unspecified iron deficiency anemia type [facility]* Diagnosis Antithrombin III deficiency (HCC)- Primary Primary hypercoagulable state Iron deficiency anemia, unspecified iron deficiency anemia type [facility] encounter [facility]* Diagnosis Laceration of finger of left hand with damage to nail, foreign body presence unspecified, unspecified finger, initial encounter- Primary [facility] Multiple thyroid nodules- Primary Nontoxic multinodular goiter Mild intermittent asthma without complication Unspecified asthma Gastroesophageal reflux disease without esophagitis Esophageal reflux [facility] Diagnosis Injury of finger of left hand, subsequent encounter- Primary [facility] Diagnosis Routine medical exam- Primary Routine general medical examination at a health care facility Screening for lipid disorders Encounter for screening for diabetes mellitus Screening for diabetes mellitus Encounter for immunization Need for other specified prophylactic vaccination against single bacterial disease Multiple thyroid nodules Nontoxic multinodular goiter Mild intermittent asthma without complication Unspecified asthma Hemolysis, elevated liver enzymes, and low platelet (HELLP) syndrome during , History of pulmonary embolism Personal history of pulmonary embolism Rios's esophagus without dysplasia Rios's esophagus [facility] Diagnosis Viral illness- Primary Unspecified viral infection, in conditions classified elsewhere and of unspecified site [facility] Diagnosis Acute NORMAN (middle ear effusion), right- Primary [facility]* Diagnosis Chronic midline low back pain without sciatica [facility] Diagnosis Chronic midline low back pain without sciatica documented in this encounter [facility] note* Diagnosis Sinobronchitis- Primary Unspecified sinusitis (chronic) [facility] Diagnostic Procedure Only (Routine) - Pending Review Specialty Diagnoses / Procedures Referred By Contac t Referred To Contact [facility] Diagnoses Maternal pulmonary embolus (PE), history of Abnormal glucose complicating Procedures OBSTETRIC ULTRASOUND WHI US PREG UTERUS AFTER 1ST TRIMEST 1 GESTATION Jo Leo MD [address] [place] [address] [facility] [address] [place] [address] Referral ID Status Reason Start Date Expiration Date Visits Requested Visits Authorized [id number] Pending Review Auto-Generat ed Referral 12/06/2021 12/06/2022 [address] [facility] for referral (narrative)* Diagnostic Procedure Only (Routine) - Closed Specialty Diagnoses / Procedures Referred By Contac t Referred To Contact XR IMAGING Diagnoses Chronic midline low back pain without sciatica Procedures XR LUMBAR MOTION 4V AP/LAT/ FLEX/EXT RADEX SPINE LUMBOSACRAL MINIMUM 4 VIEWS Keith Michelle PA-C [address] [place] [address] [place] [address] Referral ID Status Reason Start Date Expiration Date V isits Requested Visits Authorized [id number] Closed Auto-Generate d Referral 04/30/2023 09/02/2023 [address] [facility] for visit Narrative* Diagnostic Procedure Only (Routine) - Closed Specialty Diagnoses / Procedures Referred By Katerine t Referred To Contact XR IMAGING Diagnoses Chronic midline low back pain without sciatica Procedures XR LUMBAR MOTION 4V AP/LAT/ FLEX/EXT RADEX SPINE LUMBOSACRAL MINIMUM 4 VIEWS Keith Michelle PA-C [address] [place] [id number] [place] [address] Referral ID Status Reason Start Date Expiration Date V isits Requested Visits Authorized [id number] Closed Auto-Generate d Referral 04/30/2023 09/02/2023 1 1 [facility] Summary Purpose Family History No Family History Records FoundNo Family History Records FoundNo Family History Records Found Advance Directives No Advanced Directives Records FoundDocuments on File Type Date Recorded Patient Manager Money Expl anation Advance Directive(s) 02/16/2021 5:11 PM Documents on File Type Date Recorded Patient Manager Money Expl anation Advance Directive(s) 02/16/2021 5:11 PM Documents on File Type Date Recorded Patient Manager Money Expl anation Advance Directive(s) 12/18/2021 4:02 PM Advance Directive(s) 02/16/2021 5:11 PM Documents on File Type Date Recorded Patient Manager Money Expl anation Advance Directive(s) 01/13/2022 4:33 AM Advance Directive(s) 12/18/2021 4:02 PM Advance Directive(s) 02/16/2021 5:11 PM Health Concerns Problem Noted Date Conduit Cleaner 12/22/2021 Problem Noted Date Conduit Cleaner 12/22/2021 Problem Noted Date Conduit Cleaner 12/22/2021 Problem Noted Date Conduit Cleaner 12/22/2021 Problem Noted Date Conduit Cleaner 12/22/2021 Problem Noted Date Conduit Cleaner 12/22/2021 Problem Noted Date Conduit Cleaner 12/22/2021 Reason for Referral Specialty Diagnoses / Procedures Referred By Contac t Referred To Contact MR IMAGING Diagnoses Chronic midline low back pain without sciatica Procedures MRI LUMBAR SPINE WO IVCON MRI SPINAL CANAL LUMBAR W/O CONTRAST MATERIAL Keith Michelle PA-C [address] [address] [place] [address] Referral ID Status Reason Start Date Expiration Date V isits Requested Visits Authorized [id number] Closed Auto-Generate d Referral 04/30/2023 09/02/2023 1 1 Additional Source Comments INFORMATION SOURCE (unrecogn ized section and content) DATE CREATED AUTHOR AUTHOR'S ORGANIZ ATION 09/22/2023 [facility] DATE CREATED AUTHOR AUTHOR'S ORGANIZ ATION 10/04/2023 [facility] Source Comments (unrecognize d section and content) In the event this informatio n is protected by the Federal Confidentiality of Alcohol and Drug Abuse Patient Records regulations: The Federal rules restrict any use of the information to criminally investigate or prosecute any alcohol or drug abuse patient.[facility] the event this information is protected by the Federal Confidentiality of Alcohol and Drug Abuse Patient Records regulations: The Federal rules restrict any use of the information to criminally investigate or prosecute any alcohol or drug abuse patient.[facility] the event this information is protected by the Federal Confidentiality of Alcohol and Drug Abuse Patient Records regulations: The Federal rules restrict any use of the information to criminally investigate or prosecute any alcohol or drug abuse patient.[facility] the event this information is protected by the Federal Confidentiality of Alcohol and Drug Abuse Patient Records regulations: The Federal rules restrict any use of the information to criminally investigate or prosecute any alcohol or drug abuse patient.[facility] the event this information is protected by the Federal Confidentiality of Alcohol and Drug Abuse Patient Records regulations: The Federal rules restrict any use of the information to criminally investigate or prosecute any alcohol or drug abuse patient.[facility] the event this information is protected by the Federal Confidentiality of Alcohol and Drug Abuse Patient Records regulations: The Federal rules restrict any use of the information to criminally investigate or prosecute any alcohol or drug abuse patient.[facility] the event this information is protected by the Federal Confidentiality of Alcohol and Drug Abuse Patient Records regulations: The Federal rules restrict any use of the information to criminally investigate or prosecute any alcohol or drug abuse patient.[facility] the event this information is protected by the Federal Confidentiality of Alcohol and Drug Abuse Patient Records regulations: The Federal rules restrict any use of the information to criminally investigate or prosecute any alcohol or drug abuse patient.[facility] the event this information is protected by the Federal Confidentiality of Alcohol and Drug Abuse Patient Records regulations: The Federal rules restrict any use of the information to criminally investigate or prosecute any alcohol or drug abuse patient.[facility] the event this information is protected by the Federal Confidentiality of Alcohol and Drug Abuse Patient Records regulations: The Federal rules restrict any use of the information to criminally investigate or prosecute any alcohol or drug abuse patient.[facility] the event this information is protected by the Federal Confidentiality of Alcohol and Drug Abuse Patient Records regulations: The Federal rules restrict any use of the information to criminally investigate or prosecute any alcohol or drug abuse patient.[facility] the event this information is protected by the Federal Confidentiality of Alcohol and Drug Abuse Patient Records regulations: The Federal rules restrict any use of the information to criminally investigate or prosecute any alcohol or drug abuse patient.[facility] the event this information is protected by the Federal Confidentiality of Alcohol and Drug Abuse Patient Records regulations: The Federal rules restrict any use of the information to criminally investigate or prosecute any alcohol or drug abuse patient.[facility] the event this information is protected by the Federal Confidentiality of Alcohol and Drug Abuse Patient Records regulations: The Federal rules restrict any use of the information to criminally investigate or prosecute any alcohol or drug abuse patient.[facility] the event this information is protected by the Federal Confidentiality of Alcohol and Drug Abuse Patient Records regulations: The Federal rules restrict any use of the information to criminally investigate or prosecute any alcohol or drug abuse patient.[facility] the event this information is protected by the Federal Confidentiality of Alcohol and Drug Abuse Patient Records regulations: The Federal rules restrict any use of the information to criminally investigate or prosecute any alcohol or drug abuse patient.[facility] the event this information is protected by the Federal Confidentiality of Alcohol and Drug Abuse Patient Records regulations: The Federal rules restrict any use of the information to criminally investigate or prosecute any alcohol or drug abuse patient.[facility] the event this information is protected by the Federal Confidentiality of Alcohol and Drug Abuse Patient Records regulations: The Federal rules restrict any use of the information to criminally investigate or prosecute any alcohol or drug abuse patient.[facility] the event this information is protected by the Federal Confidentiality of Alcohol and Drug Abuse Patient Records regulations: The Federal rules restrict any use of the information to criminally investigate or prosecute any alcohol or drug abuse patient.[facility] the event this information is protected by the Federal Confidentiality of Alcohol and Drug Abuse Patient Records regulations: The Federal rules restrict any use of the information to criminally investigate or prosecute any alcohol or drug abuse patient.[facility] the event this information is protected by the Federal Confidentiality of Alcohol and Drug Abuse Patient Records regulations: The Federal rules restrict any use of the information to criminally investigate or prosecute any alcohol or drug abuse patient.[facility] the event this information is protected by the Federal Confidentiality of Alcohol and Drug Abuse Patient Records regulations: The Federal rules restrict any use of the information to criminally investigate or prosecute any alcohol or drug abuse patient.[facility] the event this information is protected by the Federal Confidentiality of Alcohol and Drug Abuse Patient Records regulations: The Federal rules restrict any use of the information to criminally investigate or prosecute any alcohol or drug abuse patient.[facility] the event this information is protected by the Federal Confidentiality of Alcohol and Drug Abuse Patient Records regulations: The Federal rules restrict any use of the information to criminally investigate or prosecute any alcohol or drug abuse patient.[facility] the event this information is protected by the Federal Confidentiality of Alcohol and Drug Abuse Patient Records regulations: The Federal rules restrict any use of the information to criminally investigate or prosecute any alcohol or drug abuse patient.[facility] the event this information is protected by the Federal Confidentiality of Alcohol and Drug Abuse Patient Records regulations: The Federal rules restrict any use of the information to criminally investigate or prosecute any alcohol or drug abuse patient.[facility] the event this information is protected by the Federal Confidentiality of Alcohol and Drug Abuse Patient Records regulations: The Federal rules restrict any use of the information to criminally investigate or prosecute any alcohol or drug abuse patient.[facility] the event this information is protected by the Federal Confidentiality of Alcohol and Drug Abuse Patient Records regulations: The Federal rules restrict any use of the information to criminally investigate or prosecute any alcohol or drug abuse patient.[facility] the event this information is protected by the Federal Confidentiality of Alcohol and Drug Abuse Patient Records regulations: The Federal rules restrict any use of the information to criminally investigate or prosecute any alcohol or drug abuse patient.[facility] Reason for Visit (unrecogniz ed section and content) Reason Comments Care Reason Comments Discussion Reason Comments PT Progress Note Specialty Diagnoses / Procedures Referred By Contac t Referred To Contact Physical Therapy / PHYSICAL THERAPY Diagnoses Right shoulder pain PER FYI SCHED 1 APPT FOR PT SHOULDER RT PAIN Procedures EST [place] [address] [place] [address] Valentín Jerry, PT [address] [place] [address] Referral ID Status Reason Start Date Expiration Date V isits Requested Visits Authorized [id number] Authorized 09/03/2021 09/02/2022 45 45 Reason Comments Care B/P check Reason Comments Vaginal Bleeding Reason Onset Date Comments Called Back 01/03/2022 Reason Comments 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 Reason Comments Refill Request Reason Comments Established Patient Reason Onset Date Comments Refill Request 10/10/2022 Reason Comments Laceration Laceration to left r ing finger x 1 hour Reason Comments Orders Reason Comments Finger Injury left ring finger lac eration x 3 weeks ago, seen given antibiotic and glued now raised area Reason Comments Physical Reason Comments Ear Pain right, cough x 3 wee ks Reason Comments Ear Pain Right ear pain x 2 w eeks Specialty Diagnoses / Procedures Referred By Contac t Referred To Contact MR IMAGING Diagnoses Chronic midline low back pain without sciatica Procedures MRI LUMBAR SPINE WO IVCON MRI SPINAL CANAL LUMBAR W/O CONTRAST MATERIAL Keith Michelle, [employer] [address] [place] [address] Mr Imaging [place] [address] Referral ID Status Reason Start Date Expiration Date V isits Requested Visits Authorized [id number] Closed Auto-Generate d Referral 04/30/2023 09/02/2023 1 1 Reason Comments Cough R ear pain, sinus pr essure sore throat on and off at HS x 10 days bilat eyes matting shut this am Care Teams (unrecognized sec tion and content) 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 Start Date End Date Lee Oliveira MD [address] [place] [address] PCP - General Internal Medicine 08/22/21 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 Specialty Start Date End Date Lee Oliveira MD [address] [place] [address], [place] [address] PCP - General Internal Medicine 08/22/21 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 Specialty Start Date End Date Lee Oliveira MD [address] [place] [address], [place] [address] PCP - General Internal Medicine 08/22/21 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 Specialty Start Date End Date Lee Oliveira MD [address] [place] [address], [place] [address] PCP - General Internal Medicine 08/22/21 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 Specialty Start Date End Date Lee Oliveira MD [address] [place] [address], [place] [address] PCP - General Internal Medicine 08/22/21 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 Specialty Start Date End Date Lee Oliveira MD [address] [place] [address], [place] [address] PCP - General Internal Medicine 08/22/21 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 Specialty Start Date End Date Lee Oliveira MD [address] [place] [address], [place] [address] PCP - General Internal Medicine 08/22/21 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 Specialty Start Date End Date Lee Oliveira MD [address] [place] [address], [place] [address] PCP - General Internal Medicine 08/22/21 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 Specialty Start Date End Date Lee Oliveira MD [address] [place] [address], [place] [address] PCP - General Internal Medicine 08/22/21 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 Specialty Start Date End Date Lee Oliveira MD [address] [place] [address], [place] [address] PCP - General Internal Medicine 08/22/21 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 Specialty Start Date End Date Lee Oliveira MD [address] [facility] [place] [address] PCP - General Internal Medicine 08/22/21 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 Specialty Start Date End Date Lee Oliveira MD [address] [facility] [place] [address] PCP - General Internal Medicine 08/22/21 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 Specialty Start Date End Date Lee Oliveira MD [address] [place] [address] PCP - General Internal Medicine 08/22/21 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 Specialty Start Date End Date Lee Oliveira MD [address] [place] [address] PCP - General Internal Medicine 08/22/21 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 Specialty Start Date End Date Lee Oliveira MD [address] [place] [address] PCP - General Internal Medicine 08/22/21 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 Specialty Start Date End Date Lee Oliveira MD [address] [facility] [place] [address] PCP - General Internal Medicine 08/22/21 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 Specialty Start Date End Date Lee Oliveira MD [address] [facility] [place] [address] PCP - General Internal Medicine 08/22/21 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 Specialty Start Date End Date Lee Oliveira MD [address] [facility] [place] [address] PCP - General Internal Medicine 08/22/21 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 Specialty Start Date End Date Lee Oliveira MD [address] [place], [place] [address] PCP - General Internal Medicine 08/22/21 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 Specialty Start Date End Date Lee Oliveira MD [address] [place], [place] [address] PCP - General Internal [facility] 08/22/21 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 Specialty Start Date End Date Lee Oliveira MD [address] [place], [place] [address] PCP - General Internal [facility] 08/22/21 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 Specialty Start Date End Date Lee Oliveira MD [address] [place] [address] PCP - General Internal Medicine 08/22/21 FOR RECORDS PERTAINING TO PATIENTS WHO ARE OR HAVE BEEN ENROLLED IN A CHEMICAL DEPENDENCY/SUBSTANCEABUSE PROGRAM, SOME INFORMATION MAY BE OMITTED. This clinical summary was aggregated from multiple sources. Caution should be exercised in using it in the provision of clinical care. This summary normalizes information from multiple sources, and as a consequence, information in this document may materially change the coding, format and clinical context of patient data. In addition, data may be omitted in some cases. CLINICAL DECISIONS SHOULD BE BASED ON THE PRIMARY CLINICAL RECORDS. [facility] [employer] [facility]. provides no warranty or guarantee of the accuracy or completeness of information in this document.
== END | disposition home or self-care (01) ==
LOC: US 12:28
PROVIDERS: PCP Internal Medicine; Referring Provider Obstetrics & Gynecology; Visit Provider Obstetrics & Gynecology
DX: N93.9 Abnormal uterine and vaginal bleeding, unspecified (principal)
CPT/HCPCS: 76830; 76856

== ENCOUNTER → 2023-12-10 | Outpatient (CLI) | payer OTHER, SELFPAY ==
--- NOTE | 2023-12-10 | EMB_PTH ---
PATIENT: MARIA GUADALUPE ROSARIO LOC: [facility] U#:[id number] AGE/SX: 33/F ROOM: RE12/10/[address]: Dr. Kathy Johnson DO : 1990 BED: DIS: 12/10/2023 SPEC #: [id number] RECD: 12/10/23 13:21 STATUS: ATYLOR ROBERTO #: [id number] LALA: 12/10/23 00:[address]: Kathy Johnson DEPT: SURGICAL PATHOLOGY RECD BY: Javier Brown Tissues: Endometrium, NOS Procedures: Surgery Specimen Level IV HEADER OPERATION: Endometrial biopsy PRE-OP DIAGNOSIS: Abnormal uterine bleeding TISSUE SUBMITTED: Endometrial lining MICROSCOPIC DIAGNOSIS Endometrial biopsy: Proliferative endometrium. DAMIAN/mr 12/11/2023 MICROSCOPIC DESCRIPTION Slides are reviewed. GROSS DESCRIPTION Received is one container labeled with the patient's name and not further designated. The specimen consists of multiple irregular fragments of pink harris soft tissue that in aggregate measure 2.0 x 1.0 x 0.1 cm. The specimen is totally submitted in one cassette. ALETHEA/ 12/10/23 TC:4 CPT: 66631
== END | disposition home or self-care (01) ==
LOC: LABSPEC 13:01
PROVIDERS: Referring Provider Obstetrics & Gynecology; Visit Provider Obstetrics & Gynecology
DX: N93.9 Abnormal uterine and vaginal bleeding, unspecified (principal)
CPT/HCPCS: 88305

== ENCOUNTER 2024-05-14 12:18 | Emergency (ER) | payer OTHER, SELFPAY ==
[2024-05-14 12:20] VITALS: BP 128/98; PULSE 113; RESP 18; TEMP 35.7; O2SAT 99; BMI 70.4
--- NOTE | 2024-05-14 12:24 | EKG12_ITS ---
Test Reason : SOB Blood Pressure : / mmHG Vent. Rate : 107 BPM Atrial Rate : 107 BPM P-R Int : 152 ms QRS Dur : 076 ms QT Int : 342 ms P-R-T Axes : 063 069 030 degrees QTc Int : 456 ms Sinus tachycardia Otherwise normal ECG Confirmed by JEN BRASHER, CARL ([id number]), videotape editor SIMONA SCHULTE ([id number]) on 05/16/2024 7:57:24 AM Referred By: Confirmed By:CARL LI MD
[2024-05-14 12:25] VITALS: O2SAT 99
--- NOTE | 2024-05-14 12:38 | ED.VIS.DYS ---
HPI History of Present Illness Chief Complaint: Shortness of Breath Detail of Chief Complaint: Shortness of breath, diagnosed with COVID approximately 2 weeks ago Informant: patient Onset/Context/Timing Onset: Weeks Context: sudden, light activity and exertion Timing: Intermittent Quality: Positive for Dyspnea on exertion; Negative for Orthopnea, PND or Wheezing Current Severity: Mild Maximum Severity: Moderate Worsened by: Exertion Relieved by: Nothing Associated Symptoms cough; Negative for rhinorrhea, post nasal drip, ear pain, fever, sore throat, subjective, chills, sweats, clear sputum, white sputum, yellow sputum or green sputum Chest Pain: Positive for None Narrative Narrative: Patient is a 33-year-old woman. She had COVID several years ago. She had a complicated course with pulmonary embolus requiring anticoagulation. She was recently diagnosed with COVID. She was placed on Paxlovid. She is complete her course of Paxlovid. She is on PPI for history of reflux/GERD. She has had no recent wheezing. She denies recent fever or chills. Denies headache, visual, ocular auditory symptoms. She denies GI symptoms. She denies urologic symptoms. She denies leg pain, swelling discoloration. Denies black or maroon-colored stool. PE Risk Factors: Positive for Prior DVT or PE; Negative for Cancer, OCP + Smoking + > 35, Recent immobilization, Recent surgery or Recent travel Prior similar symptoms: Yes (HPI narrative) Recent Illness/Hospitalization: Yes (Recently diagnosed with COVID-19 infection) [facility] Medical History Multiple thyroid nodules Thyroid nodule HELLP syndrome delivery delivered Preeclampsia, severe Obesity COVID-19 virus detected (09/28/20) Multiple subsegmental pulmonary emboli without acute cor pulmonale (09/28/20) Anxiety GERD (gastroesophageal reflux disease) Abnormal Pap smear of cervix Vertigo Asthma Gastric ulcer Home Medications ?Medication ?Instructions ?Recorded ?Last Taken ?Type pantoprazole 40 mg tablet,delayed 40 mg PO DAILY reflux 09/30/18 12/16/21 18:00 History release prenat.vits,jessica,[id number] 1 tab PO DAILY 07/04/21 12/16/21 10:00 History Allergy/AdvReac Type Severity Reaction Status Date / Time sulfacetamide (From Plexion) Allergy Rash Verified 05/14/24 12:19 sulfur (From Plexion) Allergy Rash Verified 05/14/24 12:19 Family History Other No pertinent family history Surgical History History of section (12/2021) H/O esophagogastroduodenoscopy H/O LEEP History of wisdom tooth extraction Status post colposcopy Social History Smoking Status: Never smoker alcohol intake: current alcohol intake frequency: a few times a month substance use type: does not use caffeine: Yes what type of physical activity do you participate in: aerobics frequency: 5-6 times per week seatbelt use: always do you feel safe at home: Yes additional social history: Boyfriend-Farzda ROS ROS ED Constitutional Constitutional ED: Denies chills, fever(s) or weight loss Eyes Eyes: Denies blurry vision, change in vision or diplopia ENT ENT ED: Denies ear pain, rhinorrhea or sore throat Cardiovascular Cardiovascular: Reports racing heartbeat; Denies chest pain, orthopnea, palpitations or paroxysmal nocturnal dyspnea Respiratory/Chest Respiratory/Chest: Reports cough, dyspnea and dyspnea on exertion; Denies orthopnea, paroxysmal nocturnal dyspnea or sputum Gastrointestinal Gastrointestinal: Denies abdominal pain, nausea or vomiting Genitourinary Genitourinary ED: Denies dysuria, hematuria or urinary frequency Musculoskeletal Musculoskeletal: Denies arthralgias or myalgias Integumentary Denies rash Neurologic Neurologic: Denies headache(s) EXAM Physical Exam Const Vital Signs: 05/14/24 12:20 05/14/24 12:25 Temperature 96.3 F L Temperature Source Temporal Pulse Rate 113 H Respiratory Rate 18 Respiratory Effort Short of Breath Respiratory Depth Normal Respiratory Pattern Normal Blood Pressure 128/98 H Blood Pressure Mean 108 Pulse Ox 99 Oxygen Delivery Method Room Air Room Air Positive well nourished and well developed General Appearance ED: well developed; Negative for pallor HEENT Reports moist mucous membranes atraumatic Eyes PERRL and EOMs intact bilaterally General Eye ED: Negative for pale conjunctiva or scleral icterus Neck no lymphadenopathy, supple, no meningeal signs and no JVD Neck Narrative: There is no dysphonia. Trachea is midline. Resp normal respiratory effort and clear to auscultation bilaterally Cardio regular rhythm, S1 normal heart sound, S2 normal heart sound and no murmurs Rate: tachycardic GI non-tender, non-distended and no masses Auscultation: normoactive bowel sounds Palpation: soft Extremity Extremity Narrative: There is no asymmetry, swelling, discoloration, leg vein distention, palpable cords or tenderness along the distribution of the deep venous system. Neuro oriented x3 and CN's II-XII intact bilaterally [place] Coma Scale: document GCS findings Spontaneous Oriented Sensorium / Orientation: alert Speech: speech normal Gait (Neuro): normal gait Psych Mood & Affect: anxious Skin no wounds and skin turgor normal General Skin Exam: Negative for jaundice or pallor Rashes: no rashes MDM MDM MDM Narrative Medical decision making narrative: Differential diagnosis is dyspnea due to COVID infection with rebound, pulmonary embolus, anxiety. Workup included EKG, chest x-ray appropriate labs. Since she has prior history of PE after COVID infection will obtain D-dimer. If D-dimer is elevated we will proceed to CTA unless chest x-ray reveals evidence of pneumonia. Lab Data Attestation: I reviewed the patient's lab results. Lab results narrative: CBC is normal. Labs: Laboratory Results - last 24 hr 05/14/24 12:51 WBC 7.0 RBC 5.03 Hgb 13.2 Hct 41.1 MCV 81.7 MCH 26.2 L MCHC 32.1 RDW Std Deviation 38.1 RDW Coeff of Elizabeth 12.9 Plt Count 378 MPV 9.3 Immature Gran % (Auto) 0.400 Neut % (Auto) 54.1 Lymph % (Auto) 35.3 [place] % (Auto) 6.6 Eos % (Auto) 2.7 Baso % (Auto) 0.9 Absolute Neuts (auto) 3.8 Absolute Lymphs (auto) 2.48 Nucleated RBC % 0 D-Dimer Quant (PE/DVT) 0.54 H* Sodium 138 Potassium 3.5 Chloride 107 Carbon Dioxide 25.0 Anion Gap 6 BUN 14 Creatinine 0.83 Estim Creat Clear Calc 99.42 Est GFR (MDRD) Af Amer 100 Est GFR (MDRD) Non-Af 82 BUN/Creatinine Ratio 16.8 Glucose 96 Calcium 9.8 Radiography Chest X-Ray - ED: 2 View, Read by ED Physician, Unchanged (Increased markings right side and unchanged from March 02, 2021. This independent reviewed interpreted by me at 09/05/2007.), Heart, Mediastinum, Bony Structures and No Acute Disease Diagnostic Testing: Clinical Impression(s) from Imaging Studies Chest X-Ray 05/14/24 12:55 IMPRESSION: Normal x-ray examination of the chest. Electronically Signed: Tung Zhao MD at 13:10 EDT , Chest CTA 05/14/24 13:26 IMPRESSION: No evidence of pulmonary emboli. The lungs are clear. Electronically Signed: Tung Zhao MD at 13:59 EDT , EKG Initial EKG: Attestation: I personally reviewed and interpreted this EKG as follows: Interpretation: Sinus Tachycardia (Sinus tachycardia rate of 107. The EKG is normal, otherwise. IL interval is 152 ms. Cures duration 76 ms. QT duration 342 ms. [place] is normal.) Treatment and Re-Evaluation :: Patient was informed the CTA of the chest was negative. Her dyspnea is due to her COVID infection. 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
[2024-05-14 12:42] VITALS: BMI 31.9
--- NOTE | 2024-05-14 12:55 | RAD_ITS ---
STUDY: X-RAY CHEST REASON FOR EXAM: Female, 33 years old. Dyspnea and chest pain TECHNIQUE: PA and lateral views of the chest. COMPARISON: None. FINDINGS: EKG electrodes are seen. The lungs are clear and expanded. There is no demonstrated pleural abnormality. Normal size heart. Normal mediastinum and nick. Normal visualized pulmonary arteries. Normal visualized aortic arch and descending thoracic aorta. Normal visualized thoracic spine. Normal visualized ribs, clavicles, and shoulders. There is no demonstrated abnormality of the visualized soft tissue structures of the upper abdomen. RAD/Chest PA and Lateral IMPRESSION: Normal x-ray examination of the chest. Electronically Signed: Tung Zhao MD at 13:10 EDT ,
[2024-05-14 13:00] LABS: Absolute Lymphocyte Count 2.48 X10^3/uL (0.83-4.51); Absolute Neutrophil Count 3.8 X10^3/uL (2.0-7.7); Basophil# 0.06 X10^3/uL; Basophil% 0.9 % (0-1); Eosinophil# 0.19 X10^3/uL; Eosinophils% 2.7 % (0-5); Hematocrit 41.1 % (37-47); Hemoglobin 13.2 g/dL (12.0-15.0); Lymphocyte # 2.48 X10^3/ul (0.83-4.51); Lymphocyte % 35.3 % (19-41); Mean Corp Hgb Conc 32.1 g/dL (32-36); Mean Corpuscular Hgb 26.2 pg (27.0-32.0); Mean Corpuscular Volume 81.7 fL (81-99); Mean Platelet Vol. 9.3 fl (6.2-12.0); Monocyte# 0.46 X10^3/uL; Monocyte% 6.6 % (0-10); NRBC Flagged by Analyzer 0 % (0-5); Neutrophil % 54.1 % (47-70); Platelet Count 378 K/mm3 (150-450); RBC Distribution Width CV 12.9 % (11.6-14.6); RBC Distribution Width SD 38.1 fl (35.1-43.9); Red Blood Count 5.03 M/mm3 (4.2-5.4)
[2024-05-14 13:18] LABS: D-Dimer Quantitative (DVT/PE) 0.54 FEU/ug/m (0.27-0.49)
[2024-05-14 13:24] LABS: Anion Gap 6 (5-15); BUN 14 mg/dL (7-18); BUN/Creat Ratio 16.8 RATIO (10-20); Calcium,Total 9.8 mg/dL (8.5-10.1); Chloride 107 mmol/L (98-107); Creatinine, Serum 0.83 mg/dL (0.55-1.02); EST Glomerular Filtration Rate 82 mL/min (>60); Est Glom Filt Rate - Afr Amer 100 mL/min (>60); Estimated Creatinine Clearance 99.42 ml/min; Glucose 96 mg/dL (74-106); Potassium 3.5 mmol/L (3.5-5.1); Sodium Level 138 mmol/L (136-145)
--- NOTE | 2024-05-14 13:26 | CT_ITS ---
STUDY: CTA CHEST REASON FOR EXAM: Female, 33 years old. Dyspnea, elevated D-dimer, prior PE RADIATION DOSAGE (If Supplied By Facility): CTDIvol = ( 11.19 ) mGy, DLP = ( 432.05 ) mGycm TECHNIQUE: The examination was performed with the intravenous administration of IV 100mL Isovue-370. Post-processing of the angiographic images was performed, with multiplanar reformation and 3D reconstruction. Individualized dose optimization techniques were used for this CT. COMPARISON: Comparison is made with prior chest radiograph done earlier today as well as prior CT of the chest dated December 16, 2021. FINDINGS: Normal enhancement of the main pulmonary artery and right and left pulmonary arteries. Normal enhancement of the bilateral peripheral pulmonary arteries. There is no demonstrated pulmonary embolism. Normal thoracic aorta and visualized great vessels. There is no demonstrated aortic dissection. Normal heart and pericardium. Calcified right hilar and subcarinal lymph nodes. Normal visualized trachea and bronchi. The lungs are well expanded. Normal pulmonary parenchyma. There is a 3.5 mm calcified granuloma in the peripheral aspect of the right lower lobe. Normal pleura. Normal chest wall structures. Normal osseous structures. Normal visualized upper abdomen. CT/CTA Chest W/WO Contrast IMPRESSION: No evidence of pulmonary emboli. The lungs are clear. Electronically Signed: Tung Zhao MD at 13:59 EDT ,
[2024-05-14 14:19] VITALS: BP 131/98; PULSE 79; RESP 18; O2SAT 98
[2024-05-14 14:20] VITALS: BP 131/98; PULSE 79; RESP 18; TEMP 36.6; O2SAT 98
== END 2024-05-14 14:21 | disposition home or self-care (01) ==
PROVIDERS: Emergency Provider Emergency Medicine; PCP Internal Medicine; Visit Provider Emergency Medicine
DX: U07.1 COVID-19 (principal); E04.2 Nontoxic multinodular goiter; E66.9 Obesity, unspecified; R00.0 Tachycardia, unspecified; R03.0 Elevated blood-pressure reading, without diagnosis of hypertension; K21.9 Gastro-esophageal reflux disease without esophagitis; Z68.31 Body mass index [BMI] 31.0-31.9, adult; Z88.2 Allergy status to sulfonamides; Z86.16 Personal history of COVID-19; Z87.09 Personal history of other diseases of the respiratory system; Z86.711 Personal history of pulmonary embolism
CPT/HCPCS: 71046; 71275; 80048; 85025; 85379; 93005; 99284; Q9967; A4216

== ENCOUNTER 2024-10-17 11:30 | Outpatient (RCR) | payer OTHER, SELFPAY ==
--- NOTE | 2024-09-18 18:41 | HP.PTEVAL_ITS ---
Patient's Visit Information Visit Information Visit Information: MARIA GUADALUPE ROSARIO is a 33 year old F referred to Physical Therapy by Dr. Amanda Oliveira MD with a diagnosis of CHRONIC LEFT SHOULDER PAIN. Date of Evaluation: 09/18/24 Physical Therapist: Dylan Irving PT, Cert MDT, OCS Visit Plan Frequency: 2x /Week Duration: 4 Weeks Plan: PT INTERVENTIONS RTC/SCAPULAR ,POSTURAL EX'S ,ACTIVITY MODIFICATION AND MODALITIES Subjective Subjective: This 33 y/o female presents to physical therapy with left shoulder pain. Patient has left shoulder pain 2020 insidious onset but 6 months worse then 1 week pain increased. Patient in past seen DR mera PT and recommended possible ortho consult . Patient pain has been working out but with pain with workouts have been worse. Pain located global shoulder and posterior. Patient describes has pain as sharp. Aggravating factors OH activity ,lifting ,lateral movement ,ADLS and housework tasks. Alleviating ice . Pain can affects sleeping. Denies paresthesia/tingling otherwise occasional in arm. Symptoms can be worse at computer when raising to side. No h/o trauma. Patient condition affects QOL and function . 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 Pain Left Shoulder: Pain Intensity (Out of 10): 8 Pain Intensity Range: 9 Comment: movement ,3/10 at rest Objective Objective: POSTURE: mild forward posture PALPATION: tender AC/RTC insertion NEURO: denies paresthesia/tingling AROM: shoulder flexion 160 degrees ,160 abduction 160 ,ER 90 ,IR T12 MMT: ( peak force) infraspinatus 15.9 ,subscapularis 21.1 ,deltoid 16.1,supraspinatus 16.6 CAPSULAR RESTRICTION: WFL Special Tests L Shoulder External Rotation Lag Test - RC Tear: Negative L Shoulder Supine Impingement Test - RC Tear: Negative L Shoulder Lift Off Test - Subscapular Tear: Negative L Shoulder Drop Sign - IS Test: Negative L Shoulder Empty Can - SS: Positive L Shoulder Belly Press - SupScap: Negative L Shoulder Neer - Impingement: Positive L Shoulder Guzmán Ramo - Impingement: Positive L Shoulder Biceps Load Test - Labrum: Negative L Shoulder [place]ri[place] - SLAP/A-C: Negative Balance/Special Test Scores Quick DASH Score: 29.5450 Goals Goal 1:: Patient to be I with HEP for shoulder Goal Time Frame: 4-6 Weeks Goal 2:: Patient to demonstrate 70% improvement with less pain and improved function Goal Time Frame: 4-6 Weeks Goal 3:: Patient to improve peak force with RTC and deltoid b y 5-10 # to improve OH activities Goal Time Frame: 4-6 Weeks Goal 4:: Patient to improve quick dash by 5 points to improve QOL and function Goal Time Frame: 4-6 Weeks Goal 5:: Patient be able to perform ADL ,housework and working out without symptoms 75% of the time Goal Time Frame: 4-6 Weeks Rehabilitation Potential Physical Therapy Diagnosis: This patient has possible left shoulder RTC tendinopathy with pain with MMT ,affects ADLS and OH activity and working out thus benefit from skilled PT Rehabilitation Potential: Good Anticipated Interventions Patient/Client Instruction: Educate patient on: Condition and Plan of Care For the Purpose of:: To decrease pain, To increase ROM, To improve muscle performance and motor function, To improve ability to perform ADL's, To increase tolerance to activity/condition/position, To improve ability of physical actions for home/community/work/leisure, To improve health of tissue, To decrease soft tissue restriction and To increase flexibility/ROM Therapeutic Exercise to Include: Strength training, Postural training, Flexibilty training and Active ROM Comment: RTC For the Purpose of:: To decrease pain, To increase ROM, To improve muscle performance and motor function, To improve ability to perform ADL's, To increase tolerance to activity/condition/position, To improve ability of physical actions for home/community/work/leisure, To improve health of tissue, To decrease soft tissue restriction, To increase flexibility/ROM, To improve endurance, To prevent re-injury and To improve tolerance to ADL's TENS: Yes IF ES: Yes Cryotherapy (ice pack, ice massage): Yes Thermo therapy (hot pack): Yes Ultrasound (thermal/non thermal): Yes For the Purpose of:: To decrease pain, To increase ROM, To improve nutrient delivery to tissue, To increase oxygenation perfusion, To improve health of tissue and To decrease soft tissue restriction Text: Thank you for the opportunity to evaluate your patient. For Medicare and Medicare HMO plans, please review the plan of care and approve it. It will need to be FAXED BACK to us at [phone] for Medicare purposes. For Medicare only, by signing this I certify the plan of care. Please let me know if there are questions or concerns regarding this plan of care. Physician Signature: Date:
--- NOTE | 2025-01-08 12:03 | HP.PT.NRP ---
Patient Information Patient Information: MARIA GUADALUPE ROSARIO was seen in my office for initial evaluation on 09/18/24. The following Plan of Care was established for this patient: POC Established Initial Frequency: 2x /Week Initial Duration: 4 Weeks Anticipated Interventions Patient/Client Instruction: Educate patient on: Condition and Plan of Care For the Purpose of:: To decrease pain, To increase ROM, To improve muscle performance and motor function, To improve ability to perform ADL's, To increase tolerance to activity/condition/position, To improve ability of physical actions for home/community/work/leisure, To improve health of tissue, To decrease soft tissue restriction and To increase flexibility/ROM Therapeutic Exercise to Include: Strength training, Postural training, Flexibilty training and Active ROM For the Purpose of:: To decrease pain, To increase ROM, To improve muscle performance and motor function, To improve ability to perform ADL's, To increase tolerance to activity/condition/position, To improve ability of physical actions for home/community/work/leisure, To improve health of tissue, To decrease soft tissue restriction, To increase flexibility/ROM, To improve endurance, To prevent re-injury and To improve tolerance to ADL's TENS: Yes IF ES: Yes Cryotherapy (ice pack, ice massage): Yes Thermo therapy (hot pack): Yes Ultrasound (thermal/non thermal): Yes For the Purpose of:: To decrease pain, To increase ROM, To improve nutrient delivery to tissue, To increase oxygenation perfusion, To improve health of tissue and To decrease soft tissue restriction Last Seen Last Seen: This patient was last seen in our office . Pertinent comments regarding their Physical therapy will appear below: Patient seen for PT for chronic shoulder pain for HEP thusn d/c At this point I will be discontinuing this patient from physical therapy. I would be happy to see this patient again in the future if found appropriate by the physician. Thank you! Dylan Irving, PT, Cert MDT, OCS Balance/Gait/Functional tests Balance/Special Test Scores Quick DASH Score: 29.5450
== END 2024-10-17 19:00 | disposition home or self-care (01) ==
LOC: PT 11:30
PROVIDERS: PCP Internal Medicine; Referring Provider Internal Medicine; Visit Provider Internal Medicine
DX: M25.512 Pain in left shoulder (principal); G89.29 Other chronic pain
CPT/HCPCS: 97035; 97110; 97161